=== PATIENT | male | born 1990 | race Caucasian/White ===

== ENCOUNTER → 2016-08-22 | Outpatient (CLI) | payer OTHER ==
[2016-08-22 09:22] VITALS: BMI 47.6
== END | disposition home or self-care (01) ==
LOC: MNTWWP 09:00
PROVIDERS: ATTEND Family Medicine
DX: E66.01 Morbid (severe) obesity due to excess calories (principal); Z68.43 Body mass index [BMI] 50.0-59.9, adult
CPT/HCPCS: 97802

== ENCOUNTER → 2016-10-09 | Outpatient (CLI) | payer OTHER ==
--- NOTE | 2016-10-09 16:55 | CONS ---
DATE OF CONSULTATION: 10/09/2016 This patient is a 26-year-old gentleman who has been evaluated in the sleep center for possible obstructive sleep apnea-hypopnea syndrome. HISTORY OF PRESENT ILLNES/SLEEP-WAKE EVALUATION: Patient's usual sleep schedule is from 10 p.m. to 9 a.m. Sometimes he has problems falling asleep. No TV in bedroom. He prefers to sleep on the back position. He has snoring, witnessed episodes of stopped breathing during sleep. He wakes up from sleep up to 5 times, with up to 3 episodes of nocturia. During the day he feel sleepiness. [place] Sleepiness Scale increased to 10. Past medical history is positive for: 1. Diabetes mellitus. 2. Acid reflux. 3. Seasonal allergies. PAST SURGICAL HISTORY: None. MEDICATIONS: 1. Metformin. 2. Omeprazole. 3. ( ) 4. Vitamin D3. 5. Vitamin E. SOCIAL HISTORY: Negative for smoking or using alcohol. REVIEW OF SYSTEMS: Excessive daytime sleepiness, multiple awakenings from sleep, sometimes swelling of the legs. No fevers. No double vision. No recent chest pain. No shortness of breath. No abdominal pain. No bleeding episodes. No blood in urine. No seizure episodes. FAMILY HISTORY: No specific family history. PHYSICAL EXAMINATION: GENERAL: This is a pleasant 26-year-old gentleman without distress. VITAL SIGNS: BP 134/99, HR 104, RR 20. Height 5 feet 7 inches. Weight 352. BMI 55.1. Neck 20-1/2 inches in circumference. Temperature 98.1. Oxygen saturation at room air 92%. HEENT: PERRLA, EOMI. Evaluation of oropharynx showed tongue protrudes midline; extremely low position of soft palate. Slight restriction of nasal breathing. NECK: Supple. No JVD. Thyroid is not palpable. LUNGS: Clear to percussion and to auscultation. Good air exchange. No wheezing or rhonchi. HEART: S1, S2 regular. No murmurs, gallops or rubs. ABDOMEN: Obese. EXTREMITIES: One plus bilateral ankle edema. CATALYST OPERATOR: Awake, alert, and oriented x3. Cranial nerves 2 to 7 intact. There is no fasciculation or atrophy noted. No focal deficits observed. IMPRESSION: 1. Snoring, witnessed episodes of stopped breathing during sleep, low position of soft palate, sleepiness, big neck; obstructive sleep apnea-hypopnea syndrome. 2. Obesity; body mass index of 55.1. 3. Diabetes mellitus. 4. Acid reflux. 5. Seasonal allergies. 6. Swelling of the legs. PLAN: 1. Polysomnography for evaluation of patient's breathing during sleep. 2. CPAP/BiPAP titration if sleep study confirms obstructive sleep apnea-hypopnea syndrome. 3. Preferable position during sleep on the side. 4. No driving if patient feels any sleepiness. Patient is aware of civil and criminal liability for unsafe driving. 5. I will see patient for follow-up visit to explain results of the testing and following plan. Thank you very much for referring this patient for consultation. Sincerely, Collin Gamino MD, PhD, FAASM. Diplomat of [place] [employer], Sleep Medicine Board by [place] [employer], [place] [employer]
== END ==
LOC: SLEEP 13:08
PROVIDERS: ATTEND Internal Medicine
DX: G47.33 Obstructive sleep apnea (adult) (pediatric) (principal); E66.9 Obesity, unspecified; E11.9 Type 2 diabetes mellitus without complications; K21.9 Gastro-esophageal reflux disease without esophagitis; M79.89 Other specified soft tissue disorders; J30.2 Other seasonal allergic rhinitis; Z68.43 Body mass index [BMI] 50.0-59.9, adult; Z79.899 Other long term (current) drug therapy
CPT/HCPCS: 99211

== ENCOUNTER 2017-01-19 20:53 | Emergency (ER) | payer OTHER ==
[2017-01-19 20:59] VITALS: PULSE 107
[2017-01-19] MEDS ORDERED: IBUPROFEN 600 MG STARTER PACK 4 TAB BTL PO STA (21:26)
[2017-01-19] MEDS ORDERED: PENICILLIN VK 500MG STARTER 4 TAB BTL PO STA (21:26)
--- NOTE | 2017-01-19 21:26 | ED ---
General Adult HPI - General Chief complaint: ENT Stated complaint: Jaw/Ear Pain Time Seen by Provider: 01/19/17 21:09 Source: patient, RN notes reviewed Mode of arrival: ambulatory Limitations: no limitations - History of Present Illness Initial comments: 26-year-old male presents emergency department with a chief complaint of right- sided dental pain. He states she's had it for the past week or so pronounced radiating to the year. Patient denies any radiation the jaw. Patient denies any cough cold with this. Patient denies any nausea vomiting. Patient states she was concerned due to the continued periods without that he should be evaluated. Patient states he does not have a dentist.Patient denies any recent fever, chills, shortness of breath, chest pain, back pain, abdominal pain, nausea vomiting, numbness or tingling, dysuria or hematuria, constipation or diarrhea, headaches or visual changes, or any other current symptoms. - Related Data Home Medications Medication Instructions Recorded Confirmed Cetirizine HCl 10 mg PO DAILY 01/19/17 01/19/17 Omeprazole [PriLOSEC] 20 mg PO AC-BRKFST 01/19/17 01/19/17 Previous Rx's Medication Instructions Recorded Ibuprofen [Motrin] 600 mg PO Q6HR PRN #20 tab 01/19/17 Penicillin V Potassium [Pen Vee K] 500 mg PO TID #40 tab 01/19/17 Allergies Allergy/AdvReac Type Severity Reaction Status Date / Time No Known Allergies Allergy Verified 01/19/17 20:59 Review of Systems ROS Statement: Those systems with pertinent positive or pertinent negative responses have been documented in the HPI. ROS Other: All systems not noted in ROS Statement are negative. Past Medical History Past Medical History: No Reported History History of Any Multi-Drug Resistant Organisms: None Reported Past Surgical History: Adenoidectomy, Tonsillectomy Past Psychological History: No Psychological Hx Reported Smoking Status: Never smoker Past Alcohol Use History: None Reported Past Drug Use History: None Reported General Exam Limitations: no limitations General appearance: alert, in no apparent distress Head exam: Present: atraumatic, normocephalic, normal inspection Eye exam: Present: normal appearance, PERRL, EOMI. Absent: scleral icterus, conjunctival injection, periorbital swelling ENT exam: Present: normal exam, mucous membranes moist, TM's normal bilaterally , other (Patient does appear to have a Winsett tooth coming in that is tender to touch) Neck exam: Present: normal inspection. Absent: tenderness, meningismus, lymphadenopathy Respiratory exam: Present: normal lung sounds bilaterally. Absent: respiratory distress, wheezes, rales, rhonchi, stridor Cardiovascular Exam: Present: regular rate, normal rhythm, normal heart sounds. Absent: systolic murmur, diastolic murmur, rubs, gallop, clicks Neurological exam: Present: alert, oriented X3 Psychiatric exam: Present: normal affect, normal mood Skin exam: Present: warm, dry, intact, normal color. Absent: rash Course Vital Signs 01/19/17 01/19/17 20:55 21:36 Temperature 99.5 F 99.3 F Pulse Rate 107 H 107 H Respiratory 20 18 Rate Blood Pressure 183/98 151/90 O2 Sat by Pulse 93 L 95 Oximetry Medical Decision Making - Medical Decision Making 26 yo female presents for dental pain. At this time we discussed we'll start him on antibiotics as well as Motrin 600. We did discuss return parameters and follow-up and all questions the patient. He stated that he understood and is in agreement the plan. This time patient will be discharged home. Disposition Clinical Impression: Pain, dental Disposition: HOME SELF-CARE Condition: Stable Instructions: Toothache (ED) Additional Instructions: Please use medication as discussed. Please follow up with family doctor if symptoms have not improved over the next two days. Please return to the emergency room if your symptoms increase or worsen or for any other concerns. Prescriptions: Ibuprofen [Motrin] 600 mg PO Q6HR PRN #20 tab PRN Reason: Pain Penicillin V Potassium [Pen Vee K] 500 mg PO TID #40 tab Referrals: Jairon Dominguez MD [Primary Care Provider] - 1-2 days Time of Disposition: 21:39
[2017-01-19 21:37] VITALS: BP 151/90; RESP 18; TEMP 99.3
== END 2017-01-19 21:51 | disposition home or self-care (01) ==
LOC: EC 20:53
DX: K08.89 Other specified disorders of teeth and supporting structures (principal); Z79.899 Other long term (current) drug therapy
CPT/HCPCS: 99282

== ENCOUNTER 2017-01-28 19:05 | Emergency (ER) | payer OTHER ==
[2017-01-28 19:15] VITALS: BP 161/100; PULSE 95; RESP 18; TEMP 97.1
--- NOTE | 2017-01-28 19:28 | ED ---
General Adult HPI - General Chief complaint: Dental/Oral Stated complaint: Dental Pain Time Seen by Provider: 01/28/17 19:15 Source: patient, RN notes reviewed Mode of arrival: ambulatory Limitations: no limitations - History of Present Illness Initial comments: Patient for 26-year-old male with significant past medical history for dental pain, presenting with increased dental pain over the last day. He does admit that he seen dentist and was also seen here in the emergency room approximately an days ago. Patient states that he was placed on amoxicillin. He states the dentist and placed him on azithromycin. States he finished the azithromycin yesterday. States he still expresses some pain to the right side of his upper and lower jaw. He states dentist advised him that there are 2 teeth that need to be pulled. Patient denies any drainage, discharge, or foul taste. Patient states that he's been using ibuprofen for pain with little relief of the symptoms. Patient denies any other complaints associated symptoms. Patient denies any recent fever, chills, shortness of breath, chest pain, back pain, abdominal pain, nausea or vomiting, numbness or tingling, dysuria or hematuria, constipation or diarrhea, headaches or visual changes, or any other complaints. - Related Data Home Medications Medication Instructions Recorded Confirmed Cetirizine HCl 10 mg PO DAILY 01/19/17 01/19/17 Omeprazole [PriLOSEC] 20 mg PO AC-BRKFST 01/19/17 01/19/17 Previous Rx's Medication Instructions Recorded Ibuprofen [Motrin] 600 mg PO Q6HR PRN #20 tab 01/19/17 Penicillin V Potassium [Pen Vee K] 500 mg PO TID #40 tab 01/19/17 Clindamycin HCl [Cleocin] 300 mg PO Q6HR 10 Days 01/28/17 Ibuprofen [Motrin] 800 mg PO Q6HR #30 tab 01/28/17 Allergies Allergy/AdvReac Type Severity Reaction Status Date / Time No Known Allergies Allergy Verified 01/28/17 19:14 Review of Systems ROS Statement: Those systems with pertinent positive or pertinent negative responses have been documented in the HPI. ROS Other: All systems not noted in ROS Statement are negative. Past Medical History Past Medical History: No Reported History History of Any Multi-Drug Resistant Organisms: None Reported Past Surgical History: Adenoidectomy, Tonsillectomy Past Psychological History: No Psychological Hx Reported Smoking Status: Never smoker Past Alcohol Use History: None Reported Past Drug Use History: None Reported General Exam - General Exam Comments Initial Comments: General: The patient is awake and alert, in no distress, and does not appear acutely ill. Eye: Pupils are equal, round and reactive to light, extra-ocular movements are intact. No nystagmus. There is normal conjunctiva bilaterally. No signs of icterus. Ears, nose, mouth and throat: There are moist mucous membranes and no oral lesions. Patient does have tenderness in the gum line of teeth #31. Also mild tenderness in gumline of tooth #2. There is no evidence for dental abscess. Uvula midline. Patient swallows without any difficulty. Neck: The neck is supple, there is no tenderness or JVD. Cardiovascular: There is a regular rate and rhythm. No murmur, rub or gallop is appreciated. Respiratory: Lungs are clear to auscultation, respirations are non-labored, breath sounds are equal. No wheezes, stridor, rales, or rhonchi. Musculoskeletal: Normal ROM, no tenderness. Strength 5/5. Sensation intact. Pulses equal bilaterally 2+. Neurological: A&O x 3. CN II-XII intact, There are no obvious motor or sensory deficits. Coordination appears grossly intact. Speech is normal. Skin: Skin is warm and dry and no rashes or lesions are noted. Psychiatric: Cooperative, appropriate mood & affect, normal judgment. Limitations: no limitations Course Vital Signs 01/28/17 19:12 Temperature 97.1 F L Pulse Rate 95 Respiratory 18 Rate Blood Pressure 161/100 O2 Sat by Pulse 97 Oximetry Medical Decision Making - Medical Decision Making Patient will be provided a prescription for an antibiotic but at this time he is been advised to hold this antibiotic as his Garcia 2 rounds there is no evidence for any infection but is advised that if there is any foul taste or increased pain that he should begin antibiotic once again. Patient will be given clindamycin has been on amoxicillin and azithromycin at this point. Patient will be given a prescription for ibuprofen 800 mg for his pain. He is also advised used Tylenol extra strength 2 tabs every 6 hours. Patient given a short prescription of steroids to help with inflammation. Patient is advised follow-up with his dentist over the next 2 days. Advised return here to the emergency room for any other concerns. Disposition Clinical Impression: Pain, dental Disposition: HOME SELF-CARE Condition: Good Instructions: Toothache (ED) Additional Instructions: Please use ibuprofen as prescribed along with Tylenol Extra Strength 500 mg 2 tabs every 6 hours as discussed. Please use steroid as prescribed. Please hold antibiotic and begin if there is any sign of infection. Please follow-up the dentist over the next 2 days. Please return to emergency room for any other concerns. Prescriptions: Clindamycin HCl [Cleocin] 300 mg PO Q6HR 10 Days Ibuprofen [Motrin] 800 mg PO Q6HR #30 tab Referrals: Jairon Dominguez MD [Primary Care Provider] - 1-2 days Time of Disposition: 19:27
== END 2017-01-28 19:34 | disposition home or self-care (01) ==
LOC: EC 19:05
DX: K08.89 Other specified disorders of teeth and supporting structures (principal); Z79.899 Other long term (current) drug therapy
CPT/HCPCS: 99282

== ENCOUNTER → 2017-01-29 | Outpatient (CLI) | payer OTHER ==
--- NOTE | 2017-01-29 15:14 | PN ---
DATE OF SERVICE: 01/29/17 26 year old gentleman has been followed in the sleep center to discuss results of the sleep studies, plan of the treatment and check the patient treatment for obstructive sleep apnea/hypopnea syndrome. Recently the patient has been diagnosed with extremely severe obstructive sleep apnea/hypopnea syndrome and I discussed results of diagnostic sleep study and CPAP titration with the patient in details. Presently, he was started on treatment with CPAP and ( ) for about 1 and one half months. He used it very well in the beginning but then for the last several weeks, he developed pain in his teeth and that does not let him to use equipment for the whole night. The patient still significantly better with CPAP, sleeps better. Feels better during the day. [place] sleep scale is only 2. I checked the patient's CPAP unit. The patient uses it for 32 nights and 29 nights for more than 4 hours. This is for a total period of having machine for about 1 1/2 months. Average usage 5.7 hours per night. Leak is significant up to 70 L per minute. Apnea/hypopnea index reading is only 2.8 which is a normal range. The patient using Jaqueline View full face mask and I believe sometimes opens his mouth and mask also moves a little bit during sleep. Medications: 1. Metformin. 2. Omeprazole. 3. Certrazine . 4. Vitamin D. 5. Vitamin E. During physical exam, the patient in no distress. Blood pressure 176/80. HR 96. RR 20. Weight 372. Temperature 98.0. Oxygen saturation on room air 92%. Oropharynx extremely low soft palate. Abdomen is obese. Extremities 1 to 2+ bilateral ankle edema. IMPRESSION: 1. Extremely severe obstructive sleep apnea/hypopnea syndrome benefitting from treatment. Apnea/hypopnea index 100.8 with oxygen desaturation to severely low 49.2%. On control with CPAP at 20 cm of water. 2. No significant periodic limb movements during the sleep study. 3. Obesity. 4. Diabetes mellitus. 5. Acid reflux. 6. Seasonal allergies. 7. Swelling of the legs. PLAN: 1. Continue treatment with CPAP every night for the whole night. 2. Losing weight. 3. Sleep hygiene with regular time in bed for at least eight hours. 4. No driving if feels any sleepiness. 5. Prescription for chin strap to prevent significant opening of mouth during sleep and subsequent leak. MTDD
== END | disposition home or self-care (01) ==
LOC: SLEEP 13:34
PROVIDERS: ATTEND Internal Medicine
DX: G47.33 Obstructive sleep apnea (adult) (pediatric) (principal); E66.9 Obesity, unspecified; E11.9 Type 2 diabetes mellitus without complications; K21.9 Gastro-esophageal reflux disease without esophagitis; J30.2 Other seasonal allergic rhinitis; M79.89 Other specified soft tissue disorders

== ENCOUNTER → 2017-04-20 | Outpatient (CLI) | payer OTHER ==
[2017-04-20 08:41] VITALS: BP 143/92; PULSE 93; RESP 16; TEMP 97.8; BMI 55.3
--- NOTE | 2017-04-20 11:07 | P.GSHP ---
History of Present Illness H&P Date: 04/20/17 Chief Complaint: Morbid Obesity BMI 55.4 26years old male with morbid obesity BMI 55.4, height 5 feet 7.5 inches, weight 162.74 kg presents for bariatric surgery consultation. Patient has elected to undergo laparoscopic RYGB vs sleeve. He has attended weight loss seminar. He has attempted nonsurgical weight loss with special diet. He has lost some weight but is unable to maintain sustained results. His comorbid conditions chronic venous stasis in bilateral lower extremities and obstructive sleep apnea on CPAP - Review of Systems Comment: Constitutional: Denies fever, weight loss or loss of appetite HEENT: No difficulty in vision or hearing. Denies dysphagia. Cardiovascular: Denies chest pain, palpitations, dizziness, shortness of breath. Respiratory: Recent upper respiratory tract infection with dry cough. Gastrointestinal: No recent change in bowel habits, no abdominal pain, no nausea or vomiting. Denies reflux symptoms and no postprandial right upper quadrant pain. Integumentary: Long-standing skin changes with intermittent skin breakdown in bilateral lower extremities. He currently has a LLE wrap Genitourinary: No urinary incontinence, hematuria or dysuria Neurologic: No seizures, denies weakness in upper or lower extremities Musculoskeletal: Occasional left knee pain. Psychiatry: No history of depression, no suicidal ideation, no anxiety or psychosis Social history: Umemployed. He lives with his mother Past Medical History Past Medical History: No Reported History, Asthma, Sleep Apnea/CPAP/BIPAP Additional Past Medical History / Comment(s): bilateral leg ulcers increase with activity. sleep apnea (uses c-pap machine) History of Any Multi-Drug Resistant Organisms: None Reported Past Surgical History: Adenoidectomy, Tonsillectomy Past Anesthesia/Blood Transfusion Reactions: No Reported Reaction Past Psychological History: No Psychological Hx Reported Smoking Status: Never smoker Past Alcohol Use History: Rare Past Drug Use History: None Reported - Past Family History Father Family Medical History: Myocardial Infarction ([place]) Additional Family Medical History / Comment(s): patient states his paternal grandfather also has suffered from one [place]. Mother Family Medical History: Hypertension Medications and Allergies Home Medications Medication Instructions Recorded Confirmed Type Ibuprofen [Motrin] 800 mg PO Q6HR #30 tab 01/28/17 04/20/17 Rx Allergies Allergy/AdvReac Type Severity Reaction Status Date / Time No Known Allergies Allergy Verified 04/20/17 08:29 Surgical - Exam Vital Signs Temp Pulse Resp BP 97.8 F 93 16 143/92 04/20/17 08:28 04/20/17 08:28 04/20/17 08:28 04/20/17 08:28 General: Patient is alert and oriented to time, place and person and cooperative with exam. He is not in acute distress. HEENT: No pallor, no icterus, no thyroid enlargement, no cervical lymphadenopathy. Chest: Bilateral equal breath sounds present. No wheezes, no crackles. Cardiovascular: Regular rate and rhythm. Abdomen: Soft, nontender, nondistended. No right upper quadrant tenderness. Integumentary: Bilateral lower extremity chronic venous dermatitis.Left lower extremity has a wrap Neurologic: Cranial nerves II-XII intact. Strength upper and lower extremities 5/5. No focal neurologic deficits. Gait is normal. Psychiatric: No anxiety or psychosis. No suicidal thoughts. Assessment and Plan (1) Morbid obesity due to excess calories Status: Acute (2) Morbid obesity with BMI of 50.0-59.9, adult Status: Acute (3) Obstructive sleep apnea on CPAP Status: Acute (4) Chronic cutaneous venous stasis ulcer Status: Acute Plan: 1. A detailed discussion was held about the risks, benefits and potential complications of laparoscopic sleeve gastrectomy and RYGB including bleeding, infection, anastomosis leak, stenosis, DVT and PE. Patient demonstrated understanding and willing to undergo the procedure. Patient was explained about high-protein liquid diet 2 weeks prior to surgery 2. Formal Dietitian consult pending. He was recommended to drink protein shakes for snacks. I discussed about reducing the portion size, limiting refined carbohydrates and sugar and increase protein intake 3. Patient scheduled for esophagogastroduodenoscopy with antral biopsy 4. Baseline lab work ordered. 12-lead EKG ordered 5. Recheck BP 6. Psychiatrist/ psychologist's recommendations pending 7. Review venous duplex studies
== END ==
LOC: BARWHC3 07:35
PROVIDERS: ATTEND Surgery
DX: E66.01 Morbid (severe) obesity due to excess calories (principal); G47.33 Obstructive sleep apnea (adult) (pediatric); I83.009 Varicose veins of unspecified lower extremity with ulcer of unspecified site; E88.81 Metabolic syndrome and other insulin resistance; D50.8 Other iron deficiency anemias; E44.1 Mild protein-calorie malnutrition; L97.909 Non-pressure chronic ulcer of unspecified part of unspecified lower leg with unspecified severity; Z68.43 Body mass index [BMI] 50.0-59.9, adult; Z79.899 Other long term (current) drug therapy
CPT/HCPCS: 99211

== ENCOUNTER 2017-05-06 07:52 | Day surgery (SDC) | payer OTHER ==
[2017-05-04 10:18] VITALS: BMI 56.0
[~2017-05-06 07:52] MED LIST: LACTATED RINGERS 1,000 ML IV SCH; LIDOCAINE 1% 20 ML VIAL (10MG/ML) FOR IV START INTRADERMA PRN
[2017-05-06 08:19] VITALS: TEMP 97.4
[2017-05-06] MEDS ORDERED: LACTATED RINGERS 1,000 ML IV ONE (08:20)
[2017-05-06] MEDS ORDERED: LIDOCAINE 1% INJ 10MG/ML (20 ML MDV) ONE (08:28)
[2017-05-06] MEDS ORDERED: PROPOFOL 10 MG/ML 20 ML VIAL IV ONE (08:28)
[2017-05-06] MEDS ORDERED: fentaNYL (PF) 50 MCG/ML 2 ML AMP ONE (08:28)
--- NOTE | 2017-05-06 08:49 | P.OP ---
Date of Procedure: 05/06/17 Preoperative Diagnosis: Morbid Obesity BMI 56.1 Obstructive sleep apnea Postoperative Diagnosis: Same Procedure(s) Performed: EGD with biopsy Anesthesia: ESTEFANÍA local Surgeon: Daphne Benavides Pathology: none sent Condition: stable Disposition: PACU Indications for Procedure: 26 years old male with obstructive sleep apnea and morbid obesity BMI of 56.1 presents for EGD Operative Findings: 1. Diffuse gastritis 2. LA grade 1 reflux esophagitis Description of Procedure: A timeout was performed to verify the correct patient and correct procedure. Patient was on continuous vitals and pulse ox monitoring throughout the procedure. She was placed in lateral decubitus position and an oral bite block was inserted. A well-lubricated Olympus upper endoscope was passed orally. The esophagus was intubated without difficulty. The vocal cords were visualised and protected at all times. The endoscope was passed beyond the pylorus into the first and second portion of the duodenum. No abnormality was noted in the duodenum mucosa. Two random biopsies were taken from the gastric antrum using cold biopsy forceps. The scope was then retroflexed. No hiatal hernia .No mass, active ulcer or bleeding stigmata noted within the gastric lumen. Mild diffuse gastritis The GE junction is measured at 36 cm from the incisors . LA grade 1 reflux esophagitis. Multiple random biopsy taken from distal esophagus. The endoscope was gradually withdrawn. No abnormality identified in the esophagus. Patient tolerated the procedure well and was taken to post anesthesia care unit in stable condition. FINAL DIAGNOSIS: 1. Diffuse gastritis 2. LA GRade 1 reflux esophagitis SPECIMEN: Antral biopsy GE junction biopsy
[2017-05-06] MEDS ORDERED: hydrALAZINE HCL 20 MG/ML 1 ML VIAL IVP ONE (08:58)
[2017-05-06 09:09] VITALS: RESP 18
[2017-05-06 09:39] VITALS: BP 160/80; PULSE 90
== END 2017-05-06 10:13 | disposition home or self-care (01) ==
LOC: ORWHC2ENDO 07:52
PROVIDERS: ATTEND Surgery
DX: K29.50 Unspecified chronic gastritis without bleeding (principal); K21.0 Gastro-esophageal reflux disease with esophagitis; E66.01 Morbid (severe) obesity due to excess calories; Z68.43 Body mass index [BMI] 50.0-59.9, adult; G47.33 Obstructive sleep apnea (adult) (pediatric); Z99.89 Dependence on other enabling machines and devices; J45.909 Unspecified asthma, uncomplicated; I83.009 Varicose veins of unspecified lower extremity with ulcer of unspecified site; L97.919 Non-pressure chronic ulcer of unspecified part of right lower leg with unspecified severity; L97.929 Non-pressure chronic ulcer of unspecified part of left lower leg with unspecified severity; I10 Essential (primary) hypertension; Z79.1 Long term (current) use of non-steroidal anti-inflammatories (NSAID)
CPT/HCPCS: 88305; 88312; 88342; 43239; J0360; J2001; J3010; J2704

== ENCOUNTER → 2017-07-29 | Outpatient (CLI) | payer OTHER ==
[2017-07-29 13:31] VITALS: BP 157/90; PULSE 109; RESP 16; TEMP 98.7; BMI 55.5
[2017-07-29 14:38] LABS: HCT 47.3 % (39.0-53.0); HGB 15.5 gm/dL (13.0-17.5); MCH 28.5 pg (25.0-35.0); MCHC 32.9 g/dL (31.0-37.0); MCV 86.6 fL (80.0-100.0); Mean Platelet Volume 6.4; Platelet Count 283 k/uL (150-450); RBC 5.46 m/uL (4.30-5.90); RDW 13.5 % (11.5-15.5); WBC 8.5 k/uL (3.8-10.6)
[2017-07-29 14:52] LABS: ALT 98 U/L (21-72); AST 60 U/L (17-59); Albumin 4.3 g/dL (3.5-5.0); Alkaline Phosphatase 56 U/L (38-126); Anion Gap 10 mmol/L; Blood Urea Nitrogen 12 mg/dL (9-20); Calcium 10.2 mg/dL (8.4-10.2); Carbon Dioxide 30 mmol/L (22-30); Chloride 102 mmol/L (98-107); Cholesterol 211 mg/dL (<200); Glucose 104 mg/dL (74-99); HDL Cholesterol 38 mg/dL (40-60); LDL Cholesterol,Calculated 124 mg/dL (0-99); Potassium 4.3 mmol/L (3.5-5.1); Sodium 142 mmol/L (137-145); Total Bilirubin 0.6 mg/dL (0.2-1.3); Total Protein 7.2 g/dL (6.3-8.2); Triglycerides 245 mg/dL (<150)
[2017-07-29 15:32] LABS: Appearance,Urine Clear (Clear); Bilirubin,Urine Negative (Negative); Blood,Urine Negative (Negative); Color,Urine Yellow; Glucose,Urine (UA) Negative (Negative); Ketones,Urine Negative (Negative); Leukocyte Esterase,Urine Negative (Negative); PH, Urine 8.5 (5.0-8.0); Protein,Urine Trace (Negative); Specific Gravity,Urine 1.018 (1.001-1.035); Urobilinogen,Urine <2.0 mg/dL (<2.0)
[2017-07-29 19:22] LABS: Iron Saturation 21.95 (15.00-50.00)
[2017-07-29 19:35] LABS: Folate, Serum 13.6 ng/mL
[2017-07-30 00:06] LABS: Hemoglobin A1C 5.2 % (4.0-6.0)
[2017-08-03 17:37] LABS: Anabasine Urine <2.0 ng/mL (<2.0)
--- NOTE | 2017-09-19 11:19 | P.HPBAR ---
Bariatric H&P - History & Physicial H&P Date: 07/29/17 History & Physicial: Visit/CC: Patient initial contact: Initial weight: 166.922 kg Initial weight in pounds: Height: Initial BMI: Last weight: Current weight: Current weight in pounds: Current BMI: [place] body weight (based on NIH guidelines): Excess body weight loss: The patient is a 26 year-old M who presents for Bariatric Assessment. DATE OF SERVICE: 07/29/2017 REASON FOR CONSULTATION: Initial bariatric evaluation. HISTORY OF PRESENT ILLNESS: Eric Lay is a 27-year-old male who comes in with long-standing morbid obesity. At height of 5 feet 7.25 inches, his ideal body weight is 158 pounds. His highest weight was 381 pounds. Today he comes in weighing 359 pounds. His body mass index is reduced from 58.9 to 55.6. He has lost 22 pounds otherwise 10% of his excess body weight loss. He is 201 pounds overweight. He comes in with severe gastroesophageal reflux disease and is looking to the gastric bypass. He reports a supportive family and friend at work including his aunt. He is currently in a support group on face [employer]. For diets, he has tried low-carb rehydrate diets including calorie counting. He has not tried prescription medications. The most weight lost he has experienced is anywhere between 20-30 pounds. He reports family stressors which was brought on his weight gain and he reports lifelong troubles with his weight since the age of [age] years old. He reports family members are mostly overweight. He denies any gallbladder disease in himself or his family. He denies any inflammatory bowel disease. No reports of colon or gastric or esophageal cancers. No report of deep venous thrombosis in himself or family. As a result of his obesity, he has developed obstructive sleep apnea as well as hypertension. His primary care provider is Dr. Dominguez. He denies any previous cardiac evaluation. He currently has a FIT BIT to help keep track of his diet and exercise. PAST MEDICAL HISTORY: 1. Morbid obesity. 2. Body mass index of 58.9 3. Osteoarthritis of the knees. 4. Osteoarthritis of the hips. 5. Osteoarthritis of the lower back. 6. Obstructive sleep apnea. 7. Hypertensive heart disease. 8. Gastroesophageal reflux disease 9. Asthma. 10. Bilateral leg ulcers. 11. Venous stasis disease of the lower extremities. PAST SURGICAL HISTORY: 1. Tonsillectomy. 2. Adenoidectomy 3. EGD HOME MEDICATIONS: 1. Motrin 2. Protonix ALLERGIES: Denies. SOCIAL HISTORY: No active tobacco use. FAMILY HISTORY: No family history of ulcerative colitis disease or Crohn's disease. Family history of morbid obesity. No lupus in the family. No reports of stomach or esophageal cancer. Family history of heart disease including myocardial infarction. REVIEW OF ORGAN SYSTEMS: CONSTITUTIONAL: At height of 5 feet 7.25 inches, his ideal body weight is 158 pounds. He comes in with 381 pounds. His body mass index was 58.9. He is currently 201 pounds overweight. HEENT: Denies any active troubles with vision or hearing. No troubles with swallowing. ENDOCRINE: No diabetes. No hypothyroidism. CARDIOVASCULAR: No reports of palpitations or heart attacks or chest pain. RESPIRATORY: Has daytime somnolence. Has asthma. GI: Denies any bright red blood per rectum. No diarrhea or constipation. Has severe gastroesophageal reflux disease. MUSCULOSKELETAL: Has lower back pain and joint pain. Has osteoarthritis of the knees. History of bilateral lower extremity edema. NEURO: No headaches. No seizure disorders. PSYCH: No depression or suicidal ideation. RHEUMATOLOGIC: No lupus. No rheumatoid arthritis. HEMATOLOGIC: Denies any abnormal bleeding or bruising. No personal history of DVTs. SKIN: No rash. No skin cancer. PHYSICAL EXAM: VITAL SIGNS: Height 5 foot 7.25 inches, weight 359 pounds. BMI 55.6 Vital Signs Temp 98.7 F 07/29/17 13:23 Pulse 109 H 07/29/17 13:23 Resp 16 07/29/17 13:23 BP 157/90 07/29/17 13:23 Pulse Ox GENERAL: Well-developed in no acute distress. HEENT: No scleral icterus. Extraocular movements grossly intact. Hears conversational speech. No nasal drainage. NECK: Supple without lymphadenopathy. CHEST: Nonlabored respirations with equal bilateral excursions. CARDIOVASCULAR: Tachycardic. Distal 2+ pulses. ABDOMEN: Obese, soft, nontender, nondistended. MUSCULOSKELETAL: No clubbing, cyanosis. Gross strength 5/5 distal lower extremities. 3+ pre-tibial pitting edema. NEURO: No focal or lateralizing signs. Cranial nerves 2 through 12 grossly within normal limits. PSYCH: Appropriate affect. Alert and oriented to person, place and time. SKIN: Good skin turgor. Well perfused. STUDIES: Previous EGD reviewed from April 2017 demonstrating gastritis including erosive esophagitis. ASSESSMENT: 1. Morbid obesity. 2. Body mass index of 58.9 3. Osteoarthritis of the knees. 4. Osteoarthritis of the hips. 5. Osteoarthritis of the lower back. 6. Obstructive sleep apnea. 7. Hypertensive heart disease. 8. Gastroesophageal reflux disease 9. Asthma. 10. Bilateral leg ulcers. 11. Venous stasis disease of the lower extremities. 12. Bilateral lower extremity swelling. 13. Family history of morbid obesity. 14. Family history of heart disease 15. Supraventricular tachycardia. PLAN: 1. Surgical options including a band, gastric bypass, sleeve gastrectomy were described in detail. Alternatives such as gastric balloon including duodenal switch were described. 2. The [place] bariatric surgical collaborative data and outcomes calculator were described with surgical options. 3. Recommend a bariatric metabolic panel to evaluate for micro- including macronutrient deficiencies. 4. For history of daytime somnolence, recommend evaluation and treatment for sleep apnea. 5. Dietary surveillance and counseling was reviewed, I have asked increased protein intake to at least 80 grams daily. 6. Will need cardiac risk assessment. 7. Recommend medical risk assessment. 8. Psych assessment per insurance guidelines. 9. Follow up upon completion of upper endoscopy. 10. Recommend 12-lead EKG with family history of hypertensive heart disease and supraventricular tachycardia. 11. Recommend upper endoscopy. Thank you for this consultation. Laboratory Last Values WBC 8.5 k/uL (3.8-10.6) 07/29/17 13:54 RBC 5.46 m/uL (4.30-5.90) 07/29/17 13:54 Hgb 15.5 gm/dL (13.0-17.5) 07/29/17 13:54 Hct 47.3 % (39.0-53.0) 07/29/17 13:54 MCV 86.6 fL (80.0-100.0) 07/29/17 13:54 MCH 28.5 pg (25.0-35.0) 07/29/17 13:54 MCHC 32.9 g/dL (31.0-37.0) 07/29/17 13:54 RDW 13.5 % (11.5-15.5) 07/29/17 13:54 Plt Count 283 k/uL (150-450) 07/29/17 13:54 Sodium 142 mmol/L (137-145) 07/29/17 13:54 Potassium 4.3 mmol/L (3.5-5.1) 07/29/17 13:54 Chloride 102 mmol/L (98-107) 07/29/17 13:54 Carbon Dioxide 30 mmol/L (22-30) 07/29/17 13:54 Anion Gap 10 mmol/L 07/29/17 13:54 BUN 12 mg/dL (9-20) 07/29/17 13:54 Creatinine 0.58 mg/dL (0.66-1.25) L 07/29/17 13:54 Est GFR (MDRD) Af Amer >60 (>60 ml/min/1.73 sqM) 07/29/17 13:54 Est GFR (MDRD) Non-Af >60 (>60 ml/min/1.73 sqM) 07/29/17 13:54 Glucose 104 mg/dL (74-99) H 07/29/17 13:[address] Glu mg/dL 103 07/29/17 13:54 Hemoglobin A1c 5.2 % (4.0-6.0) 07/29/17 13:54 Calcium 10.2 mg/dL (8.4-10.2) 07/29/17 13:54 Iron 72 ug/dL (65-175) 07/29/17 13:54 TIBC 328 ug/dL (228-460) 07/29/17 13:54 Iron Saturation 21.95 (15.00-50.00) 07/29/17 13:54 Ferritin 136.4 ng/mL (22.0-322.0) 07/29/17 13:54 Total Bilirubin 0.6 mg/dL (0.2-1.3) 07/29/17 13:54 AST 60 U/L (17-59) H 07/29/17 13:54 ALT 98 U/L (21-72) H 07/29/17 13:54 Alkaline Phosphatase 56 U/L (38-126) 07/29/17 13:54 Total Protein 7.2 g/dL (6.3-8.2) 07/29/17 13:54 Albumin 4.3 g/dL (3.5-5.0) 07/29/17 13:54 Triglycerides 245 mg/dL (<150) H 07/29/17 13:54 Cholesterol 211 mg/dL (<200) H 07/29/17 13:54 LDL Cholesterol, Calc 124 mg/dL (0-99) H 07/29/17 13:54 HDL Cholesterol 38 mg/dL (40-60) L 07/29/17 13:54 Vitamin B1 71 ug/L (38-122) 07/29/17 13:54 Vitamin B12 461.0 pg/mL (200.0-944.0) 07/29/17 13:54 Vitamin D 25-Hydroxy 13.0 ng/mL (30.0-100.0) L 07/29/17 13:54 Folate 13.6 ng/mL 07/29/17 13:54 TSH 0.895 mIU/L (0.465-4.680) 07/29/17 13:54 Urine Color Yellow 07/29/17 13:54 Urine Appearance Clear (Clear) 07/29/17 13:54 Urine pH 8.5 (5.0-8.0) H 07/29/17 13:54 Ur Specific [place] 1.018 (1.001-1.035) 07/29/17 13:54 Urine Protein Trace (Negative) H 07/29/17 13:54 Urine Glucose (UA) Negative (Negative) 07/29/17 13:54 Urine Ketones Negative (Negative) 07/29/17 13:54 Urine Blood Negative (Negative) 07/29/17 13:54 Urine Nitrite Negative (Negative) 07/29/17 13:54 Urine Bilirubin Negative (Negative) 07/29/17 13:54 Urine Urobilinogen <2.0 mg/dL (<2.0) 07/29/17 13:54 Ur Leukocyte Esterase Negative (Negative) 07/29/17 13:54 Urine Cotinine 22.3 ng/mL (<5.0) H 07/29/17 13:54 Urine Nicotine <2.0 ng/mL (<2.0) 07/29/17 13:54 Urine Anabasine <2.0 ng/mL (<2.0) 07/29/17 13:54 EKG EKG PERFORMED 07/29/17 13:54 Miscellaneous Test Heroin 07/29/17 13:56 Misc Test Result See Comment 07/29/17 13:56 He has elevated liver enzymes including elevated cholesterol. Vitamin D is low. Urine cotinine test is positive. Recommend ultrasound of the liver and gallbladder. May also benefit from repeat fasting cholesterol panel. Also recommend starting vitamin D supplement. When the complete tobacco exposure abstinence for at least 4 weeks with repeat. EKG also reviewed borderline normal and may benefit from cardiology risk assessment. Past Medical History Past Medical History: No Reported History, Asthma, Sleep Apnea/CPAP/BIPAP Additional Past Medical History / Comment(s): bilateral leg ulcers increase with activity. sleep apnea (uses c-pap machine) History of Any Multi-Drug Resistant Organisms: None Reported Past Surgical History: Adenoidectomy, Tonsillectomy Past Anesthesia/Blood Transfusion Reactions: No Reported Reaction Past Alcohol Use History: Rare - Past Family History Father Family Medical History: Myocardial Infarction ([place]) Additional Family Medical History / Comment(s): patient states his paternal grandfather also has suffered from one [place]. Mother Family Medical History: No Reported History Results - Labs 07/29/17 13:54 07/29/17 13:54 Bariatric Checklist Checklist: Plan: Checklist: EGD: 1. Hiatal hernia: 2. H. Pylori: HgbA1c: Vitamin D: Smoking: Never smoker Primary care physician referral: Jairon Dominguez Psychiatry clearance: Cardiology clearance: Sleep study: Diet journal: VTE risk score: VTE risk level: Rehab needs at discharge:
== END | disposition home or self-care (01) ==
LOC: BARWHC3 12:31
PROVIDERS: ATTEND Surgery Plastic and Reconstructive Surgery
DX: E66.01 Morbid (severe) obesity due to excess calories (principal); M17.0 Bilateral primary osteoarthritis of knee; M16.0 Bilateral primary osteoarthritis of hip; M47.816 Spondylosis without myelopathy or radiculopathy, lumbar region; G47.33 Obstructive sleep apnea (adult) (pediatric); I11.9 Hypertensive heart disease without heart failure; K21.9 Gastro-esophageal reflux disease without esophagitis; J45.909 Unspecified asthma, uncomplicated; I87.2 Venous insufficiency (chronic) (peripheral); I83.018 Varicose veins of right lower extremity with ulcer other part of lower leg; I83.028 Varicose veins of left lower extremity with ulcer other part of lower leg; L97.919 Non-pressure chronic ulcer of unspecified part of right lower leg with unspecified severity; L97.929 Non-pressure chronic ulcer of unspecified part of left lower leg with unspecified severity; I47.1 Supraventricular tachycardia; Z68.43 Body mass index [BMI] 50.0-59.9, adult; Z79.1 Long term (current) use of non-steroidal anti-inflammatories (NSAID); Z79.899 Other long term (current) drug therapy; Z02.83 Encounter for blood-alcohol and blood-drug test; E88.81 Metabolic syndrome and other insulin resistance; E44.0 Moderate protein-calorie malnutrition; E55.9 Vitamin D deficiency, unspecified
CPT/HCPCS: 84425; 80061; 80053; 82607; 82728; 82746; 83540; 83550; 84443; 85027; 81003; 82306; 80307; 83036; 93005; G0480 ×2; G0463; 80323; 80356; 99211

== ENCOUNTER 2019-05-11 19:02 | Emergency (ER) | payer OTHER ==
[2019-05-11] MEDS ORDERED: IBUPROFEN 600 MG TAB PO STA (20:19)
[2019-05-11] MEDS ORDERED: ACETAMINOPHEN TAB 500 MG TAB PO STA (20:19)
[2019-05-11] MEDS ORDERED: SODIUM CHLORIDE 0.9% 1,000 ML IV STA (20:19)
--- NOTE | 2019-05-11 20:23 | ED ---
Dizziness HPI - General Chief Complaint: Syncope Stated Complaint: Near syncope Time Seen by Provider: 05/11/19 19:06 Source: patient, EMS, RN notes reviewed, old records reviewed Mode of arrival: EMS - History of Present Illness Initial Comments: This is a 20-year-old male the ER with no significant medical history significant for morbid obesity vascular insufficiency or hypertension. But does not take any medications. No recent travel history sick contacts denying any pain or complaints. Near syncopal episode today felt his blood sugar might of been low blood sugar did not appear to be low but he was doing some physical exertionlightheadedness. He did not pass out in no headache chest pain shortness of breath or abdominal pain. Patient presents ER at that point does notice fever denies cough or congestion or runny nose no nausea vomiting or diarrhea as of late no known sick contacts. He was of family republican a barbecue over the weekend but no one else was sick MD Complaint: dizziness, near syncope (All ambulating) -: minutes(s) Timing: sudden onset Description: near-syncope History of Same: Yes History of Trauma: No Severity: mild Improves With: remaining still Worsens With: exertion Associated Symptoms: other (Symptoms resolved) - Related Data Home Medications Medication Instructions Recorded Confirmed Acetaminophen Tab [Tylenol Tab] 650 mg PO Q4H PRN 05/11/19 05/11/19 Esomeprazole Magnesium [NexIUM 20 mg PO DAILY PRN 05/11/19 05/11/19 24Hr] Allergies Allergy/AdvReac Type Severity Reaction Status Date / Time No Known Allergies Allergy Verified 05/11/19 19:30 Review of Systems ROS Statement: Those systems with pertinent positive or pertinent negative responses have been documented in the HPI. ROS Other: All systems not noted in ROS Statement are negative. Past Medical History Past Medical History: Asthma, Sleep Apnea/CPAP/BIPAP Additional Past Medical History / Comment(s): bilateral leg ulcers increase with activity. sleep apnea (uses c-pap machine) History of Any Multi-Drug Resistant Organisms: None Reported Past Surgical History: Adenoidectomy, Tonsillectomy Past Anesthesia/Blood Transfusion Reactions: No Reported Reaction Past Psychological History: No Psychological Hx Reported Smoking Status: Never smoker Past Alcohol Use History: Rare Past Drug Use History: None Reported - Past Family History Father Family Medical History: Myocardial Infarction ([place]) Additional Family Medical History / Comment(s): patient states his paternal grandfather also has suffered from one [place]. Mother Family Medical History: No Reported History General Exam General appearance: alert, in no apparent distress, obese Head exam: Present: atraumatic, normocephalic, normal inspection Eye exam: Present: normal appearance, PERRL, EOMI. Absent: scleral icterus, conjunctival injection, periorbital swelling ENT exam: Present: normal exam, mucous membranes moist Neck exam: Present: normal inspection. Absent: tenderness, meningismus, lymphadenopathy Respiratory exam: Present: normal lung sounds bilaterally. Absent: respiratory distress, wheezes, rales, rhonchi, stridor Cardiovascular Exam: Present: normal rhythm, tachycardia, normal heart sounds. Absent: systolic murmur, diastolic murmur, rubs, gallop, clicks GI/Abdominal exam: Present: soft, normal bowel sounds. Absent: distended, tenderness, guarding, rebound, rigid Extremities exam: Present: normal inspection, full ROM, normal capillary refill. Absent: tenderness, pedal edema, joint swelling, calf tenderness Back exam: Present: normal inspection Neurological exam: Present: alert, oriented X3, CN II-XII intact Psychiatric exam: Present: normal affect, normal mood Skin exam: Present: warm, dry, intact, normal color. Absent: rash Course Vital Signs 05/11/19 19:03 Temperature 100.5 F H Pulse Rate 122 H Respiratory 20 Rate Blood Pressure 159/112 O2 Sat by Pulse 98 Oximetry - Reevaluation(s) Reevaluation #1: 05/11/19 22:01 Record is reviewed Reevaluation #2: 05/11/19 22:01 Patient feeling well no recurrent syncope or no episodes of syncope here in the ER Medical Decision Making - Medical Decision Making 28 male the ER presents today for evaluation of near syncopal and some dehydration and fever. Mild dehydration patient given hydration here in ER fever control feeling well can be discharged - Lab Data Result diagrams: 05/11/19 21:08 05/11/19 21:08 Lab Results 05/11/19 05/11/19 05/11/19 Range/Units 21:08 21:08 21:08 WBC 10.3 (3.8-10.6) k/uL RBC 5.03 (4.30-5.90) m/uL Hgb 14.7 (13.0-17.5) gm/dL Hct 44.2 (39.0-53.0) % MCV 88.0 (80.0-100.0) fL MCH 29.2 (25.0-35.0) pg MCHC 33.2 (31.0-37.0) g/dL RDW 13.8 (11.5-15.5) % Plt Count 315 (150-450) k/uL Neutrophils % 68 % Lymphocytes % 16 % Monocytes % 8 % Eosinophils % 2 % Basophils % 3 % Neutrophils # 7.0 (1.3-7.7) k/uL Lymphocytes # 1.7 (1.0-4.8) k/uL Monocytes # 0.8 (0-1.0) k/uL Eosinophils # 0.2 (0-0.7) k/uL Basophils # 0.3 H (0-0.2) k/uL Sodium 139 (137-145) mmol/L Potassium 4.6 (3.5-5.1) mmol/L Chloride 103 (98-107) mmol/L Carbon Dioxide 30 (22-30) mmol/L Anion Gap 6 mmol/L BUN 13 (9-20) mg/dL Creatinine 0.55 L (0.66-1.25) mg/dL Est GFR (CKD-EPI)AfAm >90 (>60 ml/min/1.73 sqM) Est GFR (CKD-EPI)NonAf >90 (>60 ml/min/1.73 sqM) Glucose 118 H (74-99) mg/dL Calcium 9.3 (8.4-10.2) mg/dL Total Bilirubin 0.4 (0.2-1.3) mg/dL AST 57 (17-59) U/L ALT 68 (21-72) U/L Alkaline Phosphatase 72 (38-126) U/L Total Protein 7.8 (6.3-8.2) g/dL Albumin 4.2 (3.5-5.0) g/dL Urine Color Yellow Urine Appearance Clear (Clear) Urine pH 6.0 (5.0-8.0) Ur Specific [place] 1.024 (1.001-1.035) Urine Protein Negative (Negative) Urine Glucose (UA) Negative (Negative) Urine Ketones Negative (Negative) Urine Blood Negative (Negative) Urine Nitrite Negative (Negative) Urine Bilirubin Negative (Negative) Urine Urobilinogen <2.0 (<2.0) mg/dL Ur Leukocyte Esterase Negative (Negative) - Radiology Data Radiology results: report reviewed (Chest x-rays negative for acute disease), image reviewed Disposition Clinical Impression: Near syncope, Morbid obesity due to excess calories, Morbid obesity with BMI of 50.0-59.9, adult, Fever Disposition: HOME SELF-CARE Condition: Good Instructions (If sedation given, give patient instructions): Near Syncope (ED), Fever in Adults (ED) Is patient prescribed a controlled substance at d/c from ED?: No Referrals: Jairon Dominguez MD [Primary Care Provider] - 1-2 days
--- NOTE | 2019-05-11 20:52 | XR ---
EXAMINATION TYPE: XR chest 2V DATE OF EXAM: 05/11/2019 COMPARISON: NONE HISTORY: Fever TECHNIQUE: Frontal and lateral views of the chest are obtained. FINDINGS: Heart and mediastinum are normal. Lungs are clear. Diaphragm is normal. Bony thorax appear s normal. There are chest leads. IMPRESSION: Normal chest.
[2019-05-11 21:21] LABS: Appearance,Urine Clear (Clear); Basophils # (A) 0.3 k/uL (0-0.2); Basophils % (A) 3 %; Bilirubin,Urine Negative (Negative); Blood,Urine Negative (Negative); Color,Urine Yellow; Eosinophils # (A) 0.2 k/uL (0-0.7); Eosinophils % (A) 2 %; Glucose,Urine (UA) Negative (Negative); HCT 44.2 % (39.0-53.0); HGB 14.7 gm/dL (13.0-17.5); Ketones,Urine Negative (Negative); Leukocyte Esterase,Urine Negative (Negative); Lymphocytes # (A) 1.7 k/uL (1.0-4.8); Lymphocytes % (A) 16 %; MCH 29.2 pg (25.0-35.0); MCHC 33.2 g/dL (31.0-37.0); Mean Platelet Volume 5.7; Monocytes # (A) 0.8 k/uL (0-1.0); Monocytes % (A) 8 %; Neutrophils % (A) 68 %; Nitrite,Urine Negative (Negative); Platelet Count 315 k/uL (150-450); Protein,Urine Negative (Negative); RBC 5.03 m/uL (4.30-5.90); RDW 13.8 % (11.5-15.5); Specific Gravity,Urine 1.024 (1.001-1.035); Urobilinogen,Urine <2.0 mg/dL (<2.0); WBC 10.3 k/uL (3.8-10.6)
[2019-05-11 21:30] LABS: ALT 68 U/L (21-72); AST 57 U/L (17-59); African American GFR (CKD) >90 (>60 ml/min/1.73 sqM); Albumin 4.2 g/dL (3.5-5.0); Alkaline Phosphatase 72 U/L (38-126); Anion Gap 6 mmol/L; Blood Urea Nitrogen 13 mg/dL (9-20); Calcium 9.3 mg/dL (8.4-10.2); Carbon Dioxide 30 mmol/L (22-30); Chloride 103 mmol/L (98-107); Glucose 118 mg/dL (74-99); Potassium 4.6 mmol/L (3.5-5.1); Sodium 139 mmol/L (137-145); Total Bilirubin 0.4 mg/dL (0.2-1.3); Total Protein 7.8 g/dL (6.3-8.2)
[2019-05-11 22:29] VITALS: BP 156/96
[2019-05-11 22:30] VITALS: PULSE 96; RESP 24; TEMP 98.7
== END 2019-05-11 22:30 | disposition home or self-care (01) ==
LOC: EC 19:02
DX: E66.01 Morbid (severe) obesity due to excess calories (principal); R55 Syncope and collapse; R50.9 Fever, unspecified; E86.0 Dehydration; R00.0 Tachycardia, unspecified; G47.30 Sleep apnea, unspecified; L97.929 Non-pressure chronic ulcer of unspecified part of left lower leg with unspecified severity; L97.919 Non-pressure chronic ulcer of unspecified part of right lower leg with unspecified severity; Z68.43 Body mass index [BMI] 50.0-59.9, adult; Z99.89 Dependence on other enabling machines and devices; Z82.49 Family history of ischemic heart disease and other diseases of the circulatory system
CPT/HCPCS: 36415; 71046; 80053; 81003; 85025; 87040; 87502; 96360; 99285

== ENCOUNTER 2020-04-16 10:00 | Observation (INO) | payer OTHER ==
[2020-04-16] MEDS ORDERED: SODIUM CHLORIDE 0.9% 1,000 ML IV STA (11:03)
--- NOTE | 2020-04-16 11:24 | ED ---
General Adult HPI - General Chief complaint: Recheck/Abnormal Lab/Rx Stated complaint: sent for abn chest xray Time Seen by Provider: 04/16/20 10:47 Source: patient, RN notes reviewed, old records reviewed Mode of arrival: ambulatory Limitations: no limitations - History of Present Illness Initial comments: This Patient is a 29-year-old male with a history of asthma hypertension sleep apnea. Presents emergency department today with complaints of shortness of breath and dry cough since Thursday. He denies any specific chest pain. He states that he has had no fever or chills noted nonproductive cough. He reports he went to urgent care who did a chest x-ray which showed he had a questionably enlarged heart with the area of consolidation behind the heart. He states that he has bilateral leg ulcers. He denies any significant change in those at this time. - Related Data Home Medications Medication Instructions Recorded Confirmed Acetaminophen Tab [Tylenol Tab] 650 mg PO Q4H PRN 05/11/19 05/11/19 Esomeprazole Magnesium [NexIUM 20 mg PO DAILY PRN 05/11/19 05/11/19 24Hr] Allergies Allergy/AdvReac Type Severity Reaction Status Date / Time No Known Allergies Allergy Verified 04/16/20 10:23 Review of Systems ROS Statement: Those systems with pertinent positive or pertinent negative responses have been documented in the HPI. ROS Other: All systems not noted in ROS Statement are negative. Past Medical History Past Medical History: Asthma, Hypertension, Sleep Apnea/CPAP/BIPAP Additional Past Medical History / Comment(s): bilateral leg ulcers increase with activity. sleep apnea (uses c-pap machine) History of Any Multi-Drug Resistant Organisms: None Reported Past Surgical History: Adenoidectomy, Tonsillectomy Past Anesthesia/Blood Transfusion Reactions: No Reported Reaction Past Psychological History: No Psychological Hx Reported Smoking Status: Never smoker Past Alcohol Use History: Rare Past Drug Use History: None Reported - Past Family History Father Family Medical History: Myocardial Infarction ([place]) Additional Family Medical History / Comment(s): patient states his paternal grandfather also has suffered from one [place]. Mother Family Medical History: No Reported History General Exam - General Exam Comments Initial Comments: 29-year-old male. Alert and oriented 3. Patient is approximately 90-91% on room air. Somewhat tachycardic at 115 beats were minute. Patient is morbidly obese. Limitations: no limitations General appearance: alert, in no apparent distress Head exam: Present: atraumatic, normocephalic, normal inspection Eye exam: Present: normal appearance, PERRL, EOMI. Absent: scleral icterus, conjunctival injection, periorbital swelling ENT exam: Present: normal exam, mucous membranes moist Neck exam: Present: normal inspection. Absent: tenderness, meningismus, lymphadenopathy Respiratory exam: Present: normal lung sounds bilaterally. Absent: respiratory distress, wheezes, rales, rhonchi, stridor Cardiovascular Exam: Present: regular rate, normal rhythm, tachycardia, normal heart sounds. Absent: systolic murmur, diastolic murmur, rubs, gallop, clicks GI/Abdominal exam: Present: soft, normal bowel sounds. Absent: distended, tenderness, guarding, rebound, rigid Extremities exam: Present: normal inspection, full ROM, normal capillary refill, pedal edema (Chronic venous ulcers bilaterally.). Absent: tenderness, joint swelling, calf tenderness Back exam: Present: normal inspection Neurological exam: Present: alert, oriented X3, CN II-XII intact Psychiatric exam: Present: normal affect, normal mood Skin exam: Present: warm, dry, intact, normal color. Absent: rash Course Vital Signs 04/16/20 04/16/20 10:19 13:10 Temperature 98.4 F Pulse Rate 104 H 99 Respiratory 18 18 Rate Blood Pressure 165/131 112/78 O2 Sat by Pulse 92 L 98 Oximetry Medical Decision Making - Medical Decision Making 29-year-old male presents with hypoxia, cough shortness of breath worsening since Thursday. Patient is morbidly obese does state he has been noncompliant with his hypertension indications and metformin. Patient does have evidence of bilateral lower extremity venous stasis reports is chronic. Patient did have mildly elevated d-dimer of 0.07. Patient had CT angios which is concerned for possible bilateral small P lower lobe PEs. Patient started on high intensity heparin. Patient will be admitted to [facility] physician consult to pulmonology. - Lab Data Result diagrams: 04/16/20 11:39 04/16/20 11:39 Lab Results 04/16/20 04/16/20 04/16/20 Range/Units 11:39 11:39 11:39 WBC 7.8 (3.8-10.6) k/uL RBC 5.34 (4.30-5.90) m/uL Hgb 14.1 (13.0-17.5) gm/dL Hct 45.8 (39.0-53.0) % MCV 85.8 (80.0-100.0) fL MCH 26.4 (25.0-35.0) pg MCHC 30.8 L (31.0-37.0) g/dL RDW 14.5 (11.5-15.5) % Plt Count 276 (150-450) k/uL Neutrophils % 71 % Lymphocytes % 16 % Monocytes % 9 % Eosinophils % 2 % Basophils % 0 % Neutrophils # 5.5 (1.3-7.7) k/uL Lymphocytes # 1.3 (1.0-4.8) k/uL Monocytes # 0.7 (0-1.0) k/uL Eosinophils # 0.1 (0-0.7) k/uL Basophils # 0.0 (0-0.2) k/uL Hypochromasia Slight PT 10.7 (9.0-12.0) sec INR 1.0 (<1.2) APTT 26.4 (22.0-30.0) sec D-Dimer 0.70 H (<0.60) mg/L FEU Sodium 139 (137-145) mmol/L Potassium 4.5 (3.5-5.1) mmol/L Chloride 103 (98-107) mmol/L Carbon Dioxide 32 H (22-30) mmol/L Anion Gap 4 mmol/L BUN 12 (9-20) mg/dL Creatinine 0.48 L (0.66-1.25) mg/dL Est GFR (CKD-EPI)AfAm >90 (>60 ml/min/1.73 sqM) Est GFR (CKD-EPI)NonAf >90 (>60 ml/min/1.73 sqM) Glucose 123 H (74-99) mg/dL Calcium 9.0 (8.4-10.2) mg/dL Magnesium 1.6 (1.6-2.3) mg/dL Total Bilirubin 0.6 (0.2-1.3) mg/dL AST 44 (17-59) U/L ALT 44 (4-49) U/L Alkaline Phosphatase 61 (38-126) U/L Troponin I (0.000-0.034) ng/mL NT-Pro-B Natriuret Pep pg/mL Total Protein 7.0 (6.3-8.2) g/dL Albumin 3.8 (3.5-5.0) g/dL 04/16/20 04/16/20 Range/Units 11:39 11:39 WBC (3.8-10.6) k/uL RBC (4.30-5.90) m/uL Hgb (13.0-17.5) gm/dL Hct (39.0-53.0) % MCV (80.0-100.0) fL MCH (25.0-35.0) pg MCHC (31.0-37.0) g/dL RDW (11.5-15.5) % Plt Count (150-450) k/uL Neutrophils % % Lymphocytes % % Monocytes % % Eosinophils % % Basophils % % Neutrophils # (1.3-7.7) k/uL Lymphocytes # (1.0-4.8) k/uL Monocytes # (0-1.0) k/uL Eosinophils # (0-0.7) k/uL Basophils # (0-0.2) k/uL Hypochromasia PT (9.0-12.0) sec INR (<1.2) APTT (22.0-30.0) sec D-Dimer (<0.60) mg/L FEU Sodium (137-145) mmol/L Potassium (3.5-5.1) mmol/L Chloride (98-107) mmol/L Carbon Dioxide (22-30) mmol/L Anion Gap mmol/L BUN (9-20) mg/dL Creatinine (0.66-1.25) mg/dL Est GFR (CKD-EPI)AfAm (>60 ml/min/1.73 sqM) Est GFR (CKD-EPI)NonAf (>60 ml/min/1.73 sqM) Glucose (74-99) mg/dL Calcium (8.4-10.2) mg/dL Magnesium (1.6-2.3) mg/dL Total Bilirubin (0.2-1.3) mg/dL AST (17-59) U/L ALT (4-49) U/L Alkaline Phosphatase (38-126) U/L Troponin I <0.012 (0.000-0.034) ng/mL NT-Pro-B Natriuret Pep 101 pg/mL Total Protein (6.3-8.2) g/dL Albumin (3.5-5.0) g/dL - Radiology Data Radiology results: report reviewed EKG shows normal sinus rhythm septal infarct age undetermined. Abnormal EKG. Ventricular rate of 93 bpm. Verbal is 160 ms. Respirations 82 ms. QT QTc is 3:30/420 ms. Suboptimal study. Small segmental and subsegmental lower lung pulmonary emboli felt present. No CT evidence for RV strain. Mild cardiomegaly for patient's age. Disposition Clinical Impression: Obesity, Pulmonary embolism, Venous stasis Disposition: ADMITTED IP TO THIS HOSP Condition: Stable Is patient prescribed a controlled substance at d/c from ED?: No Referrals: Jairon Dominguez MD [Primary Care Provider] - 1-2 days Time of Disposition: 15:05
[2020-04-16 11:58] LABS: Basophils % (A) 0 %; Eosinophils # (A) 0.1 k/uL (0-0.7); Eosinophils % (A) 2 %; HCT 45.8 % (39.0-53.0); HGB 14.1 gm/dL (13.0-17.5); Hypochromasia Slight; Lymphocytes # (A) 1.3 k/uL (1.0-4.8); Lymphocytes % (A) 16 %; MCH 26.4 pg (25.0-35.0); MCHC 30.8 g/dL (31.0-37.0); MCV 85.8 fL (80.0-100.0); Mean Platelet Volume 6.6; Monocytes # (A) 0.7 k/uL (0-1.0); Monocytes % (A) 9 %; Neutrophils # (A) 5.5 k/uL (1.3-7.7); Neutrophils % (A) 71 %; Platelet Count 276 k/uL (150-450); RBC 5.34 m/uL (4.30-5.90); RDW 14.5 % (11.5-15.5); WBC 7.8 k/uL (3.8-10.6)
[2020-04-16 12:08] LABS: ALT 44 U/L (4-49); AST 44 U/L (17-59); African American GFR (CKD) >90 (>60 ml/min/1.73 sqM); Albumin 3.8 g/dL (3.5-5.0); Alkaline Phosphatase 61 U/L (38-126); Anion Gap 4 mmol/L; Blood Urea Nitrogen 12 mg/dL (9-20); Carbon Dioxide 32 mmol/L (22-30); Chloride 103 mmol/L (98-107); Glucose 123 mg/dL (74-99); Magnesium 1.6 mg/dL (1.6-2.3); Non-African American GFR(CKD) >90 (>60 ml/min/1.73 sqM); Potassium 4.5 mmol/L (3.5-5.1); Sodium 139 mmol/L (137-145); Total Bilirubin 0.6 mg/dL (0.2-1.3)
[2020-04-16 12:09] LABS: Partial Thromboplastin Time 26.4 sec (22.0-30.0); Prothrombin Time 10.7 sec (9.0-12.0)
[2020-04-16 12:30] LABS: D-Dimer 0.7 mg/L FEU (<0.60)
--- NOTE | 2020-04-16 12:54 | XR ---
EXAMINATION TYPE: XR chest 2V DATE OF EXAM: 04/16/2020 COMPARISON: 05/11/2019 INDICATION: Chest pain,cough TECHNIQUE: Frontal and lateral views of the chest are obtained. FINDINGS: The heart size is normal. The pulmonary vasculature is normal. The lungs are clear. IMPRESSION: 1. No acute pulmonary process.
[2020-04-16] MEDS ORDERED: methylPREDNISolone SOD SUCCI 125 MG/2 ML VIAL IV STA (13:14)
--- NOTE | 2020-04-16 14:14 | CT ---
EXAMINATION TYPE: CT chest angio for PE DATE OF EXAM: 04/16/2020 COMPARISON: Chest x-ray earlier today HISTORY: Cough, Abn CXR, elevated d-dimer. CT DLP: 1148.6 mGycm. Automated Exposure Control for Dose Reduction was Utilized. CONTRAST: CTA scan of the thorax is performed with IV Contrast, patient injected with 100 mL of Isovue 370, pul monary embolism protocol. MIP Images are created on CT scanner and reviewed. FINDINGS: LUNGS: Exam noticed suboptimal as patient unable to hold breath. This limits evaluation for subcentim eter nodules. Lungs are grossly clear. No suspicious focal consolidation. No pleural effusion or pneu mothorax noted bilaterally. MEDIASTINUM: There is suboptimal study with near equal contrast in right and left heart systems and s ome heterogeneity in the distal branches. There is suspected small segmental pulmonary emboli in the bilateral lower lobes with subsegmental extension for reference in the right lower lobe axial images 69 and 70. 4 reference medial segment the left lower lobe branch images 67 and 68. For reference segm ental left lower lobe branch with subsegmental extension axial image 70 posteriorly. There are no gre ater than 1 cm hilar or mediastinal lymph nodes. No significant pericardial effusion is seen. No ri ght ventricular dilatation. Heart size is mildly enlarged somewhat prominent for patient's age. OTHER: No additional significant abnormality is seen. IMPRESSION: Suboptimal study. Small segmental and subsegmental lower lung pulmonary emboli felt prese nt. No CT evidence for RV strain. Mild cardiomegaly somewhat prominent for patient's age. Results discussed with ordering ER physician assistant community manager via telephone at time of dictation.
[2020-04-16] MEDS ORDERED: HEPARIN SODIUM,PORCINE 10,000 UNIT/ML 1 ML VIAL IV ONE (14:46)
[2020-04-16] MEDS ORDERED: HEPARIN SODIUM,PORCINE 5,000 UNIT/ML 1 ML VIAL IV PRN (14:46)
[2020-04-16] MEDS ORDERED: MORPHINE SULFATE 4 MG/ML SYRINGE IV PRN (15:06)
[2020-04-16] MEDS ORDERED: IBUPROFEN 400 MG TAB PO PRN (15:06)
[2020-04-16] MEDS ORDERED: KETOROLAC 15 MG/ML 1 ML VIAL IVP PRN (15:06)
[2020-04-16] MEDS ORDERED: ONDANSETRON 4 MG/2 ML VIAL IVP PRN (15:06)
[2020-04-16] MEDS ORDERED: ACETAMINOPHEN TAB 325 MG TAB PO PRN (15:06)
[2020-04-16] MEDS ORDERED: NALOXONE 0.4 MG/ML 1 ML VIAL IV PRN (15:06)
[2020-04-16] MEDS: HEPARIN SOD,PORK IN 0.45% NACL 25,000 UNIT in 0.45% NACL 1 250ML.BAG IV SCH ×2 (15:12→23:38)
[2020-04-16] MEDS: SODIUM CHLORIDE 0.9% 1,000 ML IV SCH ×2 (15:16→23:43)
--- NOTE | 2020-04-16 18:21 | P.HPIM ---
History of Present Illness H&P Date: 04/16/20 29-year-old male with PMH of hypertension, MAX, asthma presents ED for cough and shortness of breath. Patient states that he had a dry cough that started on Thursday that progressively got worse. He was sent to his PCP by his employer that order chest x-ray. Patient was sent to the ED for abnormal chest x-ray. Patient reports chronic swelling in his lower extremity, left greater than right. He denies any chest pain. He denies any headache, nausea or vomiting, fever or chills, changes in urination or bowel habits. No changes in appetite or weight. He denies any dizziness, numbness/weakness/tingling of the extremities. In the ED, his vital signs were stable except for elevated BP of 164/99 and pulse of 102. CBC was unremarkable. D-dimer was elevated at 0.7. CMP showed bicarb of 32, creatinine 0.48, glucose 123. Troponin was less than 0.012. BNP was 101. Chest x-ray was negative. CTA chest showed small segmental and subsegmental lower lung PE with no evidence of RV strain. Cardiomegaly was also noted. Patient is admitted for PE and pulmonology consult. Review of Systems Pertinent positives and negatives as discussed in HPI, a complete review of systems was performed and all other systems are negative. Past Medical History Past Medical History: Asthma, Hypertension, Sleep Apnea/CPAP/BIPAP Additional Past Medical History / Comment(s): bilateral leg ulcers increase with activity. sleep apnea (uses c-pap machine) History of Any Multi-Drug Resistant Organisms: None Reported Past Surgical History: Adenoidectomy, Tonsillectomy Past Anesthesia/Blood Transfusion Reactions: No Reported Reaction Past Psychological History: No Psychological Hx Reported Smoking Status: Never smoker Past Alcohol Use History: Rare Past Drug Use History: None Reported - Past Family History Father Family Medical History: Myocardial Infarction ([place]) Additional Family Medical History / Comment(s): patient states his paternal grandfather also has suffered from one [place]. Mother Family Medical History: No Reported History Medications and Allergies Home Medications Medication Instructions Recorded Confirmed Type No Known Home Medications 04/16/20 04/16/20 History Allergies Allergy/AdvReac Type Severity Reaction Status Date / Time No Known Allergies Allergy Verified 04/16/20 15:29 Physical Exam Vitals: Vital Signs Temp Pulse Resp BP Pulse Ox 04/16/20 17:53 98.4 F 96 20 126/93 94 L 04/16/20 17:02 96 20 126/93 94 L 04/16/20 15:17 102 H 20 164/99 94 L 04/16/20 13:10 99 18 112/78 98 04/16/20 10:19 98.4 F 104 H 18 165/131 92 L Intake and Output 04/16/20 04/16/20 04/16/20 06:59 14:59 22:59 Other: Weight 196.405 kg General: [non toxic], [no distress], [appears at stated age], morbidly obese Derm: [warm], [dry], chronic venous stasis skin changes Head: [atraumatic], [normocephalic], [symmetric] Eyes: [EOMI], [no lid lag], [anicteric sclera] Mouth: [no lip lesion], [mucus membranes moist] Cardiovascular: [S1S2 reg], [no murmur] Lungs: [Decreased breath sounds bilateral], [no rhonchi, no rales] , [no accessory muscle use] Abdominal: [soft], [ nontender to palpation], [no guarding], [no appreciable organomegaly] Ext: [no gross muscle atrophy], [3+ lower extremity edema], [no contractures] Neuro: [no focal neuro deficits] Psych: [Alert], [oriented], [appropriate affect] Results CBC & Chem 7: 04/16/20 11:39 04/16/20 11:39 Labs: Abnormal Lab Results - Last 24 Hours (Table) 04/16/20 04/16/20 04/16/20 Range/Units 11:39 11:39 11:39 MCHC 30.8 L (31.0-37.0) g/dL D-Dimer 0.70 H (<0.60) mg/L FEU Carbon Dioxide 32 H (22-30) mmol/L Creatinine 0.48 L (0.66-1.25) mg/dL Glucose 123 H (74-99) mg/dL Assessment and Plan Assessment: Pulmonary embolus Hypertension MAX Asthma Patient is admitted after CT shows small segmental and subsegmental PE. Patient denies periods of immobility. He complains of lower extremity edema. Plans: Follow venous duplex. Continue heparin drip. Transition to oral anticoagulant tomorrow. Telemetry monitoring. Follow echocardiogram. Follow venous Doppler. Follow pulmonology consult. Current BP 126/93. Plans: Start lisinopril with hydrochlorothiazide. Monitor vitals, adjust medications if necessary. Plans: CPAP at bedtime. Stable. Plans: Continue to monitor. DVT prophylaxis: Heparin drip Discussed with: [Patient] Anticipated discharge: [1-2 days] Anticipated discharge place: [Home] A total of [35] minutes was spent on the care of this complex patient more than 50% of the time was spent in counseling and care coordination. Patient names his mom Jessica decision maker if he can't make decisions for himself. Patient would like to be full code.
[2020-04-16] MEDS ORDERED: LISINOPRIL-HCTZ 20-25 MG 1 EACH TAB PO SCH (18:30)
[2020-04-16] MEDS: LISINOPRIL-HCTZ 20-25 MG 1 EACH TAB PO SCH (20:57)
--- NOTE | 2020-04-16 21:16 | US ---
EXAMINATION TYPE: US venous doppler duplex LE BI DATE OF EXAM: 04/16/2020 7:11 PM COMPARISON: US 2017 CLINICAL HISTORY: LE swelling. Bilateral lower extremity swelling. No hx of DVT. Patient does not ashley e blood thinners. SIDE PERFORMED: Bilateral TECHNIQUE: The lower extremity deep venous system is examined utilizing real time linear array sonog reyna with graded compression, doppler sonography and color-flow sonography. VESSELS IMAGED: Common Femoral Vein Deep Femoral Vein Greater Saphenous Vein * Femoral Vein Popliteal Vein Small Saphenous Vein * Proximal Calf Veins (* superficial vessels) Patient 433 lbs. Right Leg: EIV not visualized. Limited exam due to patient body habitus; unable to visualize distal femoral vein in compression views. Limited visibility of mid femoral vein. Color flow visualized from prox calf veins to CFV/GSV. Left Leg: EIV not visualized. Limited exam due to patient body habitus; unable to visualize distal f emoral vein in compression views. Limited visibility of mid femoral vein. Color flow visualized from prox calf veins to CFV/GSV. IMPRESSION: Limited exam. No sign of deep vein thrombosis in both legs.
[2020-04-16] MEDS ORDERED: CALCIUM CARBONATE 500 MG CHEWABLE PO PRN (23:06)
[2020-04-17] MEDS: LISINOPRIL-HCTZ 20-25 MG 1 EACH TAB PO SCH (07:27)
[2020-04-17 07:48] VITALS: BP 151/102; PULSE 94; RESP 16; TEMP 97.6
[2020-04-17] MEDS ORDERED: PANTOPRAZOLE 40 MG/10 ML VIAL IV SCH (09:00)
[2020-04-17] MEDS ORDERED: APIXABAN 5 MG TAB PO SCH (09:00)
[2020-04-17 10:40] LABS: HCT 47.7 % (39.0-53.0); HGB 14.7 gm/dL (13.0-17.5); MCH 26.8 pg (25.0-35.0); MCHC 30.8 g/dL (31.0-37.0); RBC 5.48 m/uL (4.30-5.90); RDW 14.6 % (11.5-15.5)
[2020-04-17 10:41] LABS: Basophils % (A) 0 %; Eosinophils % (A) 0 %; Hypochromasia Moderate; Lymphocytes # (A) 1.2 k/uL (1.0-4.8); Lymphocytes % (A) 12 %; Mean Platelet Volume 6.7; Monocytes # (A) 1.1 k/uL (0-1.0); Monocytes % (A) 11 %; Neutrophils # (A) 7.6 k/uL (1.3-7.7); Neutrophils % (A) 76 %; Platelet Count 294 k/uL (150-450)
--- NOTE | 2020-04-17 12:00 | ECHOF ---
Referral Reason:SOB, cardiomegaly on CXR MEASUREMENTS -------- HEIGHT: 172.7 cm WEIGHT: 196.4 kg BP: 139/80 RVIDd: 3.8 cm (< 3.3) IVSd: 1.8 cm (0.6 - 1.1) LVIDd: 4.1 cm (3.9 - 5.3) LVPWd: 1.7 cm (0.6 - 1.1) IVSs: 1.9 cm LVIDs: 2.7 cm LVPWs: 1.9 cm LA Diam: 3.7 cm (2.7 - 3.8) Ao Diam: 3.0 cm (2.0 - 3.7) AV Cusp: 2.3 cm (1.5 - 2.6) MV EXCURSION: 15.119 mm (> 18.000) MV EF SLOPE: 99 mm/s (70 - 150) EPSS: 1.2 cm MV E Forrest: 1.10 m/s MV DecT: 240 ms MV A Forrest: 0.80 m/s MV E/A Ratio: 1.37 RAP: 5.00 mmHg RVSP: 26.84 mmHg FINDINGS -------- Sinus rhythm. This was a technically difficult study with suboptimal views. The left ventricular size is normal. There is severe concentric left ventricular hypertrophy. Ove rall left ventricular systolic function is normal with, an EF between 60 - 65 %. The right ventricle is mild to moderately enlarged. The left atrial size is normal. The right atrium was not well visualized. 1.5mg of Definity was utilized for enhancement of images Interatrial and interventricular septum intact. The aortic valve was not well visualized. The mitral valve is normal. Mild tricuspid regurgitation present. Right ventricular systolic pressure is normal at < 35 mmHg. The pulmonic valve was not well visualized. The aortic root size is normal. IVC Not well visulized. There is no pericardial effusion. CONCLUSIONS -------- 1. The left ventricular size is normal. 2. There is severe concentric left ventricular hypertrophy. 3. Overall left ventricular systolic function is normal with, an EF between 60 - 65 %. 4. The right ventricle is mild to moderately enlarged. 5. 1.5mg of Definity was utilized for enhancement of images 6. Mild tricuspid regurgitation present. 7. There is no pericardial effusion. DIETARY SERVICE AIDE: Donna Dsouza RDCS
--- NOTE | 2020-04-17 12:11 | CONS ---
CONSULTATION PULMONARY/CRITICAL CARE CONSULTATION: DATE OF SERVICE: 04/17/2020 This is a 29-year-old male with a history of hypertension, sleep apnea syndrome, and asthma, who sees Dr. Dominguez in [place] as a primary. He states that for the last 3 or 4 days beginning last Thursday, he has been noticing a dry nonproductive cough. When he coughs, has a pain in his chest. The pain is dull. He denies shortness of breath. It is mentioning shortness of breath in the ER donna, but he denies it to me. He denies coughing up any phlegm. There is no fever or chills. The patient did not have any GI or complaints. He went to the clinic there in [place] and apparently saw the nurse practitioner or physician's certified pathology assistant and apparently a chest x-ray was done and they were concerned about something behind the heart, so to speak. Anyway, he was directed to the emergency room where he was evaluated, had a CT angiogram and was discovered to have small subsegmental pulmonary emboli. Currently, the patient is feeling better. He is coughing but not as much and is not having any pain. The patient otherwise is feeling generally well. His home medications are reviewed. He apparently is on Nexium and Tylenol. I do not see a medication for hypertension. I do not see anything for asthma either. ALLERGIES: Denied. MEDICAL HISTORY: Includes sleep apnea syndrome for which he apparently uses CPAP, hypertension for which he is not being treated and asthma for which she is not receiving any medication. The only medication he is on is Nexium. Other medical history includes chronic venostasis and chronic hyperpigmentation of the lower extremity. It is quite severe. SURGICAL HISTORY: Includes a tonsillectomy and adenoidectomy. SOCIAL HISTORY: Negative for tobacco use, rare alcohol use and negative for illicit drug use. FAMILY HISTORY: Positive for myocardial infarction in his father and mother apparently has no medical history. REVIEW OF SYSTEMS: CONSTITUTIONAL: Negative. NEUROLOGIC: Negative. HEENT: Negative. CARDIOVASCULAR: Dull chest pain when coughing. PULMONARY: Cough. GI: Negative. : Negative. RHEUMATOLOGIC: Negative. IMMUNOLOGIC: Negative. ENDOCRINOLOGIC: Negative. DERMATOLOGIC: Chronic venostasis and hyperpigmentation of the lower extremities with significant thickening of the skin. Current vital signs are reviewed. Temperature is 98, heart rate 97, respiratory rate 18, blood pressure 139/80, mean 99, 2 L saturation 96%. He was on room air when we went into the room. There appeared to be no distress. There is no conversational dyspnea, use of accessory muscles or audible wheezing. HEENT: Examination is grossly unremarkable. NECK: Supple. CARDIOVASCULAR: Examination reveals regular rhythm and rate. Heart sounds are distant. S1, S2 normal. No murmur. LUNGS: Clear, breath sounds equal. No wheezes, rhonchi, or crackles. ABDOMEN: Soft. EXTREMITIES: Reveal some chronic venostasis changes and edema and thickening with hyperpigmentation of the lower extremities. SKIN: As above. NEUROLOGIC: Examination is nonfocal. LABS: Reviewed. White count 7.8, hemoglobin 14.1, hematocrit 45.8, platelet count 276,000, PT, INR is normal. PTT is 50.7. D-dimer 0.7. Sodium, potassium, chloride normal. CO2 is 32, BUN and creatinine were 12 and 0.48. The rest of the labs look okay. Current virus testing by PCR is negative. Chest x-ray showed cardiomegaly. The rest of the x-ray appeared relatively normal. A CT angiogram was done. It showed small segmental and subsegmental lower lobe pulmonary emboli. There was no heart strain. Venous Doppler studies were incomplete but apparently negative. ASSESSMENT: 1. Small bilateral subsegmental and segmental pulmonary emboli, unprovoked. 2. No evidence of DVT by venous Doppler. 3. Vague history of hypertension, although the patient is not taking antihypertensives. 4. History of asthma, although the patient is not taking any medication for asthma. 5. Obesity. 6. Sleep apnea syndrome, currently on CPAP. 7. Questionable acid reflux disease as the patient is taking Nexium. PLAN: The patient could be discharged home on a factor Xa inhibitor. We will write a script for either Xarelto or Eliquis. The patient should be treated for a period of about 6 months. I would recommend he be seen by a trestleman once he is discharged from the hospital to rule out a hypercoagulable state. His pulmonary embolism appears to be unprovoked, although it appears the patient is probably relatively sedentary given his examination, his body habitus and so forth. Additional recommendations and suggestions are forthcoming. Prognosis is guarded. The patient really needs significant weight loss and assistance in better dietary habits. No additional recommendations are made. MMODL / IJN: [id number] /
--- NOTE | 2020-04-17 12:18 | P.DS ---
Providers Date of admission: 04/17/20 11:34 Expected date of discharge: 04/17/20 Attending physician: Rose Mary Gudino DO Consults: 04/16/20 15:06 Consult Physician Stat Consulting Provider: Demetrius Eli Reason/Comments: Hypoxia, PEs Do you want consulting provider notified?: Yes Primary care physician: Jairon Dominguez Hospital Course: Discharge Diagnosis: Pulmonary embolus Hypertension MAX Asthma Hospital Course: 29-year-old male with PMH of hypertension, MAX, asthma presents ED for cough and shortness of breath. Patient states that he had a dry cough that started on Thursday that progressively got worse. In the ED, his vital signs were stable except for elevated BP of 164/99 and pulse of 102. CBC was unremarkable. D-dimer was elevated at 0.7. CMP showed bicarb of 32, creatinine 0.48, glucose 123. Troponin was less than 0.012. BNP was 101. Chest x-ray was negative. CTA chest showed small segmental and subsegmental lower lung PE with no evidence of RV strain. Cardiomegaly was also noted. Patient is admitted for PE and he was started on heparin ggt. The next day patient was started on Eliquis. He was give an coupon for one month free supply. Patient was told to follow up with PCP for refill. Patient also told to follow up with pulm for anticoagulation work up. At time of discharge patient was stating well on room air. He was deemed stable for discharge. Patient was also started on lisinopril-hydrochlorothiazide for newly diagnosed hypertension. General examination - Alert and Oriented 3 in NAD Heart - + S1S2 no murmurs Lungs -diminished breath sounds bilaterally Abdomen soft NT ND +ve BS, obese Extremities - No edema SHIFT COMMANDER - Moving all 4 extremities spontaneously Psych - Calm and cooperative A total of 32 minutes of time were spent preparing this complex discharge summary . Patient Condition at Discharge: Stable Plan - Discharge Summary Discharge Rx Participant: No New Discharge Prescriptions: New Apixaban [Eliquis Starter Pack (for VTE)] 0 mg PO DIRECTED 30 Days #1 pack Discharge Medication List Apixaban [Eliquis Starter Pack (for VTE)] 0 mg PO DIRECTED 30 Days #1 pack 04/17/20 [Rx] Follow up Appointment(s)/Referral(s): Jairon Dominguez MD [Primary Care Provider] - 1-2 days Demetrius Eli DO [Doctor of Osteopathic Medicine] - 2 Weeks Discharge Disposition: HOME SELF-CARE
[2020-04-17] MEDS: SODIUM CHLORIDE 0.9% 1,000 ML IV SCH (13:47)
[2020-04-18] MEDS ORDERED: PANTOPRAZOLE 40 MG TABLET PO SCH (07:30)
== END 2020-04-17 14:50 | disposition home or self-care (01) ==
LOC: EC 10:00 → 1SOBS 14:57 → OBSVTOIN 04-17 11:34 → INTOOBSV 04-17 11:34 → UNDODISIN 04-17 14:50
PROVIDERS: ADMIT Internal Medicine; ATTEND Internal Medicine
DX: I26.94 Multiple subsegmental thrombotic pulmonary emboli without acute cor pulmonale (principal); I87.2 Venous insufficiency (chronic) (peripheral); L97.919 Non-pressure chronic ulcer of unspecified part of right lower leg with unspecified severity; L97.929 Non-pressure chronic ulcer of unspecified part of left lower leg with unspecified severity; I11.9 Hypertensive heart disease without heart failure; J45.909 Unspecified asthma, uncomplicated; G47.33 Obstructive sleep apnea (adult) (pediatric); E66.01 Morbid (severe) obesity due to excess calories; Z68.44 Body mass index [BMI] 60.0-69.9, adult; Z20.828 Contact with and (suspected) exposure to other viral communicable diseases; Z99.89 Dependence on other enabling machines and devices; Z91.14 Patient's other noncompliance with medication regimen; Z79.899 Other long term (current) drug therapy; Z98.890 Other specified postprocedural states; Z82.49 Family history of ischemic heart disease and other diseases of the circulatory system
CPT/HCPCS: 96361 ×2; 96366 ×3; 96375 ×2; 96376; 96365; 99285; 36415; 93005; 85379; 83880; 80053; 83735; 84484; 85025 ×2; 85610; 85730; 71046; 93970; 71275; G0378 ×2; C8929; U0003; J1644 ×2; J2930; C9113; Q9950; Q9967; 93306

== ENCOUNTER → 2020-10-22 | Outpatient (CLI) | payer OTHER ==
--- NOTE | 2020-10-22 17:24 | CT ---
EXAMINATION TYPE: CT angio chest DATE OF EXAM: 10/22/2020 5:11 PM COMPARISON: 04/16/2020. HISTORY: Shortness of breath, history of PE. CT DLP: 627.6 mGycm Automated exposure control for dose reduction was used. CONTRAST: CTA scan of the thorax is performed with IV Contrast, patient injected with 100ml mL of Isovue 370, p ulmonary embolism protocol. MIP images are created and reviewed. FINDINGS: LUNGS: The lungs are grossly clear, there is no concerning parenchymal mass or nodule identified. T here is no pleural effusion or pneumothorax seen. The tracheobronchial tree is patent. MEDIASTINUM: There is satisfactory enhancement of the pulmonary artery to the level of the proximal s egmental branches. There is no CT evidence for pulmonary embolism. There are no greater than 1 cm hi lar or mediastinal lymph nodes. No pericardial effusion is seen. OTHER: No additional significant abnormality is seen. IMPRESSION: NO ACUTE PE OR OTHER CARDIOPULMONARY ABNORMALITY.
== END | disposition home or self-care (01) ==
LOC: RADCTMAIN 16:23
PROVIDERS: ATTEND Internal Medicine Hematology & Oncology
DX: R06.02 Shortness of breath (principal); Z86.711 Personal history of pulmonary embolism
CPT/HCPCS: 71275; Q9967

== ENCOUNTER 2020-11-11 13:43 | Inpatient (IN) | payer OTHER ==
[2020-11-11] MEDS ORDERED: ALBUTEROL HFA INHALER INHALATION STA (13:50)
[2020-11-11] MEDS: DEXAMETHASONE SOD PHOSPHATE 10 MG/ML 1 ML VIAL IV SCH (13:57)
--- NOTE | 2020-11-11 13:59 | ED ---
SOB HPI - General Chief Complaint: Shortness of Breath Stated Complaint: SOB/covid+ Time Seen by Provider: 11/11/20 13:49 Source: patient, EMS Mode of arrival: EMS Limitations: altered mental status - History of Present Illness Initial Comments: Eric is a 30-year-old male who presents to ER today via ambulance for evaluation of shortness of breath. Patient tested positive for COVID-19 last week, EMS was called today due to increased work of breathing. Patient had been home he been using breathing treatments are up from a friend. Upon EMS arrival patient had never can't work of breathing and oxygen saturation of 45% on room air. Patient was placed on BiPAP treated with 1 DuoNeb and transported the hospital. Further history is limited by respiratory distress - Related Data Home Medications Medication Instructions Recorded Confirmed Apixaban [Eliquis] 5 mg PO BID 11/11/20 11/11/20 Aspirin EC [Ecotrin] 325 mg PO DAILY 11/11/20 11/11/20 Azithromycin [Zithromax] 500 mg PO DAILY 11/11/20 11/11/20 Colchicine 0.6 mg PO BID 11/11/20 11/11/20 Lisinopril-Hctz 20-12.5 mg 1 tab PO DAILY 11/11/20 11/11/20 [Zestoretic 20-12.5] Naltrexone HCl [Revia] 50 mg PO DAILY 11/11/20 11/11/20 Omeprazole 20 mg PO DAILY PRN 11/11/20 11/11/20 Zinc Sulfate [Orazinc] 220 mg PO DAILY 11/11/20 11/11/20 buPROPion HCL [Wellbutrin XL] 300 mg PO DAILY 11/11/20 11/11/20 metFORMIN HCL ER [Glucophage Xr] 500 mg PO DAILY 11/11/20 11/11/20 Allergies Allergy/AdvReac Type Severity Reaction Status Date / Time No Known Allergies Allergy Verified 11/11/20 14:58 Review of Systems ROS Statement: Those systems with pertinent positive or pertinent negative responses have been documented in the HPI. ROS Other: All systems not noted in ROS Statement are negative. Past Medical History Past Medical History: Asthma, Hypertension, Sleep Apnea/CPAP/BIPAP Additional Past Medical History / Comment(s): bilateral leg ulcers increase with activity. sleep apnea (uses c-pap machine) History of Any Multi-Drug Resistant Organisms: None Reported Past Surgical History: Adenoidectomy, Tonsillectomy Past Anesthesia/Blood Transfusion Reactions: No Reported Reaction Past Psychological History: No Psychological Hx Reported Smoking Status: Never smoker Past Alcohol Use History: Rare Past Drug Use History: None Reported - Past Family History Father Family Medical History: Myocardial Infarction ([place]) Additional Family Medical History / Comment(s): patient states his paternal grandfather also has suffered from one [place]. Mother Family Medical History: No Reported History General Exam - General Exam Comments Initial Comments: Physical Exam GENERAL: BMI 66 Moderate respiratory distress HENT: Normocephalic, Atraumatic. EYES: PERRL, EOMI PULMONARY: Tachypnea INcreased work of breathing Crackles in all lung moore CARDIOVASCULAR: Tachycardia, regular ABDOMEN: Soft and nontender with normal bowel sounds. SKIN: Chronic changes on bilateral lower extremities : Deferred NEUROLOGIC: Patient is alert ability to answer questions limited by respiratory distress Moving all extremities spontaneously MUSCULOSKELETAL: Normal extremities with adequate strength and full range of motion. No lower extremity swelling or edema. No calf tenderness. PSYCHIATRIC: Normal psychiatric evaluation. Limitations: altered mental status Course Vital Signs 11/11/20 11/11/20 11/11/20 13:44 14:15 15:00 Temperature 100.9 F H 100.1 F H Pulse Rate 126 H 111 H 112 H Respiratory 24 24 24 Rate Blood Pressure 129/76 123/81 118/89 O2 Sat by Pulse 97 96 97 Oximetry Medical Decision Making - Medical Decision Making Patient was seen and evaluated immediately upon arrival to the emergency department patient was noted to be in moderate respiratory distress with hypoxia even CPAP Patient was placed on BiPAP Labs and imaging were obtained Patient does have COVID pneumonia Patient was treated with breathing treatments and Decadron Patient's respiratory status improving significantly with BiPAP, oxygen saturations in the mid 90s Admission was discussed with Dr Reynolds of [facility] who requests consult to ICU considering the degree of hypoxia and patients comorbidities Patient care was discussed with Dr Bose who requests ABG prior to accepting the patient ABG was reviewed, FiO2 was decreased inspiratory pressures were increased ABG results were discussed with Dr. Bose who based on patient's comorbidities accepts the admission to ICU - Lab Data Result diagrams: 11/11/20 13:53 11/11/20 13:53 Lab Results 11/11/20 11/11/20 11/11/20 Range/Units 13:49 13:53 13:53 WBC 10.8 H (3.8-10.6) k/uL RBC 4.94 (4.30-5.90) m/uL Hgb 13.7 (13.0-17.5) gm/dL Hct 42.6 (39.0-53.0) % MCV 86.2 (80.0-100.0) fL MCH 27.7 (25.0-35.0) pg MCHC 32.1 (31.0-37.0) g/dL RDW 14.9 (11.5-15.5) % Plt Count 325 (150-450) k/uL MPV 7.1 Neutrophils % 79 % Lymphocytes % 7 % Monocytes % 10 % Eosinophils % 0 % Basophils % 1 % Neutrophils # 8.5 H (1.3-7.7) k/uL Lymphocytes # 0.8 L (1.0-4.8) k/uL Monocytes # 1.1 H (0-1.0) k/uL Eosinophils # 0.0 (0-0.7) k/uL Basophils # 0.1 (0-0.2) k/uL PT 11.4 (9.0-12.0) sec INR 1.1 (<1.2) APTT 25.0 (22.0-30.0) sec D-Dimer 1.59 H (<0.60) mg/L FEU Sample Site ABG pH (7.35-7.45) ABG pCO2 (35-45) mmHg ABG pO2 (83-108) mmHg ABG HCO3 (21-25) mmol/L ABG Total CO2 (19-24) mmol/L ABG O2 Saturation (94-97) % ABG Base Excess mmol/L Benjamin Test FiO2 % Sodium (137-145) mmol/L Potassium (3.5-5.1) mmol/L Chloride (98-107) mmol/L Carbon Dioxide (22-30) mmol/L Anion Gap mmol/L BUN (9-20) mg/dL Creatinine (0.66-1.25) mg/dL Est GFR (CKD-EPI)AfAm (>60 ml/min/1.73 sqM) Est GFR (CKD-EPI)NonAf (>60 ml/min/1.73 sqM) Glucose (74-99) mg/dL POC Glucose (mg/dL) 116 H (75-99) mg/dL POC Glu Overhauler Helper ID Rehan Monique Plasma Lactic Acid Juan (0.7-2.0) mmol/L Calcium (8.4-10.2) mg/dL Magnesium (1.6-2.3) mg/dL Total Bilirubin (0.2-1.3) mg/dL AST (17-59) U/L ALT (4-49) U/L Alkaline Phosphatase (38-126) U/L Lactate Dehydrogenase (313-618) U/L C-Reactive Protein (<1.0) mg/dL Total Protein (6.3-8.2) g/dL Albumin (3.5-5.0) g/dL 11/11/20 11/11/20 11/11/20 Range/Units 13:53 13:53 15:47 WBC (3.8-10.6) k/uL RBC (4.30-5.90) m/uL Hgb (13.0-17.5) gm/dL Hct (39.0-53.0) % MCV (80.0-100.0) fL MCH (25.0-35.0) pg MCHC (31.0-37.0) g/dL RDW (11.5-15.5) % Plt Count (150-450) k/uL MPV Neutrophils % % Lymphocytes % % Monocytes % % Eosinophils % % Basophils % % Neutrophils # (1.3-7.7) k/uL Lymphocytes # (1.0-4.8) k/uL Monocytes # (0-1.0) k/uL Eosinophils # (0-0.7) k/uL Basophils # (0-0.2) k/uL PT (9.0-12.0) sec INR (<1.2) APTT (22.0-30.0) sec D-Dimer (<0.60) mg/L FEU Sample Site R radial ABG pH 7.35 (7.35-7.45) ABG pCO2 55 H (35-45) mmHg ABG pO2 150 H (83-108) mmHg ABG HCO3 30 H (21-25) mmol/L ABG Total CO2 32 H (19-24) mmol/L ABG O2 Saturation 99.1 H (94-97) % ABG Base Excess 4.4 mmol/L Benjamin Test Yes FiO2 100 % Sodium 134 L (137-145) mmol/L Potassium 4.8 (3.5-5.1) mmol/L Chloride 93 L (98-107) mmol/L Carbon Dioxide 30 (22-30) mmol/L Anion Gap 11 mmol/L BUN 76 H (9-20) mg/dL Creatinine 2.07 H (0.66-1.25) mg/dL Est GFR (CKD-EPI)AfAm 48 (>60 ml/min/1.73 sqM) Est GFR (CKD-EPI)NonAf 42 (>60 ml/min/1.73 sqM) Glucose 111 H (74-99) mg/dL POC Glucose (mg/dL) (75-99) mg/dL POC Glu Overhauler Helper ID Plasma Lactic Acid Juan 1.5 (0.7-2.0) mmol/L Calcium 8.3 L (8.4-10.2) mg/dL Magnesium 2.3 (1.6-2.3) mg/dL Total Bilirubin 0.5 (0.2-1.3) mg/dL AST 74 H (17-59) U/L ALT 40 (4-49) U/L Alkaline Phosphatase 44 (38-126) U/L Lactate Dehydrogenase 1295 H (313-618) U/L C-Reactive Protein 16.9 H (<1.0) mg/dL Total Protein 7.3 (6.3-8.2) g/dL Albumin 3.8 (3.5-5.0) g/dL - EKG Data -: EKG Interpreted by Ms EKG Comments: EKG was obtained due to hypoxia and tachycardia, EKG obtained at 1351 rate is 118 rhythm is sinus tachycardia axis, normal intervals, NC 162, QRS 90, QTc [address] elevations or depressions no evidence of acute ischemia or infarction. Disposition Clinical Impression: COVID-19, Respiratory failure with hypoxia, Morbid obesity, Venous stasis, Obstructive sleep apnea on CPAP Disposition: ADMITTED IP TO THIS HOSP Condition: Serious Is patient prescribed a controlled substance at d/c from ED?: No Referrals: Jairon Dominguez MD [Primary Care Provider] - 1-2 days
[2020-11-11 14:02] LABS: Glucose,Whole Blood 116 mg/dL (75-99)
[2020-11-11 14:10] LABS: Potassium 4.8 mmol/L (3.5-5.1)
[2020-11-11 14:13] LABS: Albumin 3.8 g/dL (3.5-5.0); Calcium 8.3 mg/dL (8.4-10.2); Magnesium 2.3 mg/dL (1.6-2.3); Total Bilirubin 0.5 mg/dL (0.2-1.3); Total Protein 7.3 g/dL (6.3-8.2)
[2020-11-11 14:15] LABS: INR 1.1 (<1.2); Prothrombin Time 11.4 sec (9.0-12.0)
[2020-11-11] MEDS ORDERED: ACETAMINOPHEN IV (For NPO) 1,000 MG in EMPTY BAG 1 BAG IVPB ONE (14:15)
[2020-11-11 14:20] LABS: Basophils # (A) 0.1 k/uL (0-0.2); Basophils % (A) 1 %; Eosinophils % (A) 0 %; HCT 42.6 % (39.0-53.0); HGB 13.7 gm/dL (13.0-17.5); Lymphocytes # (A) 0.8 k/uL (1.0-4.8); Lymphocytes % (A) 7 %; MCH 27.7 pg (25.0-35.0); MCHC 32.1 g/dL (31.0-37.0); MCV 86.2 fL (80.0-100.0); Mean Platelet Volume 7.1; Monocytes # (A) 1.1 k/uL (0-1.0); Monocytes % (A) 10 %; Neutrophils # (A) 8.5 k/uL (1.3-7.7); Neutrophils % (A) 79 %; Platelet Count 325 k/uL (150-450); RBC 4.94 m/uL (4.30-5.90); RDW 14.9 % (11.5-15.5); WBC 10.8 k/uL (3.8-10.6)
--- NOTE | 2020-11-11 14:23 | XR ---
EXAMINATION TYPE: XR chest 1V portable DATE OF EXAM: 11/11/2020 COMPARISON: 04/16/2020 HISTORY: Short of breath TECHNIQUE: FINDINGS: There is pulmonary interstitial and airspace edema. Heart size is normal. Exam limited by p atient's size. IMPRESSION: Pulmonary edema is new compared to old exam. This could relate to RDS.
[2020-11-11 14:30] LABS: D-Dimer 1.59 mg/L FEU (<0.60)
[2020-11-11 14:34] LABS: C Reactive Protein 16.9 mg/dL (<1.0)
[2020-11-11] MEDS ORDERED: SODIUM CHLORIDE 0.9% 1,000 ML IV SCH (14:45)
[2020-11-11 15:51] LABS: ABG Base Excess 4.4 mmol/L; ABG HCO3 30 mmol/L (21-25); ABG Oxygen Saturation 99.1 % (94-97); ABG PCO2 55 mmHg (35-45); ABG PH 7.35 (7.35-7.45); ABG PO2 150 mmHg (83-108); ABG TCO2 32 mmol/L (19-24); Allen Test Performed? Yes
[2020-11-11] MEDS ORDERED: IBUPROFEN 400 MG TAB PO PRN (16:05)
[2020-11-11] MEDS ORDERED: NALOXONE 0.4 MG/ML 1 ML VIAL IV PRN ×2 (16:05→17:53)
[2020-11-11] MEDS ORDERED: ONDANSETRON 4 MG/2 ML VIAL IVP PRN (17:53)
--- NOTE | 2020-11-11 18:18 | P.HPIM ---
History of Present Illness H&P Date: 11/11/20 Chief Complaint: sob 30-year-old male who presents to ER today via ambulance for evaluation of shortness of breath. Patient tested positive for COVID-19 last week thursday, at that time he was given an ''antibiotic'' by his doctor, states that he improved initially but later on he started to get worse so he presented. Upon EMS arrival patient was found to have hard time breathing and oxygen saturation of 45% on room air. Patient was placed on BiPAP treated with 1 DuoNeb and transported the hospital. In the ER his temp was 100.9, HR was 110, sats 94% on bipap 60% Fio2. Labs showed ELIANA with cr 2.07 from normal baseline. Rest of labs ok. CXR showed new pulm edema vs. RDS. Review of Systems complete review of system performed pertinent positives per HPI otherwise negative. Past Medical History Past Medical History: Asthma, Hypertension, Sleep Apnea/CPAP/BIPAP Additional Past Medical History / Comment(s): bilateral leg ulcers increase with activity. sleep apnea (uses c-pap machine) History of Any Multi-Drug Resistant Organisms: None Reported Past Surgical History: Adenoidectomy, Tonsillectomy Past Anesthesia/Blood Transfusion Reactions: No Reported Reaction Past Psychological History: No Psychological Hx Reported Smoking Status: Never smoker Past Alcohol Use History: Rare Past Drug Use History: None Reported - Past Family History Father Family Medical History: Myocardial Infarction ([place]) Additional Family Medical History / Comment(s): patient states his paternal grandfather also has suffered from one [place]. Mother Family Medical History: No Reported History Medications and Allergies Home Medications Medication Instructions Recorded Confirmed Type Apixaban [Eliquis] 5 mg PO BID 11/11/20 11/11/20 History Aspirin EC [Ecotrin] 325 mg PO DAILY 11/11/20 11/11/20 History Azithromycin [Zithromax] 500 mg PO DAILY 11/11/20 11/11/20 History Colchicine 0.6 mg PO BID 11/11/20 11/11/20 History Lisinopril-Hctz 20-12.5 mg 1 tab PO DAILY 11/11/20 11/11/20 History [Zestoretic 20-12.5] Naltrexone HCl [Revia] 50 mg PO DAILY 11/11/20 11/11/20 History Omeprazole 20 mg PO DAILY PRN 11/11/20 11/11/20 History Zinc Sulfate [Orazinc] 220 mg PO DAILY 11/11/20 11/11/20 History buPROPion HCL [Wellbutrin XL] 300 mg PO DAILY 11/11/20 11/11/20 History metFORMIN HCL ER [Glucophage Xr] 500 mg PO DAILY 11/11/20 11/11/20 History Allergies Allergy/AdvReac Type Severity Reaction Status Date / Time No Known Allergies Allergy Verified 11/11/20 14:58 Physical Exam Vitals: Vital Signs Temp Pulse Resp BP Pulse Ox 11/11/20 16:00 98.6 F 98 24 104/77 94 L 11/11/20 15:00 100.1 F H 112 H 24 118/89 97 11/11/20 14:15 111 H 24 123/81 96 11/11/20 13:44 100.9 F H 126 H 24 129/76 97 Intake and Output 11/11/20 11/11/20 11/11/20 06:59 14:59 22:59 Other: Weight 199.581 kg General: morbidly obese, mild to moderate respiratory distress on bipap. Head: atraumatic, normocephalic, symmetric Eyes: EOMI, no lid lag, anicteric sclera, pupils equal round reactive to light ENT: Nose and ears atraumatic, no thrush, no pharyngeal erythema Neck: No thyromegaly, no cervical lymphadenopathy, trachea midline, supple Mouth: no lip lesion, mucus membranes moist Cardiovascular: S1S2 reg, tachycardic, no murmur, trace pedal edema Lungs: Some scattered rhonchi, coarse expiratory sounds. No accessory muscle use Abdominal: soft, nontender to palpation, no guarding, no appreciable organomegaly, normal bowel sounds Ext: no gross muscle atrophy, unable to assess strength as patient not following commands, no contractures, Skin: chronic skin thickening and dryness in bilateral lower extremities. Neuro: Awake, alert and oriented times 3. Strength 5/5 all extremities. Sensat ion intact. CN 2-12 WNL Results CBC & Chem 7: 11/11/20 13:53 11/11/20 13:53 Labs: Abnormal Lab Results - Last 24 Hours (Table) 11/11/20 11/11/20 11/11/20 Range/Units 13:49 13:53 13:53 WBC 10.8 H (3.8-10.6) k/uL Neutrophils # 8.5 H (1.3-7.7) k/uL Lymphocytes # 0.8 L (1.0-4.8) k/uL Monocytes # 1.1 H (0-1.0) k/uL D-Dimer 1.59 H (<0.60) mg/L FEU ABG pCO2 (35-45) mmHg ABG pO2 (83-108) mmHg ABG HCO3 (21-25) mmol/L ABG Total CO2 (19-24) mmol/L ABG O2 Saturation (94-97) % Sodium (137-145) mmol/L Chloride (98-107) mmol/L BUN (9-20) mg/dL Creatinine (0.66-1.25) mg/dL Glucose (74-99) mg/dL POC Glucose (mg/dL) 116 H (75-99) mg/dL Calcium (8.4-10.2) mg/dL AST (17-59) U/L Lactate Dehydrogenase (313-618) U/L C-Reactive Protein (<1.0) mg/dL 11/11/20 11/11/20 Range/Units 13:53 15:47 WBC (3.8-10.6) k/uL Neutrophils # (1.3-7.7) k/uL Lymphocytes # (1.0-4.8) k/uL Monocytes # (0-1.0) k/uL D-Dimer (<0.60) mg/L FEU ABG pCO2 55 H (35-45) mmHg ABG pO2 150 H (83-108) mmHg ABG HCO3 30 H (21-25) mmol/L ABG Total CO2 32 H (19-24) mmol/L ABG O2 Saturation 99.1 H (94-97) % Sodium 134 L (137-145) mmol/L Chloride 93 L (98-107) mmol/L BUN 76 H (9-20) mg/dL Creatinine 2.07 H (0.66-1.25) mg/dL Glucose 111 H (74-99) mg/dL POC Glucose (mg/dL) (75-99) mg/dL Calcium 8.3 L (8.4-10.2) mg/dL AST 74 H (17-59) U/L Lactate Dehydrogenase 1295 H (313-618) U/L C-Reactive Protein 16.9 H (<1.0) mg/dL Assessment and Plan Plan: Acute hypoxic respiratory failure requiring bipap Acute covid 19 pneumonia vs. RDS Admit to ICU BIPAP Consult pulm Decadron No remdisivir due to onset of symptoms more than 7 days ago ELIANA Watch off IV fluids as CXR showing pulm edema Avoid nephrotoxic meds Follow Cr in am Hx of PE Will switch NOAC to heparin due to renal failure HTN Morbid obesity Stable Resume meds Admitted to inpatient expected length of stay more than 2 midnights
[2020-11-11] MEDS ORDERED: HEPARIN SODIUM 1,000 UN/ML (10ML VL) IV PRN (18:20)
[2020-11-11 18:57] LABS: Glucose,Whole Blood 124 mg/dL (75-99)
[2020-11-11] MEDS ORDERED: INSULIN ASPART (NovoLOG) 100 UNIT/ML VIAL SQ SCH (21:00)
[2020-11-11] MEDS: HEPARIN SOD,PORK IN 0.45% NACL 25,000 UNIT in 0.45% NACL 1 250ML.BAG IV SCH (21:48)
[2020-11-12 00:59] LABS: Glucose,Whole Blood 128 mg/dL (75-99)
[2020-11-12 03:56] LABS: Basophils # (A) 0.1 k/uL (0-0.2); Basophils % (A) 1 %; Eosinophils # (A) 0.1 k/uL (0-0.7); Eosinophils % (A) 1 %; HCT 38.4 % (39.0-53.0); HGB 12.6 gm/dL (13.0-17.5); Lymphocytes # (A) 0.7 k/uL (1.0-4.8); Lymphocytes % (A) 5 %; MCH 28.4 pg (25.0-35.0); MCHC 32.7 g/dL (31.0-37.0); MCV 86.9 fL (80.0-100.0); Mean Platelet Volume 7.3; Monocytes % (A) 8 %; Neutrophils # (A) 10.2 k/uL (1.3-7.7); Neutrophils % (A) 84 %; Platelet Count 351 k/uL (150-450); RBC 4.42 m/uL (4.30-5.90); RDW 14.4 % (11.5-15.5); WBC 12.1 k/uL (3.8-10.6)
[2020-11-12] MEDS: INSULIN ASPART (NovoLOG) 100 UNIT/ML VIAL SQ SCH ×4 (04:31→18:40)
[2020-11-12 04:58] LABS: Calcium 7.8 mg/dL (8.4-10.2); Phosphorus 5.6 mg/dL (2.5-4.5)
[2020-11-12 05:05] LABS: Magnesium 2.4 mg/dL (1.6-2.3)
[2020-11-12 05:49] LABS: Glucose,Whole Blood 133 mg/dL (75-99)
[2020-11-12] MEDS: HEPARIN SOD,PORK IN 0.45% NACL 25,000 UNIT in 0.45% NACL 1 250ML.BAG IV SCH (06:58)
[2020-11-12] MEDS: ALBUTEROL HFA INHALER INHALATION PRN ×4 (07:15→18:58)
--- NOTE | 2020-11-12 07:19 | XR ---
EXAMINATION TYPE: XR chest 1V DATE OF EXAM: 11/12/2020 COMPARISON: 11/11/2020 HISTORY: Covid 19 pneumonia TECHNIQUE: Single frontal view of the chest is obtained. FINDINGS: Patchy airspace infiltrates throughout both lung moore with interval improvement suggested. The cardiac silhouette size is within normal limits. The osseous structures are intact. IMPRESSION: 1. Patchy airspace infiltrates throughout both lung omore with interval improvement suggested.
[2020-11-12] MEDS: ZINC SULFATE 220 MG CAP PO SCH (08:41)
[2020-11-12] MEDS: CHOLECALCIFEROL 25 MCG (1000 IU) TABLET PO SCH (08:41)
[2020-11-12] MEDS: DEXAMETHASONE SOD PHOSPHATE 10 MG/ML 1 ML VIAL IV SCH (08:41)
[2020-11-12] MEDS: APIXABAN 5 MG TAB PO SCH ×2 (08:41→21:12)
[2020-11-12] MEDS: buPROPion XL 300 MG TAB.ER.24H PO SCH (08:42)
[2020-11-12] MEDS: ASCORBIC ACID 500 MG TAB PO SCH ×2 (08:42→21:12)
[2020-11-12] MEDS ORDERED: ASPIRIN 325 MG TAB PO SCH (09:00)
--- NOTE | 2020-11-12 10:22 | P.CNPUL ---
History of Present Illness Consult date: 11/12/20 Requesting physician: Binh Reynolds Reason for consult: dyspnea, cough, hypoxemia, pneumonia, abnormal CXR/CT Chief complaint: Shortness of breath, hypoxemic respiratory failure. History of present illness: Pulmonary consultation dated 11/12/2020. 30-year-old male, who presents to the emergency room, via EMS, for shortness of breath. The patient apparently tested positive for coronavirus, last Thursday, 1 week ago. Apparently EMS was called because his breathing had worsened. He's been having symptoms for about 10 days or so. He apparently was using breathing treatments at home, that belonged to one of his friends. Apparently when EMS arrived, his saturations were in the mid 40 range, on room air. He was placed on BiPAP, given one updraft treatment, and transported to the hospital. Currently, in the ICU, he is on BiPAP, with settings of IPAP 14,EPAP of 6, and 60%. He is currently on a heparin drip. He had a previous history of pulmonary embolism, and is been on blood thinners in the form of Eliquis since March 2020. White count is 12.1, hemoglobin 12.6, hematocrit 38.4, and platelet count 351,000. PTT was 38. Blood gases show a PaO2 of 150, PaCO2 of 55, and a pH is 7.35. This was on 100%. Sodium 135, potassium 5, chlorides 97, CO2 30, anion gap 8, BUN 81, creatinine 1.46. Chest x-ray shows patchy airspace disease bilaterally. Review of Systems REVIEW OF SYSTEMS: CONSTITUTIONAL: weakness. NEUROLOGIC: [ Negative.] HEENT: [ Negative.] CARDIAC: [Negative.] PULMONARY: shortness of breath, cough. GI: [Negative.] : [Negative.] RHEUMATOLOGIC: [ Negative.] IMMUNOLOGIC: [ Negative.] ENDOCRINE: [Negative. ] DERMATOLOGIC: [Negative.] Past Medical History Past Medical History: Asthma, Hypertension, Sleep Apnea/CPAP/BIPAP Additional Past Medical History / Comment(s): bilateral leg ulcers increase with activity. sleep apnea (uses c-pap machine). PE in March 2020 History of Any Multi-Drug Resistant Organisms: None Reported Past Surgical History: Adenoidectomy, Tonsillectomy Past Anesthesia/Blood Transfusion Reactions: No Reported Reaction Past Psychological History: No Psychological Hx Reported Smoking Status: Never smoker Past Alcohol Use History: Rare Past Drug Use History: None Reported - Past Family History Father Family Medical History: Myocardial Infarction ([place]) Additional Family Medical History / Comment(s): patient states his paternal grandfather also has suffered from one [place]. Mother Family Medical History: No Reported History Medications and Allergies Home Medications Medication Instructions Recorded Confirmed Type Apixaban [Eliquis] 5 mg PO BID 11/11/20 11/11/20 History Aspirin EC [Ecotrin] 325 mg PO DAILY 11/11/20 11/11/20 History Azithromycin [Zithromax] 500 mg PO DAILY 11/11/20 11/11/20 History Colchicine 0.6 mg PO BID 11/11/20 11/11/20 History Lisinopril-Hctz 20-12.5 mg 1 tab PO DAILY 11/11/20 11/11/20 History [Zestoretic 20-12.5] Naltrexone HCl [Revia] 50 mg PO DAILY 11/11/20 11/11/20 History Omeprazole 20 mg PO DAILY PRN 11/11/20 11/11/20 History Zinc Sulfate [Orazinc] 220 mg PO DAILY 11/11/20 11/11/20 History buPROPion HCL [Wellbutrin XL] 300 mg PO DAILY 11/11/20 11/11/20 History metFORMIN HCL ER [Glucophage Xr] 500 mg PO DAILY 11/11/20 11/11/20 History Allergies Allergy/AdvReac Type Severity Reaction Status Date / Time No Known Allergies Allergy Verified 11/11/20 14:58 Physical Exam Osteopathic Statement: *. No significant issues noted on an osteopathic s tructural exam other than those noted in the History and Physical/Consult. Vitals: Vital Signs Temp Pulse Resp BP Pulse Ox 11/12/20 09:00 97.9 F 67 23 121/74 88 L 11/12/20 08:00 65 26 H 116/79 91 L 11/12/20 07:00 75 33 H 112/68 91 L 11/12/20 06:00 74 25 H 121/59 92 L 11/12/20 05:00 80 31 H 109/67 88 L 11/12/20 04:00 80 26 H 108/67 90 L 11/12/20 03:00 116 H 44 H 106/68 82 L 11/12/20 02:00 81 25 H 115/79 93 L 11/12/20 01:00 73 28 H 103/69 95 11/12/20 00:00 81 25 H 100/67 90 L 11/11/20 23:04 77 26 H 115/69 86 L 11/11/20 23:00 75 27 H 134/92 87 L 11/11/20 22:00 77 20 108/76 91 L 11/11/20 21:00 86 34 H 130/70 89 L 11/11/20 20:00 99 F 82 30 H 102/78 91 L 11/11/20 19:46 90 L 11/11/20 19:00 101 H 40 H 142/117 93 L 11/11/20 18:57 97.5 F L 41 H 11/11/20 18:06 98.6 F 87 20 98/68 94 L 11/11/20 18:00 87 20 98/68 94 L 11/11/20 17:00 98 24 107/79 94 L 11/11/20 16:00 98.6 F 98 24 104/77 94 L 11/11/20 15:00 100.1 F H 112 H 24 118/89 97 11/11/20 14:15 111 H 24 123/81 96 11/11/20 13:44 100.9 F H 126 H 24 129/76 97 Intake and Output 11/11/20 11/12/20 11/12/20 22:59 06:59 14:59 Intake Total 200 319.611 286.771 Output Total 0 400 0 Balance 200 -80.389 286.771 Intake: IV 200 100 0.9 NS 200 100 Intake, IV Titration 219.611 46.771 Amount Heparin Sod,Pork in 0.45% 219.611 46.771 NaCl 25,000 unit In 0.45 % NaCl 1 250ml.bag @ 11. 524 UNITS/KG/HR 23 mls/hr IV .[id number] [facility] Rx#: [id number] Oral 240 Output: Urine 0 0 0 Urine/Stool Mix 400 Other: Weight 199.581 kg 196.5 kg Oriented 3, conversational dyspnea, currently on BiPAP. Saturations in the high 80s and low 90s. HEENT examination is grossly unremarkable. Neck supple. Full range of motion. No adenopathy thyromegaly or neck vein distention. Cardiovascular examination reveals regular rhythm rate. S1-S2 normal. No S3 or S4. No discernible murmur noted. Heart sounds distant, heart rate 67 bpm. Lungs reveal diffuse bilateral rhonchi. Breath sounds equal bilaterally. No crackles. No wheezes. Abdomen soft bowel sounds are heard. No masses or tenderness. Extremities are intact. No cyanosis clubbing or edema. Skin is without rash or lesion. Neurologic examination is brief but nonfocal. Results - Laboratory Findings CBC and BMP: 11/12/20 03:33 11/12/20 03:33 ABG ABG pH 7.35 (7.35-7.45) 11/11/20 15:47 ABG pCO2 55 mmHg (35-45) H 11/11/20 15:47 ABG pO2 150 mmHg (83-108) H 11/11/20 15:47 ABG O2 Saturation 99.1 % (94-97) H 11/11/20 15:47 PT/INR, D-dimer PT 11.4 sec (9.0-12.0) 11/11/20 13:53 INR 1.1 (<1.2) 11/11/20 13:53 D-Dimer 1.59 mg/L FEU (<0.60) H 11/11/20 13:53 Abnormal lab findings: Abnormal Labs 11/11/20 11/11/20 11/11/20 13:49 13:53 13:53 WBC 10.8 H Hgb Hct Neutrophils # 8.5 H Lymphocytes # 0.8 L Monocytes # 1.1 H APTT D-Dimer 1.59 H ABG pCO2 ABG pO2 ABG HCO3 ABG Total CO2 ABG O2 Saturation Sodium Chloride BUN Creatinine Glucose POC Glucose (mg/dL) 116 H Calcium Phosphorus Magnesium AST Lactate Dehydrogenase C-Reactive Protein Procalcitonin 11/11/20 11/11/20 11/11/20 13:53 13:53 15:47 WBC Hgb Hct Neutrophils # Lymphocytes # Monocytes # APTT D-Dimer ABG pCO2 55 H ABG pO2 150 H ABG HCO3 30 H ABG Total CO2 32 H ABG O2 Saturation 99.1 H Sodium 134 L Chloride 93 L BUN 76 H Creatinine 2.07 H Glucose 111 H POC Glucose (mg/dL) Calcium 8.3 L Phosphorus Magnesium AST 74 H Lactate Dehydrogenase 1295 H C-Reactive Protein 16.9 H Procalcitonin 0.25 H 11/11/20 11/12/20 11/12/20 18:56 00:58 03:33 WBC Hgb Hct Neutrophils # Lymphocytes # Monocytes # APTT 38.0 H D-Dimer ABG pCO2 ABG pO2 ABG HCO3 ABG Total CO2 ABG O2 Saturation Sodium Chloride BUN Creatinine Glucose POC Glucose (mg/dL) 124 H 128 H Calcium Phosphorus Magnesium AST Lactate Dehydrogenase C-Reactive Protein Procalcitonin 11/12/20 11/12/20 11/12/20 03:33 03:33 05:48 WBC 12.1 H Hgb 12.6 L Hct 38.4 L Neutrophils # 10.2 H Lymphocytes # 0.7 L Monocytes # APTT D-Dimer ABG pCO2 ABG pO2 ABG HCO3 ABG Total CO2 ABG O2 Saturation Sodium 135 L Chloride 97 L BUN 81 H Creatinine 1.46 H Glucose 134 H POC Glucose (mg/dL) 133 H Calcium 7.8 L Phosphorus 5.6 H Magnesium 2.4 H AST Lactate Dehydrogenase C-Reactive Protein Procalcitonin - Diagnostic Findings Chest x-ray: image reviewed Assessment and Plan Assessment: Acute hypoxemic respiratory failure secondary to C.OVID 19 pneumonia. History of chronic bronchial asthma. History of hypertension. History of sleep apnea syndrome, currently on CPAP. Prior history of pulmonary embolism, March 2020, currently on a factor X a inhibitor. History of diabetes mellitus. Chronic lower extremity edema and chronic venous stasis of the lower extremities. Morbid obesity. Plan: Plan dated 11/12/2020. The patient's IV heparin was discontinued in favor of Eliquis. The patient is outside the window for REM. The patient should get vitamin C, vitamin D3, and zinc. In addition, the patient should get Decadron. We will continue to follow. The patient's overall prognosis is very guarded. The patient may end up requiring intubation and mechanical ventilation if he does not turn around. Additional recommendations and suggestions are forthcoming. Time with Patient: Greater than 30
[2020-11-12] MEDS ORDERED: FUROSEMIDE 10 MG/ML 4 ML VIAL IV STA (10:50)
[2020-11-12 12:15] LABS: Glucose,Whole Blood 162 mg/dL (75-99)
--- NOTE | 2020-11-12 16:00 | P.PN ---
Subjective Progress Note Date: 11/12/20 Pt seen on high flow NC today, maintaining sats, with good mentation. Still feels cough when taking a deep breath, feels unable to completely catch his air on deep breathing. Objective - Vital Signs Vital signs: Vital Signs Temp 97.9 F 11/12/20 09:00 Pulse 75 11/12/20 13:00 Resp 28 H 11/12/20 13:00 BP 118/68 11/12/20 13:00 Pulse Ox 91 L 11/12/20 15:42 Intake & Output 11/11/20 11/12/20 11/12/20 18:59 06:59 18:59 Intake Total 519.611 526.771 Output Total 400 500 Balance 119.611 26.771 Weight 199.581 kg 196.5 kg Intake: IV 300 0.9 NS 300 Intake, IV Titration 219.611 46.771 Amount Heparin Sod,Pork in 0.45% 219.611 46.771 NaCl 25,000 unit In 0.45 % NaCl 1 250ml.bag @ 11. 524 UNITS/KG/HR 23 mls/hr IV .[id number] [facility] Rx#: [id number] Oral 480 Output: Urine 0 500 Urine/Stool Mix 400 Other: # Bowel Movements 1 - Exam Gen: awake, alert HEENT: normocephalic, atraumatic, good hearing acuity, moist mucous membranes Resp: good air exchange, breathing comfortably with no accessory muscle use, bilateral coarse breath sounds, no wheezing CVS: good distal perfusion x 4, regular rate and rhythm without murmurs GI: soft, NTTP, ND : no SPT, no CVAT, whitley catheter not present MSK: no pitting edema, no clubbing Neuro: non-focal, moving all extremities Psych: cooperative, euthymic mood - Labs CBC & Chem 7: 11/12/20 03:33 11/12/20 03:33 Labs: Abnormal Lab Results - Last 24 Hours (Table) 11/11/20 11/11/20 11/12/20 Range/Units 13:53 18:56 00:58 WBC (3.8-10.6) k/uL Hgb (13.0-17.5) gm/dL Hct (39.0-53.0) % Neutrophils # (1.3-7.7) k/uL Lymphocytes # (1.0-4.8) k/uL APTT (22.0-30.0) sec Sodium (137-145) mmol/L Chloride (98-107) mmol/L BUN (9-20) mg/dL Creatinine (0.66-1.25) mg/dL Glucose (74-99) mg/dL POC Glucose (mg/dL) 124 H 128 H (75-99) mg/dL Calcium (8.4-10.2) mg/dL Phosphorus (2.5-4.5) mg/dL Magnesium (1.6-2.3) mg/dL Procalcitonin 0.25 H (0.02-0.09) ng/mL 11/12/20 11/12/20 11/12/20 Range/Units 03:33 03:33 03:33 WBC 12.1 H (3.8-10.6) k/uL Hgb 12.6 L (13.0-17.5) gm/dL Hct 38.4 L (39.0-53.0) % Neutrophils # 10.2 H (1.3-7.7) k/uL Lymphocytes # 0.7 L (1.0-4.8) k/uL APTT 38.0 H (22.0-30.0) sec Sodium 135 L (137-145) mmol/L Chloride 97 L (98-107) mmol/L BUN 81 H (9-20) mg/dL Creatinine 1.46 H (0.66-1.25) mg/dL Glucose 134 H (74-99) mg/dL POC Glucose (mg/dL) (75-99) mg/dL Calcium 7.8 L (8.4-10.2) mg/dL Phosphorus 5.6 H (2.5-4.5) mg/dL Magnesium 2.4 H (1.6-2.3) mg/dL Procalcitonin (0.02-0.09) ng/mL 11/12/20 11/12/20 Range/Units 05:48 12:03 WBC (3.8-10.6) k/uL Hgb (13.0-17.5) gm/dL Hct (39.0-53.0) % Neutrophils # (1.3-7.7) k/uL Lymphocytes # (1.0-4.8) k/uL APTT (22.0-30.0) sec Sodium (137-145) mmol/L Chloride (98-107) mmol/L BUN (9-20) mg/dL Creatinine (0.66-1.25) mg/dL Glucose (74-99) mg/dL POC Glucose (mg/dL) 133 H 162 H (75-99) mg/dL Calcium (8.4-10.2) mg/dL Phosphorus (2.5-4.5) mg/dL Magnesium (1.6-2.3) mg/dL Procalcitonin (0.02-0.09) ng/mL Assessment and Plan Assessment: Acute hypoxic respiratory failure requiring bipap Acute covid 19 pneumonia vs. RDS Admit to ICU BIPAP --> HFNC (wean as tolerated) Consult pulm, appreciate melody Decadron, day 08/29 No remdisivir due to onset of symptoms more than 7 days ago ELIANA, improving Watch off IV fluids as CXR showing pulm edema Avoid nephrotoxic meds Follow Cr in am Hx of PE Will switch NOAC to heparin due to renal failure HTN Morbid obesity Bilateral Lymphedema with [place] Dermatitis Stable Resume meds Outpatient wound care follow up for lymphedema Admitted to inpatient expected length of stay more than 2 midnights
[2020-11-13 05:06] LABS: Basophils # (A) 0.1 k/uL (0-0.2); Basophils % (A) 1 %; Eosinophils % (A) 0 %; HCT 40.4 % (39.0-53.0); Hypochromasia Slight; Lymphocytes # (A) 0.5 k/uL (1.0-4.8); Lymphocytes % (A) 4 %; MCH 28.1 pg (25.0-35.0); MCHC 32.1 g/dL (31.0-37.0); MCV 87.6 fL (80.0-100.0); Mean Platelet Volume 7.5; Monocytes # (A) 1.2 k/uL (0-1.0); Monocytes % (A) 11 %; Neutrophils # (A) 8.8 k/uL (1.3-7.7); Neutrophils % (A) 81 %; Platelet Count 314 k/uL (150-450); RBC 4.61 m/uL (4.30-5.90); RDW 14.4 % (11.5-15.5); WBC 10.8 k/uL (3.8-10.6)
[2020-11-13 05:41] LABS: African American GFR (CKD) >90 (>60 ml/min/1.73 sqM); Anion Gap 6 mmol/L; Blood Urea Nitrogen 60 mg/dL (9-20); Calcium 8.4 mg/dL (8.4-10.2); Carbon Dioxide 32 mmol/L (22-30); Chloride 100 mmol/L (98-107); Glucose 132 mg/dL (74-99); Non-African American GFR(CKD) >90 (>60 ml/min/1.73 sqM); Sodium 138 mmol/L (137-145)
[2020-11-13 05:56] LABS: Magnesium 2.7 mg/dL (1.6-2.3); Potassium 5.5 mmol/L (3.5-5.1)
--- NOTE | 2020-11-13 06:18 | XR ---
EXAMINATION TYPE: XR chest 1V DATE OF EXAM: 11/13/2020 CLINICAL HISTORY: Difficulty breathing and covid progress study. TECHNIQUE: Single AP portable upright view of the chest is obtained. COMPARISON: Chest x-ray from one and 2 days earlier. CTA chest October 22, 2020 FINDINGS: Persistent bilateral multifocal and confluent opacities on background somewhat low lung vo lumes. Stable underlying cardiomegaly. Osseous structures are intact. IMPRESSION: Bilateral multifocal and confluent opacities show interval progression consistent with wo rsening covid-19 infection.
[2020-11-13] MEDS: INSULIN ASPART (NovoLOG) 100 UNIT/ML VIAL SQ SCH ×4 (07:03→21:17)
[2020-11-13] MEDS: ALBUTEROL HFA INHALER INHALATION PRN ×4 (07:45→21:37)
[2020-11-13 08:19] LABS: Glucose,Whole Blood 137 mg/dL (75-99)
[2020-11-13] MEDS: APIXABAN 5 MG TAB PO SCH ×2 (09:17→21:20)
[2020-11-13] MEDS: ASCORBIC ACID 500 MG TAB PO SCH ×2 (09:17→21:20)
[2020-11-13] MEDS: CHOLECALCIFEROL 25 MCG (1000 IU) TABLET PO SCH (09:17)
[2020-11-13] MEDS: buPROPion XL 300 MG TAB.ER.24H PO SCH (09:18)
[2020-11-13] MEDS: ASPIRIN 81 MG PO SCH (09:18)
[2020-11-13] MEDS: DEXAMETHASONE SOD PHOSPHATE 10 MG/ML 1 ML VIAL IV SCH (09:18)
[2020-11-13] MEDS: ZINC SULFATE 220 MG CAP PO SCH (09:18)
--- NOTE | 2020-11-13 09:56 | P.PN ---
Subjective Progress Note Date: 11/13/20 Principal diagnosis: Acute respiratory failure. Pulmonary consultation dated 11/12/2020. 30-year-old male, who presents to the emergency room, via EMS, for shortness of breath. The patient apparently tested positive for coronavirus, last Thursday, 1 week ago. Apparently EMS was called because his breathing had worsened. He's been having symptoms for about 10 days or so. He apparently was using breathing treatments at home, that belonged to one of his friends. Apparently when EMS arrived, his saturations were in the mid 40 range, on room air. He was placed on BiPAP, given one updraft treatment, and transported to the hospital. Currently, in the ICU, he is on BiPAP, with settings of IPAP 14,EPAP of 6, and 60%. He is currently on a heparin drip. He had a previous history of pulmonary embolism, and is been on blood thinners in the form of Eliquis since March 2020. White count is 12.1, hemoglobin 12.6, hematocrit 38.4, and platelet count 351,000. PTT was 38. Blood gases show a PaO2 of 150, PaCO2 of 55, and a pH is 7.35. This was on 100%. Sodium 135, potassium 5, chlorides 97, CO2 30, anion gap 8, BUN 81, creatinine 1.46. Chest x-ray shows patchy airspace disease bilaterally. Progress note dated 11/13/2020. This is a 30-year-old male, who we saw yesterday in consultation. We saw him today given the intensive care unit, room 252. He's not receiving any IV fluids. He is on BiPAP with settings of IPAP 14, EPAP 6. He is on 60% FiO2. Currently, he is doing about the same. He is on a factor X a inhibitor for a previous history of pulmonary embolism back in March 2020. We chose to continue the anticoagulants given his positive for coronavirus status. Currently, white count 10.8, hemoglobin 13, hematocrit 40.4, and platelet count 314,000. Sodium 138, potassium 5.5, chlorides 100, CO2 32, anion gap 6, BUN 60, and creatinine 0.77. Chest x-ray shows bilateral, multifocal, and confluent opacities. Objective - Vital Signs Vital signs: Vital Signs Temp 98 F 11/13/20 04:00 Pulse 75 04/27/21 07:00 Resp 23 11/13/20 07:00 BP 123/78 11/13/20 07:00 Pulse Ox 90 L 11/13/20 07:00 Intake & Output 11/12/20 11/13/20 11/13/20 18:59 06:59 18:59 Intake Total 766.771 Output Total 1125 625 0 Balance -358.229 -625 0 Weight 193.4 kg Intake: Intake, IV Titration 46.771 Amount Heparin Sod,Pork in 0.45% 46.771 NaCl 25,000 unit In 0.45 % NaCl 1 250ml.bag @ 11. 524 UNITS/KG/HR 23 mls/hr IV .[id number] [facility] Rx#: [id number] Oral 720 Output: Urine 1125 625 0 Other: # Voids 1 # Bowel Movements 1 - Exam Oriented 3, conversational dyspnea, currently on BiPAP. Saturation today is 90%. HEENT examination is grossly unremarkable. Neck supple. Full range of motion. No adenopathy thyromegaly or neck vein distention. Cardiovascular examination reveals regular rhythm rate. S1-S2 normal. No S3 or S4. No discernible murmur noted. Heart sounds distant, heart rate 75 bpm. Lungs reveal diffuse bilateral rhonchi. Breath sounds equal bilaterally. No crackles. No wheezes. Abdomen soft bowel sounds are heard. No masses or tenderness. Extremities reveal severe chronic venous stasis changes, edema, and thickening of the skin. Skin is without rash or lesion. Neurologic examination is brief but nonfocal. - Labs CBC & Chem 7: 11/13/20 03:15 11/13/20 03:15 Labs: Abnormal Lab Results - Last 24 Hours (Table) 11/12/20 11/13/20 11/13/20 Range/Units 12:03 03:15 03:15 WBC 10.8 H (3.8-10.6) k/uL Neutrophils # 8.8 H (1.3-7.7) k/uL Lymphocytes # 0.5 L (1.0-4.8) k/uL Monocytes # 1.2 H (0-1.0) k/uL Potassium 5.5 H (3.5-5.1) mmol/L Carbon Dioxide 32 H (22-30) mmol/L BUN 60 H (9-20) mg/dL Glucose 132 H (74-99) mg/dL POC Glucose (mg/dL) 162 H (75-99) mg/dL Magnesium 2.7 H (1.6-2.3) mg/dL 11/13/20 Range/Units 06:57 WBC (3.8-10.6) k/uL Neutrophils # (1.3-7.7) k/uL Lymphocytes # (1.0-4.8) k/uL Monocytes # (0-1.0) k/uL Potassium (3.5-5.1) mmol/L Carbon Dioxide (22-30) mmol/L BUN (9-20) mg/dL Glucose (74-99) mg/dL POC Glucose (mg/dL) 137 H (75-99) mg/dL Magnesium (1.6-2.3) mg/dL Microbiology - Last 24 Hours (Table) 11/11/20 14:03 Blood Culture - Preliminary Blood No Growth after 24 hours 11/11/20 14:03 Blood Culture - Preliminary Blood No Growth after 24 hours Assessment and Plan Assessment: Acute hypoxemic respiratory failure secondary to C.OVID 19 pneumonia. History of chronic bronchial asthma. History of hypertension. History of sleep apnea syndrome, currently on CPAP. Prior history of pulmonary embolism, March 2020, currently on a factor X a inhibitor. History of diabetes mellitus. Chronic lower extremity edema and chronic venous stasis of the lower extremities. Morbid obesity. Plan: Plan dated 11/12/2020. The patient's IV heparin was discontinued in favor of Eliquis. The patient is outside the window for REM. The patient should get vitamin C, vitamin D3, and zinc. In addition, the patient should get Decadron. We will continue to follow. The patient's overall prognosis is very guarded. The patient may end u p requiring intubation and mechanical ventilation if he does not turn around. Additional recommendations and suggestions are forthcoming. Plan dated 11/13/2020. Currently, the patient's FiO2 has been weaned down. The patient remains on an anticoagulant. The patient is also on albuterol inhaler, vitamin C, vitamin D3, and zinc. He remains on Decadron as well. Additional recommendations and s uggestions are forthcoming. Prognosis is guarded. We'll continue to follow. Additional recommendations and suggestions will be made. The patient is outside the window for REM. Time with Patient: Greater than 30
[2020-11-13 11:30] LABS: Glucose,Whole Blood 131 mg/dL (75-99)
--- NOTE | 2020-11-13 15:35 | P.PN ---
Subjective Progress Note Date: 11/13/20 Patient feels the same as yesterday. Good appetite. CXR appears slightly worse, but clinically maintaining saturation on HFNC. Objective - Vital Signs Vital signs: Vital Signs Temp 98.1 F 11/13/20 08:00 Pulse 73 11/13/20 12:00 Resp 25 H 11/13/20 12:00 BP 137/101 11/13/20 12:00 Pulse Ox 90 L 11/13/20 12:57 Intake & Output 11/12/20 11/13/20 11/13/20 18:59 06:59 18:59 Intake Total 766.771 240 Output Total 1125 625 0 Balance -358.229 -625 240 Weight 193.4 kg Intake: Intake, IV Titration 46.771 Amount Heparin Sod,Pork in 0.45% 46.771 NaCl 25,000 unit In 0.45 % NaCl 1 250ml.bag @ 11. 524 UNITS/KG/HR 23 mls/hr IV .[id number] [facility] Rx#: [id number] Oral 720 240 Output: Urine 1125 625 0 Other: # Voids 1 # Bowel Movements 1 - Exam Gen: awake, alert HEENT: normocephalic, atraumatic, good hearing acuity, moist mucous membranes Resp: good air exchange, breathing comfortably with no accessory muscle use, bilateral coarse breath sounds, no wheezing CVS: good distal perfusion x 4, regular rate and rhythm without murmurs GI: soft, NTTP, ND : no SPT, no CVAT, whitley catheter not present MSK: no pitting edema, no clubbing Neuro: non-focal, moving all extremities Psych: cooperative, euthymic mood - Labs CBC & Chem 7: 11/13/20 03:15 11/13/20 03:15 Labs: Abnormal Lab Results - Last 24 Hours (Table) 11/13/20 11/13/20 11/13/20 Range/Units 03:15 03:15 06:57 WBC 10.8 H (3.8-10.6) k/uL Neutrophils # 8.8 H (1.3-7.7) k/uL Lymphocytes # 0.5 L (1.0-4.8) k/uL Monocytes # 1.2 H (0-1.0) k/uL Potassium 5.5 H (3.5-5.1) mmol/L Carbon Dioxide 32 H (22-30) mmol/L BUN 60 H (9-20) mg/dL Glucose 132 H (74-99) mg/dL POC Glucose (mg/dL) 137 H (75-99) mg/dL Magnesium 2.7 H (1.6-2.3) mg/dL 11/13/20 Range/Units 11:27 WBC (3.8-10.6) k/uL Neutrophils # (1.3-7.7) k/uL Lymphocytes # (1.0-4.8) k/uL Monocytes # (0-1.0) k/uL Potassium (3.5-5.1) mmol/L Carbon Dioxide (22-30) mmol/L BUN (9-20) mg/dL Glucose (74-99) mg/dL POC Glucose (mg/dL) 131 H (75-99) mg/dL Magnesium (1.6-2.3) mg/dL Microbiology - Last 24 Hours (Table) 11/11/20 14:03 Blood Culture - Preliminary Blood No Growth after 24 hours 11/11/20 14:03 Blood Culture - Preliminary Blood No Growth after 24 hours Assessment and Plan Assessment: Acute hypoxic respiratory failure requiring bipap Acute covid 19 pneumonia vs. RDS Admit to ICU BIPAP --> HFNC (wean as tolerated) Consult pulm, yudelka Abraham, day 09/26 No remdisivir due to onset of symptoms more than 7 days ago ELIANA, improving Watch off IV fluids as CXR showing pulm edema Avoid nephrotoxic meds Follow Cr in am Hx of PE Will switch NOAC to heparin due to renal failure HTN Morbid obesity Bilateral Lymphedema with [place] Dermatitis Stable Resume meds Outpatient wound care follow up for lymphedema Admitted to inpatient expected length of stay more than 2 midnights
[2020-11-13 17:42] LABS: Glucose,Whole Blood 134 mg/dL (75-99)
[2020-11-13 21:06] LABS: Glucose,Whole Blood 123 mg/dL (75-99)
[2020-11-14 04:31] LABS: Basophils # (A) 0.2 k/uL (0-0.2); Basophils % (A) 2 %; Eosinophils # (A) 0.1 k/uL (0-0.7); Eosinophils % (A) 1 %; HCT 39.3 % (39.0-53.0); HGB 12.6 gm/dL (13.0-17.5); Hypochromasia Slight; Lymphocytes # (A) 0.5 k/uL (1.0-4.8); Lymphocytes % (A) 5 %; MCH 28.1 pg (25.0-35.0); MCHC 32.1 g/dL (31.0-37.0); MCV 87.5 fL (80.0-100.0); Mean Platelet Volume 7.2; Monocytes # (A) 1.1 k/uL (0-1.0); Monocytes % (A) 9 %; Neutrophils # (A) 9.4 k/uL (1.3-7.7); Neutrophils % (A) 81 %; Platelet Count 349 k/uL (150-450); RBC 4.49 m/uL (4.30-5.90); RDW 14.2 % (11.5-15.5); WBC 11.7 k/uL (3.8-10.6)
[2020-11-14 04:44] LABS: ALT 43 U/L (4-49); AST 74 U/L (17-59); African American GFR (CKD) >90 (>60 ml/min/1.73 sqM); Albumin 3.1 g/dL (3.5-5.0); Alkaline Phosphatase 40 U/L (38-126); Anion Gap 6 mmol/L; Blood Urea Nitrogen 44 mg/dL (9-20); Calcium 8.9 mg/dL (8.4-10.2); Carbon Dioxide 34 mmol/L (22-30); Chloride 100 mmol/L (98-107); Glucose 122 mg/dL (74-99); Non-African American GFR(CKD) >90 (>60 ml/min/1.73 sqM); Sodium 140 mmol/L (137-145); Total Bilirubin 0.6 mg/dL (0.2-1.3); Total Protein 6.3 g/dL (6.3-8.2)
[2020-11-14 05:00] LABS: Potassium 5.6 mmol/L (3.5-5.1)
[2020-11-14] MEDS: INSULIN ASPART (NovoLOG) 100 UNIT/ML VIAL SQ SCH ×4 (06:46→21:26)
[2020-11-14 06:57] LABS: Glucose,Whole Blood 120 mg/dL (75-99)
--- NOTE | 2020-11-14 07:23 | XR ---
EXAMINATION TYPE: XR chest 1V DATE OF EXAM: 11/14/2020 COMPARISON: 11/13/2020 HISTORY: Covid pneumonia TECHNIQUE: Single frontal view of the chest is obtained. FINDINGS: Diffuse patchy airspace infiltrates persist throughout both lung moore without significant interval change. The cardiac silhouette size is within normal limits. The osseous structures are intact. IMPRESSION: 1. Stable chest.
[2020-11-14] MEDS: CHOLECALCIFEROL 25 MCG (1000 IU) TABLET PO SCH (08:00)
[2020-11-14] MEDS: ASPIRIN 81 MG PO SCH (08:00)
[2020-11-14] MEDS: ASCORBIC ACID 500 MG TAB PO SCH ×2 (08:00→21:26)
[2020-11-14] MEDS: DEXAMETHASONE SOD PHOSPHATE 10 MG/ML 1 ML VIAL IV SCH (08:00)
[2020-11-14] MEDS: ZINC SULFATE 220 MG CAP PO SCH (08:00)
[2020-11-14] MEDS: APIXABAN 5 MG TAB PO SCH ×2 (08:00→21:26)
[2020-11-14] MEDS: buPROPion XL 300 MG TAB.ER.24H PO SCH (08:01)
--- NOTE | 2020-11-14 10:32 | P.PN ---
Subjective Progress Note Date: 11/14/20 Principal diagnosis: Acute respiratory failure. Pulmonary consultation dated 11/12/2020. 30-year-old male, who presents to the emergency room, via EMS, for shortness of breath. The patient apparently tested positive for coronavirus, last Thursday, 1 week ago. Apparently EMS was called because his breathing had worsened. He's been having symptoms for about 10 days or so. He apparently was using breathing treatments at home, that belonged to one of his friends. Apparently when EMS arrived, his saturations were in the mid 40 range, on room air. He was placed on BiPAP, given one updraft treatment, and transported to the hospital. Currently, in the ICU, he is on BiPAP, with settings of IPAP 14,EPAP of 6, and 60%. He is currently on a heparin drip. He had a previous history of pulmonary embolism, and is been on blood thinners in the form of Eliquis since March 2020. White count is 12.1, hemoglobin 12.6, hematocrit 38.4, and platelet count 351,000. PTT was 38. Blood gases show a PaO2 of 150, PaCO2 of 55, and a pH is 7.35. This was on 100%. Sodium 135, potassium 5, chlorides 97, CO2 30, anion gap 8, BUN 81, creatinine 1.46. Chest x-ray shows patchy airspace disease bilaterally. Progress note dated 11/13/2020. This is a 30-year-old male, who we saw yesterday in consultation. We saw him today given the intensive care unit, room 252. He's not receiving any IV fluids. He is on BiPAP with settings of IPAP 14, EPAP 6. He is on 60% FiO2. Currently, he is doing about the same. He is on a factor X a inhibitor for a previous history of pulmonary embolism back in March 2020. We chose to continue the anticoagulants given his positive for coronavirus status. Currently, white count 10.8, hemoglobin 13, hematocrit 40.4, and platelet count 314,000. Sodium 138, potassium 5.5, chlorides 100, CO2 32, anion gap 6, BUN 60, and creatinine 0.77. Chest x-ray shows bilateral, multifocal, and confluent opacities. Progress note dated 11/14/2020. 30-year-old male, seen a couple days ago in consultation. He is seen today again in the ICU, room 252. The patient's currently on 15 L high flow nasal cannula. From time to time, and especially at nighttime, he goes on BiPAP, with settings of IPAP 14, EPAP 6, and an FiO2 of 60%. The patient is not receiving any IV fluids. He is doing about the same today as he did yesterday. Chest x- ray today is stable according to radiology. Lab work today includes a white count 11.7, hemoglobin 12.6, hematocrit 39.3, and platelet count 349,000. Sodium 140, potassium 5.6, chlorides 100, CO2 34, anion gap of 6, BUN 44, and creatinine 0.67. Objective - Vital Signs Vital signs: Vital Signs Temp 98 F 11/14/20 08:00 Pulse 70 11/14/20 10:00 Resp 24 11/14/20 10:00 BP 150/105 11/14/20 10:00 Pulse Ox 90 L 11/14/20 10:00 Intake & Output 11/13/20 11/14/20 11/14/20 18:59 06:59 18:59 Intake Total 600 400 100 Output Total 925 850 0 Balance -325 -450 100 Weight 193.2 kg Intake: Oral 600 400 100 Output: Urine 925 850 0 - Exam Oriented 3, conversational dyspnea, currently on BiPAP. Saturation today is 90%. HEENT examination is grossly unremarkable. Neck supple. Full range of motion. No adenopathy thyromegaly or neck vein distention. Cardiovascular examination reveals regular rhythm rate. S1-S2 normal. No S3 or S4. No discernible murmur noted. Heart sounds distant, heart rate 70 bpm. Lungs reveal diffuse bilateral rhonchi. Breath sounds equal bilaterally. No crackles. No wheezes. Lung exam is unchanged. Abdomen soft bowel sounds are heard. No masses or tenderness. Extremities reveal severe chronic venous stasis changes, edema, and thickening of the skin. Skin is without rash or lesion. Neurologic examination is brief but nonfocal. - Labs CBC & Chem 7: 11/14/20 04:02 11/14/20 04:02 Labs: Abnormal Lab Results - Last 24 Hours (Table) 11/13/20 11/13/20 11/13/20 Range/Units 11:27 17:40 21:04 WBC (3.8-10.6) k/uL Hgb (13.0-17.5) gm/dL Neutrophils # (1.3-7.7) k/uL Lymphocytes # (1.0-4.8) k/uL Monocytes # (0-1.0) k/uL Potassium (3.5-5.1) mmol/L Carbon Dioxide (22-30) mmol/L BUN (9-20) mg/dL Glucose (74-99) mg/dL POC Glucose (mg/dL) 131 H 134 H 123 H (75-99) mg/dL AST (17-59) U/L Albumin (3.5-5.0) g/dL 11/14/20 11/14/20 11/14/20 Range/Units 04:02 04:02 06:45 WBC 11.7 H (3.8-10.6) k/uL Hgb 12.6 L (13.0-17.5) gm/dL Neutrophils # 9.4 H (1.3-7.7) k/uL Lymphocytes # 0.5 L (1.0-4.8) k/uL Monocytes # 1.1 H (0-1.0) k/uL Potassium 5.6 H (3.5-5.1) mmol/L Carbon Dioxide 34 H (22-30) mmol/L BUN 44 H (9-20) mg/dL Glucose 122 H (74-99) mg/dL POC Glucose (mg/dL) 120 H (75-99) mg/dL AST 74 H (17-59) U/L Albumin 3.1 L (3.5-5.0) g/dL Microbiology - Last 24 Hours (Table) 11/11/20 14:03 Blood Culture - Preliminary Blood No Growth after 48 hours 11/11/20 14:03 Blood Culture - Preliminary Blood No Growth after 48 hours Assessment and Plan Assessment: Acute hypoxemic respiratory failure secondary to C.OVID 19 pneumonia. History of chronic bronchial asthma. History of hypertension. History of sleep apnea syndrome, currently on CPAP. Prior history of pulmonary embolism, March 2020, currently on a factor X a inhibitor. History of diabetes mellitus. Chronic lower extremity edema and chronic venous stasis of the lower e xtremities. Morbid obesity. Plan: Plan dated 11/12/2020. The patient's IV heparin was discontinued in favor of Eliquis. The patient is outside the window for REM. The patient should get vitamin C, vitamin D3, and zinc. In addition, the patient should get Decadron. We will continue to follow. The patient's overall prognosis is very guarded. The patient may end up requiring intubation and mechanical ventilation if he does not turn around. Additional recommendations and suggestions are forthcoming. Plan dated 11/13/2020. Currently, the patient's FiO2 has been weaned down. The patient remains on an anticoagulant. The patient is also on albuterol inhaler, vitamin C, vitamin D3, and zinc. He remains on Decadron as well. Additional recommendations and suggestions are forthcoming. Prognosis is guarded. We'll continue to follow. Additional recommendations and suggestions will be made. The patient is outside the window for REM. Plan dated 11/14/2020. The patient remains on high flow nasal cannula at 50 L/m. In addition, at nighttime, the patient was on BiPAP, settings of 14/6, and 60% FiO2. The patient not receiving any IV fluids. The patient remains on albuterol inhaler, vitamin C, vitamin D3, and zinc. In addition, he's on a factor X a inhibitor fo r his previous pulmonary embolism and March 2020, and Decadron. The patient was outside the window for REM. Prognosis is guarded. We will continue to follow and make recommendations. Time with Patient: Greater than 30
[2020-11-14 12:26] LABS: Glucose,Whole Blood 126 mg/dL (75-99)
[2020-11-14 16:45] LABS: Glucose,Whole Blood 140 mg/dL (75-99)
[2020-11-14] MEDS ORDERED: SODIUM POLYSTYRENE SULFONATE 15 GM/60 ML BOTTLE PO STA (17:38)
--- NOTE | 2020-11-14 17:47 | P.PN ---
Progress Note - Text Progress Note Date: 11/14/20 Presenting complaint: Shortness of breath History of presenting complaint: 30-year-old male who presents to ER today via ambulance for evaluation of shortness of breath. Patient tested positive for COVID-19 last week thursday, at that time he was given an ''antibiotic'' by his doctor, states that he improved initially but later on he started to get worse so he presented. Upon EMS arrival patient was found to have hard time breathing and oxygen saturation of 45% on room air. Patient was placed on BiPAP treated with 1 DuoNeb and transported the hospital. In the ER his temp was 100.9, HR was 110, sats 94% on bipap 60% Fio2. Labs showed ELIANA with cr 2.07 from normal baseline. Rest of labs ok. CXR showed new pulm edema vs. RDS. Patient was admitted to the ICU. Placed on BiPAP. Patient is put on vitamin C, vitamin D3, zinc. Decadron. Today: ICU. Using BiPAP at night. Slight cough. His lipid better. Telemetry: Sinus rhythm. Eating fair. On 15 L high flow oxygen Review of systems: Was done for constitutional, cardiovascular, GI, pulmonary. relevant finding as above Active Medications Acetaminophen (Acetaminophen Tab 325 Mg Tab) 650 mg PO Q6HR PRN PRN Reason: Mild Pain or Fever > 100.5 Albuterol Sulfate (Albuterol Hfa Inhaler) 2 puff INHALATION RT-QID PRN PRN Reason: Shortness Of Breath Or Wheezing Last Admin: 11/13/20 21:37 Dose: 2 puff Documented by: Apixaban (Apixaban 5 Mg Tab) 5 mg PO BID [facility] Last Admin: 11/14/20 08:00 Dose: 5 mg Documented by: Ascorbic Acid (Ascorbic Acid 500 Mg Tab) 500 mg PO BID [facility] Last Admin: 11/14/20 08:00 Dose: 500 mg Documented by: Aspirin (Aspirin 81 Mg) 81 mg PO DAILY [facility] Last Admin: 11/14/20 08:00 Dose: 81 mg Documented by: Bupropion HCl (Bupropion Xl 300 Mg Tab.Er.24h) 300 mg PO DAILY [facility] Last Admin: 11/14/20 08:01 Dose: 300 mg Documented by: Cholecalciferol (Cholecalciferol 25 Mcg (1000 Iu) Tablet) 125 mcg PO DAILY [facility] Last Admin: 11/14/20 08:00 Dose: 125 mcg Documented by: Dexamethasone Sodium Phosphate (Dexamethasone Sod Phosphate 10 Mg/Ml 1 Ml Vial) 6 mg IV DAILY [facility] Last Admin: 11/14/20 08:00 Dose: 6 mg Documented by: Insulin Aspart (Insulin Aspart (Novolog) 100 Unit/Ml Vial) 0 unit SQ ACHS [facility]; Protocol Last Admin: 11/14/20 13:22 Dose: Not Given Documented by: Naloxone HCl (Naloxone 0.4 Mg/Ml 1 Ml Vial) 0.2 mg IV Q2M PRN PRN Reason: Opioid Reversal Ondansetron HCl (Ondansetron 4 Mg/2 Ml Vial) 4 mg IVP Q8HR PRN PRN Reason: Nausea And Vomiting Pantoprazole Sodium (Pantoprazole 40 Mg Tablet) 40 mg PO DAILY PRN PRN Reason: Heartburn Zinc Sulfate (Zinc Sulfate 220 Mg Cap) 220 mg PO DAILY [facility] Last Admin: 11/14/20 08:00 Dose: 220 mg Documented by: On examination: VITAL SIGNS: 98, 63, 27, 154/98, 91% on 15 L high flow nasal cannula GENERAL APPEARANCE: BMI 64.8, laying in bed, short of breath, awake RESPIRATORY: Respiratory effort increased. Using some accessory muscles. PSYCHIATRY: Alert and oriented x3. Mood and affect slightly anxious NEURO: Cranial nerves grossly intact. Moving all 4 limbs Rest of exam as per pulmonary and nursing INVESTIGATIONS, reviewed in the clinical context: WBC 11.7 hemoglobin 12.6 platelets 349 potassium 5.6 creatinine 0.67 Chest x-ray film personally reviewed by me-bilateral infiltrates Assessment and plan: -Acute hypoxic respiratory failure secondary to COVID-19 pneumonia: requiring bipap at night currently on 15 L nasal cannula high flow -Acute covid 19 pneumonia Vitamin C, vitamin D, zinc, IV Decadron -ELIANA, likely from [facility] from COVID 19 Improving with IV fluids -Chronic PE, in March 2020 Continue with eliquis -Essential HTN Add hydralazine -Morbid obesity, with a BMI of 64.8 Weight loss measures and follow-up with outpatient with PCP -Chronic Bilateral Lymphedema with [place] Dermatitis Follow clinically and follow-up as outpatient -Hyperkalemia Patient received Lasix and Kayexalate -Obstructive sleep apnea Using BiPAP Patient remains in ICU. Continue current medication. 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 Discussed with the patient.
[2020-11-14 20:56] LABS: Glucose,Whole Blood 141 mg/dL (75-99)
[2020-11-14] MEDS ORDERED: COLCHICINE 0.6 MG EACH PO SCH (21:00)
[2020-11-14] MEDS: ALBUTEROL HFA INHALER INHALATION PRN (21:13)
[2020-11-15] MEDS: ACETAMINOPHEN TAB 325 MG TAB PO PRN (05:37)
[2020-11-15 05:51] LABS: Basophils # (A) 0.1 k/uL (0-0.2); Basophils % (A) 1 %; Eosinophils # (A) 0.1 k/uL (0-0.7); Eosinophils % (A) 1 %; HCT 44.3 % (39.0-53.0); HGB 13.7 gm/dL (13.0-17.5); Hypochromasia Slight; Lymphocytes % (A) 10 %; MCH 27.3 pg (25.0-35.0); MCHC 30.9 g/dL (31.0-37.0); MCV 88.3 fL (80.0-100.0); Monocytes # (A) 0.8 k/uL (0-1.0); Monocytes % (A) 7 %; Neutrophils # (A) 8.6 k/uL (1.3-7.7); Neutrophils % (A) 80 %; Platelet Count 372 k/uL (150-450); RBC 5.02 m/uL (4.30-5.90); RDW 14.6 % (11.5-15.5); WBC 10.7 k/uL (3.8-10.6)
[2020-11-15 06:28] LABS: African American GFR (CKD) >90 (>60 ml/min/1.73 sqM); Blood Urea Nitrogen 31 mg/dL (9-20); C Reactive Protein 3.5 mg/dL (<1.0); Calcium 9.2 mg/dL (8.4-10.2); Chloride 97 mmol/L (98-107); Glucose 111 mg/dL (74-99); Non-African American GFR(CKD) >90 (>60 ml/min/1.73 sqM); Potassium 5.4 mmol/L (3.5-5.1); Sodium 141 mmol/L (137-145)
[2020-11-15 06:33] LABS: Anion Gap 9 mmol/L
[2020-11-15 06:37] LABS: Carbon Dioxide 35 mmol/L (22-30)
--- NOTE | 2020-11-15 07:27 | XR ---
EXAMINATION TYPE: XR chest 1V DATE OF EXAM: 11/15/2020 COMPARISON: 11/14/2020 HISTORY: Shortness of breath TECHNIQUE: Single frontal view of the chest is obtained. FINDINGS: Diffuse bilateral airspace disease stable. No pleural effusion or pneumothorax. Cardiomega ly stable. No overt failure. IMPRESSION: Diffuse bilateral airspace disease stable
[2020-11-15] MEDS: INSULIN ASPART (NovoLOG) 100 UNIT/ML VIAL SQ SCH ×4 (09:44→22:43)
[2020-11-15] MEDS: ZINC SULFATE 220 MG CAP PO SCH (09:46)
[2020-11-15] MEDS: CHOLECALCIFEROL 25 MCG (1000 IU) TABLET PO SCH (09:46)
[2020-11-15] MEDS: APIXABAN 5 MG TAB PO SCH ×2 (09:47→20:46)
[2020-11-15] MEDS: buPROPion XL 300 MG TAB.ER.24H PO SCH (09:47)
[2020-11-15] MEDS: ASPIRIN 81 MG PO SCH (09:47)
[2020-11-15] MEDS: ASCORBIC ACID 500 MG TAB PO SCH ×2 (09:47→20:46)
--- NOTE | 2020-11-15 11:31 | P.PN ---
Subjective Progress Note Date: 11/15/20 Principal diagnosis: Acute respiratory failure. Pulmonary consultation dated 11/12/2020. 30-year-old male, who presents to the emergency room, via EMS, for shortness of breath. The patient apparently tested positive for coronavirus, last Thursday, 1 week ago. Apparently EMS was called because his breathing had worsened. He's been having symptoms for about 10 days or so. He apparently was using breathing treatments at home, that belonged to one of his friends. Apparently when EMS arrived, his saturations were in the mid 40 range, on room air. He was placed on BiPAP, given one updraft treatment, and transported to the hospital. Currently, in the ICU, he is on BiPAP, with settings of IPAP 14,EPAP of 6, and 60%. He is currently on a heparin drip. He had a previous history of pulmonary embolism, and is been on blood thinners in the form of Eliquis since March 2020. White count is 12.1, hemoglobin 12.6, hematocrit 38.4, and platelet count 351,000. PTT was 38. Blood gases show a PaO2 of 150, PaCO2 of 55, and a pH is 7.35. This was on 100%. Sodium 135, potassium 5, chlorides 97, CO2 30, anion gap 8, BUN 81, creatinine 1.46. Chest x-ray shows patchy airspace disease bilaterally. Progress note dated 11/13/2020. This is a 30-year-old male, who we saw yesterday in consultation. We saw him today given the intensive care unit, room 252. He's not receiving any IV fluids. He is on BiPAP with settings of IPAP 14, EPAP 6. He is on 60% FiO2. Currently, he is doing about the same. He is on a factor X a inhibitor for a previous history of pulmonary embolism back in March 2020. We chose to continue the anticoagulants given his positive for coronavirus status. Currently, white count 10.8, hemoglobin 13, hematocrit 40.4, and platelet count 314,000. Sodium 138, potassium 5.5, chlorides 100, CO2 32, anion gap 6, BUN 60, and creatinine 0.77. Chest x-ray shows bilateral, multifocal, and confluent opacities. Progress note dated 11/14/2020. 30-year-old male, seen a couple days ago in consultation. He is seen today again in the ICU, room 252. The patient's currently on 15 L high flow nasal cannula. From time to time, and especially at nighttime, he goes on BiPAP, with settings of IPAP 14, EPAP 6, and an FiO2 of 60%. The patient is not receiving any IV fluids. He is doing about the same today as he did yesterday. Chest x- ray today is stable according to radiology. Lab work today includes a white count 11.7, hemoglobin 12.6, hematocrit 39.3, and platelet count 349,000. Sodium 140, potassium 5.6, chlorides 100, CO2 34, anion gap of 6, BUN 44, and creatinine 0.67. Progress note dated 11/15/2020. 30-year-old male, with a history of COVID 19 pneumonia, who is currently seen again in room 252. The patient is currently on 15 L high flow oxygen, and not receiving any IV fluids. The patient was on BiPAP settings of 14/6 and 70%, from 8:30 PM last night, oh 3:00 in the morning. We are going to DC the colchicine, and also DC the Decadron and taper of Solu-Medrol, 60 mg, IV push, every 6 hours. His white count is 10.7, hemoglobin 13.7, hematocrit 44.3, and platelet count 372,000. D-dimer 2.99. Sodium 141, potassium 5.4, chlorides 97, CO2 35, anion gap 9, BUN 31, and creatinine 0.62. Chest x-ray shows diffuse benjamín ateral airspace disease. Objective - Vital Signs Vital signs: Vital Signs Temp 98.0 F 11/15/20 08:00 Pulse 85 11/15/20 10:00 Resp 22 11/15/20 10:00 BP 151/98 11/15/20 10:00 Pulse Ox 87 L 11/15/20 10:00 Intake & Output 11/14/20 11/15/20 11/15/20 18:59 06:59 18:59 Intake Total 600 190 240 Output Total 600 1925 0 Balance 0 -1735 240 Weight 190.9 kg Intake: IV 0 0 0.9 NS 0 0 Oral 600 190 240 Output: Urine 600 1925 0 Straight 700 Other: Voiding Method Urinal Urinal # Voids 1 1 # Bowel Movements 1 - Exam Oriented 3, conversational dyspnea, currently on 15 L high flow nasal cannula. Saturation today is 89%. HEENT examination is grossly unremarkable. Neck supple. Full range of motion. No adenopathy thyromegaly or neck vein distention. Cardiovascular examination reveals regular rhythm rate. S1-S2 normal. No S3 or S4. No discernible murmur noted. Heart sounds distant, heart rate 85 bpm. Lungs reveal diffuse bilateral rhonchi. Breath sounds equal bilaterally. No crackles. No wheezes. Lung exam is unchanged. Abdomen soft bowel sounds are heard. No masses or tenderness. Extremities reveal severe chronic venous stasis changes, edema, and thickening of the skin. Skin is without rash or lesion. Neurologic examination is brief but nonfocal. - Labs CBC & Chem 7: 11/15/20 05:11/15/20 05:26 Labs: Abnormal Lab Results - Last 24 Hours (Table) 11/14/20 11/14/20 11/14/20 Range/Units 12:25 16:43 20:54 WBC (3.8-10.6) k/uL MCHC (31.0-37.0) g/dL Neutrophils # (1.3-7.7) k/uL D-Dimer (<0.60) mg/L FEU Potassium (3.5-5.1) mmol/L Chloride (98-107) mmol/L Carbon Dioxide (22-30) mmol/L BUN (9-20) mg/dL Creatinine (0.66-1.25) mg/dL Glucose (74-99) mg/dL POC Glucose (mg/dL) 126 H 140 H 141 H (75-99) mg/dL C-Reactive Protein (<1.0) mg/dL 11/15/20 11/15/20 11/15/20 Range/Units 05:26 05:26 05:26 WBC 10.7 H (3.8-10.6) k/uL MCHC 30.9 L (31.0-37.0) g/dL Neutrophils # 8.6 H (1.3-7.7) k/uL D-Dimer 2.99 H (<0.60) mg/L FEU Potassium 5.4 H (3.5-5.1) mmol/L Chloride 97 L (98-107) mmol/L Carbon Dioxide 35 H (22-30) mmol/L BUN 31 H (9-20) mg/dL Creatinine 0.62 L (0.66-1.25) mg/dL Glucose 111 H (74-99) mg/dL POC Glucose (mg/dL) (75-99) mg/dL C-Reactive Protein 3.5 H (<1.0) mg/dL Microbiology - Last 24 Hours (Table) 11/11/20 14:03 Blood Culture - Preliminary Blood No Growth after 72 hours 11/11/20 14:03 Blood Culture - Preliminary Blood No Growth after 72 hours Assessment and Plan Assessment: Acute hypoxemic respiratory failure secondary to COVID 19 pneumonia. History of chronic bronchial asthma. History of hypertension. History of sleep apnea syndrome, currently on CPAP. Prior history of pulmonary embolism, March 2020, currently on a factor X a inhibitor. History of diabetes mellitus. Chronic lower extremity edema and chronic venous stasis of the lower extremities. Morbid obesity. Plan: Plan dated 11/12/2020. The patient's IV heparin was discontinued in favor of Eliquis. The patient is outside the window for REM. The patient should get vitamin C, vitamin D3, and zinc. In addition, the patient should get Decadron. We will continue to follow. The patient's overall prognosis is very guarded. The patient may end up requiring intubation and mechanical ventilation if he does not turn around. Additional recommendations and suggestions are forthcoming. Plan dated 11/13/2020. Currently, the patient's FiO2 has been weaned down. The patient remains on an anticoagulant. The patient is also on albuterol inhaler, vitamin C, vitamin D3, and zinc. He remains on Decadron as well. Additional recommendations and suggestions are forthcoming. Prognosis is guarded. We'll continue to follow. Additional recommendations and suggestions will be made. The patient is outside the window for REM. Plan dated 11/14/2020. The patient remains on high flow nasal cannula at 50 L/m. In addition, at nighttime, the patient was on BiPAP, settings of 14/6, and 60% FiO2. The patient not receiving any IV fluids. The patient remains on albuterol inhaler, vitamin C, vitamin D3, and zinc. In addition, he's on a factor X a inhibitor for his previous pulmonary embolism and March 2020, and Decadron. The patient was outside the window for REM. Prognosis is guarded. We will continue to follow and make recommendations. Plan dated 11/15/2020. The patient remains on all appropriate medications. Currently, he's on 15 L high flow nasal cannula. The patient is not receiving any IV fluids. The patient was on BiPAP with settings of IPAP 14, EPAP 6, and 70%, from 8:30 PM to 3:00 in the morning. We will DC colchicine. We are also going to switch out Decadron for Solu-Medrol. Additional recommendations and suggestions are forthcoming. The patient was outside the window for REM. Prognosis is guarded. We will continue to follow and make recommendations we are appropriate. Time with Patient: Greater than 30
[2020-11-15 12:06] LABS: Glucose,Whole Blood 105 mg/dL (75-99)
[2020-11-15] MEDS: methylPREDNISolone SOD SUCCI 125 MG/2 ML VIAL IV SCH ×2 (12:18→17:16)
[2020-11-15] MEDS ORDERED: SODIUM POLYSTYRENE SULFONATE 15 GM/60 ML BOTTLE PO STA (16:22)
--- NOTE | 2020-11-15 16:22 | P.PN ---
Progress Note - Text Progress Note Date: 11/15/20 Presenting complaint: Shortness of breath History of presenting complaint: 30-year-old male who presents to ER today via ambulance for evaluation of shortness of breath. Patient tested positive for COVID-19 last week thursday, at that time he was given an ''antibiotic'' by his doctor, states that he improved initially but later on he started to get worse so he presented. Upon EMS arrival patient was found to have hard time breathing and oxygen saturation of 45% on room air. Patient was placed on BiPAP treated with 1 DuoNeb and transported the hospital. In the ER his temp was 100.9, HR was 110, sats 94% on bipap 60% Fio2. Labs showed ELIANA with cr 2.07 from normal baseline. Rest of labs ok. CXR showed new pulm edema vs. RDS. Patient was admitted to the ICU. Placed on BiPAP. Patient is put on vitamin C, vitamin D3, zinc. Decadron. Today: ICU. Using BiPAP at night. Otherwise on 15 L high flow. Sitting up in a chair. Eating. Review of systems: Was done for constitutional, cardiovascular, GI, pulmonary. relevant finding as above Active Medications Acetaminophen (Acetaminophen Tab 325 Mg Tab) 650 mg PO Q6HR PRN PRN Reason: Mild Pain or Fever > 100.5 Last Admin: 11/15/20 05:37 Dose: 650 mg Documented by: Albuterol Sulfate (Albuterol Hfa Inhaler) 2 puff INHALATION RT-QID PRN PRN Reason: Shortness Of Breath Or Wheezing Last Admin: 11/14/20 21:13 Dose: 2 puff Documented by: Apixaban (Apixaban 5 Mg Tab) 5 mg PO BID [facility] Last Admin: 11/15/20 09:47 Dose: 5 mg Documented by: Ascorbic Acid (Ascorbic Acid 500 Mg Tab) 500 mg PO BID [facility] Last Admin: 11/15/20 09:47 Dose: 500 mg Documented by: Aspirin (Aspirin 81 Mg) 81 mg PO DAILY [facility] Last Admin: 11/15/20 09:47 Dose: 81 mg Documented by: Bupropion HCl (Bupropion Xl 300 Mg Tab.Er.24h) 300 mg PO DAILY [facility] Last Admin: 11/15/20 09:47 Dose: 300 mg Documented by: Cholecalciferol (Cholecalciferol 25 Mcg (1000 Iu) Tablet) 125 mcg PO DAILY [facility] Last Admin: 11/15/20 09:46 Dose: 125 mcg Documented by: Insulin Aspart (Insulin Aspart (Novolog) 100 Unit/Ml Vial) 0 unit SQ [facility]; Protocol Last Admin: 11/15/20 12:16 Dose: Not Given Documented by: Methylprednisolone Sodium Succinate (Methylprednisolone Sod Succi 125 Mg/2 Ml Vial) 60 mg IV Q6HR [facility] Last Admin: 11/15/20 12:18 Dose: 60 mg Documented by: Naloxone HCl (Naloxone 0.4 Mg/Ml 1 Ml Vial) 0.2 mg IV Q2M PRN PRN Reason: Opioid Reversal Ondansetron HCl (Ondansetron 4 Mg/2 Ml Vial) 4 mg IVP Q8HR PRN PRN Reason: Nausea And Vomiting Pantoprazole Sodium (Pantoprazole 40 Mg Tablet) 40 mg PO DAILY PRN PRN Reason: Heartburn Zinc Sulfate (Zinc Sulfate 220 Mg Cap) 220 mg PO DAILY [facility] Last Admin: 11/15/20 09:46 Dose: 220 mg Documented by: On examination: VITAL SIGNS: Afebrile, exam, 15, 150/98, 92% on 15 L GENERAL APPEARANCE: Up in a chair with nasal cannula RESPIRATORY: Respiratory effort increased. PSYCHIATRY: Alert and oriented x3. Mood and affect slightly anxious NEURO: Cranial nerves grossly intact. Moving all 4 limbs Rest of exam as per pulmonary and nursing INVESTIGATIONS, reviewed in the clinical context: November 15: WBC 10.7 hemoglobin 13.7 platelets 272 potassium 5.4 creatinine 0.62 d-dimer 2.99 CRP 3.5 WBC 11.7 hemoglobin 12.6 platelets 349 potassium 5.6 creatinine 0.67 Chest x-ray film personally reviewed by me-bilateral infiltrates Assessment and plan: -Acute hypoxic respiratory failure secondary to COVID-19 pneumonia: Slow to respond requiring bipap at night currently on 15 L nasal cannula high flow -Acute covid 19 pneumonia : Slow to respond Vitamin C, vitamin D, zinc, IV Decadron -ELIANA, likely from [facility] from COVID 19-improved Improving with IV fluids -Chronic PE, in March 2020 Continue with eliquis -Essential HTN Monitor blood pressure -Morbid obesity, with a BMI of 64.8 Weight loss measures and follow-up with outpatient with PCP -Chronic Bilateral Lymphedema with [place] Dermatitis Follow clinically and follow-up as outpatient -Hyperkalemia Patient received Lasix and Kayexalate. Repeat Kayexalate -Obstructive sleep apnea Using BiPAP, at night Patient remains in ICU. Repeat Kayexalate. Patient still incentive spirometry. 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
[2020-11-15 17:06] LABS: Glucose,Whole Blood 127 mg/dL (75-99)
[2020-11-15 22:48] LABS: Glucose,Whole Blood 135 mg/dL (75-99)
[2020-11-16] MEDS: methylPREDNISolone SOD SUCCI 125 MG/2 ML VIAL IV SCH ×4 (00:42→17:27)
[2020-11-16 06:08] LABS: Basophils % (A) 0 %; Eosinophils % (A) 0 %; HCT 42.4 % (39.0-53.0); HGB 13.8 gm/dL (13.0-17.5); Hypochromasia Slight; Lymphocytes # (A) 0.7 k/uL (1.0-4.8); Lymphocytes % (A) 6 %; MCH 28.4 pg (25.0-35.0); MCHC 32.7 g/dL (31.0-37.0); MCV 86.9 fL (80.0-100.0); Mean Platelet Volume 7.2; Monocytes # (A) 0.6 k/uL (0-1.0); Monocytes % (A) 6 %; Neutrophils # (A) 9.1 k/uL (1.3-7.7); Neutrophils % (A) 86 %; Platelet Count 390 k/uL (150-450); RBC 4.88 m/uL (4.30-5.90); RDW 14.2 % (11.5-15.5); WBC 10.6 k/uL (3.8-10.6)
[2020-11-16 06:25] LABS: ALT 45 U/L (4-49); AST 49 U/L (17-59); African American GFR (CKD) >90 (>60 ml/min/1.73 sqM); Albumin 3.2 g/dL (3.5-5.0); Alkaline Phosphatase 47 U/L (38-126); Anion Gap 3 mmol/L; Blood Urea Nitrogen 34 mg/dL (9-20); C Reactive Protein 3.5 mg/dL (<1.0); Calcium 9.3 mg/dL (8.4-10.2); Carbon Dioxide 38 mmol/L (22-30); Chloride 95 mmol/L (98-107); Creatine Kinase 362 U/L (55-170); Glucose 152 mg/dL (74-99); LDH 1161 U/L (313-618); Non-African American GFR(CKD) >90 (>60 ml/min/1.73 sqM); Potassium 5.6 mmol/L (3.5-5.1); Sodium 136 mmol/L (137-145); Total Bilirubin 0.8 mg/dL (0.2-1.3); Total Protein 6.4 g/dL (6.3-8.2)
--- NOTE | 2020-11-16 07:37 | XR ---
EXAMINATION TYPE: XR chest 1V portable DATE OF EXAM: 11/16/2020 COMPARISON: 11/15/2020 HISTORY: Covid pneumonia TECHNIQUE: Single frontal view of the chest is obtained. FINDINGS: Scattered airspace infiltrates persist without significant interval change. The cardiac silhouette size is within normal limits. The osseous structures are intact. IMPRESSION: 1. No acute process.
[2020-11-16 07:51] LABS: Glucose,Whole Blood 162 mg/dL (75-99)
[2020-11-16] MEDS: INSULIN ASPART (NovoLOG) 100 UNIT/ML VIAL SQ SCH ×4 (08:13→21:12)
[2020-11-16] MEDS: CHOLECALCIFEROL 25 MCG (1000 IU) TABLET PO SCH (08:14)
[2020-11-16] MEDS: APIXABAN 5 MG TAB PO SCH ×2 (08:31→20:47)
[2020-11-16] MEDS: ASCORBIC ACID 500 MG TAB PO SCH ×2 (08:31→20:47)
[2020-11-16] MEDS: PANTOPRAZOLE 40 MG TABLET PO PRN (08:32)
[2020-11-16] MEDS: ZINC SULFATE 220 MG CAP PO SCH (08:32)
[2020-11-16] MEDS: ASPIRIN 81 MG PO SCH (08:32)
[2020-11-16] MEDS: buPROPion XL 300 MG TAB.ER.24H PO SCH (08:35)
[2020-11-16] MEDS ORDERED: LISINOPRIL-HCTZ 20-12.5 MG 1 EACH TAB PO SCH (09:00)
[2020-11-16] MEDS ORDERED: LISINOPRIL-HCTZ 10-12.5 MG 1 EACH TAB PO SCH (09:00)
[2020-11-16] MEDS: ACETAMINOPHEN TAB 325 MG TAB PO PRN (09:51)
--- NOTE | 2020-11-16 10:33 | P.PN ---
Subjective Progress Note Date: 11/16/20 Principal diagnosis: Acute respiratory failure. Pulmonary consultation dated 11/12/2020. 30-year-old male, who presents to the emergency room, via EMS, for shortness of breath. The patient apparently tested positive for coronavirus, last Thursday, 1 week ago. Apparently EMS was called because his breathing had worsened. He's been having symptoms for about 10 days or so. He apparently was using breathing treatments at home, that belonged to one of his friends. Apparently when EMS arrived, his saturations were in the mid 40 range, on room air. He was placed on BiPAP, given one updraft treatment, and transported to the hospital. Currently, in the ICU, he is on BiPAP, with settings of IPAP 14,EPAP of 6, and 60%. He is currently on a heparin drip. He had a previous history of pulmonary embolism, and is been on blood thinners in the form of Eliquis since March 2020. White count is 12.1, hemoglobin 12.6, hematocrit 38.4, and platelet count 351,000. PTT was 38. Blood gases show a PaO2 of 150, PaCO2 of 55, and a pH is 7.35. This was on 100%. Sodium 135, potassium 5, chlorides 97, CO2 30, anion gap 8, BUN 81, creatinine 1.46. Chest x-ray shows patchy airspace disease bilaterally. Progress note dated 11/13/2020. This is a 30-year-old male, who we saw yesterday in consultation. We saw him today given the intensive care unit, room 252. He's not receiving any IV fluids. He is on BiPAP with settings of IPAP 14, EPAP 6. He is on 60% FiO2. Currently, he is doing about the same. He is on a factor X a inhibitor for a previous history of pulmonary embolism back in March 2020. We chose to continue the anticoagulants given his positive for coronavirus status. Currently, white count 10.8, hemoglobin 13, hematocrit 40.4, and platelet count 314,000. Sodium 138, potassium 5.5, chlorides 100, CO2 32, anion gap 6, BUN 60, and creatinine 0.77. Chest x-ray shows bilateral, multifocal, and confluent opacities. Progress note dated 11/14/2020. 30-year-old male, seen a couple days ago in consultation. He is seen today again in the ICU, room 252. The patient's currently on 15 L high flow nasal cannula. From time to time, and especially at nighttime, he goes on BiPAP, with settings of IPAP 14, EPAP 6, and an FiO2 of 60%. The patient is not receiving any IV fluids. He is doing about the same today as he did yesterday. Chest x- ray today is stable according to radiology. Lab work today includes a white count 11.7, hemoglobin 12.6, hematocrit 39.3, and platelet count 349,000. Sodium 140, potassium 5.6, chlorides 100, CO2 34, anion gap of 6, BUN 44, and creatinine 0.67. Progress note dated 11/15/2020. 30-year-old male, with a history of COVID 19 pneumonia, who is currently seen again in room 252. The patient is currently on 15 L high flow oxygen, and not receiving any IV fluids. The patient was on BiPAP settings of 14/6 and 70%, from 8:30 PM last night, oh 3:00 in the morning. We are going to DC the colchicine, and also DC the Decadron and taper of Solu-Medrol, 60 mg, IV push, every 6 hours. His white count is 10.7, hemoglobin 13.7, hematocrit 44.3, and platelet count 372,000. D-dimer 2.99. Sodium 141, potassium 5.4, chlorides 97, CO2 35, anion gap 9, BUN 31, and creatinine 0.62. Chest x-ray shows diffuse benjamín ateral airspace disease. Progress note dated 11/16/2020. 30-year-old male, with a history of COVID 19 pneumonia, and acute hypoxemic respiratory failure. He is again seen in room 252. Currently, he's on 15 L high flow nasal O2. He's not receiving any IV fluids. He was on Zestoretic as an outpatient. That will be restarted today, as his blood pressure is been a bit high. No major changes overnight. White count 10.6, hemoglobin 13.8, hematocrit 42.4, and platelet count 390,000. D-dimer is 2.66. Sodium 136, potassium 5.6, chlorides 95, CO2 38, anion gap 3, BUN 34, creatinine 0.62. LDH 1161. C-reactive protein is 3.5. Chest x-ray showed scattered bilateral airspace infiltrates, without interval change. Objective - Vital Signs Vital signs: Vital Signs Temp 98.4 F 11/16/20 08:00 Pulse 75 11/16/20 10:00 Resp 28 H 11/16/20 10:00 BP 155/94 11/16/20 10:00 Pulse Ox 88 L 11/16/20 10:00 Intake & Output 11/15/20 11/16/20 11/16/20 18:59 06:59 18:59 Intake Total 960 180 280 Output Total 927 1250 Balance 33 -1070 280 Weight 189.4 kg Intake: IV 0 0 0 0.9 NS 0 0 0 Oral 960 180 280 Output: Urine 925 1250 Stool 2 Other: Voiding Method Urinal Urinal Urinal - Exam Oriented 3, conversational dyspnea, currently on 15 L high flow nasal cannula. Saturation today is 91%. HEENT examination is grossly unremarkable. Neck supple. Full range of motion. No adenopathy thyromegaly or neck vein distention. Cardiovascular examination reveals regular rhythm rate. S1-S2 normal. No S3 or S4. No discernible murmur noted. Heart sounds distant, heart rate 75 bpm. Lungs reveal diffuse bilateral rhonchi. Breath sounds equal bilaterally. No crackles. No wheezes. Lung exam is unchanged. Abdomen soft bowel sounds are heard. No masses or tenderness. Extremities reveal severe chronic venous stasis changes, edema, and thickening of the skin. Skin is without rash or lesion. Neurologic examination is brief but nonfocal. - Labs CBC & Chem 7: 11/16/20 05:14 11/16/20 05:14 Labs: Abnormal Lab Results - Last 24 Hours (Table) 11/15/20 11/15/20 11/15/20 Range/Units 11:53 17:04 22:36 Neutrophils # (1.3-7.7) k/uL Lymphocytes # (1.0-4.8) k/uL D-Dimer (<0.60) mg/L FEU Sodium (137-145) mmol/L Potassium (3.5-5.1) mmol/L Chloride (98-107) mmol/L Carbon Dioxide (22-30) mmol/L BUN (9-20) mg/dL Creatinine (0.66-1.25) mg/dL Glucose (74-99) mg/dL POC Glucose (mg/dL) 105 H 127 H 135 H (75-99) mg/dL Lactate Dehydrogenase (313-618) U/L Creatine Kinase (55-170) U/L C-Reactive Protein (<1.0) mg/dL Albumin (3.5-5.0) g/dL 11/16/20 11/16/20 11/16/20 Range/Units 05:14 05:14 05:14 Neutrophils # 9.1 H (1.3-7.7) k/uL Lymphocytes # 0.7 L (1.0-4.8) k/uL D-Dimer 2.66 H (<0.60) mg/L FEU Sodium 136 L (137-145) mmol/L Potassium 5.6 H (3.5-5.1) mmol/L Chloride 95 L (98-107) mmol/L Carbon Dioxide 38 H (22-30) mmol/L BUN 34 H (9-20) mg/dL Creatinine 0.62 L (0.66-1.25) mg/dL Glucose 152 H (74-99) mg/dL POC Glucose (mg/dL) (75-99) mg/dL Lactate Dehydrogenase 1161 H (313-618) U/L Creatine Kinase 362 H (55-170) U/L C-Reactive Protein 3.5 H (<1.0) mg/dL Albumin 3.2 L (3.5-5.0) g/dL 11/16/20 Range/Units 07:49 Neutrophils # (1.3-7.7) k/uL Lymphocytes # (1.0-4.8) k/uL D-Dimer (<0.60) mg/L FEU Sodium (137-145) mmol/L Potassium (3.5-5.1) mmol/L Chloride (98-107) mmol/L Carbon Dioxide (22-30) mmol/L BUN (9-20) mg/dL Creatinine (0.66-1.25) mg/dL Glucose (74-99) mg/dL POC Glucose (mg/dL) 162 H (75-99) mg/dL Lactate Dehydrogenase (313-618) U/L Creatine Kinase (55-170) U/L C-Reactive Protein (<1.0) mg/dL Albumin (3.5-5.0) g/dL Microbiology - Last 24 Hours (Table) 11/11/20 14:03 Blood Culture - Preliminary Blood No Growth after 96 hours 11/11/20 14:03 Blood Culture - Preliminary Blood No Growth after 96 hours Assessment and Plan Assessment: Acute hypoxemic respiratory failure secondary to COVID 19 pneumonia. History of chronic bronchial asthma. History of hypertension. History of sleep apnea syndrome, currently on CPAP. Prior history of pulmonary embolism, March 2020, currently on a factor X a inhibitor. History of diabetes mellitus. Chronic lower extremity edema and chronic venous stasis of the lower extremities. Morbid obesity. Plan: Plan dated 11/12/2020. The patient's IV heparin was discontinued in favor of Eliquis. The patient is outside the window for REM. The patient should get vitamin C, vitamin D3, and zinc. In addition, the patient should get Decadron. We will continue to follow. The patient's overall prognosis is very guarded. The patient may end up requiring intubation and mechanical ventilation if he does not turn around. Additional recommendations and suggestions are forthcoming. Plan dated 11/13/2020. Currently, the patient's FiO2 has been weaned down. The patient remains on an anticoagulant. The patient is also on albuterol inhaler, vitamin C, vitamin D3, and zinc. He remains on Decadron as well. Additional recommendations and suggestions are forthcoming. Prognosis is guarded. We'll continue to follow. Additional recommendations and suggestions will be made. The patient is outside the window for REM. Plan dated 11/14/2020. The patient remains on high flow nasal cannula at 50 L/m. In addition, at nighttime, the patient was on BiPAP, settings of 14/6, and 60% FiO2. The patient not receiving any IV fluids. The patient remains on albuterol inhaler, vitamin C, vitamin D3, and zinc. In addition, he's on a factor X a inhibitor for his previous pulmonary embolism and March 2020, and Decadron. The patient was outside the window for REM. Prognosis is guarded. We will continue to follow and make recommendations. Plan dated 11/15/2020. The patient remains on all appropriate medications. Currently, he's on 15 L high flow nasal cannula. The patient is not receiving any IV fluids. The patient was on BiPAP with settings of IPAP 14, EPAP 6, and 70%, from 8:30 PM to 3:00 in the morning. We will DC colchicine. We are also going to switch out Decadron for Solu-Medrol. Additional recommendations and suggestions are forthcoming. The patient was outside the window for REM. Prognosis is guarded. We will continue to follow and make recommendations we are appropriate. Plan dated 11/16/2020. Currently, the patient's doing a bit better today than yesterday. He remains on 15 L high flow nasal O2. The patient is receiving a factor X a inhibitor for a previous diagnosis of pulmonary embolism in March 2020. The patient is receiving appropriate medications including Solu-Medrol, vitamins, and anticoagulation. The patient was outside the window for REM. We will continue to follow the patient make recommendations where appropriate. Additional recommendations and suggestions are to follow. Time with Patient: Greater than 30
[2020-11-16 11:27] LABS: Glucose,Whole Blood 135 mg/dL (75-99)
[2020-11-16] MEDS ORDERED: SODIUM POLYSTYRENE SULFONATE 15 GM/60 ML BOTTLE PO STA (12:39)
[2020-11-16 16:52] LABS: Glucose,Whole Blood 143 mg/dL (75-99)
--- NOTE | 2020-11-16 16:53 | P.PN ---
Progress Note - Text Progress Note Date: 11/16/20 Presenting complaint: Shortness of breath History of presenting complaint: 30-year-old male who presents to ER today via ambulance for evaluation of shortness of breath. Patient tested positive for COVID-19 last week thursday, at that time he was given an ''antibiotic'' by his doctor, states that he improved initially but later on he started to get worse so he presented. Upon EMS arrival patient was found to have hard time breathing and oxygen saturation of 45% on room air. Patient was placed on BiPAP treated with 1 DuoNeb and transported the hospital. In the ER his temp was 100.9, HR was 110, sats 94% on bipap 60% Fio2. Labs showed ELIANA with cr 2.07 from normal baseline. Rest of labs ok. CXR showed new pulm edema vs. RDS. Patient was admitted to the ICU. Placed on BiPAP. Patient is put on vitamin C, vitamin D3, zinc. Decadron. Today: ICU. Using BiPAP at night. Currently on on 15 L high flow. Sitting up in a chair. Oral intake fair. Review of systems: Was done for constitutional, cardiovascular, GI, pulmonary. relevant finding as above Active Medications Acetaminophen (Acetaminophen Tab 325 Mg Tab) 650 mg PO Q6HR PRN PRN Reason: Mild Pain or Fever > 100.5 Last Admin: 11/16/20 09:51 Dose: 650 mg Documented by: Albuterol Sulfate (Albuterol Hfa Inhaler) 2 puff INHALATION RT-QID PRN PRN Reason: Shortness Of Breath Or Wheezing Last Admin: 11/14/20 21:13 Dose: 2 puff Documented by: Apixaban (Apixaban 5 Mg Tab) 5 mg PO BID [facility] Last Admin: 11/16/20 08:31 Dose: 5 mg Documented by: Ascorbic Acid (Ascorbic Acid 500 Mg Tab) 500 mg PO BID [facility] Last Admin: 11/16/20 08:31 Dose: 500 mg Documented by: Aspirin (Aspirin 81 Mg) 81 mg PO DAILY [facility] Last Admin: 11/16/20 08:32 Dose: 81 mg Documented by: Bupropion HCl (Bupropion Xl 300 Mg Tab.Er.24h) 300 mg PO DAILY [facility] Last Admin: 11/16/20 08:35 Dose: 300 mg Documented by: Cholecalciferol (Cholecalciferol 25 Mcg (1000 Iu) Tablet) 125 mcg PO DAILY [facility] Last Admin: 11/16/20 08:14 Dose: 125 mcg Documented by: Lisinopril/HCTZ (Lisinopril-Hctz 20-12.5 Mg 1 Each Tab) 1 each PO DAILY [facility] Last Admin: 11/16/20 09:38 Dose: 1 each Documented by: Insulin Aspart (Insulin Aspart (Novolog) 100 Unit/Ml Vial) 0 unit SQ ACHS [facility]; Protocol Last Admin: 11/16/20 12:03 Dose: 1 unit Documented by: Methylprednisolone Sodium Succinate (Methylprednisolone Sod Succi 125 Mg/2 Ml Vial) 60 mg IV Q6HR [facility] Last Admin: 11/16/20 11:57 Dose: 60 mg Documented by: Naloxone HCl (Naloxone 0.4 Mg/Ml 1 Ml Vial) 0.2 mg IV Q2M PRN PRN Reason: Opioid Reversal Ondansetron HCl (Ondansetron 4 Mg/2 Ml Vial) 4 mg IVP Q8HR PRN PRN Reason: Nausea And Vomiting Pantoprazole Sodium (Pantoprazole 40 Mg Tablet) 40 mg PO DAILY PRN PRN Reason: Heartburn Last Admin: 11/16/20 08:32 Dose: 40 mg Documented by: Zinc Sulfate (Zinc Sulfate 220 Mg Cap) 220 mg PO DAILY [facility] Last Admin: 11/16/20 08:32 Dose: 220 mg Documented by: On examination: VITAL SIGNS: 98.4, 110, 25, 149.94, 87% on 15 L high flow nasal cannula GENERAL APPEARANCE: Up in a chair with nasal cannula RESPIRATORY: Respiratory effort increased. PSYCHIATRY: Alert and oriented x3. Mood and affect slightly anxious NEURO: Cranial nerves grossly intact. Moving all 4 limbs Rest of exam as per pulmonary and nursing INVESTIGATIONS, reviewed in the clinical context: November 16: WBC 10.60 globin 13.8 potassium 5.6 creatinine 0.62 November 15: WBC 10.7 hemoglobin 13.7 platelets 272 potassium 5.4 creatinine 0.62 d-dimer 2.99 CRP 3.5 WBC 11.7 hemoglobin 12.6 platelets 349 potassium 5.6 creatinine 0.67 Chest x-ray film personally reviewed by me-bilateral infiltrates Assessment and plan: -Acute hypoxic respiratory failure secondary to COVID-19 pneumonia: Slow to respond requiring bipap night currently on 15 L nasal cannula high flow -Acute covid 19 pneumonia : Slow to respond Vitamin C, vitamin D, zinc, IV Decadron -ELIANA, likely from [facility] from COVID 19-improved Improving with IV fluids -Chronic PE, in March 2020 Continue with eliquis -Essential HTN Monitor blood pressure -Morbid obesity, with a BMI of 64.8 Weight loss measures and follow-up with outpatient with PCP -Chronic Bilateral Lymphedema with [place] Dermatitis Follow clinically and follow-up as outpatient -Hyperkalemia Repeat Kayexalate today. Low potassium diet. -Obstructive sleep apnea Using BiPAP, at night Discussed with the patient. Continue current medication and treatment plan
[2020-11-16] MEDS: LISINOPRIL-HCTZ 20-12.5 MG 1 EACH TAB PO SCH (20:47)
[2020-11-16 21:08] LABS: Glucose,Whole Blood 146 mg/dL (75-99)
[2020-11-17] MEDS: methylPREDNISolone SOD SUCCI 125 MG/2 ML VIAL IV SCH ×4 (01:03→17:03)
[2020-11-17 06:54] LABS: Basophils # (A) 0.1 k/uL (0-0.2); Basophils % (A) 1 %; Eosinophils % (A) 0 %; HCT 45.9 % (39.0-53.0); Hypochromasia Moderate; Lymphocytes # (A) 0.6 k/uL (1.0-4.8); Lymphocytes % (A) 5 %; MCH 26.8 pg (25.0-35.0); MCHC 30.6 g/dL (31.0-37.0); MCV 87.7 fL (80.0-100.0); Mean Platelet Volume 7.3; Monocytes # (A) 0.7 k/uL (0-1.0); Monocytes % (A) 6 %; Neutrophils # (A) 10.7 k/uL (1.3-7.7); Neutrophils % (A) 87 %; Platelet Count 446 k/uL (150-450); RBC 5.23 m/uL (4.30-5.90); RDW 14.4 % (11.5-15.5); WBC 12.4 k/uL (3.8-10.6)
[2020-11-17 07:08] LABS: Glucose,Whole Blood 141 mg/dL (75-99)
[2020-11-17] MEDS: INSULIN ASPART (NovoLOG) 100 UNIT/ML VIAL SQ SCH ×4 (07:13→21:32)
[2020-11-17 07:14] LABS: ALT 42 U/L (4-49); AST 39 U/L (17-59); African American GFR (CKD) >90 (>60 ml/min/1.73 sqM); Albumin 3.2 g/dL (3.5-5.0); Alkaline Phosphatase 35 U/L (38-126); Blood Urea Nitrogen 33 mg/dL (9-20); C Reactive Protein 1.7 mg/dL (<1.0); Calcium 9.6 mg/dL (8.4-10.2); Chloride 93 mmol/L (98-107); Creatine Kinase 277 U/L (55-170); Glucose 163 mg/dL (74-99); LDH 939 U/L (313-618); Non-African American GFR(CKD) >90 (>60 ml/min/1.73 sqM); Potassium 5.5 mmol/L (3.5-5.1); Sodium 136 mmol/L (137-145); Total Bilirubin 0.8 mg/dL (0.2-1.3); Total Protein 6.4 g/dL (6.3-8.2)
[2020-11-17 07:17] LABS: Anion Gap 4 mmol/L; Carbon Dioxide 39 mmol/L (22-30)
[2020-11-17] MEDS: ASCORBIC ACID 500 MG TAB PO SCH ×2 (07:52→21:32)
[2020-11-17] MEDS: CHOLECALCIFEROL 25 MCG (1000 IU) TABLET PO SCH (07:52)
[2020-11-17] MEDS: LISINOPRIL-HCTZ 20-12.5 MG 1 EACH TAB PO SCH (07:53)
[2020-11-17] MEDS: buPROPion XL 300 MG TAB.ER.24H PO SCH (07:53)
[2020-11-17] MEDS: PANTOPRAZOLE 40 MG TABLET PO PRN (07:53)
[2020-11-17] MEDS: ZINC SULFATE 220 MG CAP PO SCH (07:53)
--- NOTE | 2020-11-17 08:23 | XR ---
EXAMINATION TYPE: XR chest 1V portable DATE OF EXAM: 11/17/2020 COMPARISON: 11/16/2020 HISTORY: Shortness of breath. TECHNIQUE: Single frontal view of the chest is obtained. FINDINGS: There are diffuse interstitial and partially consolidative airspace opacities throughout b oth lungs essentially unchanged compared to the prior study. There is no pneumothorax. There is no pleural effusion. The heart and pulmonary vasculature are gerald l technique. The osseous structures are intact. IMPRESSION: Diffuse lung infiltrates unchanged compared to the prior study and consistent with acute cardiopulmonary disease.
[2020-11-17 09:07] VITALS: BMI 62.1
[2020-11-17] MEDS: ASPIRIN 81 MG PO SCH (10:29)
[2020-11-17] MEDS: APIXABAN 5 MG TAB PO SCH ×2 (10:30→21:32)
--- NOTE | 2020-11-17 10:50 | P.PN ---
Subjective Progress Note Date: 11/17/20 Principal diagnosis: CoVID 19 pneumonia Pulmonary consultation dated 11/12/2020. 30-year-old male, who presents to the emergency room, via EMS, for shortness of breath. The patient apparently tested positive for coronavirus, last Thursday, 1 week ago. Apparently EMS was called because his breathing had worsened. He's been having symptoms for about 10 days or so. He apparently was using breathing treatments at home, that belonged to one of his friends. Apparently when EMS arrived, his saturations were in the mid 40 range, on room air. He was placed on BiPAP, given one updraft treatment, and transported to the hospital. Currently, in the ICU, he is on BiPAP, with settings of IPAP 14,EPAP of 6, and 60%. He is currently on a heparin drip. He had a previous history of pulmonary embolism, and is been on blood thinners in the form of Eliquis since March 2020. White count is 12.1, hemoglobin 12.6, hematocrit 38.4, and platelet count 351,000. PTT was 38. Blood gases show a PaO2 of 150, PaCO2 of 55, and a pH is 7.35. This was on 100%. Sodium 135, potassium 5, chlorides 97, CO2 30, anion gap 8, BUN 81, creatinine 1.46. Chest x-ray shows patchy airspace disease bilaterally. Progress note dated 11/13/2020. This is a 30-year-old male, who we saw yesterday in consultation. We saw him today given the intensive care unit, room 252. He's not receiving any IV fluids. He is on BiPAP with settings of IPAP 14, EPAP 6. He is on 60% FiO2. Currently, he is doing about the same. He is on a factor X a inhibitor for a previous history of pulmonary embolism back in March 2020. We chose to continue the anticoagulants given his positive for coronavirus status. Currently, white count 10.8, hemoglobin 13, hematocrit 40.4, and platelet count 314,000. Sodium 138, potassium 5.5, chlorides 100, CO2 32, anion gap 6, BUN 60, and creatinine 0.77. Chest x-ray shows bilateral, multifocal, and confluent opacities. Progress note dated 11/14/2020. 30-year-old male, seen a couple days ago in consultation. He is seen today again in the ICU, room 252. The patient's currently on 15 L high flow nasal cannula. From time to time, and especially at nighttime, he goes on BiPAP, with settings of IPAP 14, EPAP 6, and an FiO2 of 60%. The patient is not receiving any IV fluids. He is doing about the same today as he did yesterday. Chest x- ray today is stable according to radiology. Lab work today includes a white count 11.7, hemoglobin 12.6, hematocrit 39.3, and platelet count 349,000. Sodium 140, potassium 5.6, chlorides 100, CO2 34, anion gap of 6, BUN 44, and creatinine 0.67. Progress note dated 11/15/2020. 30-year-old male, with a history of COVID 19 pneumonia, who is currently seen again in room 252. The patient is currently on 15 L high flow oxygen, and not receiving any IV fluids. The patient was on BiPAP settings of 14/6 and 70%, from 8:30 PM last night, oh 3:00 in the morning. We are going to DC the colchicine, and also DC the Decadron and taper of Solu-Medrol, 60 mg, IV push, every 6 hours. His white count is 10.7, hemoglobin 13.7, hematocrit 44.3, and platelet count 372,000. D-dimer 2.99. Sodium 141, potassium 5.4, chlorides 97, CO2 35, anion gap 9, BUN 31, and creatinine 0.62. Chest x-ray shows diffuse bilateral airspace disease. Progress note dated 11/16/2020. 30-year-old male, with a history of COVID 19 pneumonia, and acute hypoxemic respiratory failure. He is again seen in room 252. Currently, he's on 15 L high flow nasal O2. He's not receiving any IV fluids. He was on Zestoretic as an outpatient. That will be restarted today, as his blood pressure is been a bit high. No major changes overnight. White count 10.6, hemoglobin 13.8, hematocrit 42.4, and platelet count 390,000. D-dimer is 2.66. Sodium 136, potassium 5.6, chlorides 95, CO2 38, anion gap 3, BUN 34, creatinine 0.62. LDH 1161. C-reactive protein is 3.5. Chest x-ray showed scattered bilateral airspace infiltrates, without interval change. The patient is seen today the first 2020 follow-up in the intensive care unit. He is currently sitting up in a chair at the bedside. Awake, alert in no acute distress. He is still requiring 15 L high flow nasal cannula to maintain O2 saturations in the 90s. No current IV fluids running. Blood cultures reveal no growth. Chest x-ray continues to show diffuse lung infiltrates change compared to previous. White count 12.4. Hemoglobin 14.0. Lymphocytes 0.6. D-dimer 1.86. Sodium 136. Potassium 5.5. Creatinine 0.63. LDH 939. C-reactive protein 1.7. He is anticoagulated with Eliquis. Remains on IV Solu-Medrol, vitamin supplements. Objective - Vital Signs Vital signs: Vital Signs Temp 98.0 F 11/17/20 08:00 Pulse 97 11/17/20 10:00 Resp 26 H 11/17/20 10:00 BP 133/99 11/17/20 10:00 Pulse Ox 90 L 11/17/20 10:00 Intake & Output 11/16/20 11/17/20 11/17/20 18:59 06:59 18:59 Intake Total 280 210 30 Output Total 501 1420 Balance -221 -1210 30 Weight 185.6 kg 185.6 kg Intake: IV 0 30 0 0.9 NS 0 30 0 Oral 280 180 30 Output: Urine 500 1420 Stool 1 Other: Voiding Method Bedside Commode Urinal Urinal # Voids 1 1 # Bowel Movements 1 1 - Exam GENERAL EXAM: Alert, pleasant morbidly obese 30-year-old gentleman, on 15 L high flow nasal cannula, comfortable in no apparent distress. HEAD: Normocephalic. EYES: Normal reaction of pupils, equal size. NOSE: Clear with pink turbinates. THROAT: No erythema or exudates. NECK: No masses, no JVD. CHEST: No chest wall deformity. LUNGS: Equal air entry with crackles in the bilateral posterior bases. CVS: S1 and S2 normal with no audible murmur, regular rhythm. ABDOMEN: No hepatosplenomegaly, normal bowel sounds, no guarding or rigidity. SPINE: No scoliosis or deformity SKIN: No rashes CENTRAL NERVOUS SYSTEM: No focal deficits, tone is normal in all 4 extremities. EXTREMITIES: There is no peripheral edema. No clubbing, no cyanosis. Peripheral pulses are intact. - Labs CBC & Chem 7: 11/17/20 06:41 11/17/20 06:41 Labs: Abnormal Lab Results - Last 24 Hours (Table) 11/16/20 11/16/20 11/16/20 Range/Units 11:25 16:51 21:05 WBC (3.8-10.6) k/uL MCHC (31.0-37.0) g/dL Neutrophils # (1.3-7.7) k/uL Lymphocytes # (1.0-4.8) k/uL D-Dimer (<0.60) mg/L FEU Sodium (137-145) mmol/L Potassium (3.5-5.1) mmol/L Chloride (98-107) mmol/L Carbon Dioxide (22-30) mmol/L BUN (9-20) mg/dL Creatinine (0.66-1.25) mg/dL Glucose (74-99) mg/dL POC Glucose (mg/dL) 135 H 143 H 146 H (75-99) mg/dL Alkaline Phosphatase (38-126) U/L Lactate Dehydrogenase (313-618) U/L Creatine Kinase (55-170) U/L C-Reactive Protein (<1.0) mg/dL Albumin (3.5-5.0) g/dL 11/17/20 11/17/20 11/17/20 Range/Units 06:41 06:41 06:41 WBC 12.4 H (3.8-10.6) k/uL MCHC 30.6 L (31.0-37.0) g/dL Neutrophils # 10.7 H (1.3-7.7) k/uL Lymphocytes # 0.6 L (1.0-4.8) k/uL D-Dimer 1.86 H (<0.60) mg/L FEU Sodium 136 L (137-145) mmol/L Potassium 5.5 H (3.5-5.1) mmol/L Chloride 93 L (98-107) mmol/L Carbon Dioxide 39 H (22-30) mmol/L BUN 33 H (9-20) mg/dL Creatinine 0.63 L (0.66-1.25) mg/dL Glucose 163 H (74-99) mg/dL POC Glucose (mg/dL) (75-99) mg/dL Alkaline Phosphatase 35 L (38-126) U/L Lactate Dehydrogenase 939 H (313-618) U/L Creatine Kinase 277 H (55-170) U/L C-Reactive Protein 1.7 H (<1.0) mg/dL Albumin 3.2 L (3.5-5.0) g/dL 11/17/20 Range/Units 07:06 WBC (3.8-10.6) k/uL MCHC (31.0-37.0) g/dL Neutrophils # (1.3-7.7) k/uL Lymphocytes # (1.0-4.8) k/uL D-Dimer (<0.60) mg/L FEU Sodium (137-145) mmol/L Potassium (3.5-5.1) mmol/L Chloride (98-107) mmol/L Carbon Dioxide (22-30) mmol/L BUN (9-20) mg/dL Creatinine (0.66-1.25) mg/dL Glucose (74-99) mg/dL POC Glucose (mg/dL) 141 H (75-99) mg/dL Alkaline Phosphatase (38-126) U/L Lactate Dehydrogenase (313-618) U/L Creatine Kinase (55-170) U/L C-Reactive Protein (<1.0) mg/dL Albumin (3.5-5.0) g/dL Microbiology - Last 24 Hours (Table) 11/11/20 14:03 Blood Culture - Preliminary Blood No Growth after 120 hours 11/11/20 14:03 Blood Culture - Preliminary Blood No Growth after 120 hours Assessment and Plan Assessment: 1 Acute hypoxemic respiratory failure secondary to COVID 19 pneumonia. 2 History of chronic bronchial asthma. 3 History of hypertension. 4 History of sleep apnea syndrome, currently on CPAP. 5 Prior history of pulmonary embolism, March 2020, currently on a factor X a inhibitor. 6 History of diabetes mellitus. 7 Chronic lower extremity edema and chronic venous stasis of the lower extremities. 8 Morbid obesity. Plan: The patient was seen and evaluated by Dr. Eli Chest x-ray and labs reviewed Continue the current treatment plan Titrate down the FiO2 as tolerated Possibly transfer out of the ICU only if bed needed We will continue to follow and make further recommendations based on his clinical status I, the cosigning physician, performed a history & physical examination of the patient. Lungs sounds with bilateral coarse crackles in the bases. Maintaining good O2 saturations in the 90s on 15 L high flow nasal cannula. I discussed the assessment and plan of care with my nurse practitioner, Stephani Estrada. I attest to the above note as dictated by her.
[2020-11-17 11:17] LABS: Glucose,Whole Blood 229 mg/dL (75-99)
[2020-11-17] MEDS ORDERED: SODIUM POLYSTYRENE SULFONATE 15 GM/60 ML BOTTLE PO STA (14:14)
--- NOTE | 2020-11-17 14:16 | P.PN ---
Progress Note - Text Progress Note Date: 11/17/20 Presenting complaint: Shortness of breath History of presenting complaint: 30-year-old male who presents to ER today via ambulance for evaluation of shortness of breath. Patient tested positive for COVID-19 last week thursday, at that time he was given an ''antibiotic'' by his doctor, states that he improved initially but later on he started to get worse so he presented. Upon EMS arrival patient was found to have hard time breathing and oxygen saturation of 45% on room air. Patient was placed on BiPAP treated with 1 DuoNeb and transported the hospital. In the ER his temp was 100.9, HR was 110, sats 94% on bipap 60% Fio2. Labs showed ELIANA with cr 2.07 from normal baseline. Rest of labs ok. CXR showed new pulm edema vs. RDS. Patient was admitted to the ICU. Placed on BiPAP. Patient is put on vitamin C, vitamin D3, zinc. Decadron. Today: ICU. Remains on high flow oxygen. BiPAP at night. Oral intake good. Using incentive spirometry. Has been up in a chair. Review of systems: Was done for constitutional, cardiovascular, GI, pulmonary. relevant finding as above Active Medications Acetaminophen (Acetaminophen Tab 325 Mg Tab) 650 mg PO Q6HR PRN PRN Reason: Mild Pain or Fever > 100.5 Last Admin: 11/16/20 09:51 Dose: 650 mg Documented by: Albuterol Sulfate (Albuterol Hfa Inhaler) 2 puff INHALATION RT-QID PRN PRN Reason: Shortness Of Breath Or Wheezing Last Admin: 11/14/20 21:13 Dose: 2 puff Documented by: Apixaban (Apixaban 5 Mg Tab) 5 mg PO BID [facility] Last Admin: 11/17/20 10:30 Dose: 5 mg Documented by: Ascorbic Acid (Ascorbic Acid 500 Mg Tab) 500 mg PO BID [facility] Last Admin: 11/17/20 07:52 Dose: 500 mg Documented by: Aspirin (Aspirin 81 Mg) 81 mg PO DAILY [facility] Last Admin: 11/17/20 10:29 Dose: 81 mg Documented by: Bupropion HCl (Bupropion Xl 300 Mg Tab.Er.24h) 300 mg PO DAILY [facility] Last Admin: 11/17/20 07:53 Dose: 300 mg Documented by: Cholecalciferol (Cholecalciferol 25 Mcg (1000 Iu) Tablet) 125 mcg PO DAILY [facility] Last Admin: 11/17/20 07:52 Dose: 125 mcg Documented by: Lisinopril/HCTZ (Lisinopril-Hctz 20-12.5 Mg 1 Each Tab) 1 each PO BID [facility] Last Admin: 11/17/20 07:53 Dose: 1 each Documented by: Insulin Aspart (Insulin Aspart (Novolog) 100 Unit/Ml Vial) 0 unit SQ ACHS [facility]; Protocol Last Admin: 11/17/20 12:18 Dose: 3 unit Documented by: Methylprednisolone Sodium Succinate (Methylprednisolone Sod Succi 125 Mg/2 Ml Vial) 60 mg IV Q6HR [facility] Last Admin: 11/17/20 12:18 Dose: 60 mg Documented by: Naloxone HCl (Naloxone 0.4 Mg/Ml 1 Ml Vial) 0.2 mg IV Q2M PRN PRN Reason: Opioid Reversal Ondansetron HCl (Ondansetron 4 Mg/2 Ml Vial) 4 mg IVP Q8HR PRN PRN Reason: Nausea And Vomiting Pantoprazole Sodium (Pantoprazole 40 Mg Tablet) 40 mg PO DAILY PRN PRN Reason: Heartburn Last Admin: 11/17/20 07:53 Dose: 40 mg Documented by: Zinc Sulfate (Zinc Sulfate 220 Mg Cap) 220 mg PO DAILY [facility] Last Admin: 11/17/20 07:53 Dose: 220 mg Documented by: On examination: VITAL SIGNS: 98, 98, 18, 120/87, 90% on 15 L GENERAL APPEARANCE: Laying planning in bed with nasal cannula RESPIRATORY: Respiratory effort increased. PSYCHIATRY: Alert and oriented x3. Mood and affect slightly anxious NEURO: Cranial nerves grossly intact. Moving all 4 limbs Rest of exam as per pulmonary and nursing INVESTIGATIONS, reviewed in the clinical context: November 17: WBC 12.4 hemoglobin 14 d-dimer 1.86 potassium 5.5 crit 0.63 LDH 939 CRP 1.7 November 16: WBC 10.60 globin 13.8 potassium 5.6 creatinine 0.62 November 15: WBC 10.7 hemoglobin 13.7 platelets 272 potassium 5.4 creatinine 0.62 d-dimer 2.99 CRP 3.5 WBC 11.7 hemoglobin 12.6 platelets 349 potassium 5.6 creatinine 0.67 Chest x-ray film personally reviewed by me-bilateral infiltrates Assessment and plan: -Acute hypoxic respiratory failure secondary to COVID-19 pneumonia: Slow to respond requiring bipap night currently on 15 L nasal cannula high flow -Acute covid 19 pneumonia : Slow to respond Vitamin C, vitamin D, zinc, IV Decadron -ELIANA, likely from ATN from COVID 19-improved Improving with IV fluids -Chronic PE, in March 2020 Continue with eliquis -Essential HTN Monitor blood pressure -Morbid obesity, with a BMI of 64.8 Weight loss measures and follow-up with outpatient with PCP -Chronic Bilateral Lymphedema with [place] Dermatitis Follow clinically and follow-up as outpatient -Hyperkalemia Repeat Kayexalate today. Low potassium diet. -Obstructive sleep apnea Using BiPAP, at night Kayexalate 45 g today. Strict potassium diet. Repeat labs. DC Zestoretic and replaced with clonidine 0.1 mg twice a day because of hyperkalemia
[2020-11-17 16:40] LABS: Glucose,Whole Blood 138 mg/dL (75-99)
[2020-11-17 21:05] LABS: Glucose,Whole Blood 199 mg/dL (75-99)
[2020-11-17] MEDS: cloNIDine HCL 0.1 MG TAB PO SCH (21:33)
[2020-11-17] MEDS: ACETAMINOPHEN TAB 325 MG TAB PO PRN (21:36)
[2020-11-18] MEDS: methylPREDNISolone SOD SUCCI 125 MG/2 ML VIAL IV SCH ×5 (00:53→23:05)
[2020-11-18 04:25] LABS: ALT 43 U/L (4-49); AST 44 U/L (17-59); African American GFR (CKD) >90 (>60 ml/min/1.73 sqM); Albumin 2.8 g/dL (3.5-5.0); Alkaline Phosphatase 28 U/L (38-126); Anion Gap 0 mmol/L; Blood Urea Nitrogen 32 mg/dL (9-20); C Reactive Protein 1.2 mg/dL (<1.0); Calcium 9.2 mg/dL (8.4-10.2); Carbon Dioxide 40 mmol/L (22-30); Chloride 92 mmol/L (98-107); Creatine Kinase 272 U/L (55-170); Glucose 168 mg/dL (74-99); LDH 943 U/L (313-618); Non-African American GFR(CKD) >90 (>60 ml/min/1.73 sqM); Potassium 5.3 mmol/L (3.5-5.1); Sodium 132 mmol/L (137-145); Total Bilirubin 0.7 mg/dL (0.2-1.3); Total Protein 5.7 g/dL (6.3-8.2)
[2020-11-18 06:15] LABS: Basophils # (A) 0.1 k/uL (0-0.2); Basophils % (A) 1 %; Eosinophils % (A) 0 %; HCT 43.3 % (39.0-53.0); HGB 13.5 gm/dL (13.0-17.5); Hypochromasia Slight; Lymphocytes # (A) 0.7 k/uL (1.0-4.8); Lymphocytes % (A) 6 %; MCH 27.3 pg (25.0-35.0); MCHC 31.3 g/dL (31.0-37.0); MCV 87.2 fL (80.0-100.0); Mean Platelet Volume 7.4; Monocytes # (A) 1.2 k/uL (0-1.0); Monocytes % (A) 9 %; Neutrophils # (A) 10.3 k/uL (1.3-7.7); Neutrophils % (A) 83 %; Platelet Count 322 k/uL (150-450); RBC 4.96 m/uL (4.30-5.90); RDW 14.3 % (11.5-15.5); WBC 12.5 k/uL (3.8-10.6)
[2020-11-18 06:40] LABS: Glucose,Whole Blood 151 mg/dL (75-99)
[2020-11-18] MEDS: INSULIN ASPART (NovoLOG) 100 UNIT/ML VIAL SQ SCH ×5 (06:40→21:12)
--- NOTE | 2020-11-18 07:13 | XR ---
EXAMINATION TYPE: XR chest 1V portable DATE OF EXAM: 11/18/2020 COMPARISON: 11/17/2020 HISTORY: Difficulty breathing TECHNIQUE: Single frontal view of the chest is obtained. FINDINGS: Heart is enlarged and there is diffuse bilateral infiltrates with tiny bilateral effusions . No pneumothorax. Osseous structures are stable. IMPRESSION: Diffuse bilateral infiltrate stable
[2020-11-18] MEDS: APIXABAN 5 MG TAB PO SCH ×2 (08:06→21:12)
[2020-11-18] MEDS: buPROPion XL 300 MG TAB.ER.24H PO SCH (08:06)
[2020-11-18] MEDS: ASPIRIN 81 MG PO SCH (08:06)
[2020-11-18] MEDS: CHOLECALCIFEROL 25 MCG (1000 IU) TABLET PO SCH (08:06)
[2020-11-18] MEDS: cloNIDine HCL 0.1 MG TAB PO SCH ×2 (08:06→21:12)
[2020-11-18] MEDS: ASCORBIC ACID 500 MG TAB PO SCH ×2 (08:06→21:12)
[2020-11-18] MEDS: ZINC SULFATE 220 MG CAP PO SCH (08:09)
--- NOTE | 2020-11-18 09:37 | P.PN ---
Subjective Progress Note Date: 11/18/20 Principal diagnosis: CoVID 19 pneumonia Pulmonary consultation dated 11/12/2020. 30-year-old male, who presents to the emergency room, via EMS, for shortness of breath. The patient apparently tested positive for coronavirus, last Thursday, 1 week ago. Apparently EMS was called because his breathing had worsened. He's been having symptoms for about 10 days or so. He apparently was using breathing treatments at home, that belonged to one of his friends. Apparently when EMS arrived, his saturations were in the mid 40 range, on room air. He was placed on BiPAP, given one updraft treatment, and transported to the hospital. Currently, in the ICU, he is on BiPAP, with settings of IPAP 14,EPAP of 6, and 60%. He is currently on a heparin drip. He had a previous history of pulmonary embolism, and is been on blood thinners in the form of Eliquis since March 2020. White count is 12.1, hemoglobin 12.6, hematocrit 38.4, and platelet count 351,000. PTT was 38. Blood gases show a PaO2 of 150, PaCO2 of 55, and a pH is 7.35. This was on 100%. Sodium 135, potassium 5, chlorides 97, CO2 30, anion gap 8, BUN 81, creatinine 1.46. Chest x-ray shows patchy airspace disease bilaterally. Progress note dated 11/13/2020. This is a 30-year-old male, who we saw yesterday in consultation. We saw him today given the intensive care unit, room 252. He's not receiving any IV fluids. He is on BiPAP with settings of IPAP 14, EPAP 6. He is on 60% FiO2. Currently, he is doing about the same. He is on a factor X a inhibitor for a previous history of pulmonary embolism back in March 2020. We chose to continue the anticoagulants given his positive for coronavirus status. Currently, white count 10.8, hemoglobin 13, hematocrit 40.4, and platelet count 314,000. Sodium 138, potassium 5.5, chlorides 100, CO2 32, anion gap 6, BUN 60, and creatinine 0.77. Chest x-ray shows bilateral, multifocal, and confluent opacities. Progress note dated 11/14/2020. 30-year-old male, seen a couple days ago in consultation. He is seen today again in the ICU, room 252. The patient's currently on 15 L high flow nasal cannula. From time to time, and especially at nighttime, he goes on BiPAP, with settings of IPAP 14, EPAP 6, and an FiO2 of 60%. The patient is not receiving any IV fluids. He is doing about the same today as he did yesterday. Chest x- ray today is stable according to radiology. Lab work today includes a white count 11.7, hemoglobin 12.6, hematocrit 39.3, and platelet count 349,000. Sodium 140, potassium 5.6, chlorides 100, CO2 34, anion gap of 6, BUN 44, and creatinine 0.67. Progress note dated 11/15/2020. 30-year-old male, with a history of COVID 19 pneumonia, who is currently seen again in room 252. The patient is currently on 15 L high flow oxygen, and not receiving any IV fluids. The patient was on BiPAP settings of 14/6 and 70%, from 8:30 PM last night, oh 3:00 in the morning. We are going to DC the colchicine, and also DC the Decadron and taper of Solu-Medrol, 60 mg, IV push, every 6 hours. His white count is 10.7, hemoglobin 13.7, hematocrit 44.3, and platelet count 372,000. D-dimer 2.99. Sodium 141, potassium 5.4, chlorides 97, CO2 35, anion gap 9, BUN 31, and creatinine 0.62. Chest x-ray shows diffuse bilateral airspace disease. Progress note dated 11/16/2020. 30-year-old male, with a history of COVID 19 pneumonia, and acute hypoxemic respiratory failure. He is again seen in room 252. Currently, he's on 15 L high flow nasal O2. He's not receiving any IV fluids. He was on Zestoretic as an outpatient. That will be restarted today, as his blood pressure is been a bit high. No major changes overnight. White count 10.6, hemoglobin 13.8, hematocrit 42.4, and platelet count 390,000. D-dimer is 2.66. Sodium 136, potassium 5.6, chlorides 95, CO2 38, anion gap 3, BUN 34, creatinine 0.62. LDH 1161. C-reactive protein is 3.5. Chest x-ray showed scattered bilateral airspace infiltrates, without interval change. The patient is seen today the first 2020 follow-up in the intensive care unit. He is currently sitting up in a chair at the bedside. Awake, alert in no acute distress. He is still requiring 15 L high flow nasal cannula to maintain O2 saturations in the 90s. No current IV fluids running. Blood cultures reveal no growth. Chest x-ray continues to show diffuse lung infiltrates change compared to previous. White count 12.4. Hemoglobin 14.0. Lymphocytes 0.6. D-dimer 1.86. Sodium 136. Potassium 5.5. Creatinine 0.63. LDH 939. C-reactive protein 1.7. He is anticoagulated with Eliquis. Remains on IV Solu-Medrol, vitamin supplements. The patient is seen today 11/18/2020 in follow-up in the intensive care unit. He is awake and alert in no acute distress. Currently sitting up in a chair at the bedside. He states he is feeling a bit better today compared to yesterday. Able to get up to the bedside chair without much assistance. Feeling stronger. He is down to 11 L high flow nasal cannula. Chest x-ray continues to show bilateral patchy infiltrates. No IV fluids currently. He remains on Eliquis for anticoagulation. Remains on IV Solu-Medrol. Did receive Kayexalate for high potassium. Current potassium 5.3. Blood cultures reveal no growth. White count 12.5. Hemoglobin 13.5. Lymphocytes 0.7. Sodium 132. Bicarb 40. Creatinine 0.65. LDH 943. C-reactive protein 1.2. Objective - Vital Signs Vital signs: Vital Signs Temp 97.6 F 11/18/20 08:00 Pulse 80 11/18/20 08:00 Resp 20 11/18/20 08:00 BP 141/91 11/18/20 08:00 Pulse Ox 91 L 11/18/20 08:00 Intake & Output 11/17/20 11/18/20 11/18/20 18:59 06:59 18:59 Intake Total 30 200 Output Total 800 1000 0 Balance -770 -800 0 Weight 185.6 kg 187.5 kg Intake: IV 0 0 0.9 NS 0 0 Oral 30 200 Output: Urine 800 1000 0 Other: Voiding Method Urinal Urinal Urinal # Voids 1 # Bowel Movements 1 - Exam GENERAL EXAM: Alert, pleasant morbidly obese 30-year-old gentleman, on 11 L high flow nasal cannula, comfortable in no apparent distress. HEAD: Normocephalic. EYES: Normal reaction of pupils, equal size. NOSE: Clear with pink turbinates. THROAT: No erythema or exudates. NECK: No masses, no JVD. CHEST: No chest wall deformity. LUNGS: Equal air entry with crackles in the bilateral posterior bases. CVS: S1 and S2 normal with no audible murmur, regular rhythm. ABDOMEN: No hepatosplenomegaly, normal bowel sounds, no guarding or rigidity. SPINE: No scoliosis or deformity SKIN: No rashes CENTRAL NERVOUS SYSTEM: No focal deficits, tone is normal in all 4 extremities. EXTREMITIES: Changes of chronic venous stasis. There is 1-2+ peripheral edema. No clubbing, no cyanosis. Peripheral pulses are intact. - Labs CBC & Chem 7: 11/18/20 03:40 11/18/20 03:40 Labs: Abnormal Lab Results - Last 24 Hours (Table) 11/17/20 11/17/20 11/17/20 Range/Units 11:16 16:38 21:04 WBC (3.8-10.6) k/uL Neutrophils # (1.3-7.7) k/uL Lymphocytes # (1.0-4.8) k/uL Monocytes # (0-1.0) k/uL Sodium (137-145) mmol/L Potassium (3.5-5.1) mmol/L Chloride (98-107) mmol/L Carbon Dioxide (22-30) mmol/L BUN (9-20) mg/dL Creatinine (0.66-1.25) mg/dL Glucose (74-99) mg/dL POC Glucose (mg/dL) 229 H 138 H 199 H (75-99) mg/dL Alkaline Phosphatase (38-126) U/L Lactate Dehydrogenase (313-618) U/L Creatine Kinase (55-170) U/L C-Reactive Protein (<1.0) mg/dL Total Protein (6.3-8.2) g/dL Albumin (3.5-5.0) g/dL 11/18/20 11/18/20 11/18/20 Range/Units 03:40 03:40 06:38 WBC 12.5 H (3.8-10.6) k/uL Neutrophils # 10.3 H (1.3-7.7) k/uL Lymphocytes # 0.7 L (1.0-4.8) k/uL Monocytes # 1.2 H (0-1.0) k/uL Sodium 132 L (137-145) mmol/L Potassium 5.3 H (3.5-5.1) mmol/L Chloride 92 L (98-107) mmol/L Carbon Dioxide 40 H (22-30) mmol/L BUN 32 H (9-20) mg/dL Creatinine 0.65 L (0.66-1.25) mg/dL Glucose 168 H (74-99) mg/dL POC Glucose (mg/dL) 151 H (75-99) mg/dL Alkaline Phosphatase 28 L (38-126) U/L Lactate Dehydrogenase 943 H (313-618) U/L Creatine Kinase 272 H (55-170) U/L C-Reactive Protein 1.2 H (<1.0) mg/dL Total Protein 5.7 L (6.3-8.2) g/dL Albumin 2.8 L (3.5-5.0) g/dL Microbiology - Last 24 Hours (Table) 11/11/20 14:03 Blood Culture - Final Blood No Growth after 144 hours 11/11/20 14:03 Blood Culture - Final Blood No Growth after 144 hours Assessment and Plan Assessment: 1 Acute hypoxemic respiratory failure secondary to COVID 19 pneumonia. Currently on 11 L high flow nasal cannula. 2 History of chronic bronchial asthma. 3 History of hypertension. 4 History of sleep apnea syndrome, currently on CPAP. 5 Prior history of pulmonary embolism, March 2020, currently on Eliquis. 6 History of diabetes mellitus. 7 Chronic lower extremity edema and chronic venous stasis of the lower extremities. 8 Morbid obesity. Plan: The patient was seen and evaluated by Dr. Eli Chest x-ray and labs reviewed Potassium trending down and received Kayexalate Continue the current treatment plan Titrate down the FiO2 as tolerated Encouraged increased use of the incentive spirometer Increase his activity as tolerated Possibly transfer out of the ICU if bed needed We will continue to follow and make further recommendations based on his clinical status I, the cosigning physician, performed a history & physical examination of the patient. Lungs sounds with bilateral coarse crackles in the bases. Maintaining good O2 saturations in the 90s on 15 L high flow nasal cannula. I discussed the assessment and plan of care with my nurse practitioner, Stephani Estrada. I attest to the above note as dictated by her.
[2020-11-18 11:48] LABS: Glucose,Whole Blood 149 mg/dL (75-99)
--- NOTE | 2020-11-18 13:17 | P.PN ---
Progress Note - Text Progress Note Date: 11/18/20 Presenting complaint: Shortness of breath History of presenting complaint: 30-year-old male who presents to ER today via ambulance for evaluation of shortness of breath. Patient tested positive for COVID-19 last week thursday, at that time he was given an ''antibiotic'' by his doctor, states that he improved initially but later on he started to get worse so he presented. Upon EMS arrival patient was found to have hard time breathing and oxygen saturation of 45% on room air. Patient was placed on BiPAP treated with 1 DuoNeb and transported the hospital. In the ER his temp was 100.9, HR was 110, sats 94% on bipap 60% Fio2. Labs showed ELIANA with cr 2.07 from normal baseline. Rest of labs ok. CXR showed new pulm edema vs. RDS. Patient was admitted to the ICU. Placed on BiPAP. Patient is put on vitamin C, vitamin D3, zinc. Decadron. Today: ICU. Continues to use BiPAP at night. Oxygen requirements come down to 11 L. Oral intake is good. Sitting up in a chair. Review of systems: Was done for constitutional, cardiovascular, GI, pulmonary. relevant finding as above Active Medications Acetaminophen (Acetaminophen Tab 325 Mg Tab) 650 mg PO Q6HR PRN PRN Reason: Mild Pain or Fever > 100.5 Last Admin: 11/17/20 21:36 Dose: 650 mg Documented by: Albuterol Sulfate (Albuterol Hfa Inhaler) 2 puff INHALATION RT-QID PRN PRN Reason: Shortness Of Breath Or Wheezing Last Admin: 11/14/20 21:13 Dose: 2 puff Documented by: Apixaban (Apixaban 5 Mg Tab) 5 mg PO BID [facility] Last Admin: 11/18/20 08:06 Dose: 5 mg Documented by: Ascorbic Acid (Ascorbic Acid 500 Mg Tab) 500 mg PO BID [facility] Last Admin: 11/18/20 08:06 Dose: 500 mg Documented by: Aspirin (Aspirin 81 Mg) 81 mg PO DAILY [facility] Last Admin: 11/18/20 08:06 Dose: 81 mg Documented by: Bupropion HCl (Bupropion Xl 300 Mg Tab.Er.24h) 300 mg PO DAILY [facility] Last Admin: 11/18/20 08:06 Dose: 300 mg Documented by: Cholecalciferol (Cholecalciferol 25 Mcg (1000 Iu) Tablet) 125 mcg PO DAILY [facility] Last Admin: 11/18/20 08:06 Dose: 125 mcg Documented by: Clonidine (Clonidine Hcl 0.1 Mg Tab) 0.1 mg PO BID [facility] Last Admin: 11/18/20 08:06 Dose: 0.1 mg Documented by: Insulin Aspart (Insulin Aspart (Novolog) 100 Unit/Ml Vial) 0 unit SQ ACHS [facility]; Protocol Last Admin: 11/18/20 12:02 Dose: 1 unit Documented by: Methylprednisolone Sodium Succinate (Methylprednisolone Sod Succi 125 Mg/2 Ml Vial) 60 mg IV Q6HR [facility] Last Admin: 11/18/20 12:01 Dose: 60 mg Documented by: Naloxone HCl (Naloxone 0.4 Mg/Ml 1 Ml Vial) 0.2 mg IV Q2M PRN PRN Reason: Opioid Reversal Ondansetron HCl (Ondansetron 4 Mg/2 Ml Vial) 4 mg IVP Q8HR PRN PRN Reason: Nausea And Vomiting Pantoprazole Sodium (Pantoprazole 40 Mg Tablet) 40 mg PO DAILY PRN PRN Reason: Heartburn Last Admin: 11/17/20 07:53 Dose: 40 mg Documented by: Zinc Sulfate (Zinc Sulfate 220 Mg Cap) 220 mg PO DAILY [facility] Last Admin: 11/18/20 08:09 Dose: 220 mg Documented by: On examination: VITAL SIGNS: 97.4, 57, 16, 133/81, 92% 11 L GENERAL APPEARANCE: Sitting up in chair, nasal cannula RESPIRATORY: Respiratory effort increased. PSYCHIATRY: Alert and oriented x3. Mood and affect slightly anxious NEURO: Cranial nerves grossly intact. Moving all 4 limbs DERMATOLOGICAL: Bilateral lower extremity,verrocous skin/dry Rest of exam as per pulmonary and nursing INVESTIGATIONS, reviewed in the clinical context: November 18: WBC 12.5 hemoglobin 13.5 potassium 5.3 creatinine 0.65 CRP 1.2 November 17: WBC 12.4 hemoglobin 14 d-dimer 1.86 potassium 5.5 crit 0.63 LDH 939 CRP 1.7 November 16: WBC 10.60 globin 13.8 potassium 5.6 creatinine 0.62 November 15: WBC 10.7 hemoglobin 13.7 platelets 272 potassium 5.4 creatinine 0.62 d-dimer 2.99 CRP 3.5 WBC 11.7 hemoglobin 12.6 platelets 349 potassium 5.6 creatinine 0.67 Chest x-ray film personally reviewed by me-bilateral infiltrates Assessment and plan: -Acute hypoxic respiratory failure secondary to COVID-19 pneumonia: Slow to respond requiring bipap night currently on 11 L nasal cannula high flow -Acute covid 19 pneumonia : Slow to respond Vitamin C, vitamin D, zinc, IV Decadron -ELIANA, likely from ATN from COVID 19-improved Improving with IV fluids -Chronic PE, in March 2020 Continue with eliquis -Essential HTN Zestoretic discontinued because of high potassium. Replace with clonidine -Morbid obesity, with a BMI of 64.8 Weight loss measures and follow-up with outpatient with PCP -Chronic Bilateral Lymphedema with [place] Dermatitis Follow clinically and follow-up as outpatient -Hyperkalemia-better Repeat Kayexalate today. Low potassium diet. -Obstructive sleep apnea Using BiPAP, at night Discussed with the patient. Questions answered. Continue current treatment plan.
[2020-11-18 17:14] LABS: Glucose,Whole Blood 161 mg/dL (75-99)
[2020-11-18 21:02] LABS: Glucose,Whole Blood 227 mg/dL (75-99)
[2020-11-19] MEDS: methylPREDNISolone SOD SUCCI 125 MG/2 ML VIAL IV SCH ×3 (05:13→17:09)
[2020-11-19 07:17] LABS: Glucose,Whole Blood 154 mg/dL (75-99)
--- NOTE | 2020-11-19 07:17 | XR ---
EXAMINATION TYPE: XR chest 1V portable DATE OF EXAM: 11/19/2020 COMPARISON: NONE HISTORY: Shortness of breath TECHNIQUE: Single frontal view of the chest is obtained. FINDINGS: Bilateral diffuse infiltrate stable. Small right pleural effusion suggested. Heart size st able. No pneumothorax. Osseous structures stable. IMPRESSION: Diffuse bilateral infiltrate stable
[2020-11-19] MEDS: ASCORBIC ACID 500 MG TAB PO SCH ×2 (07:29→20:59)
[2020-11-19] MEDS: CHOLECALCIFEROL 25 MCG (1000 IU) TABLET PO SCH (07:29)
[2020-11-19] MEDS: ASPIRIN 81 MG PO SCH (07:29)
[2020-11-19] MEDS: cloNIDine HCL 0.1 MG TAB PO SCH ×2 (07:29→20:59)
[2020-11-19] MEDS: APIXABAN 5 MG TAB PO SCH ×2 (07:29→20:59)
[2020-11-19] MEDS: INSULIN ASPART (NovoLOG) 100 UNIT/ML VIAL SQ SCH ×4 (07:29→20:59)
[2020-11-19] MEDS: ZINC SULFATE 220 MG CAP PO SCH (07:29)
[2020-11-19] MEDS: buPROPion XL 300 MG TAB.ER.24H PO SCH (07:29)
[2020-11-19 11:34] LABS: African American GFR (CKD) 156.4 (60.0-200.0); Albumin 3.6 g/dL (3.80-4.90); Albumin/Globulin Ratio 1.57 (1.60-3.17); Anion Gap 9.3 mmol/L (4.00-12.00); BUN/Creat Ratio 46.67 Ratio (12.00-20.00); Calcium 9.2 mg/dL (8.7-10.3); Carbon Dioxide 27.7 mmol/L (21.6-31.8); Globulin 2.3 g/dL (1.6-3.3); Non-African American GFR(CKD) 134.9 (60.0-200.0); Potassium 5.6 mmol/L (3.5-5.5); Total Bilirubin 0.6 mg/dL (0.2-1.2); Total Protein 5.9 g/dL (6.2-8.2)
[2020-11-19 12:32] LABS: Glucose,Whole Blood 113 mg/dL (75-99)
--- NOTE | 2020-11-19 13:37 | P.PN ---
Subjective Progress Note Date: 11/19/20 Principal diagnosis: COVID-19 pneumonia Pulmonary consultation dated 11/12/2020. 30-year-old male, who presents to the emergency room, via EMS, for shortness of breath. The patient apparently tested positive for coronavirus, last Thursday, 1 week ago. Apparently EMS was called because his breathing had worsened. He's been having symptoms for about 10 days or so. He apparently was using breathing treatments at home, that belonged to one of his friends. Apparently when EMS arrived, his saturations were in the mid 40 range, on room air. He was placed on BiPAP, given one updraft treatment, and transported to the hospital. Currently, in the ICU, he is on BiPAP, with settings of IPAP 14,EPAP of 6, and 60%. He is currently on a heparin drip. He had a previous history of pulmonary embolism, and is been on blood thinners in the form of Eliquis since March 2020. White count is 12.1, hemoglobin 12.6, hematocrit 38.4, and platelet count 351,000. PTT was 38. Blood gases show a PaO2 of 150, PaCO2 of 55, and a pH is 7.35. This was on 100%. Sodium 135, potassium 5, chlorides 97, CO2 30, anion gap 8, BUN 81, creatinine 1.46. Chest x-ray shows patchy airspace disease bilaterally. Progress note dated 11/13/2020. This is a 30-year-old male, who we saw yesterday in consultation. We saw him today given the intensive care unit, room 252. He's not receiving any IV fluids. He is on BiPAP with settings of IPAP 14, EPAP 6. He is on 60% FiO2. Currently, he is doing about the same. He is on a factor X a inhibitor for a previous history of pulmonary embolism back in March 2020. We chose to continue the anticoagulants given his positive for coronavirus status. Currently, white count 10.8, hemoglobin 13, hematocrit 40.4, and platelet count 314,000. Sodium 138, potassium 5.5, chlorides 100, CO2 32, anion gap 6, BUN 60, and creatinine 0.77. Chest x-ray shows bilateral, multifocal, and confluent opacities. Progress note dated 11/14/2020. 30-year-old male, seen a couple days ago in consultation. He is seen today again in the ICU, room 252. The patient's currently on 15 L high flow nasal cannula. From time to time, and especially at nighttime, he goes on BiPAP, with settings of IPAP 14, EPAP 6, and an FiO2 of 60%. The patient is not receiving any IV fluids. He is doing about the same today as he did yesterday. Chest x- ray today is stable according to radiology. Lab work today includes a white count 11.7, hemoglobin 12.6, hematocrit 39.3, and platelet count 349,000. Sodium 140, potassium 5.6, chlorides 100, CO2 34, anion gap of 6, BUN 44, and creatinine 0.67. Progress note dated 11/15/2020. 30-year-old male, with a history of COVID 19 pneumonia, who is currently seen again in room 252. The patient is currently on 15 L high flow oxygen, and not receiving any IV fluids. The patient was on BiPAP settings of 14/6 and 70%, from 8:30 PM last night, oh 3:00 in the morning. We are going to DC the colchicine, and also DC the Decadron and taper of Solu-Medrol, 60 mg, IV push, every 6 hours. His white count is 10.7, hemoglobin 13.7, hematocrit 44.3, and platelet count 372,000. D-dimer 2.99. Sodium 141, potassium 5.4, chlorides 97, CO2 35, anion gap 9, BUN 31, and creatinine 0.62. Chest x-ray shows diffuse bilateral airspace disease. Progress note dated 11/16/2020. 30-year-old male, with a history of COVID 19 pneumonia, and acute hypoxemic respiratory failure. He is again seen in room 252. Currently, he's on 15 L high flow nasal O2. He's not receiving any IV fluids. He was on Zestoretic as an outpatient. That will be restarted today, as his blood pressure is been a bit high. No major changes overnight. White count 10.6, hemoglobin 13.8, hematocrit 42.4, and platelet count 390,000. D-dimer is 2.66. Sodium 136, potassium 5.6, chlorides 95, CO2 38, anion gap 3, BUN 34, creatinine 0.62. LDH 1161. C-reactive protein is 3.5. Chest x-ray showed scattered bilateral airspace infiltrates, without interval change. The patient is seen today the first 2020 follow-up in the intensive care unit. He is currently sitting up in a chair at the bedside. Awake, alert in no acute distress. He is still requiring 15 L high flow nasal cannula to maintain O2 saturations in the 90s. No current IV fluids running. Blood cultures reveal no growth. Chest x-ray continues to show diffuse lung infiltrates change compared to previous. White count 12.4. Hemoglobin 14.0. Lymphocytes 0.6. D-dimer 1.86. Sodium 136. Potassium 5.5. Creatinine 0.63. LDH 939. C-reactive protein 1.7. He is anticoagulated with Eliquis. Remains on IV Solu-Medrol, vitamin supplements. The patient is seen today 11/18/2020 in follow-up in the intensive care unit. He is awake and alert in no acute distress. Currently sitting up in a chair at the bedside. He states he is feeling a bit better today compared to yesterday. Able to get up to the bedside chair without much assistance. Feeling stronger. He is down to 11 L high flow nasal cannula. Chest x-ray continues to show bilateral patchy infiltrates. No IV fluids currently. He remains on Eliquis for anticoagulation. Remains on IV Solu-Medrol. Did receive Kayexalate for high potassium. Current potassium 5.3. Blood cultures reveal no growth. White count 12.5. Hemoglobin 13.5. Lymphocytes 0.7. Sodium 132. Bicarb 40. Creatinine 0.65. LDH 943. C-reactive protein 1.2. On 11/19/2020 patient seen in follow-up on medical surgical floor. Patient was transferred out of intensive care unit yesterday, he has remained stable overnight. He did wear BiPAP support last night, he is currently on 9 L per high flow nasal cannula, he is breathing comfortably, pulse ox on 9 L of oxygen is 96%, his BiPAP settings were 14/6 and FiO2 of 55%. No worsening dyspnea or cough. He doesn't have any IV fluids infusing. He remains on Eliquis for anticoagulation, he remains on IV Solu-Medrol at 60 mg every 6 hours. His inflammatory markers continue to improve, LDH is down to 567, and his last CRP was 1.2. Today's chest x-ray shows diffuse bilateral infiltrates that are stable in appearance. Today's labs show potassium of 5.6, [place] the electrolytes were within normal limits, his BUN is 28, improving, and creatinine 0.6. No nausea vomiting or diarrhea, is tolerating oral intake. He is having in the midline inserted today. Objective - Vital Signs Vital signs: Vital Signs Temp 97.6 F 11/19/20 10:00 Pulse 82 11/19/20 10:00 Resp 16 11/19/20 10:00 BP 120/80 11/19/20 10:00 Pulse Ox 96 11/19/20 10:00 Intake & Output 11/18/20 11/19/20 11/19/20 18:59 06:59 18:59 Intake Total 460 100 236 Output Total 400 1 Balance 60 99 236 Intake: Oral 460 100 236 Output: Urine 400 Stool 1 Other: Voiding Method Urinal Urinal # Voids 2 # Bowel Movements 1 - Exam GENERAL EXAM: Alert and awake, 30-year-old white male currently on 9 L of oxygen and a pulse ox of 96%, comfortable in no apparent distress. HEAD: Normocephalic/atraumatic. EYES: Normal reaction of pupils, equal size. Conjunctiva pink, sclera white. NOSE: Clear with pink turbinates. THROAT: No erythema or exudates. NECK: No masses, no JVD, no thyroid enlargement, no adenopathy. CHEST: No chest wall deformity. Symmetrical expansion. LUNGS: Equal air entry with no crackles, wheeze, rhonchi or dullness. CVS: Regular rate and rhythm, normal S1 and S2, no gallops, no murmurs, no rubs ABDOMEN: Soft, nontender. No hepatosplenomegaly, normal bowel sounds, no guarding or rigidity. EXTREMITIES: No clubbing, there are chronic changes of skin on the lower extremities consistent with chronic venous stasis and lower extremity edema, and dermatitis, no cyanosis, 2+ pulses and upper and lower extremities. MUSCULOSKELETAL: Muscle strength and tone normal. SPINE: No scoliosis or deformity SKIN: No rashes CENTRAL NERVOUS SYSTEM: Alert and oriented -3. No focal deficits, tone is normal in all 4 extremities. PSYCHIATRIC: Alert and oriented -3. Appropriate affect. Intact judgment and insight. - Labs CBC & Chem 7: 11/18/20 03:40 11/19/20 07:05 Labs: Abnormal Lab Results - Last 24 Hours (Table) 11/18/20 11/18/20 11/19/20 Range/Units 17:11 21:00 07:05 Potassium 5.6 H (3.5-5.5) mmol/L BUN 28.0 H (9.0-27.0) mg/dL BUN/Creatinine Ratio 46.67 H (12.00-20.00) Ratio Glucose 150 H (70-110) mg/dL POC Glucose (mg/dL) 161 H 227 H (75-99) mg/dL AST 51 H (14-35) U/L ALT 79 H (10-49) U/L Alkaline Phosphatase 37 L (41-126) U/L Lactate Dehydrogenase 567 H (120-246) U/L Creatine Kinase 521 H (35-257) U/L Total Protein 5.9 L (6.2-8.2) g/dL Albumin 3.60 L (3.80-4.90) g/dL Albumin/Globulin Ratio 1.57 L (1.60-3.17) g/dL 11/19/20 11/19/20 Range/Units 07:15 11:57 Potassium (3.5-5.5) mmol/L BUN (9.0-27.0) mg/dL BUN/Creatinine Ratio (12.00-20.00) Ratio Glucose (70-110) mg/dL POC Glucose (mg/dL) 154 H 113 H (75-99) mg/dL AST (14-35) U/L ALT (10-49) U/L Alkaline Phosphatase (41-126) U/L Lactate Dehydrogenase (120-246) U/L Creatine Kinase (35-257) U/L Total Protein (6.2-8.2) g/dL Albumin (3.80-4.90) g/dL Albumin/Globulin Ratio (1.60-3.17) g/dL Assessment and Plan Plan: Assessment: #1. Acute hypoxic respiratory failure secondary to COVID 19 pneumonia. #2. Acute kidney injury related to ATN from COVID-19 pneumonia #3. 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 Morbid obesity with a BMI of 64.8 kg/m #5. Chronic bilateral lymphedema with lower extremity dermatitis #6. Hyperkalemia, patient has required doses of [facility] [place] #7. Obstructive sleep apnea, the patient has been utilizing BiPAP at nighttime with pressures of 14/6 and FiO2 of 55% #8. History of chronic bronchial asthma, unspecified #9. History of diabetes mellitus type 2 Plan: Patient is doing well No acute events overnight Continues on high flow oxygen currently at 9 L FiO2 be weaned to keep O2 sat saturation is at 90% or above We will cut back IV Solu-Medrol to 40 mg every 8 hours Continue oral anticoagulation Continue to follow I performed a history & physical examination of the patient and discussed their management with my nurse practitioner, Hortensia Almaguer. I reviewed the nurse practitioner's note and agree with the documented findings and plan of care. Lung sounds are positive for diminished breath sounds. The findings and the impression was discussed with the patient. I attest to the documentation by the nurse practitioner. Time with Patient: Less than 30
[2020-11-19 16:43] LABS: C Reactive Protein 0.5 mg/dL (0.0-0.8)
[2020-11-19 16:43] LABS: Glucose,Whole Blood 175 mg/dL (75-99)
[2020-11-19] MEDS ORDERED: SODIUM POLYSTYRENE SULFONATE 15 GM/60 ML BOTTLE PO STA (17:19)
--- NOTE | 2020-11-19 17:21 | P.PN ---
Progress Note - Text Progress Note Date: 11/19/20 Presenting complaint: Shortness of breath History of presenting complaint: 30-year-old male who presents to ER today via ambulance for evaluation of shortness of breath. Patient tested positive for COVID-19 last week thursday, at that time he was given an ''antibiotic'' by his doctor, states that he improved initially but later on he started to get worse so he presented. Upon EMS arrival patient was found to have hard time breathing and oxygen saturation of 45% on room air. Patient was placed on BiPAP treated with 1 DuoNeb and transported the hospital. In the ER his temp was 100.9, HR was 110, sats 94% on bipap 60% Fio2. Labs showed ELIANA with cr 2.07 from normal baseline. Rest of labs ok. CXR showed new pulm edema vs. RDS. Patient was admitted to the ICU. Placed on BiPAP. Patient is put on vitamin C, vitamin D3, zinc. Decadron. Today: . Breathing improving. On my liters of nasal cannula. Sitting up in a chair. Oral intake fair. Review of systems: Was done for constitutional, cardiovascular, GI, pulmonary. relevant finding as above Active Medications Acetaminophen (Acetaminophen Tab 325 Mg Tab) 650 mg PO Q6HR PRN PRN Reason: Mild Pain or Fever > 100.5 Last Admin: 11/17/20 21:36 Dose: 650 mg Documented by: Albuterol Sulfate (Albuterol Hfa Inhaler) 2 puff INHALATION RT-QID PRN PRN Reason: Shortness Of Breath Or Wheezing Last Admin: 11/14/20 21:13 Dose: 2 puff Documented by: Apixaban (Apixaban 5 Mg Tab) 5 mg PO BID [facility] Last Admin: 11/19/20 07:29 Dose: 5 mg Documented by: Ascorbic Acid (Ascorbic Acid 500 Mg Tab) 500 mg PO BID [facility] Last Admin: 11/19/20 07:29 Dose: 500 mg Documented by: Aspirin (Aspirin 81 Mg) 81 mg PO DAILY [facility] Last Admin: 11/19/20 07:29 Dose: 81 mg Documented by: Bupropion HCl (Bupropion Xl 300 Mg Tab.Er.24h) 300 mg PO DAILY [facility] Last Admin: 11/19/20 07:29 Dose: 300 mg Documented by: Cholecalciferol (Cholecalciferol 25 Mcg (1000 Iu) Tablet) 125 mcg PO DAILY [facility] Last Admin: 11/19/20 07:29 Dose: 125 mcg Documented by: Clonidine (Clonidine Hcl 0.1 Mg Tab) 0.1 mg PO BID [facility] Last Admin: 11/19/20 07:29 Dose: 0.1 mg Documented by: Insulin Aspart (Insulin Aspart (Novolog) 100 Unit/Ml Vial) 0 unit SQ ACHS [facility]; Protocol Last Admin: 11/19/20 17:09 Dose: 2 unit Documented by: Methylprednisolone Sodium Succinate (Methylprednisolone Sod Succi 125 Mg/2 Ml Vial) 60 mg IV Q6HR [facility] Last Admin: 11/19/20 17:09 Dose: 60 mg Documented by: Naloxone HCl (Naloxone 0.4 Mg/Ml 1 Ml Vial) 0.2 mg IV Q2M PRN PRN Reason: Opioid Reversal Ondansetron HCl (Ondansetron 4 Mg/2 Ml Vial) 4 mg IVP Q8HR PRN PRN Reason: Nausea And Vomiting Pantoprazole Sodium (Pantoprazole 40 Mg Tablet) 40 mg PO DAILY PRN PRN Reason: Heartburn Last Admin: 11/17/20 07:53 Dose: 40 mg Documented by: Zinc Sulfate (Zinc Sulfate 220 Mg Cap) 220 mg PO DAILY [facility] Last Admin: 11/19/20 07:29 Dose: 220 mg Documented by: On examination: VITAL SIGNS: 97.6, 82, 16, 120/80, 96% and 90 L GENERAL APPEARANCE: Sitting up in chair, nasal cannula RESPIRATORY: Respiratory effort increased. PSYCHIATRY: Alert and oriented x3. Mood and affect slightly anxious NEURO: Cranial nerves grossly intact. Moving all 4 limbs DERMATOLOGICAL: Bilateral lower extremity,verrocous skin/dry Rest of exam as per pulmonary and nursing INVESTIGATIONS, reviewed in the clinical context: November 18: WBC 12.5 hemoglobin 13.5 potassium 5.3 creatinine 0.65 CRP 1.2 November 17: WBC 12.4 hemoglobin 14 d-dimer 1.86 potassium 5.5 crit 0.63 LDH 939 CRP 1.7 November 16: WBC 10.60 globin 13.8 potassium 5.6 creatinine 0.62 November 15: WBC 10.7 hemoglobin 13.7 platelets 272 potassium 5.4 creatinine 0.62 d-dimer 2.99 CRP 3.5 WBC 11.7 hemoglobin 12.6 platelets 349 potassium 5.6 creatinine 0.67 Chest x-ray film personally reviewed by me-bilateral infiltrates Assessment and plan: -Acute hypoxic respiratory failure secondary to COVID-19 pneumonia: Slow to respond requiring bipap night currently on 9 L nasal cannula high flow -Acute covid 19 pneumonia : Slow to respond Vitamin C, vitamin D, zinc, IV Decadron -ELIANA, likely from ATN from COVID 19-improved Improving with IV fluids -Chronic PE, in March 2020 Continue with eliquis -Essential HTN Zestoretic discontinued because of high potassium. Replace with clonidine -Morbid obesity, with a BMI of 64.8 Weight loss measures and follow-up with outpatient with PCP -Chronic Bilateral Lymphedema with [place] Dermatitis Follow clinically and follow-up as outpatient -Hyperkalemia Recurrent Repeat Kayexalate today. Low potassium diet. -Obstructive sleep apnea Using BiPAP, at night Hospital patient take a few steps around the room. Repeat 45 g of Kayexalate. Repeat labs in the morning.
[2020-11-19 20:56] LABS: Glucose,Whole Blood 192 mg/dL (75-99)
[2020-11-20] MEDS: methylPREDNISolone SOD SUCCI 40 MG/ML 1 ML VIAL IV SCH ×4 (00:31→22:51)
[2020-11-20 06:27] LABS: Basophils # (A) 0.3 k/uL (0-0.2); Basophils % (A) 2 %; Eosinophils # (A) 0.1 k/uL (0-0.7); Eosinophils % (A) 1 %; HCT 48.3 % (39.0-53.0); HGB 15.7 gm/dL (13.0-17.5); Hypochromasia Slight; Lymphocytes # (A) 0.2 k/uL (1.0-4.8); Lymphocytes % (A) 2 %; MCH 28.2 pg (25.0-35.0); MCHC 32.5 g/dL (31.0-37.0); MCV 86.7 fL (80.0-100.0); Mean Platelet Volume 7.6; Monocytes # (A) 0.9 k/uL (0-1.0); Monocytes % (A) 8 %; Neutrophils # (A) 9.4 k/uL (1.3-7.7); Neutrophils % (A) 86 %; Platelet Count 381 k/uL (150-450); RBC 5.57 m/uL (4.30-5.90); RDW 14.3 % (11.5-15.5)
[2020-11-20 06:52] LABS: Glucose,Whole Blood 203 mg/dL (75-99)
[2020-11-20] MEDS: ASPIRIN 81 MG PO SCH (07:31)
[2020-11-20] MEDS: buPROPion XL 300 MG TAB.ER.24H PO SCH (07:31)
[2020-11-20] MEDS: CHOLECALCIFEROL 25 MCG (1000 IU) TABLET PO SCH (07:31)
[2020-11-20] MEDS: cloNIDine HCL 0.1 MG TAB PO SCH ×2 (07:31→20:23)
[2020-11-20] MEDS: APIXABAN 5 MG TAB PO SCH ×2 (07:31→20:23)
[2020-11-20] MEDS: ASCORBIC ACID 500 MG TAB PO SCH ×2 (07:31→20:23)
[2020-11-20] MEDS: ZINC SULFATE 220 MG CAP PO SCH (07:31)
[2020-11-20] MEDS: INSULIN ASPART (NovoLOG) 100 UNIT/ML VIAL SQ SCH ×4 (07:37→20:23)
[2020-11-20 12:02] LABS: Glucose,Whole Blood 119 mg/dL (75-99)
--- NOTE | 2020-11-20 13:18 | P.PN ---
Subjective Progress Note Date: 11/20/20 Principal diagnosis: COVID-19 pneumonia Pulmonary consultation dated 11/12/2020. 30-year-old male, who presents to the emergency room, via EMS, for shortness of breath. The patient apparently tested positive for coronavirus, last Thursday, 1 week ago. Apparently EMS was called because his breathing had worsened. He's been having symptoms for about 10 days or so. He apparently was using breathing treatments at home, that belonged to one of his friends. Apparently when EMS arrived, his saturations were in the mid 40 range, on room air. He was placed on BiPAP, given one updraft treatment, and transported to the hospital. Currently, in the ICU, he is on BiPAP, with settings of IPAP 14,EPAP of 6, and 60%. He is currently on a heparin drip. He had a previous history of pulmonary embolism, and is been on blood thinners in the form of Eliquis since March 2020. White count is 12.1, hemoglobin 12.6, hematocrit 38.4, and platelet count 351,000. PTT was 38. Blood gases show a PaO2 of 150, PaCO2 of 55, and a pH is 7.35. This was on 100%. Sodium 135, potassium 5, chlorides 97, CO2 30, anion gap 8, BUN 81, creatinine 1.46. Chest x-ray shows patchy airspace disease bilaterally. Progress note dated 11/13/2020. This is a 30-year-old male, who we saw yesterday in consultation. We saw him today given the intensive care unit, room 252. He's not receiving any IV fluids. He is on BiPAP with settings of IPAP 14, EPAP 6. He is on 60% FiO2. Currently, he is doing about the same. He is on a factor X a inhibitor for a previous history of pulmonary embolism back in March 2020. We chose to continue the anticoagulants given his positive for coronavirus status. Currently, white count 10.8, hemoglobin 13, hematocrit 40.4, and platelet count 314,000. Sodium 138, potassium 5.5, chlorides 100, CO2 32, anion gap 6, BUN 60, and creatinine 0.77. Chest x-ray shows bilateral, multifocal, and confluent opacities. Progress note dated 11/14/2020. 30-year-old male, seen a couple days ago in consultation. He is seen today again in the ICU, room 252. The patient's currently on 15 L high flow nasal cannula. From time to time, and especially at nighttime, he goes on BiPAP, with settings of IPAP 14, EPAP 6, and an FiO2 of 60%. The patient is not receiving any IV fluids. He is doing about the same today as he did yesterday. Chest x- ray today is stable according to radiology. Lab work today includes a white count 11.7, hemoglobin 12.6, hematocrit 39.3, and platelet count 349,000. Sodium 140, potassium 5.6, chlorides 100, CO2 34, anion gap of 6, BUN 44, and creatinine 0.67. Progress note dated 11/15/2020. 30-year-old male, with a history of COVID 19 pneumonia, who is currently seen again in room 252. The patient is currently on 15 L high flow oxygen, and not receiving any IV fluids. The patient was on BiPAP settings of 14/6 and 70%, from 8:30 PM last night, oh 3:00 in the morning. We are going to DC the colchicine, and also DC the Decadron and taper of Solu-Medrol, 60 mg, IV push, every 6 hours. His white count is 10.7, hemoglobin 13.7, hematocrit 44.3, and platelet count 372,000. D-dimer 2.99. Sodium 141, potassium 5.4, chlorides 97, CO2 35, anion gap 9, BUN 31, and creatinine 0.62. Chest x-ray shows diffuse bilateral airspace disease. Progress note dated 11/16/2020. 30-year-old male, with a history of COVID 19 pneumonia, and acute hypoxemic respiratory failure. He is again seen in room 252. Currently, he's on 15 L high flow nasal O2. He's not receiving any IV fluids. He was on Zestoretic as an outpatient. That will be restarted today, as his blood pressure is been a bit high. No major changes overnight. White count 10.6, hemoglobin 13.8, hematocrit 42.4, and platelet count 390,000. D-dimer is 2.66. Sodium 136, potassium 5.6, chlorides 95, CO2 38, anion gap 3, BUN 34, creatinine 0.62. LDH 1161. C-reactive protein is 3.5. Chest x-ray showed scattered bilateral airspace infiltrates, without interval change. The patient is seen today the first 2020 follow-up in the intensive care unit. He is currently sitting up in a chair at the bedside. Awake, alert in no acute distress. He is still requiring 15 L high flow nasal cannula to maintain O2 saturations in the 90s. No current IV fluids running. Blood cultures reveal no growth. Chest x-ray continues to show diffuse lung infiltrates change compared to previous. White count 12.4. Hemoglobin 14.0. Lymphocytes 0.6. D-dimer 1.86. Sodium 136. Potassium 5.5. Creatinine 0.63. LDH 939. C-reactive protein 1.7. He is anticoagulated with Eliquis. Remains on IV Solu-Medrol, vitamin supplements. The patient is seen today 11/18/2020 in follow-up in the intensive care unit. He is awake and alert in no acute distress. Currently sitting up in a chair at the bedside. He states he is feeling a bit better today compared to yesterday. Able to get up to the bedside chair without much assistance. Feeling stronger. He is down to 11 L high flow nasal cannula. Chest x-ray continues to show bilateral patchy infiltrates. No IV fluids currently. He remains on Eliquis for anticoagulation. Remains on IV Solu-Medrol. Did receive Kayexalate for high potassium. Current potassium 5.3. Blood cultures reveal no growth. White count 12.5. Hemoglobin 13.5. Lymphocytes 0.7. Sodium 132. Bicarb 40. Creatinine 0.65. LDH 943. C-reactive protein 1.2. On 11/19/2020 patient seen in follow-up on medical surgical floor. Patient was transferred out of intensive care unit yesterday, he has remained stable overnight. He did wear BiPAP support last night, he is currently on 9 L per high flow nasal cannula, he is breathing comfortably, pulse ox on 9 L of oxygen is 96%, his BiPAP settings were 14/6 and FiO2 of 55%. No worsening dyspnea or cough. He doesn't have any IV fluids infusing. He remains on Eliquis for anticoagulation, he remains on IV Solu-Medrol at 60 mg every 6 hours. His inflammatory markers continue to improve, LDH is down to 567, and his last CRP was 1.2. Today's chest x-ray shows diffuse bilateral infiltrates that are stable in appearance. Today's labs show potassium of 5.6, Payton the electrolytes were within normal limits, his BUN is 28, improving, and creatinine 0.6. No nausea vomiting or diarrhea, is tolerating oral intake. He is having in the midline inserted today. On 11/20/2020 patient seen in follow-up on medical surgical floor. He is doing well, his FiO2 is currently down to 6 L, he sitting up in the recliner, he sat 94%, he did wear BiPAP support last night. His vital signs have been stable, no worsening dyspnea. No cough, lung sounds reveal diminished breath sounds bilaterally, no wheezing or crackles. No acute events overnight, no chest discomfort. Today's labs have been reviewed, showing well blood cell count of 11, hemoglobin of 15.7, his BMP results are still pending. His most recent LDH was down to 567, and was improving since admission, and CRP was down to 0.5. His had no fever or chills, blood cultures have been negative. He remains on Eliquis 5 mg daily, and he is on IV Solu-Medrol 40 mg every 8 hours. Objective - Vital Signs Vital signs: Vital Signs Temp 98.9 F 11/20/20 09:53 Pulse 73 11/20/20 09:53 Resp 18 11/20/20 09:53 BP 138/90 11/20/20 09:53 Pulse Ox 94 L 11/20/20 09:53 Intake & Output 11/19/20 11/20/20 11/20/20 18:59 06:59 18:59 Intake Total 462 480 Output Total 800 Balance -338 480 Intake: Oral 462 480 Output: Urine 800 Other: Voiding Method Urinal # Voids 1 # Bowel Movements 1 - Exam GENERAL EXAM: Alert and awake, 30-year-old white male currently on 6 L of oxygen and a pulse ox of 94%, comfortable in no apparent distress. HEAD: Normocephalic/atraumatic. EYES: Normal reaction of pupils, equal size. Conjunctiva pink, sclera white. NOSE: Clear with pink turbinates. THROAT: No erythema or exudates. NECK: No masses, no JVD, no thyroid enlargement, no adenopathy. CHEST: No chest wall deformity. Symmetrical expansion. LUNGS: Equal air entry with no crackles, wheeze, rhonchi or dullness. CVS: Regular rate and rhythm, normal S1 and S2, no gallops, no murmurs, no rubs ABDOMEN: Soft, nontender. No hepatosplenomegaly, normal bowel sounds, no guarding or rigidity. EXTREMITIES: No clubbing, there are chronic changes of skin on the lower extr emities consistent with chronic venous stasis and lower extremity edema, and dermatitis, no cyanosis, 2+ pulses and upper and lower extremities. MUSCULOSKELETAL: Muscle strength and tone normal. SPINE: No scoliosis or deformity SKIN: No rashes CENTRAL NERVOUS SYSTEM: Alert and oriented -3. No focal deficits, tone is normal in all 4 extremities. PSYCHIATRIC: Alert and oriented -3. Appropriate affect. Intact judgment and insight. - Labs CBC & Chem 7: 11/20/20 05:50 11/19/20 07:05 Labs: Abnormal Lab Results - Last 24 Hours (Table) 11/19/20 11/19/20 11/20/20 Range/Units 16:42 20:55 05:50 WBC 11.0 H (3.8-10.6) k/uL Neutrophils # 9.4 H (1.3-7.7) k/uL Lymphocytes # 0.2 L (1.0-4.8) k/uL Basophils # 0.3 H (0-0.2) k/uL POC Glucose (mg/dL) 175 H 192 H (75-99) mg/dL 11/20/20 11/20/20 Range/Units 06:50 12:00 WBC (3.8-10.6) k/uL Neutrophils # (1.3-7.7) k/uL Lymphocytes # (1.0-4.8) k/uL Basophils # (0-0.2) k/uL POC Glucose (mg/dL) 203 H 119 H (75-99) mg/dL Assessment and Plan Plan: Assessment: #1. Acute hypoxic respiratory failure secondary to COVID 19 pneumonia, improving, and patient is currently down to 6 L of oxygen per high flow nasal cannula and BiPAP at night, and the patient does have BiPAP unit at home for history of obstructive sleep apnea #2. Acute kidney injury related to ATN from COVID-19 pneumonia #3. 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 Morbid obesity with a BMI of 64.8 kg/m #5. Chronic bilateral lymphedema with lower extremity dermatitis #6. Hyperkalemia, patient has required doses of Kayexalate #7. Obstructive sleep apnea, the patient has been utilizing BiPAP at nighttime with pressures of 14/6 and FiO2 of 55% #8. History of chronic bronchial asthma, unspecified #9. History of diabetes mellitus type 2 Plan: We will continue weaning FiO2 to keep O2 sats ration is at 88% or above. Patient is breathing comfortably FiO2 is currently down to 6 L, BiPAP support at bedtime Vital signs have been stable, no acute events overnight, clinically improving Inflammatory markers were improving He can be considered for discharge home once his FiO2 is down to 5 L or less I performed a history & physical examination of the patient and discussed their management with my nurse practitioner, Hortensia Almaguer. I reviewed the nurse practitioner's note and agree with the documented findings and plan of care. L kenia sounds are positive for diminished breath sounds. The findings and the impression was discussed with the patient. I attest to the documentation by the nurse practitioner. Time with Patient: Less than 30
[2020-11-20 16:44] LABS: Glucose,Whole Blood 175 mg/dL (75-99)
--- NOTE | 2020-11-20 19:50 | P.DS ---
Providers Date of admission: 11/11/20 16:05 Expected date of discharge: 11/20/20 Attending physician: Moe Hampton Consults: 11/11/20 16:05 Consult Physician Stat Consulting Provider: Tanner Bose Reason/Comments: COVID, respiratory failure on bipap Do you want consulting provider notified?: Already Contacted Primary care physician: Jairon Dominguez [facility] Course: Presenting complaint: Shortness of breath History of presenting complaint: 30-year-old male who presents to ER today via ambulance for evaluation of shortness of breath. Patient tested positive for COVID-19 last week thursday, at that time he was given an ''antibiotic'' by his doctor, states that he improved initially but later on he started to get worse so he presented. Upon EMS arrival patient was found to have hard time breathing and oxygen saturation of 45% on room air. Patient was placed on BiPAP treated with 1 DuoNeb and transported the hospital. In the ER his temp was 100.9, HR was 110, sats 94% on bipap 60% Fio2. Labs showed ELIANA with cr 2.07 from normal baseline. Rest of labs ok. CXR showed new pulm edema vs. RDS. Patient was admitted to the ICU. Placed on BiPAP. Patient is put on vitamin C, vitamin D3, zinc. Decadron. Today: . Sitting up in a chair. Breathing slowly continues to improve. Oral intake is good. On 6 L of nasal cannula this morning. Review of systems: Was done for constitutional, cardiovascular, GI, pulmonary. relevant finding as above Active Medications Acetaminophen (Acetaminophen Tab 325 Mg Tab) 650 mg PO Q6HR PRN PRN Reason: Mild Pain or Fever > 100.5 Last Admin: 11/17/20 21:36 Dose: 650 mg Documented by: Albuterol Sulfate (Albuterol Hfa Inhaler) 2 puff INHALATION RT-QID PRN PRN Reason: Shortness Of Breath Or Wheezing Last Admin: 11/14/20 21:13 Dose: 2 puff Documented by: Apixaban (Apixaban 5 Mg Tab) 5 mg PO BID [facility] Last Admin: 11/20/20 07:31 Dose: 5 mg Documented by: Ascorbic Acid (Ascorbic Acid 500 Mg Tab) 500 mg PO BID [facility] Last Admin: 11/20/20 07:31 Dose: 500 mg Documented by: Aspirin (Aspirin 81 Mg) 81 mg PO DAILY [facility] Last Admin: 11/20/20 07:31 Dose: 81 mg Documented by: Bupropion HCl (Bupropion Xl 300 Mg Tab.Er.24h) 300 mg PO DAILY [facility] Last Admin: 11/20/20 07:31 Dose: 300 mg Documented by: Cholecalciferol (Cholecalciferol 25 Mcg (1000 Iu) Tablet) 125 mcg PO DAILY [facility] Last Admin: 11/20/20 07:31 Dose: 125 mcg Documented by: Clonidine (Clonidine Hcl 0.1 Mg Tab) 0.1 mg PO BID [facility] Last Admin: 11/20/20 07:31 Dose: 0.1 mg Documented by: Insulin Aspart (Insulin Aspart (Novolog) 100 Unit/Ml Vial) 0 unit SQ [facility]; Protocol Last Admin: 11/20/20 17:10 Dose: 2 unit Documented by: Methylprednisolone Sodium Succinate (Methylprednisolone Sod Succi 40 Mg/Ml 1 Ml Vial) 40 mg IV Q8HR [facility] Last Admin: 11/20/20 16:08 Dose: 40 mg Documented by: Naloxone HCl (Naloxone 0.4 Mg/Ml 1 Ml Vial) 0.2 mg IV Q2M PRN PRN Reason: Opioid Reversal Ondansetron HCl (Ondansetron 4 Mg/2 Ml Vial) 4 mg IVP Q8HR PRN PRN Reason: Nausea And Vomiting Pantoprazole Sodium (Pantoprazole 40 Mg Tablet) 40 mg PO DAILY PRN PRN Reason: Heartburn Last Admin: 11/17/20 07:53 Dose: 40 mg Documented by: Zinc Sulfate (Zinc Sulfate 220 Mg Cap) 220 mg PO DAILY [facility] Last Admin: 11/20/20 07:31 Dose: 220 mg Documented by: On examination: VITAL SIGNS: 98.9, 73, 18, 138/90, 94% on 6 L GENERAL APPEARANCE: Sitting up in chair, nasal cannula RESPIRATORY: Respiratory effort increased. PSYCHIATRY: Alert and oriented x3. Mood and affect slightly anxious NEURO: Cranial nerves grossly intact. Moving all 4 limbs DERMATOLOGICAL: Bilateral lower extremity,verrocous skin/dry Rest of exam as per pulmonary and nursing INVESTIGATIONS, reviewed in the clinical context: November 18: WBC 12.5 hemoglobin 13.5 potassium 5.3 creatinine 0.65 CRP 1.2 November 17: WBC 12.4 hemoglobin 14 d-dimer 1.86 potassium 5.5 crit 0.63 LDH 939 CRP 1.7 November 16: WBC 10.60 globin 13.8 potassium 5.6 creatinine 0.62 November 15: WBC 10.7 hemoglobin 13.7 platelets 272 potassium 5.4 creatinine 0.62 d-dimer 2.99 CRP 3.5 WBC 11.7 hemoglobin 12.6 platelets 349 potassium 5.6 creatinine 0.67 Chest x-ray film personally reviewed by me-bilateral infiltrates Assessment and plan: -Acute hypoxic respiratory failure secondary to COVID-19 pneumonia: Improving Initially requiring bipap night : currently on 6 L nasal cannula -Acute covid 19 pneumonia : Improving Vitamin C, vitamin D, zinc, IV Decadron -ELIANA, likely from ATN from COVID 19-improved Improving with IV fluids -Chronic PE, in March 2020 Continue with eliquis -Essential HTN, uncontrolled Zestoretic discontinued because of high potassium. Replace with clonidine. -Morbid obesity, with a BMI of 64.8 Weight loss measures and follow-up with outpatient with PCP -Chronic Bilateral Lymphedema with [place] Dermatitis Follow clinically and follow-up as outpatient -Hyperkalemia Recurrent Repeat Kayexalate today. Low potassium diet. -Obstructive sleep apnea Using BiPAP, at night Repeat potassium. Taper down oxygen.. Increase clonidine to 0.1 mg 3 times a day. Discussed with patient Plan - Discharge Summary New Discharge Prescriptions: No Action Zinc Sulfate [Orazinc] 220 mg PO DAILY Omeprazole 20 mg PO DAILY PRN PRN Reason: Heartburn Colchicine 0.6 mg PO BID Azithromycin [Zithromax] 500 mg PO DAILY Aspirin EC [Ecotrin] 325 mg PO DAILY metFORMIN HCL ER [Glucophage Xr] 500 mg PO DAILY Naltrexone HCl [Revia] 50 mg PO DAILY Lisinopril-Hctz 20-12.5 mg [Zestoretic 20-12.5] 1 tab PO DAILY Apixaban [Eliquis] 5 mg PO BID buPROPion HCL [Wellbutrin XL] 300 mg PO DAILY Discharge Medication List Apixaban [Eliquis] 5 mg PO BID 11/11/20 [History] Aspirin EC [Ecotrin] 325 mg PO DAILY 11/11/20 [History] Azithromycin [Zithromax] 500 mg PO DAILY 11/11/20 [History] Colchicine 0.6 mg PO BID 11/11/20 [History] Lisinopril-Hctz 20-12.5 mg [Zestoretic 20-12.5] 1 tab PO DAILY 11/11/20 [History] Naltrexone HCl [Revia] 50 mg PO DAILY 11/11/20 [History] Omeprazole 20 mg PO DAILY PRN 11/11/20 [History] Zinc Sulfate [Orazinc] 220 mg PO DAILY 11/11/20 [History] buPROPion HCL [Wellbutrin XL] 300 mg PO DAILY 11/11/20 [History] metFORMIN HCL ER [Glucophage Xr] 500 mg PO DAILY 11/11/20 [History] Follow up Appointment(s)/Referral(s): Jairon Dominguez MD [Primary Care Provider] - 1-2 days Demetrius Eli DO [Doctor of Osteopathic Medicine] - 2 Weeks
[2020-11-20 19:57] LABS: Glucose,Whole Blood 167 mg/dL (75-99)
[2020-11-20 22:28] LABS: ALT 89 U/L (10-49); AST 55 U/L (14-35); African American GFR (CKD) 168.5 (60.0-200.0); Albumin/Globulin Ratio 1.42 (1.60-3.17); Alkaline Phosphatase 38 U/L (41-126); C Reactive Protein <0.4 mg/dL (0.0-0.8); Calcium 8.4 mg/dL (8.7-10.3); Carbon Dioxide 23.3 mmol/L (21.6-31.8); Chloride 100 mmol/L (96-109); Creatine Kinase 522 U/L (35-257); Globulin 2.6 g/dL (1.6-3.3); Glucose 202 mg/dL (70-110); LDH 494 U/L (120-246); Non-African American GFR(CKD) 145.4 (60.0-200.0); Potassium 5.5 mmol/L (3.5-5.5); Sodium 139 mmol/L (135-145); Total Bilirubin 0.9 mg/dL (0.3-1.2); Total Protein 6.3 g/dL (6.2-8.2)
[2020-11-21 07:25] LABS: Glucose,Whole Blood 170 mg/dL (75-99)
[2020-11-21] MEDS: methylPREDNISolone SOD SUCCI 40 MG/ML 1 ML VIAL IV SCH (07:54)
[2020-11-21] MEDS: buPROPion XL 300 MG TAB.ER.24H PO SCH (07:54)
[2020-11-21] MEDS: ZINC SULFATE 220 MG CAP PO SCH (07:54)
[2020-11-21] MEDS: ASCORBIC ACID 500 MG TAB PO SCH (07:55)
[2020-11-21] MEDS: ASPIRIN 81 MG PO SCH (07:55)
[2020-11-21] MEDS: INSULIN ASPART (NovoLOG) 100 UNIT/ML VIAL SQ SCH ×2 (07:55→12:36)
[2020-11-21] MEDS: APIXABAN 5 MG TAB PO SCH (07:55)
[2020-11-21] MEDS: CHOLECALCIFEROL 25 MCG (1000 IU) TABLET PO SCH (07:55)
[2020-11-21] MEDS: cloNIDine HCL 0.1 MG TAB PO SCH (07:55)
[2020-11-21 12:09] LABS: Glucose,Whole Blood 168 mg/dL (75-99)
[2020-11-21 15:14] VITALS: BP 138/88; PULSE 84; RESP 16; TEMP 97.6
--- NOTE | 2020-11-21 15:52 | P.PN ---
Subjective Progress Note Date: 11/21/20 Principal diagnosis: COVID-19 pneumonia Pulmonary consultation dated 11/12/2020. 30-year-old male, who presents to the emergency room, via EMS, for shortness of breath. The patient apparently tested positive for coronavirus, last Thursday, 1 week ago. Apparently EMS was called because his breathing had worsened. He's been having symptoms for about 10 days or so. He apparently was using breathing treatments at home, that belonged to one of his friends. Apparently when EMS arrived, his saturations were in the mid 40 range, on room air. He was placed on BiPAP, given one updraft treatment, and transported to the hospital. Currently, in the ICU, he is on BiPAP, with settings of IPAP 14,EPAP of 6, and 60%. He is currently on a heparin drip. He had a previous history of pulmonary embolism, and is been on blood thinners in the form of Eliquis since March 2020. White count is 12.1, hemoglobin 12.6, hematocrit 38.4, and platelet count 351,000. PTT was 38. Blood gases show a PaO2 of 150, PaCO2 of 55, and a pH is 7.35. This was on 100%. Sodium 135, potassium 5, chlorides 97, CO2 30, anion gap 8, BUN 81, creatinine 1.46. Chest x-ray shows patchy airspace disease bilaterally. Progress note dated 11/13/2020. This is a 30-year-old male, who we saw yesterday in consultation. We saw him today given the intensive care unit, room 252. He's not receiving any IV fluids. He is on BiPAP with settings of IPAP 14, EPAP 6. He is on 60% FiO2. Currently, he is doing about the same. He is on a factor X a inhibitor for a previous history of pulmonary embolism back in March 2020. We chose to continue the anticoagulants given his positive for coronavirus status. Currently, white count 10.8, hemoglobin 13, hematocrit 40.4, and platelet count 314,000. Sodium 138, potassium 5.5, chlorides 100, CO2 32, anion gap 6, BUN 60, and creatinine 0.77. Chest x-ray shows bilateral, multifocal, and confluent opacities. Progress note dated 11/14/2020. 30-year-old male, seen a couple days ago in consultation. He is seen today again in the ICU, room 252. The patient's currently on 15 L high flow nasal cannula. From time to time, and especially at nighttime, he goes on BiPAP, with settings of IPAP 14, EPAP 6, and an FiO2 of 60%. The patient is not receiving any IV fluids. He is doing about the same today as he did yesterday. Chest x- ray today is stable according to radiology. Lab work today includes a white count 11.7, hemoglobin 12.6, hematocrit 39.3, and platelet count 349,000. Sodium 140, potassium 5.6, chlorides 100, CO2 34, anion gap of 6, BUN 44, and creatinine 0.67. Progress note dated 11/15/2020. 30-year-old male, with a history of COVID 19 pneumonia, who is currently seen again in room 252. The patient is currently on 15 L high flow oxygen, and not receiving any IV fluids. The patient was on BiPAP settings of 14/6 and 70%, from 8:30 PM last night, oh 3:00 in the morning. We are going to DC the colchicine, and also DC the Decadron and taper of Solu-Medrol, 60 mg, IV push, every 6 hours. His white count is 10.7, hemoglobin 13.7, hematocrit 44.3, and platelet count 372,000. D-dimer 2.99. Sodium 141, potassium 5.4, chlorides 97, CO2 35, anion gap 9, BUN 31, and creatinine 0.62. Chest x-ray shows diffuse bilateral airspace disease. Progress note dated 11/16/2020. 30-year-old male, with a history of COVID 19 pneumonia, and acute hypoxemic respiratory failure. He is again seen in room 252. Currently, he's on 15 L high flow nasal O2. He's not receiving any IV fluids. He was on Zestoretic as an outpatient. That will be restarted today, as his blood pressure is been a bit high. No major changes overnight. White count 10.6, hemoglobin 13.8, hematocrit 42.4, and platelet count 390,000. D-dimer is 2.66. Sodium 136, potassium 5.6, chlorides 95, CO2 38, anion gap 3, BUN 34, creatinine 0.62. LDH 1161. C-reactive protein is 3.5. Chest x-ray showed scattered bilateral airspace infiltrates, without interval change. The patient is seen today the first 2020 follow-up in the intensive care unit. He is currently sitting up in a chair at the bedside. Awake, alert in no acute distress. He is still requiring 15 L high flow nasal cannula to maintain O2 saturations in the 90s. No current IV fluids running. Blood cultures reveal no growth. Chest x-ray continues to show diffuse lung infiltrates change compared to previous. White count 12.4. Hemoglobin 14.0. Lymphocytes 0.6. D-dimer 1.86. Sodium 136. Potassium 5.5. Creatinine 0.63. LDH 939. C-reactive protein 1.7. He is anticoagulated with Eliquis. Remains on IV Solu-Medrol, vitamin supplements. The patient is seen today 11/18/2020 in follow-up in the intensive care unit. He is awake and alert in no acute distress. Currently sitting up in a chair at the bedside. He states he is feeling a bit better today compared to yesterday. Able to get up to the bedside chair without much assistance. Feeling stronger. He is down to 11 L high flow nasal cannula. Chest x-ray continues to show bilateral patchy infiltrates. No IV fluids currently. He remains on Eliquis for anticoagulation. Remains on IV Solu-Medrol. Did receive Kayexalate for high potassium. Current potassium 5.3. Blood cultures reveal no growth. White count 12.5. Hemoglobin 13.5. Lymphocytes 0.7. Sodium 132. Bicarb 40. Creatinine 0.65. LDH 943. C-reactive protein 1.2. On 11/19/2020 patient seen in follow-up on medical surgical floor. Patient was transferred out of intensive care unit yesterday, he has remained stable overnight. He did wear BiPAP support last night, he is currently on 9 L per high flow nasal cannula, he is breathing comfortably, pulse ox on 9 L of oxygen is 96%, his BiPAP settings were 14/6 and FiO2 of 55%. No worsening dyspnea or cough. He doesn't have any IV fluids infusing. He remains on Eliquis for anticoagulation, he remains on IV Solu-Medrol at 60 mg every 6 hours. His inflammatory markers continue to improve, LDH is down to 567, and his last CRP was 1.2. Today's chest x-ray shows diffuse bilateral infiltrates that are stable in appearance. Today's labs show potassium of 5.6, Payton the electrolytes were within normal limits, his BUN is 28, improving, and creatinine 0.6. No nausea vomiting or diarrhea, is tolerating oral intake. He is having in the midline inserted today. On 11/20/2020 patient seen in follow-up on medical surgical floor. He is doing well, his FiO2 is currently down to 6 L, he sitting up in the recliner, he sat 94%, he did wear BiPAP support last night. His vital signs have been stable, no worsening dyspnea. No cough, lung sounds reveal diminished breath sounds bilaterally, no wheezing or crackles. No acute events overnight, no chest discomfort. Today's labs have been reviewed, showing well blood cell count of 11, hemoglobin of 15.7, his BMP results are still pending. His most recent LDH was down to 567, and was improving since admission, and CRP was down to 0.5. His had no fever or chills, blood cultures have been negative. He remains on Eliquis 5 mg daily, and he is on IV Solu-Medrol 40 mg every 8 hours. On 11/21/2020 patient is seen in follow-up on medical surgical floor, he is currently down to 3 L of oxygen, he is breathing comfortably, he states he is feeling much better, no cough, his exertional dyspnea is improving, pulse ox on 3 L of oxygen is 94%, no fever or chills, pressure has been stable. Most recent chest x-ray was 2 days ago on 11/19/2020. No acute events overnight, discharge home is being planned for today. Objective - Vital Signs Vital signs: Vital Signs Temp 97.6 F 11/21/20 14:40 Pulse 84 11/21/20 14:40 Resp 16 11/21/20 14:40 BP 138/88 11/21/20 14:40 Pulse Ox 94 L 11/21/20 14:40 Intake & Output 11/20/20 11/21/20 11/21/20 18:59 06:59 18:59 Intake Total 450 240 Balance 450 240 Intake: Oral 450 240 Other: # Voids 3 1 - Exam GENERAL EXAM: Alert and awake, 30-year-old white male currently on 3 L of oxygen and a pulse ox of 94%, comfortable in no apparent distress. HEAD: Normocephalic/atraumatic. EYES: Normal reaction of pupils, equal size. Conjunctiva pink, sclera white. NOSE: Clear with pink turbinates. THROAT: No erythema or exudates. NECK: No masses, no JVD, no thyroid enlargement, no adenopathy. CHEST: No chest wall deformity. Symmetrical expansion. LUNGS: Equal air entry with no crackles, wheeze, rhonchi or dullness. CVS: Regular rate and rhythm, normal S1 and S2, no gallops, no murmurs, no rubs ABDOMEN: Soft, nontender. No hepatosplenomegaly, normal bowel sounds, no guarding or rigidity. EXTREMITIES: No clubbing, there are chronic changes of skin on the lower extremities consistent with chronic venous stasis and lower extremity edema, and dermatitis, no cyanosis, 2+ pulses and upper and lower extremities. MUSCULOSKELETAL: Muscle strength and tone normal. SPINE: No scoliosis or deformity SKIN: No rashes CENTRAL NERVOUS SYSTEM: Alert and oriented -3. No focal deficits, tone is normal in all 4 extremities. PSYCHIATRIC: Alert and oriented -3. Appropriate affect. Intact judgment and insight. - Labs CBC & Chem 7: 11/20/20 05:50 11/20/20 20:22 Labs: Abnormal Lab Results - Last 24 Hours (Table) 11/20/20 11/20/20 11/20/20 Range/Units 05:50 16:42 19:56 Anion Gap 15.70 H (4.00-12.00) mmol/L Creatinine 0.5 L (0.6-1.5) mg/dL BUN/Creatinine Ratio 54.00 H (12.00-20.00) Ratio Glucose 202 H (70-110) mg/dL POC Glucose (mg/dL) 175 H 167 H (75-99) mg/dL Calcium 8.4 L (8.7-10.3) mg/dL AST 55 H (14-35) U/L ALT 89 H (10-49) U/L Alkaline Phosphatase 38 L (41-126) U/L Lactate Dehydrogenase 494 H (120-246) U/L Creatine Kinase 522 H (35-257) U/L Albumin 3.70 L (3.80-4.90) g/dL Albumin/Globulin Ratio 1.42 L (1.60-3.17) g/dL 11/21/20 11/21/20 Range/Units 07:21 12:07 Anion Gap (4.00-12.00) mmol/L Creatinine (0.6-1.5) mg/dL BUN/Creatinine Ratio (12.00-20.00) Ratio Glucose (70-110) mg/dL POC Glucose (mg/dL) 170 H 168 H (75-99) mg/dL Calcium (8.7-10.3) mg/dL AST (14-35) U/L ALT (10-49) U/L Alkaline Phosphatase (41-126) U/L Lactate Dehydrogenase (120-246) U/L Creatine Kinase (35-257) U/L Albumin (3.80-4.90) g/dL Albumin/Globulin Ratio (1.60-3.17) g/dL Assessment and Plan Plan: Assessment: #1. Acute hypoxic respiratory failure secondary to COVID 19 pneumonia, improving, and patient is currently down to 6 L of oxygen per high flow nasal cannula and BiPAP at night, and the patient does have BiPAP unit at home for history of obstructive sleep apnea #2. Acute kidney injury related to ATN from COVID-19 pneumonia #3. 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 Morbid obesity with a BMI of 64.8 kg/m #5. Chronic bilateral lymphedema with lower extremity dermatitis #6. Hyperkalemia, patient has required doses of Kayexalate #7. Obstructive sleep apnea, the patient has been utilizing BiPAP at nighttime with pressures of 14/6 and FiO2 of 55% #8. History of chronic bronchial asthma, unspecified #9. History of diabetes mellitus type 2 Plan: FiO2 is down to 3 L No worsening dyspnea Vital signs are stable No fever or chills Doing well Continue oral anticoagulation Patient is being discharged home today on prednisone taper Outpatient follow-up with Dr. Eli in the office in 2 weeks I performed a history & physical examination of the patient and discussed their management with my nurse practitioner, Hortensia Almaguer. I reviewed the nurse practitioner's note and agree with the documented findings and plan of care. Lung sounds are positive for diminished breath sounds. The findings and the impression was discussed with the patient. I attest to the documentation by the nurse practitioner. Time with Patient: Less than 30
== END 2020-11-21 15:36 | disposition home or self-care (01) | DRG 177 ==
LOC: EC 13:43 → 2SICU 16:05 → 4SSUR 11-18 17:03
PROVIDERS: ADMIT Hospitalist; ATTEND Hospitalist
PROC: 5A09457 Assistance with Respiratory Ventilation, 24-96 Consecutive Hours, Continuous Positive Airway Pressure (ICD-10-PCS; principal; 2020-11-15)
DX: U07.1 COVID-19 (principal); J96.01 Acute respiratory failure with hypoxia; N17.0 Acute kidney failure with tubular necrosis; J12.82 Pneumonia due to coronavirus disease 2019; N17.9 Acute kidney failure, unspecified; L97.919 Non-pressure chronic ulcer of unspecified part of right lower leg with unspecified severity; L97.929 Non-pressure chronic ulcer of unspecified part of left lower leg with unspecified severity; J81.1 Chronic pulmonary edema; I27.82 Chronic pulmonary embolism; Z68.44 Body mass index [BMI] 60.0-69.9, adult; I10 Essential (primary) hypertension; J45.909 Unspecified asthma, uncomplicated; G47.30 Sleep apnea, unspecified; Z79.01 Long term (current) use of anticoagulants; Z79.82 Long term (current) use of aspirin; Z79.899 Other long term (current) drug therapy; Z79.84 Long term (current) use of oral hypoglycemic drugs; E66.01 Morbid (severe) obesity due to excess calories; I87.8 Other specified disorders of veins; E11.9 Type 2 diabetes mellitus without complications; I89.0 Lymphedema, not elsewhere classified; L30.9 Dermatitis, unspecified; E87.5 Hyperkalemia; G47.33 Obstructive sleep apnea (adult) (pediatric); Z82.49 Family history of ischemic heart disease and other diseases of the circulatory system
CPT/HCPCS: 36410; 36415; 36600; 71045; 76937; 80048; 80053; 82550; 82728; 82805; 83605; 83615; 83735; 84100; 84132; 84145; 85025; 85379; 85610; 85730; 86140; 87040; 93005; 94640; 94660; 94760; 96361; 96374; 99285

== ENCOUNTER 2020-12-30 11:17 | Observation (INO) | payer OTHER ==
--- NOTE | 2020-12-30 12:18 | ED ---
Extremity Problem HPI - General Chief complaint: Extremity Problem,Nontraumatic Stated complaint: tingling in legs and weak in legs. Time Seen by Provider: 12/30/20 12:02 Source: patient Mode of arrival: ambulatory Limitations: no limitations - History of Present Illness Initial comments: This is a 30-year-old male with a history of hypertension, diabetes, chronic lower extremity edema, PE on L course who presents for department mostly for worsening swelling and pain in the right lower extremity. He states is been going on for last week or so. He states he's noted increased amount of pain especially when he stands up. The pain seems to improve when he is laying down or not active. He states when he sitting he feels the pain in the back of his leg and to the medial aspect. He states he does have chronic weeping which has also been increasing. He denies any ulcerations. No increased redness. Patient also is complaining of frequent nosebleeds. The patient was recently hospitalized for cold and was discharged on oxygen. The patient states that the nosebleed started then. The patient has not been using his oxygen for quite some time now however has had persistent nosebleeds which she is typically able to control at home. He's been using [id number] nasal sprays and also Vaseline to try to help the bleeding. The patient otherwise denies any fevers or chills. No cough. No shortness of breath or chest pain. Denies any a bdominal pain, nausea, vomiting, or diarrhea. States he's been compliant with all his medications. Of note the patient does state that he was taken off of lisinopril and a diuretic while he was hospitalized last. He states that he was started on clonidine. He states that since that time he believes that the swelling has been gradually increasing. He otherwise denies any other acute complaints. - Related Data Home Medications Medication Instructions Recorded Confirmed Apixaban [Eliquis] 5 mg PO BID 11/11/20 12/30/20 Colchicine 0.6 mg PO DAILY 11/11/20 12/30/20 Naltrexone HCl [Revia] 50 mg PO DAILY 11/11/20 12/30/20 Omeprazole 20 mg PO DAILY PRN 11/11/20 12/30/20 buPROPion HCL [Wellbutrin XL] 300 mg PO DAILY 11/11/20 12/30/20 metFORMIN HCL ER [Glucophage Xr] 500 mg PO DAILY 11/11/20 12/30/20 Fluticasone Propion/Salmeterol 1 puff INHALATION RT-BID 12/30/20 12/30/20 [Wixela 500-50 Inhub] Zinc 50 mg PO DAILY 12/30/20 12/30/20 Previous Rx's Medication Instructions Recorded Albuterol Inhaler [Ventolin Hfa 2 puff INHALATION RT-QID PRN #1 11/21/20 Inhaler] puff Ascorbic Acid [Vitamin C] 500 mg PO BID #60 tab 11/21/20 Aspirin 81 mg PO DAILY chew 11/21/20 Cholecalciferol [Vitamin D3 (25 100 mcg PO DAILY #100 tablet 11/21/20 Mcg = 1000 Iu)] cloNIDine HCL [Catapres] 0.1 mg PO TID #90 tab 11/21/20 Allergies Allergy/AdvReac Type Severity Reaction Status Date / Time No Known Allergies Allergy Verified 12/30/20 14:15 Review of Systems ROS Statement: Those systems with pertinent positive or pertinent negative responses have been documented in the HPI. ROS Other: All systems not noted in ROS Statement are negative. Past Medical History Past Medical History: Asthma, Hypertension, Sleep Apnea/CPAP/BIPAP Additional Past Medical History / Comment(s): bilateral leg ulcers increase with activity. sleep apnea (uses c-pap machine). PE in March 2020 History of Any Multi-Drug Resistant Organisms: None Reported Past Surgical History: Adenoidectomy, Tonsillectomy Past Anesthesia/Blood Transfusion Reactions: No Reported Reaction Past Psychological History: No Psychological Hx Reported Smoking Status: Never smoker Past Alcohol Use History: Rare Past Drug Use History: None Reported - Past Family History Father Family Medical History: Myocardial Infarction ([place]) Additional Family Medical History / Comment(s): patient states his paternal grandfather also has suffered from one [place]. Mother Family Medical History: No Reported History General Exam - General Exam Comments Initial Comments: Constitutional: Awake alert Appears comfortable Head: Normocephalic atraumatic Eyes: no conjunctival injection No scleral icterus EOMI ENT: The left naris has a small ulceration to the medial aspect of the septum. No active bleeding Neck: No JVD Supple Heart: Regular rate rhythm normal S1-S2 no murmurs Lungs: The patient is somewhat tachypneic and conversationally dyspneic, decreased breath sounds at the bases No wheezing No rales Abdomen: Soft nondistended nontender Extremities: There is bilateral lower extremity edema that goes up to the knees, there is chronic venous stasis changes and erythema, no open wounds are noted. DP pulses are difficult to palpate because of the amount of swelling however that feet appear well perfused Radial pulses intact Neuro: A&Ox3 No focal neurologic deficits Psych: Appropriate mood and affect Limitations: no limitations Course Vital Signs 12/30/20 12/30/20 12/30/20 11:23 12:49 14:43 Temperature 99.7 F H 97 F L 98.3 F Pulse Rate 139 H 123 H 125 H Respiratory 18 18 18 Rate Blood Pressure 146/91 144/97 129/90 O2 Sat by Pulse 92 L 94 L 96 Oximetry - Reevaluation(s) Reevaluation #1: 12/30/20 12:21 EKG showing sinus tachycardia with a rate of 129. There are no abnormal ST segment changes. There appears to be some T-wave flattening in V3 through V5. Also inferiorly. QTC is 454. Other intervals normal. No ectopy. Medical Decision Making - Medical Decision Making This is a 30-year-old male who presents emergency department mostly for her leg pain and swelling. The patient however was found to be tachycardic on arrival and actually was satting in the high 80s to low 90s on room air. The patient states he has not required oxygen for the last few weeks or so and that this was a new thing for him. At first I held off on fluids because I was concerned that the patient may he suffering from fluid overload however after cleaning chest x-ray did put in for a 500 mL bolus to see if this improved his heart rate. There is no fever. The patient had venous Dopplers which did not show any evidence for clot. CT of the chest did not reveal any pulmonary embolism however did reveal a right lower lobe pneumonia. The patient was started on Rocephin and doxycycline. At the time of my reevaluation the patient was still getting his fluids and his heart rate was still in the 120s. We'll continue to evaluate the patient's heart rate and determine if he requires further fluid administration area as far as his leg pain and swelling, this seems to be a chronic issue however unsure exactly why sitting increased amount of pain in the right leg. All of these developing some neuropathy or if he Is having worsening swelling he's just having worsening pain. He may require being restarted on diuretic to help with his lower extremity symptoms. Unclear etiology at this time however the patient should come in. To the hospital for treatment for pneumonia. The patient was updated and agrees with plan of care. - Lab Data Result diagrams: 12/30/20 12:45 12/30/20 12:45 Lab Results 12/30/20 12/30/20 12/30/20 Range/Units 12:45 12:45 12:45 WBC 10.5 (3.8-10.6) k/uL RBC 4.75 (4.30-5.90) m/uL Hgb 13.3 (13.0-17.5) gm/dL Hct 40.4 (39.0-53.0) % MCV 84.9 (80.0-100.0) fL MCH 27.9 (25.0-35.0) pg MCHC 32.8 (31.0-37.0) g/dL RDW 16.0 H (11.5-15.5) % Plt Count 309 (150-450) k/uL MPV 6.7 Neutrophils % 74 % Lymphocytes % 10 % Monocytes % 12 % Eosinophils % 1 % Basophils % 0 % Neutrophils # 7.7 (1.3-7.7) k/uL Lymphocytes # 1.1 (1.0-4.8) k/uL Monocytes # 1.3 H (0-1.0) k/uL Eosinophils # 0.1 (0-0.7) k/uL Basophils # 0.0 (0-0.2) k/uL Hypochromasia Slight PT 11.1 (9.0-12.0) sec INR 1.0 (<1.2) APTT 28.9 (22.0-30.0) sec Sodium 140 (137-145) mmol/L Potassium 4.2 (3.5-5.1) mmol/L Chloride 101 (98-107) mmol/L Carbon Dioxide 32 H (22-30) mmol/L Anion Gap 7 mmol/L BUN 13 (9-20) mg/dL Creatinine 0.62 L (0.66-1.25) mg/dL Est GFR (CKD-EPI)AfAm >90 (>60 ml/min/1.73 sqM) Est GFR (CKD-EPI)NonAf >90 (>60 ml/min/1.73 sqM) Glucose 131 H (74-99) mg/dL Plasma Lactic Acid Juan (0.7-2.0) mmol/L Calcium 9.6 (8.4-10.2) mg/dL Total Bilirubin 0.5 (0.2-1.3) mg/dL AST 33 (17-59) U/L ALT 25 (4-49) U/L Alkaline Phosphatase 57 (38-126) U/L Troponin I (0.000-0.034) ng/mL NT-Pro-B Natriuret Pep pg/mL Total Protein 6.5 (6.3-8.2) g/dL Albumin 3.8 (3.5-5.0) g/dL 12/30/20 12/30/20 12/30/20 Range/Units 12:45 12:45 12:45 WBC (3.8-10.6) k/uL RBC (4.30-5.90) m/uL Hgb (13.0-17.5) gm/dL Hct (39.0-53.0) % MCV (80.0-100.0) fL MCH (25.0-35.0) pg MCHC (31.0-37.0) g/dL RDW (11.5-15.5) % Plt Count (150-450) k/uL MPV Neutrophils % % Lymphocytes % % Monocytes % % Eosinophils % % Basophils % % Neutrophils # (1.3-7.7) k/uL Lymphocytes # (1.0-4.8) k/uL Monocytes # (0-1.0) k/uL Eosinophils # (0-0.7) k/uL Basophils # (0-0.2) k/uL Hypochromasia PT (9.0-12.0) sec INR (<1.2) APTT (22.0-30.0) sec Sodium (137-145) mmol/L Potassium (3.5-5.1) mmol/L Chloride (98-107) mmol/L Carbon Dioxide (22-30) mmol/L Anion Gap mmol/L BUN (9-20) mg/dL Creatinine (0.66-1.25) mg/dL Est GFR (CKD-EPI)AfAm (>60 ml/min/1.73 sqM) Est GFR (CKD-EPI)NonAf (>60 ml/min/1.73 sqM) Glucose (74-99) mg/dL Plasma Lactic Acid Juan 2.0 (0.7-2.0) mmol/L Calcium (8.4-10.2) mg/dL Total Bilirubin (0.2-1.3) mg/dL AST (17-59) U/L ALT (4-49) U/L Alkaline Phosphatase (38-126) U/L Troponin I 0.021 (0.000-0.034) ng/mL NT-Pro-B Natriuret Pep 413 pg/mL Total Protein (6.3-8.2) g/dL Albumin (3.5-5.0) g/dL Disposition Clinical Impression: Leg pain, Pneumonia, Hypoxia Disposition: ADMITTED IP TO THIS HOSP Condition: Stable Referrals: Jairon Dominguez MD [Primary Care Provider] - 1-2 days
[2020-12-30 12:55] LABS: Basophils % (A) 0 %; Eosinophils # (A) 0.1 k/uL (0-0.7); Eosinophils % (A) 1 %; HCT 40.4 % (39.0-53.0); HGB 13.3 gm/dL (13.0-17.5); Hypochromasia Slight; Lymphocytes # (A) 1.1 k/uL (1.0-4.8); Lymphocytes % (A) 10 %; MCH 27.9 pg (25.0-35.0); MCHC 32.8 g/dL (31.0-37.0); MCV 84.9 fL (80.0-100.0); Mean Platelet Volume 6.7; Monocytes # (A) 1.3 k/uL (0-1.0); Monocytes % (A) 12 %; Neutrophils # (A) 7.7 k/uL (1.3-7.7); Neutrophils % (A) 74 %; Platelet Count 309 k/uL (150-450); RBC 4.75 m/uL (4.30-5.90); WBC 10.5 k/uL (3.8-10.6)
[2020-12-30 13:05] LABS: ALT 25 U/L (4-49); AST 33 U/L (17-59); African American GFR (CKD) >90 (>60 ml/min/1.73 sqM); Albumin 3.8 g/dL (3.5-5.0); Alkaline Phosphatase 57 U/L (38-126); Anion Gap 7 mmol/L; Blood Urea Nitrogen 13 mg/dL (9-20); Calcium 9.6 mg/dL (8.4-10.2); Carbon Dioxide 32 mmol/L (22-30); Chloride 101 mmol/L (98-107); Glucose 131 mg/dL (74-99); Non-African American GFR(CKD) >90 (>60 ml/min/1.73 sqM); Partial Thromboplastin Time 28.9 sec (22.0-30.0); Potassium 4.2 mmol/L (3.5-5.1); Prothrombin Time 11.1 sec (9.0-12.0); Sodium 140 mmol/L (137-145); Total Bilirubin 0.5 mg/dL (0.2-1.3); Total Protein 6.5 g/dL (6.3-8.2)
[2020-12-30] MEDS ORDERED: SODIUM CHLORIDE 0.9% 500 ML 500 ML IV ONE (13:26)
--- NOTE | 2020-12-30 13:35 | XR ---
EXAMINATION TYPE: XR chest 1V portable DATE OF EXAM: 12/30/2020 Comparison: 12/21/2020 Clinical History: 30 year-old male Fever Findings: The heart is upper limits of normal in size. Large patient body habitus chest CT densities in the paola gs. No quinn consolidation or pleural effusion. Impression: Limited portable exam. No definite acute process.
--- NOTE | 2020-12-30 14:09 | US ---
EXAMINATION TYPE: US venous doppler duplex LE BI DATE OF EXAM: 12/30/2020 1:43 PM COMPARISON: NONE CLINICAL HISTORY: 30-year-old male with edema, pain bilateral legs. Hardness, thickened, discoloratio n bilateral lower legs. Patient on blood thinner SIDE PERFORMED: Bilateral TECHNIQUE: The lower extremity deep venous system is examined utilizing real time linear array sonog reyna with graded compression, doppler sonography and color-flow sonography. FINDINGS: VESSELS IMAGED: Common Femoral Vein Deep Femoral Vein Femoral Vein Popliteal Vein Small Saphenous Vein * (* superficial vessels) Head Custodian notes:Technical limitations due to patient's body habitus 5'7" 435 pounds Right Leg: no evidence of acute DVT as visualized. Limited evaluation of the lower popliteal vein Left Leg: no evidence of acute DVT as visualized. Unable to visualize lower femoral vein IMPRESSION: Exam limitations as above. Unable to visualize segments on either side, lower popliteal vein on the r ight and lower femoral vein on the left. Along the visualized portions, no DVT is seen.
--- NOTE | 2020-12-30 15:16 | CT ---
EXAMINATION TYPE: CT angio chest DATE OF EXAM: 12/30/2020 COMPARISON: 10/22/2020 HISTORY: SOB, Tachycardia. Hx Covid. CT DLP: 886.2 mGycm Automated exposure control for dose reduction was used. CONTRAST: Performed with IV Contrast, patient injected with 100 mL of Isovue 370. Images obtained from the thoracic inlet to the diaphragm with IV contrast. There are 3-D post process ed images. FINDINGS: There is a 2 cm minimal infiltrate in the right lower lobe posteriorly. The other lung moore are tanner ar. There is no pleural effusion. Heart size is normal. There is no pericardial effusion. There is no mediastinal adenopathy. There are no hilar masses. There is normal contrast opacification of the pulmonary arteries. There are no filling defects. Thoracic spine is intact. Sternum is intact. I see no compression fracture. Upper abdominal soft tiss ues are intact. IMPRESSION: No evidence of pulmonary embolism. There is a new small area of pneumonia in the right lower lobe com pared to old exam.
[2020-12-30] MEDS ORDERED: DOXYCYCLINE 100 MG in SODIUM CHLORIDE 0.9% 100 ML IVPB ONE (15:23)
[2020-12-30] MEDS ORDERED: HYDROcodone/APAP 5-325MG 1 EACH TAB PO STA (15:25)
[2020-12-30] MEDS ORDERED: NALOXONE 0.4 MG/ML 1 ML VIAL IV PRN ×2 (15:33→18:24)
[2020-12-30] MEDS ORDERED: 0.9% NACL WITH KCL 20 MEQ/L 1,000 ML IV SCH (15:45)
[2020-12-30] MEDS ORDERED: SODIUM CHLORIDE 0.9% 1,000 ML IV SCH (16:00)
[2020-12-30] MEDS ORDERED: ACETAMINOPHEN TAB 325 MG TAB PO PRN (18:24)
[2020-12-30] MEDS ORDERED: PANTOPRAZOLE 40 MG TABLET PO PRN (18:28)
[2020-12-30] MEDS ORDERED: ALBUTEROL NEBULIZED 2.5 MG/3 ML INHALATION PRN (18:28)
--- NOTE | 2020-12-30 18:47 | P.HPIM ---
History of Present Illness H&P Date: 12/30/20 Chief Complaint: Right leg pain 30-year-old man with medical history of hypertension, diabetes, bilateral lower extremity lymphedema, chronic venous insufficiency, morbid obesity, asthma, recent Covid infection, history of PE, MAX/OHS present over the right lower extremity pain. Patient says that he has had increasing burning sensation and pain as well as increasing weeping of his lower extremities, worse on the right, ever since the discontinuation of his lisinopril, hydrochlorothiazide combination medication. Notably, patient was recently discharged approximately one month ago after being hospitalized for Covid related ARDS, and had been taking home oxygen up until a couple weeks ago. He reports taking his oxygen level with his home pulse oximeter daily and that he has been saturating 96% or above this by not wearing his oxygen. Incidentally, he has no complaints of chest pain, palpitations, cough, dyspnea, orthopnea. He does report some trouble breathing with exertion, which is not unusual for him. He has been seen since discharge in pulmonary clinic and has been started on Advair as well as albuterol inhaler when necessary therapy for presumed asthma. Overall, he reports his breathing is much better than it was even before Covid. His only complaints now regarding his right lower extremity, which she says has been increasing in size, intensity, and weeping more in the last couple weeks. The pain he describes as burning sensation, also present on the left, but worse on the right. He denies fevers, chills, nausea, vomiting, chest pain, pa lpitations, abdominal pain, dysuria, dyschezia, constipation, diarrhea, numbness/weakness of extremities. In the emergency room, patient was afebrile, 96% on 2 L of nasal cannula, 125/75, heart rate 113-123. CBC is unremarkable. Chemistries are remarkable for bicarb of 32. LFTs are unremarkable. BNP is 413. Covid was negative. Chest x-ray was limited due to large patient body habitus. Bilateral lower extremity Doppler was negative for DVT. CTA was negative for pulmonary embolism, but did demonstrate right lower lobe findings concerning for pneumonia. EKG demonstrated sinus tachycardia with peaked P waves, no ischemic changes. Review of Systems All Systems reviewed and pertinent positives and negatives noted in HPI, all other symptoms are negative Past Medical History Past Medical History: Asthma, Hypertension, Sleep Apnea/CPAP/BIPAP Additional Past Medical History / Comment(s): bilateral leg ulcers increase with activity. sleep apnea (uses c-pap machine). PE in March 2020 History of Any Multi-Drug Resistant Organisms: None Reported Past Surgical History: Adenoidectomy, Tonsillectomy Past Anesthesia/Blood Transfusion Reactions: No Reported Reaction Past Psychological History: No Psychological Hx Reported Smoking Status: Never smoker Past Alcohol Use History: Rare Past Drug Use History: None Reported - Past Family History Father Family Medical History: Myocardial Infarction ([place]) Additional Family Medical History / Comment(s): patient states his paternal grandfather also has suffered from one [place]. Mother Family Medical History: No Reported History Medications and Allergies Home Medications Medication Instructions Recorded Confirmed Type Apixaban [Eliquis] 5 mg PO BID 11/11/20 12/30/20 History Colchicine 0.6 mg PO DAILY 11/11/20 12/30/20 History Naltrexone HCl [Revia] 50 mg PO DAILY 11/11/20 12/30/20 History Omeprazole 20 mg PO DAILY PRN 11/11/20 12/30/20 History buPROPion HCL [Wellbutrin XL] 300 mg PO DAILY 11/11/20 12/30/20 History metFORMIN HCL ER [Glucophage Xr] 500 mg PO DAILY 11/11/20 12/30/20 History Albuterol Inhaler [Ventolin Hfa 2 puff INHALATION RT-QID PRN #1 11/21/20 12/30/20 Rx Inhaler] puff Ascorbic Acid [Vitamin C] 500 mg PO BID #60 tab 11/21/20 12/30/20 Rx Aspirin 81 mg PO DAILY chew 11/21/20 12/30/20 Rx Cholecalciferol [Vitamin D3 (25 100 mcg PO DAILY #100 tablet 11/21/20 12/30/20 Rx Mcg = 1000 Iu)] cloNIDine HCL [Catapres] 0.1 mg PO TID #90 tab 11/21/20 12/30/20 Rx Fluticasone Propion/Salmeterol 1 puff INHALATION RT-BID 12/30/20 12/30/20 History [Wixela 500-50 Inhub] Zinc 50 mg PO DAILY 12/30/20 12/30/20 History Allergies Allergy/AdvReac Type Severity Reaction Status Date / Time No Known Allergies Allergy Verified 12/30/20 14:15 Physical Exam Osteopathic Statement: *. No significant issues noted on an osteopathic structural exam other than those noted in the History and Physical/Consult. Vitals: Vital Signs Temp Pulse Resp BP Pulse Ox 12/30/20 15:45 99.1 F 113 H 20 125/75 96 12/30/20 14:43 98.3 F 125 H 18 129/90 96 12/30/20 12:49 97 F L 123 H 18 144/97 94 L 12/30/20 11:23 99.7 F H 139 H 18 146/91 92 L Intake and Output 12/30/20 12/30/20 12/30/20 06:59 14:59 22:59 Other: Weight 197.313 kg Gen: awake, alert, morbidly obese HEENT: normocephalic, atraumatic, good hearing acuity, moist mucous membranes Resp: good air exchange, breathing comfortably with no accessory muscle use, clear to auscultation bilaterally, symmetric chest expansion, limited depth of chest expansion CVS: good distal perfusion x 4, tachycardic with no murmurs, regular rhythm GI: soft, NTTP, ND, large habitus, appropriate bowel sounds : no SPT, no CVAT, whitley catheter not present MSK: Bilateral lymphedema with [place]uf[place] dermatitis changes with superimposed pitting edema; bilateral lower extremities are warm to touch, right hotter than left, areas of weeping, no clubbing Neuro: non-focal, moving all extremities Psych: cooperative, euthymic mood Results CBC & Chem 7: 12/30/20 12:45 12/30/20 12:45 Labs: Abnormal Lab Results - Last 24 Hours (Table) 12/30/20 12/30/20 Range/Units 12:45 12:45 RDW 16.0 H (11.5-15.5) % Monocytes # 1.3 H (0-1.0) k/uL Carbon Dioxide 32 H (22-30) mmol/L Creatinine 0.62 L (0.66-1.25) mg/dL Glucose 131 H (74-99) mg/dL Assessment and Plan Assessment: Right Lower Extremity Pain Bilateral Pitting Edema Bilateral Lymphedema with [place] Dermatitis Suspected CAP Tachycardia -admit to observation, telemetry -LE doppler negative for DVT -stop IVF -echo, repeat -lasix 20mg PO daily -tylenol PRN -continue Ceftriaxone/Doxycycline, obtain procalcitonin and de-escalate as warranted -f/u BCx Asthma without Exacerbation MAX/OHS Hx of PE HTN Morbid Obesity, BMI 68.1 -Home medications reviewed and reconciled. DVT PPx with Eliquis Full Code
[2020-12-30] MEDS: APIXABAN 5 MG TAB PO SCH (21:26)
[2020-12-30] MEDS: ASCORBIC ACID 500 MG TAB PO SCH (21:26)
[2020-12-30] MEDS: cloNIDine HCL 0.1 MG TAB PO SCH (21:26)
[2020-12-30 22:56] LABS: Glucose,Whole Blood 105 mg/dL (75-99)
[2020-12-31] MEDS: SYMBICORT 160-4.5 MCG INHALER INHALATION SCH ×3 (01:20→20:32)
[2020-12-31 07:20] LABS: Glucose,Whole Blood 114 mg/dL (75-99)
[2020-12-31] MEDS: CHOLECALCIFEROL 25 MCG (1000 IU) TABLET PO SCH (07:29)
[2020-12-31] MEDS: APIXABAN 5 MG TAB PO SCH ×2 (07:29→21:23)
[2020-12-31] MEDS: ZINC SULFATE 220 MG CAP PO SCH (07:29)
[2020-12-31] MEDS: FUROSEMIDE 20 MG TAB PO SCH (07:30)
[2020-12-31] MEDS: cloNIDine HCL 0.1 MG TAB PO SCH ×3 (07:30→21:23)
[2020-12-31] MEDS: ASCORBIC ACID 500 MG TAB PO SCH ×2 (07:30→21:23)
[2020-12-31] MEDS: buPROPion XL 300 MG TAB.ER.24H PO SCH (07:30)
[2020-12-31] MEDS: NALTREXONE HCL 50 MG TAB PO SCH (07:30)
[2020-12-31] MEDS: ASPIRIN 81 MG PO SCH (07:30)
[2020-12-31] MEDS: COLCHICINE 0.6 MG EACH PO SCH (07:31)
[2020-12-31 11:19] LABS: Basophils # (A) 0.03 X 10*3/uL (0.00-0.10); Basophils % (A) 0.4 %; Eosinophils # (A) 0.05 X 10*3/uL (0.04-0.35); Eosinophils % (A) 0.7 %; HCT 42.6 % (39.6-50.0); HGB 12.6 g/dL (13.0-17.0); Lymphocytes # (A) 1.12 X 10*3/uL (0.90-5.00); Lymphocytes % (A) 14.7 %; MCH 27.4 pg (27.0-32.0); MCHC 29.6 g/dL (32.0-37.0); MCV 92.6 fL (80.0-97.0); Mean Platelet Volume 9.5 fL (9.5-12.2); Monocytes # (A) 1.06 X 10*3/uL (0.20-1.00); Monocytes % (A) 13.9 %; Neutrophils # (A) 5.32 X 10*3/uL (1.80-7.70); Neutrophils % (A) 69.6 %; Platelet Count 287 X 10*3/uL (140-440); WBC 7.63 X 10*3/uL (4.50-10.00)
[2020-12-31 11:50] LABS: Glucose,Whole Blood 107 mg/dL (75-99)
[2020-12-31 11:54] LABS: African American GFR (CKD) 156.4 (60.0-200.0); Anion Gap 8.9 mmol/L (4.00-12.00); BUN/Creat Ratio 18.33 Ratio (12.00-20.00); Calcium 8.9 mg/dL (8.7-10.3); Carbon Dioxide 30.1 mmol/L (21.6-31.8); Magnesium 1.6 mg/dL (1.5-2.4); Non-African American GFR(CKD) 134.9 (60.0-200.0); Potassium 4.7 mmol/L (3.5-5.5)
--- NOTE | 2020-12-31 12:26 | P.PN ---
Subjective Progress Note Date: 12/31/20 Pt complaining of dull achy pain in right chest today, otherwise reports resolution of leg pain. Objective - Vital Signs Vital signs: Vital Signs Temp 98.1 F 12/31/20 07:52 Pulse 106 H 12/31/20 07:52 Resp 17 12/31/20 07:52 BP 113/64 12/31/20 07:52 Pulse Ox 94 L 12/31/20 07:52 Intake & Output 12/30/20 12/31/20 12/31/20 18:59 06:59 18:59 Weight 197.313 kg Other: Voiding Method Toilet # Voids 2 # Bowel Movements 0 - Exam Gen: awake, alert, morbidly obese HEENT: normocephalic, atraumatic, good hearing acuity, moist mucous membranes Resp: good air exchange, breathing comfortably with no accessory muscle use, clear to auscultation bilaterally, symmetric chest expansion, limited depth of chest expansion CVS: good distal perfusion x 4, tachycardic with no murmurs, regular rhythm GI: soft, NTTP, ND, large habitus, appropriate bowel sounds : no SPT, no CVAT, whitley catheter not present MSK: Bilateral lymphedema with Eufemia dermatitis changes with superimposed pitting edema; bilateral lower extremities are warm to touch, right hotter than left, areas of weeping, no clubbing Neuro: non-focal, moving all extremities Psych: cooperative, euthymic mood - Labs CBC & Chem 7: 12/31/20 07:13 12/31/20 07:13 Labs: Abnormal Lab Results - Last 24 Hours (Table) 12/30/20 12/30/20 12/30/20 Range/Units 12:45 12:45 22:55 Hgb (13.0-17.0) g/dL MCHC (32.0-37.0) g/dL RDW 16.0 H (11.5-15.5) % Immature Gran # (0.00-0.04) X 10*3/uL Monocytes # 1.3 H (0-1.0) k/uL Carbon Dioxide 32 H (22-30) mmol/L Creatinine 0.62 L (0.66-1.25) mg/dL Glucose 131 H (74-99) mg/dL POC Glucose (mg/dL) 105 H (75-99) mg/dL 12/31/20 12/31/20 12/31/20 Range/Units 07:13 07:13 07:19 Hgb 12.6 L (13.0-17.0) g/dL MCHC 29.6 L (32.0-37.0) g/dL RDW 16.0 H (11.5-15.5) % Immature Gran # 0.05 H (0.00-0.04) X 10*3/uL Monocytes # 1.06 H (0-1.0) k/uL Carbon Dioxide (22-30) mmol/L Creatinine (0.66-1.25) mg/dL Glucose 115 H (74-99) mg/dL POC Glucose (mg/dL) 114 H (75-99) mg/dL 12/31/20 Range/Units 11:49 Hgb (13.0-17.0) g/dL MCHC (32.0-37.0) g/dL RDW (11.5-15.5) % Immature Gran # (0.00-0.04) X 10*3/uL Monocytes # (0-1.0) k/uL Carbon Dioxide (22-30) mmol/L Creatinine (0.66-1.25) mg/dL Glucose (74-99) mg/dL POC Glucose (mg/dL) 107 H (75-99) mg/dL Assessment and Plan Assessment: Right Lower Extremity Pain Bilateral Pitting Edema Bilateral Lymphedema with [place] Dermatitis Suspected CAP Tachycardia -admit to observation, telemetry -LE doppler negative for DVT -stop IVF -echo, repeat = pending -lasix 20mg PO daily -tylenol PRN -continue Ceftriaxone/Doxycycline, obtain procalcitonin and de-escalate as warranted -f/u BCx = NGTD Asthma without Exacerbation MAX/OHS Hx of PE HTN Morbid Obesity, BMI 68.1 -Home medications reviewed and reconciled. DVT PPx with Eliquis Full Code
--- NOTE | 2020-12-31 13:50 | ECHOF ---
Referral Reason:right heart failure MEASUREMENTS -------- HEIGHT: 170.2 cm WEIGHT: 197.3 kg BP: RVIDd: 2.8 cm (< 3.3) IVSd: 1.3 cm (0.6 - 1.1) LVIDd: 3.9 cm (3.9 - 5.3) LVPWd: 1.5 cm (0.6 - 1.1) IVSs: 2.0 cm LVIDs: 2.9 cm LVPWs: 1.4 cm Ao Diam: 3.5 cm (2.0 - 3.7) AV Cusp: 2.5 cm (1.5 - 2.6) LA Diam: 3.6 cm (2.7 - 3.8) MV EXCURSION: 19.566 mm (> 18.000) MV EF SLOPE: 162 mm/s (70 - 150) EPSS: 1.1 cm MV E Forrest: 0.76 m/s MV DecT: 187 ms MV A Forrest: 0.66 m/s MV E/A Ratio: 1.16 RAP: 5.00 mmHg RVSP: 10.25 mmHg FINDINGS -------- Sinus rhythm. This was a technically difficult study with suboptimal views. The left ventricular size is normal. Left ventricular wall thickness is normal. Overall left vent ricular systolic function is low-normal with, an EF between 50 - 55 %. Elevated LVEDP The right ventricle is normal in size. The left atrial size is normal. The right atrium was not well visualized. Lumason used The aortic valve was not well visualized. The mitral valve was not well visualized. There is trace mitral regurgitation. The tricuspid valve was not well visualized. Trace tricuspid regurgitation present. Right ventric ular systolic pressure is normal at < 35 mmHg. The pulmonic valve was not well visualized. The aortic root size is normal. IVC Not well visulized. There is no pericardial effusion. CONCLUSIONS -------- 1. This was a technically difficult study with suboptimal views. 2. Left ventricular wall thickness is normal. 3. Overall left ventricular systolic function is low-normal with, an EF between 50 - 55 %. 4. The left atrial size is normal. 5. The aortic valve was not well visualized. 6. There is trace mitral regurgitation. 7. Trace tricuspid regurgitation present. 8. There is no pericardial effusion. [employer]: Claudette Dickens RDCS
[2020-12-31 17:02] LABS: Glucose,Whole Blood 115 mg/dL (75-99)
[2020-12-31 20:40] LABS: Glucose,Whole Blood 128 mg/dL (75-99)
[2021-01-01 07:35] LABS: Glucose,Whole Blood 108 mg/dL (75-99)
[2021-01-01] MEDS: SYMBICORT 160-4.5 MCG INHALER INHALATION SCH (07:58)
[2021-01-01] MEDS: buPROPion XL 300 MG TAB.ER.24H PO SCH (08:34)
[2021-01-01] MEDS: CHOLECALCIFEROL 25 MCG (1000 IU) TABLET PO SCH (08:34)
[2021-01-01] MEDS: ASPIRIN 81 MG PO SCH (08:34)
[2021-01-01] MEDS: COLCHICINE 0.6 MG EACH PO SCH (08:34)
[2021-01-01] MEDS: APIXABAN 5 MG TAB PO SCH (08:34)
[2021-01-01] MEDS: ASCORBIC ACID 500 MG TAB PO SCH (08:34)
[2021-01-01] MEDS: ZINC SULFATE 220 MG CAP PO SCH (08:34)
[2021-01-01] MEDS: cloNIDine HCL 0.1 MG TAB PO SCH ×2 (08:34→15:27)
[2021-01-01] MEDS: NALTREXONE HCL 50 MG TAB PO SCH (08:34)
[2021-01-01] MEDS: FUROSEMIDE 20 MG TAB PO SCH (08:34)
[2021-01-01 09:01] VITALS: BP 132/80; PULSE 98; RESP 20; TEMP 98.1
[2021-01-01 12:11] LABS: Glucose,Whole Blood 188 mg/dL (75-99)
--- NOTE | 2021-01-01 13:15 | P.DS ---
Providers Date of admission: 12/30/20 15:34 Expected date of discharge: 01/01/21 Attending physician: Sandip Blake MD Primary care physician: Jairon Dominguez Hospital Course: Discharge Diagnosis: #Right Lower Extremity Pain secondary to lymphedema #Bilateral Pitting Edema secondary to lymphedema #Chronic Bilateral Lymphedema with [place] Dermatitis #Community-acquired pneumonia ruled out #Asthma without Exacerbation #MAX/OHS #Hx of PE #HTN #Morbid Obesity, BMI 68.1 Hospital Course: 30-year-old man with medical history of hypertension, diabetes, bilateral lower extremity lymphedema, chronic venous insufficiency, morbid obesity, asthma, recent Covid infection, history of PE, MAX/OHS present with right lower extremity pain. Patient says that he has had increasing burning sensation and pain as well as increasing weeping of his lower extremities, worse on the right, ever since the discontinuation of his lisinopril, hydrochlorothiazide combination medication. Notably, patient was recently discharged approximately one month ago after being hospitalized for Covid related ARDS, and had been taking home oxygen up until a couple weeks ago. He reports taking his oxygen level with his home pulse oximeter daily and that he has been saturating 96% or above this by not wearing his oxygen. Incidentally, he has no complaints of chest pain, palpitations, cough, dyspnea, orthopnea. He does report some trouble breathing with exertion, which is not unusual for him. He has been seen since discharge in pulmonary clinic and has been started on Advair as well as albuterol inhaler when necessary therapy for presumed asthma. Overall, he reports his breathing is much better than it was even before Covid. His only complaints now regarding his right lower extremity, which he says has been increasing in size, intensity, and weeping more in the last couple weeks. The pain he describes as burning sensation, also present on the left, but worse on the right. He denies fevers, chills, nausea, vomiting, chest pain, palpitations, abdominal pain, dysuria, dyschezia, constipation, diarrhea, numbness/weakness of extremities. In the emergency room, patient was afebrile, 96% on 2 L of nasal cannula, 125/75, heart rate 113-123. CBC is unremarkable. Chemistries are remarkable for bicarb of 32. LFTs are unremarkable. BNP is 413. Covid was negative. Chest x-ray was limited due to large patient body habitus. Bilateral lower extremity Doppler was negative for DVT. CTA was negative for pulmonary embolism, but did demonstrate right lower lobe findings concerning for pneumonia. EKG demonstrated sinus tachycardia with peaked P waves, no ischemic changes. Patient was started on Lasix. The following day patient reported improvement in his right lower extremity pain. Patient was then looking forward to going home. I will restart patient's hydrochlorothiazide which was discontinued on the previous admission for acute kidney injury. Patient was instructed to follow-up with his PCP to closely monitor his electrolytes. Patient had an echocardiogram done that showed EF of 50-55%. Patient was initially started on antibiotics for possible pneumonia since chest x-ray showed some consolidation. However patient denied any productive cough and he was afebrile and had no leukocytosis. In addition his pro-calcitonin as well as within normal limits. So I will discontinue patient's antibiotics. Patient seen and examined at bedside.[] Vital signs reviewed and stable. General: [non toxic], [no distress], [appears at stated age] Derm: [warm], [dry] Head: [atraumatic], [normocephalic], [symmetric] Eyes: [EOMI], [no lid lag], [anicteric sclera] Mouth: [no lip lesion], [mucus membranes moist] Cardiovascular: [S1S2 reg], [no murmur], [positive posterior tibial pulse bilateral], Lungs: [CTA bilateral], [no rhonchi, no rales] , [no accessory muscle use] Abdominal: [soft], [ nontender to palpation], [no guarding], [no appreciable organomegaly], morbid obese Ext: [+2 pitting edema bilaterally with discoloration and scaling noted] Neuro: [ CN II-XI grossly intact], [no focal neuro deficits] Psych: [Alert], [oriented], [appropriate affect] A total of [32] minutes of time were spent preparing this complex discharge summary . Patient Condition at Discharge: Fair Plan - Discharge Summary New Discharge Prescriptions: New RX: hydroCHLOROthiazide 25 mg PO DAILY #30 tablet Continue RX: Omeprazole 20 mg PO DAILY PRN PRN Reason: Heartburn RX: Colchicine 0.6 mg PO DAILY RX: Albuterol Inhaler [Ventolin Hfa Inhaler] 2 puff INHALATION RT-QID PRN #1 puff PRN Reason: Shortness Of Breath Or Wheezing RX: Ascorbic Acid [Vitamin C] 500 mg PO BID #60 tab RX: metFORMIN HCL ER [Glucophage Xr] 500 mg PO DAILY RX: Naltrexone HCl [Revia] 50 mg PO DAILY RX: Apixaban [Eliquis] 5 mg PO BID RX: buPROPion HCL [Wellbutrin XL] 300 mg PO DAILY RX: Aspirin 81 mg PO DAILY chew RX: Cholecalciferol [Vitamin D3 (25 Mcg = 1000 Iu)] 100 mcg PO DAILY #100 tablet RX: cloNIDine HCL [Catapres] 0.1 mg PO TID #90 tab RX: Zinc 50 mg PO DAILY RX: Fluticasone Propion/Salmeterol [Wixela 500-50 Inhub] 1 puff INHALATION RT-BID Discharge Medication List RX: Apixaban [Eliquis] 5 mg PO BID 11/11/20 [History] RX: Colchicine 0.6 mg PO DAILY 11/11/20 [History] RX: Naltrexone HCl [Revia] 50 mg PO DAILY 11/11/20 [History] RX: Omeprazole 20 mg PO DAILY PRN 11/11/20 [History] RX: buPROPion HCL [Wellbutrin XL] 300 mg PO DAILY 11/11/20 [History] RX: metFORMIN HCL ER [Glucophage Xr] 500 mg PO DAILY 11/11/20 [History] RX: Albuterol Inhaler [Ventolin Hfa Inhaler] 2 puff INHALATION RT-QID PRN #1 pu ff 11/21/20 [Rx] RX: Ascorbic Acid [Vitamin C] 500 mg PO BID #60 tab 11/21/20 [Rx] RX: Aspirin 81 mg PO DAILY chew 11/21/20 [Rx] RX: Cholecalciferol [Vitamin D3 (25 Mcg = 1000 Iu)] 100 mcg PO DAILY #100 tablet 11/21/20 [Rx] RX: cloNIDine HCL [Catapres] 0.1 mg PO TID #90 tab 11/21/20 [Rx] RX: Fluticasone Propion/Salmeterol [Wixela 500-50 Inhub] 1 puff INHALATION RT- BID 12/30/20 [History] RX: Zinc 50 mg PO DAILY 12/30/20 [History] RX: hydroCHLOROthiazide 25 mg PO DAILY #30 tablet 01/01/21 [Rx] Follow up Appointment(s)/Referral(s): Jairon Dominguez MD [Primary Care Provider] - 1-2 days
== END 2021-01-01 15:33 | disposition home or self-care (01) ==
LOC: EC 11:17 → 4SSUR 15:34 → INTOOBSV 15:34
PROVIDERS: ADMIT Internal Medicine; ATTEND Internal Medicine
DX: I89.0 Lymphedema, not elsewhere classified (principal); J45.909 Unspecified asthma, uncomplicated; L30.9 Dermatitis, unspecified; E11.9 Type 2 diabetes mellitus without complications; I10 Essential (primary) hypertension; G47.33 Obstructive sleep apnea (adult) (pediatric); M79.604 Pain in right leg; I87.2 Venous insufficiency (chronic) (peripheral); R04.0 Epistaxis; R00.0 Tachycardia, unspecified; E66.01 Morbid (severe) obesity due to excess calories; Z68.44 Body mass index [BMI] 60.0-69.9, adult; Z20.822 Contact with and (suspected) exposure to COVID-19; Z79.01 Long term (current) use of anticoagulants; Z79.82 Long term (current) use of aspirin; Z79.84 Long term (current) use of oral hypoglycemic drugs; Z79.51 Long term (current) use of inhaled steroids; Z79.899 Other long term (current) drug therapy; Z86.16 Personal history of COVID-19; Z87.2 Personal history of diseases of the skin and subcutaneous tissue; Z86.711 Personal history of pulmonary embolism; Z98.890 Other specified postprocedural states; Z82.49 Family history of ischemic heart disease and other diseases of the circulatory system
CPT/HCPCS: 96361; 96365; 96366; 96367; 99285; 94640; 93005; 83880; 80053; 80048; 83605; 83735; 84484; 85025 ×2; 85610; 85730; 87040; 84145; 87635; 71045; 93970; 71275; G0378 ×3; C8929; J0696 ×3; Q9950; Q9967; 93306

== ENCOUNTER 2021-01-02 22:08 | Emergency (ER) | payer OTHER ==
--- NOTE | 2021-01-02 22:45 | ED ---
ENT HPI - General Chief complaint: ENT Stated complaint: Nosebleed Time Seen by Provider: 01/02/21 22:17 Source: patient, RN notes reviewed Mode of arrival: ambulatory Limitations: no limitations - History of Present Illness Initial comments: Patient is a 30-year-old male that presents to the emergency department complaining of left-sided nosebleed. He notes that he is on eliquis for a pulmonary embolism that he was diagnosed with in March 2020. She notes that he's had several nosebleeds since being on the blood thinners. He notes that his blood pressure is usually slightly elevated. He notes that his nose usually stopped bleeding after pinching it like he was instructed to. Patient reported that his nose had stopped bleeding prior to arrival. He notes that he does not follow-up with ENT but would like a referral if possible. She denied any pain or distress while sitting up in bed during the exam interview. He denied any chest pain shortness of breath headache nausea vomiting diarrhea constipation fever fatigue chills. - Related Data Home Medications Medication Instructions Recorded Confirmed Apixaban [Eliquis] 5 mg PO BID 11/11/20 01/02/21 Colchicine 0.6 mg PO DAILY 11/11/20 01/02/21 Naltrexone HCl [Revia] 50 mg PO DAILY 11/11/20 01/02/21 Omeprazole 20 mg PO DAILY PRN 11/11/20 01/02/21 buPROPion HCL [Wellbutrin XL] 300 mg PO DAILY 11/11/20 01/02/21 metFORMIN HCL ER [Glucophage Xr] 500 mg PO DAILY 11/11/20 01/02/21 Fluticasone Propion/Salmeterol 1 puff INHALATION RT-BID 12/30/20 01/02/21 [Wixela 500-50 Inhub] Zinc 50 mg PO DAILY 12/30/20 01/02/21 Previous Rx's Medication Instructions Recorded Albuterol Inhaler [Ventolin Hfa 2 puff INHALATION RT-QID PRN #1 11/21/20 Inhaler] puff Ascorbic Acid [Vitamin C] 500 mg PO BID #60 tab 11/21/20 Aspirin 81 mg PO DAILY chew 11/21/20 Cholecalciferol [Vitamin D3 (25 100 mcg PO DAILY #100 tablet 11/21/20 Mcg = 1000 Iu)] cloNIDine HCL [Catapres] 0.1 mg PO TID #90 tab 11/21/20 hydroCHLOROthiazide 25 mg PO DAILY #30 tablet 01/01/21 Allergies Allergy/AdvReac Type Severity Reaction Status Date / Time No Known Allergies Allergy Verified 01/02/21 22:12 Review of Systems ROS Statement: Those systems with pertinent positive or pertinent negative responses have been documented in the HPI. ROS Other: All systems not noted in ROS Statement are negative. Past Medical History Past Medical History: Asthma, Hypertension, Pulmonary Embolus (PE), Sleep Apnea/CPAP/BIPAP Additional Past Medical History / Comment(s): bilateral leg ulcers increase with activity. sleep apnea (uses c-pap machine). PE in March 2020 History of Any Multi-Drug Resistant Organisms: None Reported Past Surgical History: Adenoidectomy, Tonsillectomy Past Anesthesia/Blood Transfusion Reactions: No Reported Reaction Past Psychological History: No Psychological Hx Reported Smoking Status: Never smoker Past Alcohol Use History: Rare Past Drug Use History: None Reported - Past Family History Father Family Medical History: Myocardial Infarction ([place]) Additional Family Medical History / Comment(s): patient states his paternal grandfather also has suffered from one [place]. Mother Family Medical History: No Reported History Additional Family Medical History / Comment(s): Chronic depression General Exam Limitations: no limitations General appearance: alert, in no apparent distress, obese Head exam: Present: atraumatic, normocephalic, normal inspection Eye exam: Present: normal appearance, PERRL, EOMI. Absent: scleral icterus, conjunctival injection, periorbital swelling ENT exam: Present: normal exam, mucous membranes moist, other (Both nares patent, no septal hematoma noted) Neck exam: Present: normal inspection Respiratory exam: Present: normal lung sounds bilaterally. Absent: respiratory distress, wheezes, rales, rhonchi, stridor Cardiovascular Exam: Present: regular rate, normal rhythm, normal heart sounds. Absent: systolic murmur, diastolic murmur, rubs, gallop, clicks Extremities exam: Present: normal inspection, full ROM, normal capillary refill. Absent: tenderness, pedal edema, joint swelling, calf tenderness Neurological exam: Present: alert, oriented X3 Psychiatric exam: Present: normal affect, normal mood Skin exam: Present: warm, dry, intact, normal color. Absent: rash Course Vital Signs 01/02/21 01/02/21 01/02/21 22:10 22:30 23:00 Temperature 98.6 F Pulse Rate 107 H Respiratory 20 Rate Blood Pressure 177/120 164/104 157/102 O2 Sat by Pulse 96 Oximetry Medical Decision Making - Medical Decision Making 30-year-old male complaining of nosebleed prior to arrival that has since stopped. Basic labs ordered. Labs unremarkable. Nosebleed stopped in the emergency room with no complications. Patient feels comfortable going home with follow-up to ENT doctor. Case discussed with Dr. Dumas, patient can discharge home with follow-up p [facility] and ENT. - Lab Data Result diagrams: 01/02/21 22:37 Lab Results 01/02/21 01/02/21 Range/Units 22:37 22:37 WBC 7.9 (3.8-10.6) k/uL RBC 4.77 (4.30-5.90) m/uL Hgb 13.3 (13.0-17.5) gm/dL Hct 40.6 (39.0-53.0) % MCV 85.1 (80.0-100.0) fL MCH 27.9 (25.0-35.0) pg MCHC 32.8 (31.0-37.0) g/dL RDW 15.9 H (11.5-15.5) % Plt Count 312 (150-450) k/uL MPV 6.8 Neutrophils % 61 % Lymphocytes % 22 % Monocytes % 11 % Eosinophils % 2 % Basophils % 1 % Neutrophils # 4.8 (1.3-7.7) k/uL Lymphocytes # 1.7 (1.0-4.8) k/uL Monocytes # 0.9 (0-1.0) k/uL Eosinophils # 0.2 (0-0.7) k/uL Basophils # 0.1 (0-0.2) k/uL Hypochromasia Slight PT 10.3 (9.0-12.0) sec INR 1.0 (<1.2) APTT 27.8 (22.0-30.0) sec Disposition Clinical Impression: Obesity, Epistaxis Disposition: HOME SELF-CARE Condition: Stable Instructions (If sedation given, give patient instructions): Nosebleed (ED) Additional Instructions: Please return to the Emergency Department if symptoms worsen or any other concerns. Continue take at home medications as prescribed. Follow-up with ENT in the next several days. Follow-up with primary care as needed. Is patient prescribed a controlled substance at d/c from ED?: No Referrals: Jairon Dominguez MD [Primary Care Provider] - 1-2 days Geronimo Swan MD [STAFF PHYSICIAN] - 1-2 days Time of Disposition: 23:15
[2021-01-02 22:46] LABS: Basophils # (A) 0.1 k/uL (0-0.2); Basophils % (A) 1 %; Eosinophils # (A) 0.2 k/uL (0-0.7); Eosinophils % (A) 2 %; HCT 40.6 % (39.0-53.0); HGB 13.3 gm/dL (13.0-17.5); Hypochromasia Slight; Lymphocytes # (A) 1.7 k/uL (1.0-4.8); Lymphocytes % (A) 22 %; MCH 27.9 pg (25.0-35.0); MCHC 32.8 g/dL (31.0-37.0); MCV 85.1 fL (80.0-100.0); Mean Platelet Volume 6.8; Monocytes # (A) 0.9 k/uL (0-1.0); Monocytes % (A) 11 %; Neutrophils # (A) 4.8 k/uL (1.3-7.7); Neutrophils % (A) 61 %; Platelet Count 312 k/uL (150-450); RBC 4.77 m/uL (4.30-5.90); RDW 15.9 % (11.5-15.5); WBC 7.9 k/uL (3.8-10.6)
[2021-01-02 23:09] LABS: Partial Thromboplastin Time 27.8 sec (22.0-30.0); Prothrombin Time 10.3 sec (9.0-12.0)
[2021-01-02 23:41] VITALS: BP 171/85; PULSE 109; RESP 22; TEMP 97.2
== END 2021-01-02 23:41 | disposition home or self-care (01) ==
LOC: EC 22:08
DX: E66.9 Obesity, unspecified (principal); R04.0 Epistaxis; I10 Essential (primary) hypertension; J45.909 Unspecified asthma, uncomplicated; Z68.44 Body mass index [BMI] 60.0-69.9, adult; Z79.01 Long term (current) use of anticoagulants; Z79.51 Long term (current) use of inhaled steroids; Z86.711 Personal history of pulmonary embolism
CPT/HCPCS: 36415; 85025; 85610; 85730; 99283

== ENCOUNTER → 2022-03-25 | Outpatient (CLI) | payer BC, OTHER ==
[2022-03-26 00:27] LABS: African American GFR (CKD) >90 (>60 ml/min/1.73 sqM); Blood Urea Nitrogen 11 mg/dL (9-20); Non-African American GFR(CKD) >90 (>60 ml/min/1.73 sqM)
--- NOTE | 2022-03-28 10:28 | CT ---
EXAMINATION TYPE: CT abdomen pelvis w con DATE OF EXAM: 03/26/2022 COMPARISON: None HISTORY: Ventral hernia CONTRAST: CT scan of the abdomen and pelvis is performed with Oral Contrast and with IV Contrast, patient injec reva with 100 mL of Isovue 300. FINDINGS: LUNG BASES-: No visible nodule. No infiltrate. LIVER/GB: No calcified gallstones. No space occupying hepatic lesion. Biliary tree is of normal ca liber. PANCREAS: No inflammation. No distinct mass. SPLEEN: No splenic enlargement. No lesion seen. ADRENALS: No nodule. No thickening. KIDNEYS/BLADDER: No hydronephrosis. No nephrolithiasis. No distinct renal mass. Urinary bladder g rossly unremarkable. BOWEL: Normal appendix. Normal bowel caliber. No inflammation. GENITAL ORGANS: No gross abnormality. LYMPH NODES: No greater than 1cm abdominal or pelvic lymph nodes are appreciated. AORTA: No significant abnormality. OSSEOUS STRUCTURES: No significant abnormality is seen. OTHER: There is a fat-containing umbilical hernia measuring 4.6 x 4.8 cm. IMPRESSION: 1. There is a fat-containing umbilical hernia measuring 4.6 x 4.8 cm.
== END | disposition home or self-care (01) ==
LOC: RADCTMAIN 15:28
PROVIDERS: ATTEND Family Medicine
DX: K43.9 Ventral hernia without obstruction or gangrene (principal)
CPT/HCPCS: 74177; 82565; 84520

== ENCOUNTER → 2022-04-22 | Outpatient (CLI) | payer BC, OTHER ==
--- NOTE | 2022-04-22 14:08 | US ---
EXAMINATION TYPE: US venous doppler duplex LE DATE OF EXAM: 04/22/2022 1:02 PM COMPARISON: US December 30, 20202020 LOWER EXTREMITY VENOUS INSUFFICIENCY CLINICAL HISTORY: I87.2 VENOUS INSUFFICIENCY; I73.9 PERIPHERAL VASCU. Rule out insufficiency. SIDE PERFORMED: Bilateral 1) Color flow is present and patency is documented in the following vessels. No DVT or SVT is noted . Common Femoral Vein Deep Femoral Vein Femoral Vein Popliteal Vein Proximal Calf Veins Greater Saph Vein Upper Small Saph Vein 2) There is venous reflux noted at the following venous levels: Left CFV Exam is limited due to patient body habitus. IMPRESSION: Slightly suboptimal study without acute deep or superficial venous thrombosis. Small amou nt of venous reflux in the left lower extremity noted.
--- NOTE | 2022-04-24 06:31 | US ---
EXAMINATION TYPE: US arterial LE single level DATE OF EXAM: 04/22/2022 2:02 PM CLINICAL HISTORY: I87.2 VENOUS INSUFFICIENCY; I73.9 PERIPHERAL VASCU. Peripheral vascular disease per order. Hypertension, great amount of skin color changes bilaterally, very thickened/discolored skin from calf to foot. Limited due to body habitus. Doppler Waveforms: Right: Monophasic to biphasic Left: Monophasic multiphasic Ankle-Brachial Indices: Right: 1.16 Left: 1.20 Toe Brachial Indices: Right: 0.66 Left: 0.73 Loss of phasicity is nonspecific. IMPRESSION: Normal RAMÍREZ and TBI values.
== END | disposition home or self-care (01) ==
LOC: RADUSWWP 11:54
PROVIDERS: ATTEND Podiatrist
DX: I87.2 Venous insufficiency (chronic) (peripheral) (principal); I73.9 Peripheral vascular disease, unspecified
CPT/HCPCS: 93922; 93970

== ENCOUNTER 2022-11-27 01:56 | Emergency (ER) | payer BC, OTHER ==
[2022-11-27 02:05] VITALS: RESP 18; TEMP 98
[2022-11-27] MEDS ORDERED: KETOROLAC 15 MG/ML 1 ML VIAL IVP STA (03:15)
--- NOTE | 2022-11-27 03:34 | ED ---
General Adult HPI - General Chief complaint: Extremity Problem,Nontraumatic Stated complaint: leg pain Time Seen by Provider: 11/27/22 03:05 Source: patient, RN notes reviewed, old records reviewed Mode of arrival: ambulatory Limitations: no limitations - History of Present Illness Initial comments: Patient is a 32-year-old male with past medical history remarkable for chronic lower extremity venous insufficiency, prior PE on blood thinners, hypertension, asthma presents emergency Department with slightly worsening acute left calf pain. States there may be a new were ulcer located on his left calf. Does have a chronic right calf ulcer. States he intermittently will have pain down there. Since being at the site ulcer disease on the medial aspect of the calf. States it is worse with movement and improves with sitting down. Does have a history of chronic pain in his legs but seems somewhat worsening lately. Is compliant with all medications. Denies any fevers or chills. Denies any shortness of breath, chest pain, abdominal pain, nausea, vomiting. Is concerned that he may have an infection is presenting for evaluation. Has not yet seen his PCP for his current pain. Presents for further evaluation at this time. Denies any sensory deficits, weakness. States his legs actually appear improved when compared to normal, as the swelling is improved as are the skin changes. - Related Data Home Medications Medication Instructions Recorded Confirmed Apixaban [Eliquis] 5 mg PO BID 11/11/20 01/02/21 Colchicine 0.6 mg PO DAILY 11/11/20 01/02/21 Naltrexone HCl [Revia] 50 mg PO DAILY 11/11/20 01/02/21 Omeprazole 20 mg PO DAILY PRN 11/11/20 01/02/21 buPROPion HCL [Wellbutrin XL] 300 mg PO DAILY 11/11/20 01/02/21 metFORMIN HCL ER [Glucophage XR] 500 mg PO DAILY 11/11/20 01/02/21 Fluticasone Propion/Salmeterol 1 puff INHALATION RT-BID 12/30/20 01/02/21 [Wixela 500-50 Inhub] Zinc 50 mg PO DAILY 12/30/20 01/02/21 Previous Rx's Medication Instructions Recorded Albuterol Inhaler [Ventolin Hfa 2 puff INHALATION RT-QID PRN #1 11/21/20 Inhaler] puff Ascorbic Acid [Vitamin C] 500 mg PO BID #60 tab 11/21/20 Aspirin 81 mg PO DAILY chew 11/21/20 Cholecalciferol [Vitamin D3 (25 100 mcg PO DAILY #100 tablet 11/21/20 Mcg = 1000 Iu)] cloNIDine HCL [Catapres] 0.1 mg PO TID #90 tab 11/21/20 hydroCHLOROthiazide 25 mg PO DAILY #30 tablet 01/01/21 Sulfamethox-Tmp 800-160Mg [Bactrim 1 tab PO Q12HR 7 Days #14 tab 11/27/22 DS 800-160 mg] Allergies Allergy/AdvReac Type Severity Reaction Status Date / Time No Known Allergies Allergy Verified 09/10/22 10:32 Review of Systems ROS Statement: Those systems with pertinent positive or pertinent negative responses have been documented in the HPI. Review of Systems: CONST: Denies fever EYES: Denies blurry vision ENT: Denies nasal congestion C/V: Denies Chest pain RESP: Denies shortness of breath GI: Denies abdominal pain : Denies dysuria SKIN: Endorses left leg wound MSK: Endorses left leg pain NEURO: Denies headache ROS Other: All systems not noted in ROS Statement are negative. Past Medical History Past Medical History: Asthma, Hypertension, Pulmonary Embolus (PE), Sleep Apnea/CPAP/BIPAP Additional Past Medical History / Comment(s): bilateral leg ulcers increase with activity. sleep apnea (uses c-pap machine). PE in March 2020 History of Any Multi-Drug Resistant Organisms: None Reported Past Surgical History: Adenoidectomy, Tonsillectomy Past Anesthesia/Blood Transfusion Reactions: No Reported Reaction Past Psychological History: No Psychological Hx Reported Smoking Status: Never smoker Past Alcohol Use History: None Reported Past Drug Use History: None Reported - Past Family History Father Family Medical History: Myocardial Infarction ([place]) Additional Family Medical History / Comment(s): patient states his paternal grandfather also has suffered from one [place]. Mother Family Medical History: No Reported History Additional Family Medical History / Comment(s): Chronic depression General Exam - General Exam Comments Initial Comments: General: Appears in no acute distress. HEAD: Normal with no signs of head trauma. EYES: PERRLA, EOMI, conjunctiva normal, no discharge. ENT: Hearing grossly intact, normal oropharynx. RESPIRATORY: Clear breath sounds bilaterally. No wheezes, rales, or rhonchi. C/V: Regular rate and rhythm. S1 and S2 auscultated, symmetrical bilateral lower extremity pitting edema that is significant, peripheral pulses 2+ and intact throughout ABD: Abd is soft, nontender, nondistended EXT: Normal range of motion, no obvious deformity SKIN: Venous stasis changes in the bilateral lower extremities with ulcers located over the anterior left manriquez as well as over the anterior right manriquez. They do not appear infected. Are open. No purulent drainage. No obvious fluctuance. No tenderness to palpation that is obvious. NEURO: Alert and oriented 4. Limitations: no limitations Course Vital Signs 11/27/22 11/27/22 02:02 05:25 Temperature 98 F Pulse Rate 108 H 89 Respiratory 18 18 Rate Blood Pressure 149/95 145/89 O2 Sat by Pulse 98 97 Oximetry Medical Decision Making - Medical Decision Making Was pt. sent in by a medical professional or institution (, PA, DENTAL LABORATORY TECHNICIAN, urgent care, hospital, or [facility]...) When possible be specific @ -No Did you speak to anyone other than the patient for history (EMS, parent, family, police, friend...)? What history was obtained from this source @ -No Did you review nursing and triage notes (agree or disagree)? Why? @ -I reviewed and agree with nursing and triage notes Were old charts reviewed (outside hosp., previous admission, EMS record, old EKG, old radiological studies, urgent care reports/EKG's, [facility] records)? Report findings @ -No old charts were reviewed Differential Diagnosis (chest pain, altered mental status, abdominal pain women, abdominal pain men, vaginal bleeding, weakness, fever, dyspnea, syncope, headache, dizziness, GI bleed, back pain, seizure, CVA, palpatations, mental health, musculoskeletal)? @ -Cellulitis, osteomyelitis, chronic pain. This list is not all inclusive. EKG interpreted by me (3pts min.). @ -None done X-rays interpreted by me (1pt min.). @ -Tib-fib x-ray revealed no evidence of osteomyelitis CT interpreted by me (1pt min.). @ -None done U/S interpreted by me (1pt. min.). @ -None done What testing was considered but not performed or refused? (CT, X-rays, U/S, labs)? Why? @ -None What meds were considered but not given or refused? Why? @ -None Did you discuss the management of the patient with other professionals (professionals i.e. , PA, DENTAL LABORATORY TECHNICIAN, lab, RT, psych nurse, health social work professor, technical implementation lead, teacher, safety security officer, block and case maker)? Give summary @ -No Was smoking cessation discussed for >3mins.? @ -No Was critical care preformed (if so, how long)? @ -No Were there social determinants of health that impacted care today? How? (Homelessness, low income, unemployed, alcoholism, drug addiction, transportation, low edu. Level, literacy, decrease access to med. care, custodial, rehab)? @ -No Was there de-escalation of care discussed even if they declined (Discuss DNR or withdrawal of care, Hospice)? DNR status @ -No What co-morbidities impacted this encounter? (DM, HTN, Smoking, COPD, CAD, Cancer, CVA, ARF, Chemo, Hep., AIDS, mental health diagnosis, sleep apnea, morbid obesity)? @ -Chronic venous stasis, venous insufficiency bilateral lower extremities Was patient admitted / discharged? Hospital course, mention meds given and route, prescriptions, significant lab abnormalities, going to OR and other pertinent info. @ -Based on the patient's presentation and physical exam, presents with acute on chronic pain with concern for possible infection the left lower extremity. His chronic venous stasis changes. Exam is relatively unremarkable except for the chronic changes. There are some open wounds that do not appear acutely infected. Vital signs are within acceptable limits. We will obtain wound cultures as well as basic laboratory studies. He'll be given Toradol for pain. He was in agreement this plan. He is compliant with his blood thinning medication therefore I have no suspicion for a DVT at this time. Patient's labs appear within acceptable limits. X-ray shows no evidence of gastroenteritis. I did the patient. He remains relatively asymptomatic at this time. We will empirically place him on antibiotics with instructions to follow up with his PCP in the next few days. He was in agreement this plan. Discussed keeping the wounds covered, compression stockings, as well as close follow-up. Strict return precautions discussed.Patient is compliant with blood thinning medications Eliquis and therefore very unlikely to be experiencing an acute DVT in the setting of chronic leg pain. We did discuss this and he was in agreement. Reevaluated that he is compliant with medications. I will provide the patient with a prescription for Bactrim. I instructed the patient to follow up with their PCP in the next 1-3 days. . I explained that the patient should return to the emergency department if they experience any worsening symptoms. Strict return precautions were discussed with the patient. The patient expressed understanding of these instructions. I answered all questions that the patient had. The patient was discharged home in good cond ition with their prescriptions and follow up information. Undiagnosed new problem with uncertain prognosis? @ -No Drug Therapy requiring intensive monitoring for toxicity (Heparin, Nitro, Insulin, Cardizem)? @ -No Were any procedures done? @ -No Diagnosis/symptom? @ -Leg pain, venous insufficiency Acute, or Chronic, or Acute on Chronic? @ -Chronic Uncomplicated (without systemic symptoms) or Complicated (systemic symptoms)? @ -Uncomplicated Side effects of treatment? @ -none Exacerbation, Progression, or Severe Exacerbation] @ -no Poses a threat to life or bodily function? @ -no Diagnosis/symptom? @ -Possible cellulitis Acute, or Chronic, or Acute on Chronic? @ -Acute on chronic Uncomplicated (without systemic symptoms) or Complicated (systemic symptoms)? @ -Uncomplicated Side effects of treatment? @ -none Exacerbation, Progression, or Severe Exacerbation] @ -no Poses a threat to life or bodily function? @ -no - Lab Data Result diagrams: 11/27/22 03:30 11/27/22 03:30 Lab Results 11/27/22 11/27/22 Range/Units 03:30 03:30 WBC 10.0 (3.8-10.6) k/uL RBC 5.30 (4.30-5.90) m/uL Hgb 14.3 (13.0-17.5) gm/dL Hct 46.0 (39.0-53.0) % MCV 86.8 (80.0-100.0) fL MCH 27.0 (25.0-35.0) pg MCHC 31.1 (31.0-37.0) g/dL RDW 14.6 (11.5-15.5) % Plt Count 286 (150-450) k/uL MPV 6.9 Neutrophils % 64 % Lymphocytes % 18 % Monocytes % 12 % Eosinophils % 2 % Basophils % 0 % Neutrophils # 6.4 (1.3-7.7) k/uL Lymphocytes # 1.8 (1.0-4.8) k/uL Monocytes # 1.2 H (0-1.0) k/uL Eosinophils # 0.2 (0-0.7) k/uL Basophils # 0.0 (0-0.2) k/uL Sodium 137 (137-145) mmol/L Potassium 4.2 (3.5-5.1) mmol/L Chloride 96 L (98-107) mmol/L Carbon Dioxide 31 H (22-30) mmol/L Anion Gap 10 mmol/L BUN 18 (9-20) mg/dL Creatinine 0.58 L (0.66-1.25) mg/dL Est GFR (CKD-EPI)AfAm >90 (>60 ml/min/1.73 sqM) Est GFR (CKD-EPI)NonAf >90 (>60 ml/min/1.73 sqM) Glucose 97 (74-99) mg/dL Calcium 8.6 (8.4-10.2) mg/dL Disposition Clinical Impression: Cellulitis, Venous insufficiency, Chronic leg pain Disposition: HOME SELF-CARE Condition: Good Prescriptions: Sulfamethox-Tmp 800-160Mg [Bactrim DS 800-160 mg] 1 tab PO Q12HR 7 Days #14 tab Is patient prescribed a controlled substance at d/c from ED?: No Referrals: Jairon Dominguez MD [Primary Care Provider] - 1-2 days Time of Disposition: 04:38
[2022-11-27 03:49] LABS: Basophils % (A) 0 %; Eosinophils # (A) 0.2 k/uL (0-0.7); Eosinophils % (A) 2 %; HGB 14.3 gm/dL (13.0-17.5); Lymphocytes # (A) 1.8 k/uL (1.0-4.8); Lymphocytes % (A) 18 %; MCHC 31.1 g/dL (31.0-37.0); MCV 86.8 fL (80.0-100.0); Mean Platelet Volume 6.9; Monocytes # (A) 1.2 k/uL (0-1.0); Monocytes % (A) 12 %; Neutrophils # (A) 6.4 k/uL (1.3-7.7); Neutrophils % (A) 64 %; Platelet Count 286 k/uL (150-450); RDW 14.6 % (11.5-15.5)
[2022-11-27 04:23] LABS: African American GFR (CKD) >90 (>60 ml/min/1.73 sqM); Anion Gap 10 mmol/L; Blood Urea Nitrogen 18 mg/dL (9-20); Calcium 8.6 mg/dL (8.4-10.2); Carbon Dioxide 31 mmol/L (22-30); Chloride 96 mmol/L (98-107); Glucose 97 mg/dL (74-99); Non-African American GFR(CKD) >90 (>60 ml/min/1.73 sqM); Potassium 4.2 mmol/L (3.5-5.1); Sodium 137 mmol/L (137-145)
[2022-11-27] MEDS ORDERED: SULFAMETHOX-TMP 800-160MG 1 EACH TAB PO STA (04:38)
[2022-11-27 05:25] VITALS: BP 145/89; PULSE 89
--- NOTE | 2022-11-27 06:15 | XR ---
EXAM: XR Left Tibia and Fibula, 2 Views CLINICAL HISTORY: pain, eval for osteo TECHNIQUE: Frontal and lateral views of the left tibia and fibula. COMPARISON: No relevant prior studies available. FINDINGS: Bones/joints: No focal bone abnormality. No acute fracture. No dislocation. Soft tissues: No radiopaque foreign body. No soft tissue gas. IMPRESSION: No acute findings.
== END 2022-11-27 05:26 | disposition home or self-care (01) ==
LOC: EC 01:56
DX: L03.116 Cellulitis of left lower limb (principal); I87.2 Venous insufficiency (chronic) (peripheral); J45.909 Unspecified asthma, uncomplicated; I10 Essential (primary) hypertension; Z86.711 Personal history of pulmonary embolism; Z79.01 Long term (current) use of anticoagulants; Z79.51 Long term (current) use of inhaled steroids; Z79.899 Other long term (current) drug therapy
CPT/HCPCS: 99283; 96374 ×2; 36415; 80048; 85025; 87070; 87205; 87075; 87077; 87186; 73590; 99284; J1885

== ENCOUNTER 2023-06-07 03:16 | Emergency (ER) | payer BC, OTHER ==
[2023-06-07] MEDS ORDERED: CYCLOBENZAPRINE 10 MG TAB PO STA (03:32)
--- NOTE | 2023-06-07 03:37 | ED ---
General Adult HPI - General Chief complaint: Neck Pain/Injury Stated complaint: Neck Pain Time Seen by Provider: 06/07/23 03:21 Source: patient, RN notes reviewed, old records reviewed Mode of arrival: ambulatory Limitations: no limitations - History of Present Illness Initial comments: 32-year-old male presenting with right-sided lateral neck pain. Patient states that he initially felt that he had slept wrong however the pain progressively worsened throughout the day to the point where his painful to turn his head. He denies a specific injury. Denies fever. Denies chest pain or abdominal pain. Patient has history of previous gastric bypass and cannot take anti- inflammatories. He took a Tylenol with minimal relief. - Related Data Home Medications Medication Instructions Recorded Confirmed Apixaban [Eliquis] 5 mg PO BID 11/11/20 01/02/21 Colchicine 0.6 mg PO DAILY 11/11/20 01/02/21 Naltrexone HCl [Revia] 50 mg PO DAILY 11/11/20 01/02/21 Omeprazole 20 mg PO DAILY PRN 11/11/20 01/02/21 buPROPion HCL [Wellbutrin XL] 300 mg PO DAILY 11/11/20 01/02/21 metFORMIN HCL ER [Glucophage XR] 500 mg PO DAILY 11/11/20 01/02/21 Fluticasone Propion/Salmeterol 1 puff INHALATION RT-BID 12/30/20 01/02/21 [Wixela 500-50 Inhub] Zinc 50 mg PO DAILY 12/30/20 01/02/21 Previous Rx's Medication Instructions Recorded Albuterol Inhaler [Ventolin Hfa 2 puff INHALATION RT-QID PRN #1 11/21/20 Inhaler] puff Ascorbic Acid [Vitamin C] 500 mg PO BID #60 tab 11/21/20 Aspirin 81 mg PO DAILY chew 11/21/20 Cholecalciferol [Vitamin D3 (25 100 mcg PO DAILY #100 tablet 11/21/20 Mcg = 1000 Iu)] cloNIDine HCL [Catapres] 0.1 mg PO TID #90 tab 11/21/20 hydroCHLOROthiazide 25 mg PO DAILY #30 tablet 01/01/21 Sulfamethox-Tmp 800-160Mg [Bactrim 1 tab PO Q12HR 7 Days #14 tab 11/27/22 DS 800-160 mg] Cyclobenzaprine [Flexeril] 10 mg PO HS #3 tab 06/07/23 Allergies Allergy/AdvReac Type Severity Reaction Status Date / Time No Known Allergies Allergy Verified 06/07/23 03:23 Review of Systems ROS Statement: Those systems with pertinent positive or pertinent negative responses have been documented in the HPI. ROS Other: All systems not noted in ROS Statement are negative. Past Medical History Past Medical History: Asthma, Hypertension, Pulmonary Embolus (PE), Sleep Apnea/CPAP/BIPAP Additional Past Medical History / Comment(s): bilateral leg ulcers increase with activity. sleep apnea (uses c-pap machine). PE in March 2020 History of Any Multi-Drug Resistant Organisms: None Reported Past Surgical History: Adenoidectomy, Tonsillectomy Additional Past Surgical History / Comment(s): gastric bypass Past Anesthesia/Blood Transfusion Reactions: No Reported Reaction Past Psychological History: No Psychological Hx Reported Smoking Status: Never smoker Past Alcohol Use History: None Reported Past Drug Use History: None Reported - Past Family History Father Family Medical History: Myocardial Infarction ([place]) Additional Family Medical History / Comment(s): patient states his paternal grandfather also has suffered from one [place]. Mother Family Medical History: No Reported History Additional Family Medical History / Comment(s): Chronic depression General Exam Limitations: no limitations General appearance: alert, in no apparent distress Head exam: Present: atraumatic, normocephalic Eye exam: Present: normal appearance, PERRL ENT exam: Present: normal exam Neck exam: Present: normal inspection, tenderness, other (Pain on the lateral cervical paraspinal and trapezius muscles on the right.). Absent: meningismus Respiratory exam: Present: normal lung sounds bilaterally. Absent: respiratory distress, wheezes, rales Cardiovascular Exam: Present: regular rate, normal rhythm GI/Abdominal exam: Present: soft. Absent: distended, tenderness, guarding Extremities exam: Present: other (Normal safety and health manager strength, normal pulses on the right upper extremity) Neurological exam: Present: alert, oriented X3, CN II-XII intact, normal gait. Absent: motor sensory deficit Psychiatric exam: Present: normal affect, normal mood Skin exam: Present: warm, dry, intact Course Vital Signs 06/07/23 03:21 Temperature 98.9 F Pulse Rate 70 Respiratory 18 Rate Blood Pressure 150/97 O2 Sat by Pulse 97 Oximetry Medical Decision Making - Medical Decision Making Was pt. sent in by a medical professional or institution (, PA, HELICOPTER SPECIALIST, urgent care, hospital, or half-way...) When possible be specific @ -No Did you speak to anyone other than the patient for history (EMS, parent, family, police, friend...)? What history was obtained from this source @ -No Did you review nursing and triage notes (agree or disagree)? Why? @ -I reviewed and agree with nursing and triage notes Were old charts reviewed (outside hosp., previous admission, EMS record, old EKG, old radiological studies, urgent care reports/EKG's, half-way records)? Report findings @ -No old charts were reviewed Differential Diagnosis (chest pain, altered mental status, abdominal pain women, abdominal pain men, vaginal bleeding, weakness, fever, dyspnea, syncope, headache, dizziness, GI bleed, back pain, seizure, CVA, palpatations, mental health, musculoskeletal)? @ -Differential Musculoskeletal Muscular strain, contusion, ligament sprain, fracture, arthritis, septic arthritis, bursitis, cellulitis, muscle spasm, nerve compression, DVT, arterial occlusion, herpes zoster, electrolyte abnormality, tumor.... This is not meant to be in all inclusive list EKG interpreted by me (3pts min.). @ -As above X-rays interpreted by me (1pt min.). @ -None done CT interpreted by me (1pt min.). @ -None done U/S interpreted by me (1pt. min.). @ -None done What testing was considered but not performed or refused? (CT, X-rays, U/S, labs)? Why? @ -None What meds were considered but not given or refused? Why? @ -None Did you discuss the management of the patient with other professionals (professionals i.e. , PA, HELICOPTER SPECIALIST, lab, RT, psych nurse, executive secretary social welfare, clothes separator, teacher, chief science officer, employment evaluator/case manager)? Give summary @ -No Was smoking cessation discussed for >3mins.? @ -No Was critical care preformed (if so, how long)? @ -No Were there social determinants of health that impacted care today? How? (Homelessness, low income, unemployed, alcoholism, drug addiction, transportation, low edu. Level, literacy, decrease access to med. care, detention, rehab)? @ -No Was there de-escalation of care discussed even if they declined (Discuss DNR or withdrawal of care, Hospice)? DNR status @ -No What co-morbidities impacted this encounter? (DM, HTN, Smoking, COPD, CAD, Cancer, CVA, ARF, Chemo, Hep., AIDS, mental health diagnosis, sleep apnea, morbid obesity)? @ -[Previous gastric bypass Was patient admitted / discharged? Hospital course, mention meds given and route, prescriptions, significant lab abnormalities, going to OR and other pertinent info. @ -[32-year-old male with musculoskeletal neck pain in the cervical paraspinal and trapezius muscles on the right. No injury. No radicular symptoms. Patient will continue Tylenol and Flexeril will be prescribed. He will follow-up with his doctor the next 24 hours. Return parameters discussed. Undiagnosed new problem with uncertain prognosis? @ -No Drug Therapy requiring intensive monitoring for toxicity (Heparin, Nitro, Insulin, Cardizem)? @ -No Were any procedures done? @ -No Diagnosis/symptom? @Neck pain Acute, or Chronic, or Acute on Chronic? @Acute Uncomplicated (without systemic symptoms) or Complicated (systemic symptoms)? @ -default Side effects of treatment? @ -No Exacerbation, Progression, or Severe Exacerbation? @ -No Poses a threat to life or bodily function? How? (Chest pain, [place], [place], pneumonia, PE, COPD, DKA, ARF, appy, cholecystitis, CVA, Diverticulitis, Homicidal, Suicidal, threat to staff... and all critical care pts) @ -No Disposition Clinical Impression: Neck pain on right side Disposition: HOME SELF-CARE Condition: Good Instructions (If sedation given, give patient instructions): Cervical Strain (ED) Prescriptions: Cyclobenzaprine [Flexeril] 10 mg PO HS #3 tab Is patient prescribed a controlled substance at d/c from ED?: No Referrals: Jairon Dominguez MD [Primary Care Provider] - 1-2 days Time of Disposition: 03:37
[2023-06-07 03:39] VITALS: BP 150/97; PULSE 70; RESP 18; TEMP 98.9
== END 2023-06-07 03:55 | disposition home or self-care (01) ==
LOC: EC 03:16
DX: M54.2 Cervicalgia (principal); I10 Essential (primary) hypertension; J45.909 Unspecified asthma, uncomplicated; G47.30 Sleep apnea, unspecified; Z79.01 Long term (current) use of anticoagulants; Z79.51 Long term (current) use of inhaled steroids; Z86.711 Personal history of pulmonary embolism; Z79.899 Other long term (current) drug therapy
CPT/HCPCS: 99283

== ENCOUNTER 2023-06-11 01:37 | Emergency (ER) | payer BC ==
[2023-06-11 02:29] VITALS: PULSE 76; RESP 18; TEMP 98
[2023-06-11] MEDS ORDERED: ACETAMINOPHEN TAB 325 MG TAB PO STA (06:18)
[2023-06-11] MEDS ORDERED: CYCLOBENZAPRINE 10 MG TAB PO STA (06:18)
--- NOTE | 2023-06-11 06:55 | ED ---
General Adult HPI - General Chief complaint: Neck Pain/Injury Stated complaint: Neck Pain Time Seen by Provider: 06/11/23 06:15 Source: patient, RN notes reviewed Mode of arrival: ambulatory Limitations: no limitations - History of Present Illness Initial comments: 32-year-old male with no significant past medical history presents the emergency department with a chief complaint of neck pain. Patient was recently here on 06/07/2023. He reports persistent neck pain. He denies any new symptoms including numbness, tingling, weakness in extremities. Denies any new trauma or injury. Patient was only given 3 days of Flexeril and has run out. He has not been taking taking anything for his symptoms at home. - Related Data Home Medications Medication Instructions Recorded Confirmed Apixaban [Eliquis] 5 mg PO BID 11/11/20 01/02/21 Colchicine 0.6 mg PO DAILY 11/11/20 01/02/21 Naltrexone HCl [Revia] 50 mg PO DAILY 11/11/20 01/02/21 Omeprazole 20 mg PO DAILY PRN 11/11/20 01/02/21 buPROPion HCL [Wellbutrin XL] 300 mg PO DAILY 11/11/20 01/02/21 metFORMIN HCL ER [Glucophage XR] 500 mg PO DAILY 11/11/20 01/02/21 Fluticasone Propion/Salmeterol 1 puff INHALATION RT-BID 12/30/20 01/02/21 [Wixela 500-50 Inhub] Zinc 50 mg PO DAILY 12/30/20 01/02/21 Previous Rx's Medication Instructions Recorded Albuterol Inhaler [Ventolin Hfa 2 puff INHALATION RT-QID PRN #1 11/21/20 Inhaler] puff Ascorbic Acid [Vitamin C] 500 mg PO BID #60 tab 11/21/20 Aspirin 81 mg PO DAILY chew 11/21/20 Cholecalciferol [Vitamin D3 (25 100 mcg PO DAILY #100 tablet 11/21/20 Mcg = 1000 Iu)] cloNIDine HCL [Catapres] 0.1 mg PO TID #90 tab 11/21/20 hydroCHLOROthiazide 25 mg PO DAILY #30 tablet 01/01/21 Sulfamethox-Tmp 800-160Mg [Bactrim 1 tab PO Q12HR 7 Days #14 tab 11/27/22 DS 800-160 mg] Cyclobenzaprine [Flexeril] 10 mg PO HS #3 tab 06/07/23 Cyclobenzaprine [Flexeril] 10 mg PO TID PRN #15 tab 06/11/23 Allergies Allergy/AdvReac Type Severity Reaction Status Date / Time No Known Allergies Allergy Verified 06/11/23 02:09 Review of Systems ROS Statement: Those systems with pertinent positive or pertinent negative responses have been documented in the HPI. ROS Other: All systems not noted in ROS Statement are negative. Past Medical History Past Medical History: Asthma, Hypertension, Pulmonary Embolus (PE), Sleep Apnea/CPAP/BIPAP Additional Past Medical History / Comment(s): bilateral leg ulcers increase with activity. sleep apnea (uses c-pap machine). PE in March 2020 History of Any Multi-Drug Resistant Organisms: None Reported Past Surgical History: Adenoidectomy, Tonsillectomy Additional Past Surgical History / Comment(s): gastric bypass Past Anesthesia/Blood Transfusion Reactions: No Reported Reaction Past Psychological History: No Psychological Hx Reported Smoking Status: Never smoker Past Alcohol Use History: None Reported Past Drug Use History: None Reported - Past Family History Father Family Medical History: Myocardial Infarction ([place]) Additional Family Medical History / Comment(s): patient states his paternal grandfather also has suffered from one [place]. Mother Family Medical History: No Reported History Additional Family Medical History / Comment(s): Chronic depression General Exam - General Exam Comments Initial Comments: General: Alert, in no acute distress Head: atraumatic normocephalic. Eyes PERRL, EOMI intact, mucous membranes moist Respiratory: Lungs clear to auscultation bilaterally Cardiovascular: Heart rate regular rate and rhythm Abdominal: Soft without guarding or rebound Extremities: Normal inspection with full range of motion and normal capillary refill Neuroogic: alert and oriented 3, CN II-XII intact, able to ambulate with steady gait Skin: warm dry and intact with normal color Limitations: no limitations Course Vital Signs 06/11/23 06/11/23 02:09 06:52 Temperature 98 F Pulse Rate 76 76 Respiratory 18 18 Rate Blood Pressure 143/90 122/77 O2 Sat by Pulse 98 97 Oximetry Medical Decision Making - Medical Decision Making Was pt. sent in by a medical professional or institution (, PA, CLAY DIGGER, urgent care, hospital, or alf...) When possible be specific @ -[No] Did you speak to anyone other than the patient for history (EMS, parent, family, police, friend...)? What history was obtained from this source @ -[No] Did you review nursing and triage notes (agree or disagree)? Why? @ -[I reviewed and agree with nursing and triage notes] Were old charts reviewed (outside hosp., previous admission, EMS record, old EKG, old radiological studies, urgent care reports/EKG's, alf records)? Report findings @ -[No old charts were reviewed] Differential Diagnosis (chest pain, altered mental status, abdominal pain women, abdominal pain men, vaginal bleeding, weakness, fever, dyspnea, syncope, headache, dizziness, GI bleed, back pain, seizure, CVA, palpatations, mental health, musculoskeletal)? @ -[not applicable] EKG interpreted by me (3pts min.). @ -[As above] X-rays interpreted by me (1pt min.). @ -[None done] CT interpreted by me (1pt min.). @ -[None done] U/S interpreted by me (1pt. min.). @ -[None done] What testing was considered but not performed or refused? (CT, X-rays, U/S, labs)? Why? @ -X-rays were considered however patient denies no new injury or symptoms. What meds were considered but not given or refused? Why? @ -[None] Did you discuss the management of the patient with other professionals (professionals i.e. , PA, CLAY DIGGER, lab, RT, psych nurse, health care social worker, scarfer operator, teacher, residential care officer, case planner)? Give summary @ -[No] Was smoking cessation discussed for >3mins.? @ -[No] Was critical care preformed (if so, how long)? @ -[No] Were there social determinants of health that impacted care today? How? (Homelessness, low income, unemployed, alcoholism, drug addiction, transportation, low edu. Level, literacy, decrease access to med. care, alf, rehab)? @ -[No] Was there de-escalation of care discussed even if they declined (Discuss DNR or withdrawal of care, Hospice)? DNR status @ -[No] What co-morbidities impacted this encounter? (DM, HTN, Smoking, COPD, CAD, Ca ncer, CVA, ARF, Chemo, Hep., AIDS, mental health diagnosis, sleep apnea, morbid obesity)? @ -[None] Was patient admitted / discharged? Hospital course, mention meds given and route, prescriptions, significant lab abnormalities, going to OR and other pertinent info. @ -Discharged. This is a 32-year-old male presents the emergency department with neck pain. Patient had a thorough history and physical exam performed. Physical exam essentially unremarkable. Heart rate regular rate and rhythm, patient was provided Flexeril and Motrin with symptomatic treatment. Return precautions. Patient discharged in stable condition. Case is discussed with Dr. Napier Theodore who agrees with plan of care Undiagnosed new problem with uncertain prognosis? @ -[No] Drug Therapy requiring intensive monitoring for toxicity (Heparin, Nitro, Insulin, Cardizem)? @ -[No] Were any procedures done? @ -[No] Diagnosis/symptom? @ -Neck Pain Acute, or Chronic, or Acute on Chronic? @ -Acute Uncomplicated (without systemic symptoms) or Complicated (systemic symptoms)? @ -Uncomplicated Side effects of treatment? @ -[No] Exacerbation, Progression, or Severe Exacerbation? @ -[No] Poses a threat to life or bodily function? How? (Chest pain, [place], [place], pneumonia, PE, COPD, DKA, ARF, appy, cholecystitis, CVA, Diverticulitis, Homicidal, Suicidal, threat to staff... and all critical care pts) @ -Low likelihood Disposition Clinical Impression: Strain of neck muscle Disposition: HOME SELF-CARE Condition: Stable Instructions (If sedation given, give patient instructions): Cervical Strain (ED) Additional Instructions: Please continue to take Tylenol or Flexeril at home for pain Please return to the nearest emergency department if worsening symptoms Prescriptions: Cyclobenzaprine [Flexeril] 10 mg PO TID PRN #15 tab PRN Reason: Muscle Spasm Is patient prescribed a controlled substance at d/c from ED?: No Referrals: Jairon Dominguez MD [Primary Care Provider] - 1-2 days Time of Disposition: 06:54
[2023-06-11 07:01] VITALS: BP 122/77
== END 2023-06-11 07:01 | disposition home or self-care (01) ==
LOC: EC 01:37
DX: S16.1XXA Strain of muscle, fascia and tendon at neck level, initial encounter (principal); I10 Essential (primary) hypertension; J45.909 Unspecified asthma, uncomplicated; Z79.01 Long term (current) use of anticoagulants; Z79.899 Other long term (current) drug therapy; Z86.711 Personal history of pulmonary embolism; X58.XXXA Exposure to other specified factors, initial encounter
CPT/HCPCS: 99283

== ENCOUNTER 2023-10-08 10:59 | Emergency (ER) | payer BC ==
[2023-10-08] MEDS ORDERED: IOPAMIDOL CONTRAST (ORAL USE) VIAL PO PRN (11:28)
[2023-10-08 11:32] VITALS: BP 137/87; TEMP 98.4
[2023-10-08] MEDS: METOCLOPRAMIDE 5 MG/ML 2 ML VIAL IVP STA (11:44)
[2023-10-08] MEDS: SODIUM CHLORIDE 0.9% 2,000 ML IV STA (11:44)
[2023-10-08 11:55] LABS: Basophils % (A) 1 %; Eosinophils # (A) 0.1 k/uL (0-0.7); Eosinophils % (A) 2 %; HCT 47.2 % (39.0-53.0); HGB 14.9 gm/dL (13.0-17.5); Lymphocytes # (A) 1.6 k/uL (1.0-4.8); Lymphocytes % (A) 22 %; MCH 28.9 pg (25.0-35.0); MCHC 31.5 g/dL (31.0-37.0); MCV 91.7 fL (80.0-100.0); Mean Platelet Volume 7.3; Monocytes # (A) 0.6 k/uL (0-1.0); Monocytes % (A) 9 %; Neutrophils # (A) 4.5 k/uL (1.3-7.7); Neutrophils % (A) 64 %; Platelet Count 285 k/uL (150-450); RBC 5.14 m/uL (4.30-5.90)
[2023-10-08 12:15] LABS: ALT 25 U/L (4-49); AST 29 U/L (17-59); African American GFR (CKD) >90 (>60 ml/min/1.73 sqM); Albumin 4.4 g/dL (3.5-5.0); Alkaline Phosphatase 74 U/L (38-126); Anion Gap 8 mmol/L; Blood Urea Nitrogen 20 mg/dL (9-20); Calcium 9.4 mg/dL (8.4-10.2); Carbon Dioxide 27 mmol/L (22-30); Chloride 107 mmol/L (98-107); Glucose 92 mg/dL (74-99); Lipase 60 U/L (23-300); Non-African American GFR(CKD) >90 (>60 ml/min/1.73 sqM); Potassium 4.1 mmol/L (3.5-5.1); Sodium 142 mmol/L (137-145); Total Bilirubin 0.7 mg/dL (0.2-1.3)
--- NOTE | 2023-10-08 13:30 | CT ---
EXAMINATION TYPE: CT abdomen pelvis w con DATE OF EXAM: 10/08/2023 COMPARISON: 03/25/2022 HISTORY: Abdominal pain, bariatric surgery April 2023 CT DLP: 2610.1 mGycm Automated exposure control for dose reduction was used. TECHNIQUE: Helical acquisition of images was performed from the lung bases through the pelvis. CONTRAST: Performed with Oral Contrast and with IV Contrast, patient injected with 100 ml mL of Isovue 300. FINDINGS: The lung bases are clear. The gallbladder is normal without distention, wall thickening, pericholecystic fluid or gallstones. T here is no biliary ductal dilatation. There is postsurgical change involving the patella consistent with history of bariatric surgery. There is no focal mass or organomegaly involving the liver, pancreas, spleen or adrenal glands. There is no solid renal mass or hydronephrosis and there is homogeneous contrast enhancement of the r enal parenchyma. The caliber the abdominal aorta is normal is no retroperitoneal adenopathy or hemorr rickye. The bowel loops are normal in caliber and there is no evidence of dilatation or obstruction. No infla mmatory changes are identified in the bowel wall or mesentery. There is no free intraperitoneal air or fluid. No pelvic mass, free fluid, abscess or adenopathy. The osseous structures and soft tissues are intact. IMPRESSION: No significant abnormality seen.
--- NOTE | 2023-10-08 13:45 | ED ---
Abdominal Pain HPI - General Chief Complaint: Abdominal Pain Stated Complaint: abd pain Time Seen by Provider: 10/08/23 11:18 Source: patient, family, RN notes reviewed Mode of arrival: wheelchair Limitations: no limitations - History of Present Illness Initial Comments: 33-year-old male presents emergency department chief complaint of abdominal pain, nausea vomiting. Patient states he suddenly had the urge of nausea and vomiting today states that he saw some red specks within his emesis and was concerned. He had gastric bypass surgery in April of last year. States the pain is subsiding and nausea has improved some no fevers or chills no chest pain no back pain no other complaints. - Related Data Home Medications Medication Instructions Recorded Confirmed Apixaban [Eliquis] 5 mg PO BID 11/11/20 01/02/21 Colchicine 0.6 mg PO DAILY 11/11/20 01/02/21 Naltrexone HCl [Revia] 50 mg PO DAILY 11/11/20 01/02/21 Omeprazole 20 mg PO DAILY PRN 11/11/20 01/02/21 buPROPion HCL [Wellbutrin XL] 300 mg PO DAILY 11/11/20 01/02/21 metFORMIN HCL ER [Glucophage XR] 500 mg PO DAILY 11/11/20 01/02/21 Fluticasone Propion/Salmeterol 1 puff INHALATION RT-BID 12/30/20 01/02/21 [Wixela 500-50 Inhub] Zinc 50 mg PO DAILY 12/30/20 01/02/21 Previous Rx's Medication Instructions Recorded Albuterol Inhaler [Ventolin Hfa 2 puff INHALATION RT-QID PRN #1 11/21/20 Inhaler] puff Ascorbic Acid [Vitamin C] 500 mg PO BID #60 tab 11/21/20 Aspirin 81 mg PO DAILY chew 11/21/20 Cholecalciferol [Vitamin D3 (25 100 mcg PO DAILY #100 tablet 11/21/20 Mcg = 1000 Iu)] cloNIDine HCL [Catapres] 0.1 mg PO TID #90 tab 11/21/20 hydroCHLOROthiazide 25 mg PO DAILY #30 tablet 01/01/21 Sulfamethox-Tmp 800-160Mg [Bactrim 1 tab PO Q12HR 7 Days #14 tab 11/27/22 DS 800-160 mg] Cyclobenzaprine [Flexeril] 10 mg PO HS #3 tab 06/07/23 Cyclobenzaprine [Flexeril] 10 mg PO TID PRN #15 tab 06/11/23 Ondansetron Odt [Zofran Odt] 4 mg PO Q8HR PRN #10 tab 10/08/23 Allergies Allergy/AdvReac Type Severity Reaction Status Date / Time No Known Allergies Allergy Verified 06/11/23 02:09 Review of Systems ROS Statement: Those systems with pertinent positive or pertinent negative responses have been documented in the HPI. ROS Other: All systems not noted in ROS Statement are negative. Past Medical History Past Medical History: Asthma, Hypertension, Pulmonary Embolus (PE), Sleep Apnea/CPAP/BIPAP Additional Past Medical History / Comment(s): bilateral leg ulcers increase with activity. sleep apnea (uses c-pap machine). PE in March 2020 History of Any Multi-Drug Resistant Organisms: None Reported Past Surgical History: Adenoidectomy, Bariatric Surgery, Tonsillectomy Additional Past Surgical History / Comment(s): gastric bypass Past Anesthesia/Blood Transfusion Reactions: No Reported Reaction Past Psychological History: No Psychological Hx Reported Smoking Status: Never smoker Past Alcohol Use History: None Reported Past Drug Use History: None Reported - Past Family History Father Family Medical History: Myocardial Infarction ([place]) Additional Family Medical History / Comment(s): patient states his paternal g randfather also has suffered from one [place]. Mother Family Medical History: No Reported History Additional Family Medical History / Comment(s): Chronic depression General Exam Limitations: no limitations General appearance: alert, in no apparent distress Head exam: Present: atraumatic, normocephalic, normal inspection Eye exam: Present: normal appearance, PERRL, EOMI. Absent: scleral icterus, conjunctival injection, periorbital swelling Respiratory exam: Present: normal lung sounds bilaterally. Absent: respiratory distress, wheezes, rales, rhonchi, stridor Cardiovascular Exam: Present: regular rate, normal rhythm, normal heart sounds. Absent: systolic murmur, diastolic murmur, rubs, gallop, clicks GI/Abdominal exam: Present: soft, tenderness (Abdominal tenderness primarily epigastric region), normal bowel sounds. Absent: distended, guarding, rebound, rigid Course Vital Signs 10/08/23 10/08/23 11:13 13:48 Temperature 98.4 F Pulse Rate 76 77 Respiratory 16 18 Rate Blood Pressure 137/87 O2 Sat by Pulse 98 96 Oximetry Medical Decision Making - Medical Decision Making Was pt. sent in by a medical professional or institution ([facility]ATE[facility] Dee, INFORMATION CLERK [employer], urgent care, hospital, or skilled nursing...) When possible be specific @ -No Did you speak to anyone other than the patient for history (EMS, parent, family, police, friend...)? What history was obtained from this source @ -No Did you review nursing and triage notes (agree or disagree)? Why? @ -I reviewed and agree with nursing and triage notes Were old charts reviewed (outside hosp., previous admission, EMS record, old EKG, old radiological studies, urgent care reports/EKG's, skilled nursing records)? Report findings @ -No old charts were reviewed Differential Diagnosis (chest pain, altered mental status, abdominal pain women, abdominal pain men, vaginal bleeding, weakness, fever, dyspnea, syncope, headache, dizziness, GI bleed, back pain, seizure, CVA, palpatations, mental health, musculoskeletal)? @ -Differential Abdominal Pain Men: Appendicitis, cholecystitis, diverticulosis, ischemic bowel, pancreatitis, hepatitis, UTI, gastroenteritis, AAA, incarcerated hernia, bowel obstruction, constipation, inflammatory bowel, hepatitis, peptic ulcer disease, splenic infa rction, perforated viscus, testicular torsion, this is not meant to be an all- inclusive list EKG interpreted by me (3pts min.). @ -None X-rays interpreted by me (1pt min.). @ -None done CT interpreted by me (1pt min.). @ -CT abdomen pelvis showing evidence of postsurgical changes no acute process otherwise U/S interpreted by me (1pt. min.). @ -None done What testing was considered but not performed or refused? (CT, X-rays, U/S, labs)? Why? @ -None What meds were considered but not given or refused? Why? @ -None Did you discuss the management of the patient with other professionals (professionals i.e. MATEUS Dee, INFORMATION CL[employer], lab, RT, psych nurse, web content & social media manager, peripheral equipment operator, teacher, senior officer, heel caser)? Give summary @ -No Was smoking cessation discussed for >3mins.? @ -No Was critical care preformed (if so, how long)? @ -No Were there social determinants of health that impacted care today? How? (Homelessness, low income, unemployed, alcoholism, drug addiction, transportation, low edu. Level, literacy, decrease access to med. care, alf, rehab)? @ -No Was there de-escalation of care discussed even if they declined (Discuss DNR or withdrawal of care, Hospice)? DNR status @ -No What co-morbidities impacted this encounter? (DM, HTN, Smoking, COPD, CAD, Cancer, CVA, ARF, Chemo, Hep., AIDS, mental health diagnosis, sleep apnea, morbid obesity)? @ -None Was patient admitted / discharged? Hospital course, mention meds given and route, prescriptions, significant lab abnormalities, going to OR and other pertinent info. @ -Discharge patient updated on laboratory studies which were unremarkable and CT showing no acute findings. Patient states symptoms are resolved we discharged in stable condition he will take Pepcid for the next week and follow- up with his surgeon. Undiagnosed new problem with uncertain prognosis? @ -No Drug Therapy requiring intensive monitoring for toxicity (Heparin, Nitro, Insulin, Cardizem)? @ -No Were any procedures done? @ -No Diagnosis/symptom? @ -Abdominal pain, nausea vomiting Acute, or Chronic, or Acute on Chronic? @ -Acute Uncomplicated (without systemic symptoms) or Complicated (systemic symptoms)? @ -Uncomplicated Side effects of treatment? @ -No Exacerbation, Progression, or Severe Exacerbation? @ -No Poses a threat to life or bodily function? How? (Chest pain, [place], [place], pneumonia, PE, COPD, DKA, ARF, appy, cholecystitis, CVA, Diverticulitis, Homicidal, Suicidal, threat to staff... and all critical care pts) @ -No - Lab Data Result diagrams: 10/08/23 11:49 10/08/23 11:49 Lab Results 10/08/23 10/08/23 10/08/23 Range/Units 11:49 11:49 11:49 WBC 7.0 (3.8-10.6) k/uL RBC 5.14 (4.30-5.90) m/uL Hgb 14.9 (13.0-17.5) gm/dL Hct 47.2 (39.0-53.0) % MCV 91.7 (80.0-100.0) fL MCH 28.9 (25.0-35.0) pg MCHC 31.5 (31.0-37.0) g/dL RDW 14.0 (11.5-15.5) % Plt Count 285 (150-450) k/uL MPV 7.3 Neutrophils % 64 % Lymphocytes % 22 % Monocytes % 9 % Eosinophils % 2 % Basophils % 1 % Neutrophils # 4.5 (1.3-7.7) k/uL Lymphocytes # 1.6 (1.0-4.8) k/uL Monocytes # 0.6 (0-1.0) k/uL Eosinophils # 0.1 (0-0.7) k/uL Basophils # 0.0 (0-0.2) k/uL Sodium 142 (137-145) mmol/L Potassium 4.1 (3.5-5.1) mmol/L Chloride 107 (98-107) mmol/L Carbon Dioxide 27 (22-30) mmol/L Anion Gap 8 mmol/L BUN 20 (9-20) mg/dL Creatinine 0.54 L (0.66-1.25) mg/dL Est GFR (CKD-EPI)AfAm >90 (>60 ml/min/1.73 sqM) Est GFR (CKD-EPI)NonAf >90 (>60 ml/min/1.73 sqM) Glucose 92 (74-99) mg/dL Plasma Lactic Acid Juan 1.1 (0.7-2.0) mmol/L Calcium 9.4 (8.4-10.2) mg/dL Total Bilirubin 0.7 (0.2-1.3) mg/dL AST 29 (17-59) U/L ALT 25 (4-49) U/L Alkaline Phosphatase 74 (38-126) U/L Total Protein 8.0 (6.3-8.2) g/dL Albumin 4.4 (3.5-5.0) g/dL Lipase 60 (23-300) U/L Disposition Clinical Impression: Abdominal pain Disposition: HOME SELF-CARE Condition: Stable Instructions (If sedation given, give patient instructions): Abdominal Pain (ED) Additional Instructions: Please return to the Emergency Department if symptoms worsen or any other concerns. Prescriptions: Ondansetron Odt [Zofran Odt] 4 mg PO Q8HR PRN #10 tab PRN Reason: Nausea Is patient prescribed a controlled substance at d/c from ED?: No Referrals: Jairon Dominguez MD [Primary Care Provider] - 1-2 days Time of Disposition: 13:45
[2023-10-08 13:56] VITALS: PULSE 77; RESP 18
== END 2023-10-08 13:59 | disposition home or self-care (01) ==
LOC: EC 10:59
DX: R10.13 Epigastric pain (principal); R11.2 Nausea with vomiting, unspecified
CPT/HCPCS: 36415; 80053; 83605; 83690; 85025; 74177; 99284; 96374; 96361 ×2; J2765; Q9967

== ENCOUNTER 2024-03-17 10:38 | Emergency (ER) | payer BC, OTHER ==
[2024-03-17 10:49] VITALS: TEMP 98.1
--- NOTE | 2024-03-17 10:53 | ED ---
General Adult HPI - General Chief complaint: Dizziness Stated complaint: dizziness Time Seen by Provider: 03/17/24 10:51 Source: patient Mode of arrival: ambulatory Limitations: no limitations - History of Present Illness Initial comments: Patient is a 33-year-old male, Past medical history of asthma, hypertension, sleep apnea chronic bilateral leg ulcers presenting for dizziness. Patient felt fine when he woke up this morning and was sitting at his desk at work when he had sudden onset dizziness. Described it as room spinning, "feeling "like when he has a low blood sugar". This has happened in the past but has not happened for some time. While sitting in the waiting room awaiting for assessment he began to have a dull headache. He has never had dizziness associated with a headache. Denies any new visual field changes, slurred speech, new numbness or weakness. Dizziness began improving while sitting in the waiting room waiting for assessment. No fevers, no neck pain. Patient is on Eliquis for prior PE. No history of strokes. Denies chest pain or shortness of breath. No nausea vomiting or diarrhea. No black or bloody stools. - Related Data Home Medications Medication Instructions Recorded Confirmed Apixaban [Eliquis] 5 mg PO BID 11/11/20 01/02/21 Colchicine 0.6 mg PO DAILY 11/11/20 01/02/21 Naltrexone HCl [Revia] 50 mg PO DAILY 11/11/20 01/02/21 Omeprazole 20 mg PO DAILY PRN 11/11/20 01/02/21 buPROPion HCL [Wellbutrin XL] 300 mg PO DAILY 11/11/20 01/02/21 metFORMIN HCL ER [Glucophage XR] 500 mg PO DAILY 11/11/20 01/02/21 Fluticasone Propion/Salmeterol 1 puff INHALATION RT-BID 12/30/20 01/02/21 [Wixela 500-50 Inhub] Zinc 50 mg PO DAILY 12/30/20 01/02/21 Previous Rx's Medication Instructions Recorded Albuterol Inhaler [Ventolin Hfa 2 puff INHALATION RT-QID PRN #1 11/21/20 Inhaler] puff Ascorbic Acid [Vitamin C] 500 mg PO BID #60 tab 11/21/20 Aspirin 81 mg PO DAILY chew 11/21/20 Cholecalciferol [Vitamin D3 (25 100 mcg PO DAILY #100 tablet 11/21/20 Mcg = 1000 Iu)] cloNIDine HCL [Catapres] 0.1 mg PO TID #90 tab 11/21/20 hydroCHLOROthiazide 25 mg PO DAILY #30 tablet 01/01/21 Sulfamethox-Tmp 800-160Mg [Bactrim 1 tab PO Q12HR 7 Days #14 tab 11/27/22 DS 800-160 mg] Cyclobenzaprine [Flexeril] 10 mg PO HS #3 tab 06/07/23 Cyclobenzaprine [Flexeril] 10 mg PO TID PRN #15 tab 06/11/23 Ondansetron Odt [Zofran Odt] 4 mg PO Q8HR PRN #10 tab 10/08/23 Magnesium Oxide [Mag-Oxide] 200 mg PO DAILY #3 tablet 03/17/24 Allergies Allergy/AdvReac Type Severity Reaction Status Date / Time No Known Allergies Allergy Verified 03/17/24 10:48 Review of Systems ROS Statement: Those systems with pertinent positive or pertinent negative responses have been documented in the HPI. ROS Other: All systems not noted in ROS Statement are negative. Past Medical History Past Medical History: Asthma, Hypertension, Pulmonary Embolus (PE), Sleep Apnea/CPAP/BIPAP Additional Past Medical History / Comment(s): bilateral leg ulcers increase with activity. sleep apnea (uses c-pap machine). PE in March 2020 History of Any Multi-Drug Resistant Organisms: None Reported Past Surgical History: Adenoidectomy, Bariatric Surgery, Tonsillectomy Additional Past Surgical History / Comment(s): gastric bypass Past Anesthesia/Blood Transfusion Reactions: No Reported Reaction Past Psychological History: No Psychological Hx Reported Smoking Status: Never smoker Past Alcohol Use History: None Reported Past Drug Use History: None Reported - Past Family History Father Family Medical History: Myocardial Infarction ([place]) Additional Family Medical History / Comment(s): patient states his paternal grandfather also has suffered from one [place]. Mother Family Medical History: No Reported History Additional Family Medical History / Comment(s): Chronic depression General Exam Limitations: no limitations Course Vital Signs 03/17/24 03/17/24 10:47 14:51 Temperature 98.1 F Pulse Rate 59 L 57 L Respiratory 20 18 Rate Blood Pressure 136/87 140/91 O2 Sat by Pulse 99 97 Oximetry EKG Findings - EKG Comments: EKG Findings:: EKG #1 performed at 1210. Sinus rhythm with sinus arrhythmia. Rate 65 bpm, WA interval 158 ms, QRS duration 133 ms, QT/QTc 383/24 ms, borderline left axis deviation. Repeat EKG performed in error, sinus bradycardia with arrhythmia. Rate neck 49 bpm. WA interval 159 ms, QRS duration 103 ms, QT/QTc 441/412 no significant changes from earlier Medical Decision Making - Medical Decision Making Was pt. sent in by a medical professional or institution (, PA, MEMS INTEGRATION ENGINEER, urgent care, hospital, or [facility]...) When possible be specific @ -No Did you speak to anyone other than the patient for history (EMS, parent, family, police, friend...)? What history was obtained from this source @ -No Did you review nursing and triage notes (agree or disagree)? Why? @ -I reviewed and agree with nursing and triage notes-patient here for dizziness Were old charts reviewed (outside hosp., previous admission, EMS record, old EKG, old radiological studies, urgent care reports/EKG's, [facility] records)? Report findings @ -Patient in the ED in September 2023 for nausea vomiting abdominal pain, CT at that time just showed postsurgical changes Differential Diagnosis (chest pain, altered mental status, abdominal pain women, abdominal pain men, vaginal bleeding, weakness, fever, dyspnea, syncope, headache, dizziness, GI bleed, back pain, seizure, CVA, palpatations, mental health, musculoskeletal)? @ -Differential Dizziness: Benign paroxysmal positional Vertigo, Meniere's disease, vertebrobasilar insufficiency, cerebellar stroke, hypoglycemia hypovolemic, arrhythmia, coronary artery syndrome, anemia, this is not meant to be an all-inclusive list EKG interpreted by me (3pts min.). @ -As above X-rays interpreted by me (1pt min.). @ -Chest x-ray shows no cardiomegaly, consolidations, effusions or other acute process CT interpreted by me (1pt min.). @ -I see no evidence of hemorrhage or mass effect U/S interpreted by me (1pt. min.). @ -None done What testing was considered but not performed or refused? (CT, X-rays, U/S, labs)? Why? @ -None What meds were considered but not given or refused? Why? @ -None Did you discuss the management of the patient with other professionals (professionals i.e. , PA, MEM[employer] INTEGRATION ENGINEER, lab, RT, psych nurse, social welfare administrator, credit controller, teacher, zoology technical officer, disease case manager)? Give summary @ -No Was smoking cessation discussed for >3mins.? @ -No Was critical care preformed (if so, how long)? @ -No Were there social determinants of health that impacted care today? How? (Homelessness, low income, unemployed, alcoholism, drug addiction, transportati on, low edu. Level, literacy, decrease access to med. care, nursing home, rehab)? @ -No Was there de-escalation of care discussed even if they declined (Discuss DNR or withdrawal of care, Hospice)? DNR status @ -No What co-morbidities impacted this encounter? (DM, HTN, Smoking, COPD, CAD, Cancer, CVA, ARF, Chemo, Hep., AIDS, mental health diagnosis, sleep apnea, morbid obesity)? @ -None Was patient admitted / discharged? Hospital course, mention meds given and route, prescriptions, significant lab abnormalities, going to OR and other pertinent info. @ -Hospital course Patient is a 33-year-old male past medical history diabetes prior PE on Eliquis presenting today for dizziness. Now improving. No focal neurologic deficits on exam. Fatigable horizontal nystagmus noted. Will obtain CT brain given associated headache and patient stating that he has not had dizziness accompanied by a PARADA in the past. Will obtain EKG, troponin, basic labs, mag level, give meclizine and IV fluids. Negative for acute process. CBC reassuring. One EKG was ordered however one EKG was done while patient was in triage so second was performed. Repeat EKG did show sinus arrythmia with QTc 412. Patient is now asymptomatic and comfortable with discharge. Will give oral magnesium and prescribe outpatient supplement for magnesium for borderline prlonged QTc. Since patient is now asymptomatic I do not feel that this is contributing to patient's presentation today. Discussed with patient the importance of foll owing up with cardiology regarding sinus arrhythmia. We discussed signs symptoms warranting return to the ER. Patient comfortable and agreeable plan In my medical judgment there is currently no evidence of an immediate life- threatening or surgical condition. Discharge is therefore indicated at this time. Discharge treatment instructions, follow up instructions, and appropriate emergency department return precautions were discussed with the patient and/or medical decision maker. Patient and/or medical decision maker expressed understanding of and agreed with the treatment plan, follow up instructions, and emergency department return precaution. All patient's and/or medical decision maker's questions were answered. The patient was advised that a small risk still exists that a serious condition could develop and was therefore instructed to return to the ED for any changes in symptoms, persistent symptoms, inability to obtain proper follow-up or for any further concerns. Patient received verbal and written instructions for this condition. Undiagnosed new problem with uncertain prognosis? @ -No Drug Therapy requiring intensive monitoring for toxicity (Heparin, Nitro, Insulin, Cardizem)? @ -No Were any procedures done? @ -No Diagnosis/symptom? @ -Dizziness Acute, or Chronic, or Acute on Chronic? @ -Acute Uncomplicated (without systemic symptoms) or Complicated (systemic symptoms)? @ -Complicated Side effects of treatment? @ -No Exacerbation, Progression, or Severe Exacerbation? @ -No Poses a threat to life or bodily function? How? (Chest pain, [place], [place], pneumonia, PE, COPD, DKA, ARF, appy, cholecystitis, CVA, Diverticulitis, Homicidal, Suicidal, threat to staff... and all critical care pts) @ unlikely - Lab Data Result diagrams: 03/17/24 12:48 03/17/24 12:48 Lab Results 03/17/24 03/17/24 03/17/24 Range/Units 12:48 12:48 12:48 WBC 8.2 (3.8-10.6) k/uL RBC 5.18 (4.30-5.90) m/uL Hgb 15.9 (13.0-17.5) gm/dL Hct 47.6 (39.0-53.0) % MCV 91.9 (80.0-100.0) fL MCH 30.7 (25.0-35.0) pg MCHC 33.4 (31.0-37.0) g/dL RDW 13.9 (11.5-15.5) % Plt Count 284 (150-450) k/uL MPV 7.7 Neutrophils % 69 % Lymphocytes % 20 % Monocytes % 8 % Eosinophils % 1 % Basophils % 0 % Neutrophils # 5.7 (1.3-7.7) k/uL Lymphocytes # 1.6 (1.0-4.8) k/uL Monocytes # 0.7 (0-1.0) k/uL Eosinophils # 0.1 (0-0.7) k/uL Basophils # 0.0 (0-0.2) k/uL PT 11.1 (10.0-12.5) sec INR 1.0 (<1.2) Sodium 140 (137-145) mmol/L Potassium 4.5 (3.5-5.1) mmol/L Chloride 105 (98-107) mmol/L Carbon Dioxide 29 (22-30) mmol/L Anion Gap 6 mmol/L BUN 13 (9-20) mg/dL Creatinine 0.50 L (0.66-1.25) mg/dL Est GFR (CKD-EPI)AfAm >90 (>60 ml/min/1.73 sqM) Est GFR (CKD-EPI)NonAf >90 (>60 ml/min/1.73 sqM) Glucose 87 (74-99) mg/dL Calcium 9.9 (8.4-10.2) mg/dL Magnesium 1.8 (1.6-2.3) mg/dL Total Bilirubin 0.8 (0.2-1.3) mg/dL AST 23 (17-59) U/L ALT 19 (4-49) U/L Alkaline Phosphatase 76 (38-126) U/L Troponin I (0.000-0.034) ng/mL Total Protein 7.3 (6.3-8.2) g/dL Albumin 4.5 (3.5-5.0) g/dL 03/17/24 Range/Units 12:48 WBC (3.8-10.6) k/uL RBC (4.30-5.90) m/uL Hgb (13.0-17.5) gm/dL Hct (39.0-53.0) % MCV (80.0-100.0) fL MCH (25.0-35.0) pg MCHC (31.0-37.0) g/dL RDW (11.5-15.5) % Plt Count (150-450) k/uL MPV Neutrophils % % Lymphocytes % % Monocytes % % Eosinophils % % Basophils % % Neutrophils # (1.3-7.7) k/uL Lymphocytes # (1.0-4.8) k/uL Monocytes # (0-1.0) k/uL Eosinophils # (0-0.7) k/uL Basophils # (0-0.2) k/uL PT (10.0-12.5) sec INR (<1.2) Sodium (137-145) mmol/L Potassium (3.5-5.1) mmol/L Chloride (98-107) mmol/L Carbon Dioxide (22-30) mmol/L Anion Gap mmol/L BUN (9-20) mg/dL Creatinine (0.66-1.25) mg/dL Est GFR (CKD-EPI)AfAm (>60 ml/min/1.73 sqM) Est GFR (CKD-EPI)NonAf (>60 ml/min/1.73 sqM) Glucose (74-99) mg/dL Calcium (8.4-10.2) mg/dL Magnesium (1.6-2.3) mg/dL Total Bilirubin (0.2-1.3) mg/dL AST (17-59) U/L ALT (4-49) U/L Alkaline Phosphatase (38-126) U/L Troponin I <0.012 (0.000-0.034) ng/mL Total Protein (6.3-8.2) g/dL Albumin (3.5-5.0) g/dL Disposition Clinical Impression: Dizziness Disposition: HOME SELF-CARE Condition: Good Additional Instructions: Every disease is a spectrum and a small chance still exists that a serious condition could develop, for this reason, please monitor yourself closely for new, changing or worsening symptoms, symptoms that return/persist or do not improve in an hour, palpitations, shortness of breath, chest pain, feeling like you are going to pass out, inability to tolerate/keep down fluids or your medications, inability to follow up with outpatient providers as instructed and should you experience these symptoms or should you have any further concerns for your wellbeing please return to the ED or call 911 immediately. PLEASE call your primary care physician as soon as possible to arrange / discuss plan for followup appointment. Appointment in the next 1-3 days is strongly encouraged if possible. PLEASE let us know here before you leave if there is anything further we can do to be of any assistance. Take care and feel Better! Prescriptions: Magnesium Oxide [Mag-Oxide] 200 mg PO DAILY #3 tablet Is patient prescribed a controlled substance at d/c from ED?: No Referrals: Jairon Dominguez MD [Primary Care Provider] - 1-2 days Hany Fabian DO [STAFF PHYSICIAN] - 1-2 days Time of Disposition: 14:42
[2024-03-17] MEDS: ACETAMINOPHEN TAB 500 MG TAB PO STA (13:01)
[2024-03-17] MEDS: MECLIZINE 12.5 MG TAB PO STA (13:02)
[2024-03-17] MEDS: SODIUM CHLORIDE 0.9% 1,000 ML IV STA (13:02)
--- NOTE | 2024-03-17 13:04 | CT ---
EXAMINATION TYPE: CT brain wo con DATE OF EXAM: 03/17/2024 COMPARISON: None HISTORY: dizzy, headache CT DLP: 1138.8 mGycm. Automated Exposure Control for Dose Reduction was Utilized. TECHNIQUE: CT scan of the head is performed without contrast. FINDINGS: There is no acute intracranial hemorrhage, mass effect, or midline shift identified. The ventricles and sulci are within normal limits in size. The globes are intact and mild changes of ch ronic sinusitis. Punctate calcification in the basal ganglia.. IMPRESSION: No acute intracranial hemorrhage, mass effect, or midline shift is seen.
--- NOTE | 2024-03-17 13:05 | XR ---
EXAMINATION TYPE: XR chest 2V DATE OF EXAM: 03/17/2024 COMPARISON: 12/30/2020 HISTORY: 33-year-old male dizziness TECHNIQUE: PA and lateral views FINDINGS: The cardiomediastinal silhouette, aorta, and pulmonary vasculature are within normal limits. Lungs an d pleural spaces are clear. IMPRESSION: No acute cardiopulmonary process.
[2024-03-17 13:33] LABS: Basophils % (A) 0 %; Eosinophils # (A) 0.1 k/uL (0-0.7); Eosinophils % (A) 1 %; HCT 47.6 % (39.0-53.0); HGB 15.9 gm/dL (13.0-17.5); Lymphocytes # (A) 1.6 k/uL (1.0-4.8); Lymphocytes % (A) 20 %; MCH 30.7 pg (25.0-35.0); MCHC 33.4 g/dL (31.0-37.0); MCV 91.9 fL (80.0-100.0); Mean Platelet Volume 7.7; Monocytes # (A) 0.7 k/uL (0-1.0); Monocytes % (A) 8 %; Neutrophils # (A) 5.7 k/uL (1.3-7.7); Neutrophils % (A) 69 %; Platelet Count 284 k/uL (150-450); RBC 5.18 m/uL (4.30-5.90); RDW 13.9 % (11.5-15.5); WBC 8.2 k/uL (3.8-10.6)
[2024-03-17 13:41] LABS: Prothrombin Time 11.1 sec (10.0-12.5)
[2024-03-17 13:47] LABS: ALT 19 U/L (4-49); AST 23 U/L (17-59); African American GFR (CKD) >90 (>60 ml/min/1.73 sqM); Albumin 4.5 g/dL (3.5-5.0); Alkaline Phosphatase 76 U/L (38-126); Anion Gap 6 mmol/L; Blood Urea Nitrogen 13 mg/dL (9-20); Calcium 9.9 mg/dL (8.4-10.2); Carbon Dioxide 29 mmol/L (22-30); Chloride 105 mmol/L (98-107); Glucose 87 mg/dL (74-99); Magnesium 1.8 mg/dL (1.6-2.3); Non-African American GFR(CKD) >90 (>60 ml/min/1.73 sqM); Potassium 4.5 mmol/L (3.5-5.1); Sodium 140 mmol/L (137-145); Total Bilirubin 0.8 mg/dL (0.2-1.3); Total Protein 7.3 g/dL (6.3-8.2)
[2024-03-17] MEDS ORDERED: MAGNESIUM SULFATE-D5W PMX 1 GM in DEXTROSE/WATER 1 100ML.BAG IVPB SCH (14:30)
[2024-03-17] MEDS: MAGNESIUM OXIDE 400 MG TAB PO STA (14:47)
[2024-03-17 14:52] VITALS: BP 140/91; PULSE 57; RESP 18
== END 2024-03-17 14:59 | disposition home or self-care (01) ==
LOC: EC 10:38
CPT/HCPCS: 36415; 70450; 71046; 80053; 83735; 84484; 85025; 85610; 93005; 96360; 99284